=== PATIENT | female | born 1990 | race Caucasian/White ===

== ENCOUNTER 2016-10-15 09:11 | Emergency (ER) | payer OTHER ==
[~2016-10-15] VITALS: Ht 152.4 cm; Wt 99.8 kg
[~2016-10-15 09:11] MED LIST: AC500T; AC500T PO; ACET-2222; ACHD5005 PO; ALBU17AE3 IH; AMIT10TA6 PO; AMIT25TA9 PO; AMOX500C2 PO; BACL10TA PO; BUTA-234; CEPH500C PO; CLAR-19 PO; CPR500T PO; CYCL10TA9; CYCL10TA9 PO; DCS100C PO; DEXA4TAB PO; DICL50TA4 PO; DICY10CA26 PO; DICY20TA57 PO; DILT120C54 PO; DIPH1TAB25 PO; DIPH25TA82 PO; DOXY-13 PO; DOXY100C2 PO; DOXY100C49; DULO30CA PO; GABA800T9 PO; GBPN600T PO; GUAI120013 PO; HYDR-34 PO; HYDR-3714 PO; HYDR-3812 PO; HYDR-3820 PO; HYDR-707 PO; HYDR-757 PO; HYDR1TAB PO; HYOS0.1217 PO; IBP800T PO; IMITREX; INDM25C; ISOM1CAP11; LAMO5TAB2 PO; LOPE2TAB17 PO; LURA40TA PO; MECL25TA56 PO; MELO-195 PO; MELO15TA39 PO; METH500T7 PO; METO-354 PO; METR250T PO; METR500T; METR500T PO; MGX400T; NADALOL; NADO20TA PO; NAPR-243 PO; NAPR-684 PO; NAPR500T PO; NAPROSYN; NITR-65 PO; NITR100C3 PO; OMEP-10 PO; OMEP10CA4 PO; OMEP20CA6; ONDA4TAB11 PO; ONDA8TAB13 PO; ONDAN4ODT; ONDAN4ODT PO; ONDN4T; OXYC10TA63 PO; PENI250T2 PO; PNT40TEC PO; PRD10T PO; PRD20T PO; PRD50T PO; PREG25CA PO; PREN1TAB39 PO; PRM25T PO; PROM12.59 PO; PROM25SU10 PR; PROP1TAB77 PO; QUET50TA; RIZA10TA23 PO; RIZA5TAB13; SUCR1TAB PO; SULF1TAB38; SULF1TAB38 PO; TEMA15CA54 PO; TIZA4TAB55 PO; TOPAMAX; TPR100T; TRAM50TA2 PO; TRAZ150T42 PO; TRAZ150T72 PO; TRM50T PO; TYLENOL #3 PO; ZLP10T PO; [UNRECOGNIZED DRUG - OTHER]; propranolol
--- NOTE | 2016-10-15 10:24 | ED EENT ---
History of Present Illness General Chief Complaint: Oral/Throat Problems Stated Complaint: SWOLLEN TONSILS/VOMITING Nursing Triage Note: PT CO OF SORETHROAT Source: patient History of Present Illness Time seen by provider: 09:30 Initial Comments CO SORE THROAT X 3-4 DAYS NO FEVER NO URI SYMPTOMS NO KNOWN SICK CONTACTS HAVING DIFFICULTY SWALLOWING FOOD DUE TO PAIN, BUT NO DIFFICULTY SWALLOWING SALIVA OR BREATHING. ABLE TO SWALLOW LIQUIDS HAS HISTORY OF FREQUENT TONSILLITIS--LAST EPISODE 2-3 MONTHS AGO PCP: DR. LOUIS Allergies and Home Medications Allergies Coded Allergies: Mustard (Unverified Allergy, Mild, 08/21/10) gadoteridol (Unverified Allergy, Mild, 11/26/09) bee venom (honey bee) (Verified Allergy, Unknown, 06/07/12) Uncoded Allergies: GOINS PEPPERS (Allergy, Unknown, 03/19/15) MRI DYE (Adverse Reaction, Unknown, 12/18/12) Home Medications No Active Prescriptions or Reported Meds Review of Systems Constitutional: no symptoms reported Eyes: No Symptoms Reported Ears: No Symptoms Reported Nose: no symptoms reported Mouth: no symptoms reported Throat: see HPI pain swellingdenies neck stiffness, hoarse painful swallowingdenies difficulty with fluids Respiratory: no symptoms reported Cardiovascular: no symptoms reported Gastrointestinal: no symptoms reported Musculoskeletal: no symptoms reported Skin: no symptoms reported Neurological: No Symptoms Reported Hematologic/Lymphatic: No Symptoms Reported Immunological/Allergic: no symptoms reported Past Smjgzof-Sapulk-Nyfhhf Hx Patient Social History Alcohol Use: Denies Use Recreational Drug Use: No Smoking Status: Never a Smoker Recent Foreign Travel: No Contact w/Someone Who Travel: No Recent Infectious Disease Expo: No Physical Abuse Screen: No Sexual Abuse: No Immunizations Up To Date Tetanus Booster (TDap): Unknown Date of Pneumonia Vaccine: Aug 16, 2009 Date of Influenza Vaccine: Jul 15, 2011 Seasonal Allergies Seasonal Allergies: No Surgeries HX Surgeries: Yes ( X2, PARTIAL HYST--OVARIES INTACT; LEFT KNEE SCOPE , RIGHT SHOULDER SCOPE) Surgeries: Section, Gallbladder, Hysterectomy, Orthopedic Respiratory Hx Respiratory Disorders: No Cardiovascular Hx Cardiac Disorders: No Neurological Hx Neurological Disorders: Yes Neurological Disorders: Headaches /Migraines Reproductive System Hx Reproductive Disorders: No Sexually Transmitted Disease: Yes (chlamydia before -2008) Female Reproductive Disorders: Endometriosis BAND SAWYER History: Hysterectomy Genitourinary Hx Genitourinary Disorders: No Gastrointestinal Hx Gastrointestinal Disorders: No Musculoskeletal Hx Musculoskeletal Disorders: Yes (SPINAL STENOSIS) Musculoskeletal Disorders: Arthritis, Chronic Back Pain Endocrine Hx Endocrine Disorders: No HEENT HX ENT Disorders: No Cancer Hx Cancer: No Psychosocial Hx Psychiatric Problems: Yes Behavioral Health Disorders: Bipolar Integumentary HX Skin/Integumentary Disorder: No Blood Transfusions Hx Blood Disorders: No Family Medical History Significant Family History: No Pertinent Family Hx Physical Exam Vital Signs Vital Sign - Last 12Hours 10/15/16 09:20 Temp 98.5 Pulse 73 Resp 18 B/P 143/93 Pulse Ox 97 General Appearance: WD/WN no apparent distress Eyes: bilateral eye EOMI, bilateral eye PERRL, bilateral eye normal inspection Ears: bilateral ear TM normal, bilateral ear auricle normal, bilateral ear canal normal Nose: normal inspection Mouth/Throat: No excessive drooling, tonsillar exudate tonsillar swelling (+3/ 4 IN SIZE) uvula swelling voice changes (SLIGHTLY MUFFLED) Neck: non-tender full range of motion supple lymphadenopathy (R) (MILD ANTERIOR) lymphadenopathy (L) (MILD ANTERIOR) Cardiovascular: normal peripheral pulses regular rate, rhythm no murmur Respiratory: normal breath sounds no respiratory distress no accessory muscle use Gastrointestinal: normal bowel sounds non tender soft no organomegaly Neurologic/Psychiatric: 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-XII nml as tested no motor/sensory deficits alert normal mood/affect oriented x 3 Skin: normal color warm/dryNo rash Progress/Results/Core Measures Results/Orders Lab Results Laboratory Tests Test 10/15/16 09:20 10/15/16 10:15 Range/Units Group A Streptococcus Screen NEGATIVE NEGATIVE Monoscreen NEGATIVE NEGATIVE My Orders Orders-MINE TRAN DO Rapid Strep A Screen (10/15/16 09:32) Monotest (10/15/16 09:54) Rocephin 1000mg Im (10/15/16 10:45) Lidocaine 1% Injection (Xylocaine 1% Inj (10/15/16 10:45) Methylprednisolone Sod Succ (Solu-Medrol (10/15/16 10:45) Vital Signs/I&O Vital Sign - Last 12Hours 10/15/16 09:20 Temp 98.5 Pulse 73 Resp 18 B/P 143/93 Pulse Ox 97 Blood Pressure Mean: 110 Departure Impression Impression: Primary Impression: Exudative pharyngitis Disposition: 01 HOME, SELF-CARE Condition: Stable Departure-Patient Inst. Referrals: TED LOUIS MD (PCP/Family) Primary Care Physician Patient Instructions: Sore Throat, Adult (DC) Add. Discharge Instructions: LOTS OF CLEAR LIQUIDS FREQUENT SALT WATER GARGLES TYLENOL AND MOTRIN NEEDED FOR PAIN OR FEVER FOLLOW UP WITH YOUR DR IN 2-3 DAYS IF NO BETTER All discharge instructions reviewed with patient and/or family. Voiced understanding. Scripts Methylprednisolone (Medrol)4 Mg Tab.ds.pk4 Mg PO UD #1 PKG Prov:MINE TRAN DO 10/15/16 Amoxicillin/Potassium Clav (Augmentin 875-125 Tablet)1 Each Tablet1 Each PO BID INFECTION #20 TAB Prov:MINE TRAN DO 10/15/16 MINE TRAN DO Oct 15, 2016 10:24
[2016-10-15] MEDS ORDERED: methylPREDNISolone 125 MG (Solu-MEDROL) VIAL IM ONE (10:45)
[2016-10-15] MEDS ORDERED: cefTRIAXone 1 GM (ROCEPHIN) VIAL IM ONE (10:45)
[2016-10-15] MEDS ORDERED: LIDOCAINE 1% INJ 20 ML (XYLOCAINE) VIAL INJ ONE (10:45)
[2016-10-15] MEDS ORDERED: METH4TAB PO (10:47)
[2016-10-15] MEDS ORDERED: AMOX-358 PO (10:47)
[2016-10-15 11:13] VITALS: BP 143/93
== END 2016-10-15 11:13 | disposition home or self-care (01) ==
LOC: EDUNIT# 09:11 → ER 09:13
DX: J02.9 Acute pharyngitis, unspecified (principal)
CPT/HCPCS: 36415; 86308; 87430; 96372; 99283

== ENCOUNTER 2017-01-13 18:28 | Emergency (ER) | payer OTHER ==
[~2017-01-13] VITALS: Ht 152.4 cm; Wt 93.0 kg
[~2017-01-13 18:28] MED LIST changes: +AMOX-358 PO; +METH4TAB PO
[2017-01-13] MEDS ORDERED: ONDANSETRON 4 MG (ZOFRAN) ORAL DISSOLVE TAB SL ONE (18:45)
[2017-01-13] MEDS ORDERED: HYOSCYAMINE 0.125 MG (LEVSIN) TAB PO ONE (18:45)
[2017-01-13 18:52] LABS: BILIRUBIN,URINE NEGATIVE (NEGATIVE); KETONES,URINE NEGATIVE (NEGATIVE); LEUKOCYTE ESTERASE ,URINE NEGATIVE (NEGATIVE); NITRITE,URINE NEGATIVE (NEGATIVE); PH,URINE 7 (5-9); PROTEIN,URINE NEGATIVE (NEGATIVE); UROBILINOGEN,URINE NORMAL (NORMAL)
[2017-01-13 19:01] LABS: WBC,URINE RARE /HPF
[2017-01-13] MEDS ORDERED: KETOROLAC 30 MG/ML VIAL IVP ONE (19:45)
[2017-01-13 19:51] LABS: BASOPHILS # (AUTO) 0.1 10^3/uL (0.0-0.1); BASOPHILS % (AUTO) 1 % (0-10); EOSINOPHILS # (AUTO) 0.4 10^3/uL (0.0-0.3); EOSINOPHILS % (AUTO) 3 % (0-10); LYMPHOCYTES # (AUTO) 2.9 X 10^3 (1.0-4.0); LYMPHOCYTES % (AUTO) 28 % (12-44); MEAN CORPUSCULAR HEMOGLOBIN 30 PG (25-34); MEAN CORPUSCULAR HGB CONC 34 G/DL (32-36); MEAN CORPUSCULAR VOLUME 88 FL (80-99); MEAN PLATELET VOLUME 11.4 FL (7.4-10.4); MONOCYTES # (AUTO) 0.9 X 10^3 (0.0-1.0); MONOCYTES % (AUTO) 9 % (0-12); NEUTROPHILS # (AUTO) 6.3 X 10^3 (1.8-7.8); NEUTROPHILS % (AUTO) 59 % (42-75); PLATELET COUNT 236 10^3/uL (130-400); RED BLOOD COUNT 4.66 10^6/uL (4.35-5.85); RED CELL DISTRIBUTION WIDTH 13.6 % (10.0-14.5); WHITE BLOOD COUNT 10.6 10^3/uL (4.3-11.0)
[2017-01-13] MEDS ORDERED: cefTRIAXone INJECTION 1,000 MG in NS (IVPB) 50 ML IV ONE (20:00)
[2017-01-13] MEDS ORDERED: ACYCLOVIR 400 MG TABLET (ZOVIRAX) PO ONE (20:00)
[2017-01-13] MEDS ORDERED: AZITHROMYCIN 250 MG TAB (ZITHROMAX) PO ONE (20:00)
[2017-01-13] MEDS ORDERED: cefTRIAXone 1 GM (ROCEPHIN) VIAL ONE (20:04)
[2017-01-13] MEDS ORDERED: NS (IVPB) 50 ML ONE (20:05)
[2017-01-13 20:34] LABS: ALANINE AMINOTRANSFERASE 14 U/L (0-55); ALBUMIN 4.1 G/DL (3.2-4.5); ANION GAP 8 MMOL/L (5-14); ASPARTATE AMINO TRANSFERASE 13 U/L (5-34); BILIRUBIN,TOTAL 0.3 MG/DL (0.1-1.0); BLOOD UREA NITROGEN 13 MG/DL (7-18); BUN/CREATININE RATIO 19; CALCIUM 8.8 MG/DL (8.5-10.1); CARBON DIOXIDE 22 MMOL/L (21-32); CHLORIDE 107 MMOL/L (98-107); CREATININE SERUM 0.69 MG/DL (0.60-1.30); GFR ESTIMATED > 60; GLUCOSE 87 MG/DL (70-105); POTASSIUM 3.8 MMOL/L (3.6-5.0); SODIUM 137 MMOL/L (135-145); TOTAL PROTEIN 6.9 G/DL (6.4-8.2); hs C REACTIVE PROTEIN 0.56 MG/DL (0.00-0.50)
[2017-01-13] MEDS ORDERED: RX-ONDANSETRON 4 MG ODT (ZOFRAN) PPK #4 PO STA (20:43)
[2017-01-13] MEDS ORDERED: ACYC400T PO (20:52)
--- NOTE | 2017-01-13 20:52 | ED General ---
General Chief Complaint: -Female Stated Complaint: CRAMPING/SPOTTING Nursing Triage Note: PT REPORTS THAT SHE STARTED SPOTTING LAST NOC AND TODAY BEGAN HAVING LOWER ABD CRAMPING. Nursing Sepsis Screen: No Definite Risk Source of Information: Patient Exam Limitations: No Limitations History of Present Illness Time Seen by Provider: 18:36 Initial Comments this 26-year-old woman presents to the emergency room with complaints of abdominal cramping, vomiting, diarrhea, and vaginal spotting. Symptoms started yesterday. The vaginal spotting is perplexing to her because she has had a partial hysterectomy for reasons of endometriosis. Symptoms did start after having intercourse. Patient's partner is relatively new and has had another partner within the past month. Patient is afebrile. Allergies and Home Medications Allergies Coded Allergies: gadoteridol (Unverified Allergy, Mild, 11/26/09) mustard (Unverified Allergy, Mild, 08/21/10) venom-honey bee (Verified Allergy, Unknown, 06/07/12) Uncoded Allergies: GOINS PEPPERS (Allergy, Unknown, 03/19/15) MRI DYE (Adverse Reaction, Unknown, 12/18/12) Home Medications Acyclovir 400 Mg Tablet, 400 MG PO TID, #30 Prescribed by: KAMILA SANABRIA on 01/13/172051 Amoxicillin/Potassium Clav 1 Each Tablet, 1 EACH PO BID, #20 Prescribed by: MINE TRAN on 10/15/16 1047 Methylprednisolone 4 Mg Tab.ds.pk, 4 MG PO UD, #1 Prescribed by: MINE TRAN on 10/15/16 1047 Constitutional: no symptoms reported EENTM: no symptoms reported Respiratory: no symptoms reported Cardiovascular: no symptoms reported Gastrointestinal: see HPI Genitourinary: see HPI : No Musculoskeletal: no symptoms reported Skin: no symptoms reported Psychiatric/Neurological: No Symptoms Reported Hematologic/Lymphatic: No Symptoms Reported Past Nlwvrae-Cechah-Gmlkpt Hx Patient Social History Alcohol Use: Denies Use Recreational Drug Use: No Smoking Status: Current Everyday Smoker Type Used: Cigarettes 2nd Hand Smoke Exposure: No Recent Foreign Travel: No Contact w/Someone Who Travel: No Recent Infectious Disease Expo: No Recent Hopitalizations: No Immunizations Up To Date Tetanus Booster (TDap): Unknown Date of Pneumonia Vaccine: Aug 16, 2009 Date of Influenza Vaccine: Jul 15, 2011 Seasonal Allergies Seasonal Allergies: No Surgeries HX Surgeries: Yes Surgeries: Section, Gallbladder, Hysterectomy (sparing the ovaries), Orthopedic Respiratory Hx Respiratory Disorders: No Cardiovascular Hx Cardiac Disorders: No Neurological Hx Neurological Disorders: Yes Neurological Disorders: Headaches /Migraines Reproductive System Hx Reproductive Disorders: No Sexually Transmitted Disease: Yes (chlamydia before -2009) Female Reproductive Disorders: Endometriosis 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 Genitourinary Hx Genitourinary Disorders: No Gastrointestinal Hx Gastrointestinal Disorders: No Musculoskeletal Hx Musculoskeletal Disorders: Yes (SPINAL STENOSIS) Musculoskeletal Disorders: Arthritis, Chronic Back Pain Endocrine Hx Endocrine Disorders: No HEENT HX ENT Disorders: No Cancer Hx Cancer: No Psychosocial Hx Psychiatric Problems: Yes Behavioral Health Disorders: Bipolar Integumentary HX Skin/Integumentary Disorder: No Blood Transfusions Hx Blood Disorders: No Family Medical History Significant Family History: No Pertinent Family Hx Physical Exam Vital Signs Vital Sign - Last 12Hours 01/13/17 18:39 Temp 97.3 Pulse 84 Resp 18 B/P (MAP) 140/84 Pulse Ox 98 O2 Delivery Room Air Capillary Refill : Less Than 3 Seconds General Appearance: WD/WN, Mild Distress HEENT: Normal ENT Inspection Neck: Normal Inspection Respiratory: Lungs Clear, Normal Breath Sounds, No Accessory Muscle Use, No Respiratory Distress Cardiovascular: Regular Rate, Rhythm, No Edema, No Murmur Gastrointestinal: Normal Bowel Sounds, Soft, Tenderness (throughout the lower abdomen) Rectal: Other (no obvious bleeding near the rectum) Genital/Rectal: Other (small furuncle on the posterior upper right thigh near the buttocks. Patchy vaginal inflammation on speculum exam. No active bleeding noted. Tenderness with vaginal exam.) Extremity: Normal Inspection, No Pedal Edema Neurologic/Psychiatric: Alert, Oriented x3, No Motor/Sensory Deficits, Normal Mood/Affect, powerhouse mechanic II-XII Norm as Tested Skin: Normal Color, Warm/Dry Progress/Results/Core Measures Results/Orders Lab Results Laboratory Tests Test 01/13/17 18:46 01/13/17 19:30 01/13/17 19:42 Range/Units Urine Color YELLOW Urine Clarity CLEAR Urine pH 7 5-9 Urine Specific [place] 1.015 L 1.016-1.022 Urine Protein NEGATIVE NEGATIVE Urine Glucose (UA) NEGATIVE NEGATIVE Urine Ketones NEGATIVE NEGATIVE Urine Nitrite NEGATIVE NEGATIVE Urine Bilirubin NEGATIVE NEGATIVE Urine Urobilinogen NORMAL NORMAL MG/DL Urine Leukocyte Esterase NEGATIVE NEGATIVE Urine RBC (Auto) NEGATIVE NEGATIVE Urine RBC NONE /HPF Urine WBC RARE /HPF Urine Squamous Epithelial Cells 5-10 /HPF Urine Crystals NONE /LPF Urine Bacteria NEGATIVE /HPF Urine Casts NONE /LPF Urine Mucus NEGATIVE /LPF Urine Culture Indicated NO White Blood Count 10.6 4.3-11.0 10^3/uL Red Blood Count 4.66 4.35-5.85 10^6/uL Hemoglobin 14.1 11.5-16.0 G/DL Hematocrit 41 35-52 % Mean Corpuscular Volume 88 80-99 FL Mean Corpuscular Hemoglobin 30 25-34 PG Mean Corpuscular Hemoglobin Concent 34 32-36 G/DL Red Cell Distribution Width 13.6 10.0-14.5 % Platelet Count 236 130-400 10^3/uL Mean Platelet Volume 11.4 H 7.4-10.4 FL Neutrophils (%) (Auto) 59 42-75 % Lymphocytes (%) (Auto) 28 12-44 % Monocytes (%) (Auto) 9 0-12 % Eosinophils (%) (Auto) 3 0-10 % Basophils (%) (Auto) 1 0-10 % Neutrophils # (Auto) 6.3 1.8-7.8 X 10^3 Lymphocytes # (Auto) 2.9 1.0-4.0 X 10^3 Monocytes # (Auto) 0.9 0.0-1.0 X 10^3 Eosinophils # (Auto) 0.4 H 0.0-0.3 10^3/uL Basophils # (Auto) 0.1 0.0-0.1 10^3/uL Sodium Level 137 135-145 MMOL/L Potassium Level 3.8 3.6-5.0 MMOL/L Chloride Level 107 98-107 MMOL/L Carbon Dioxide Level 22 21-32 MMOL/L Anion Gap 8 5-14 MMOL/L Blood Urea Nitrogen 13 7-18 MG/DL Creatinine 0.69 0.60-1.30 MG/DL Estimat Glomerular Filtration Rate > 60 BUN/Creatinine Ratio 19 Glucose Level 87 70-105 MG/DL Calcium Level 8.8 8.5-10.1 MG/DL Total Bilirubin 0.3 0.1-1.0 MG/DL Aspartate Amino Transf (AST/SGOT) 13 5-34 U/L Alanine Aminotransferase (ALT/SGPT) 14 0-55 U/L Alkaline Phosphatase 71 40-136 U/L C-Reactive Protein High Sensitivity 0.56 H 0.00-0.50 MG/DL Total Protein 6.9 6.4-8.2 G/DL Albumin 4.1 3.2-4.5 G/DL My Orders Orders - KAMILA MORALES MD Ua Culture If Indicated (01/13/17 18:42) Hyoscyamine Sl Tablet (Levsin Sl Tablet) (01/13/17 18:45) Ondansetron Oral Dissolve Tab (Zofran (01/13/17 18:45) Ketorolac Injection (Toradol Injection) (01/13/17 19:45) Cbc With Automated Diff (01/13/17 19:33) Comprehensive Metabolic Panel (01/13/17 19:33) Hs C Reactive Protein (01/13/17 19:33) Wet Prep (01/13/17 19:33) Neisseria Gonorrhea Dna (01/13/17 19:33) Chlamydia Dna (01/13/17 19:33) Genital Culture (01/13/17 19:33) Mariana Prep (01/13/17 19:33) Ceftriaxone Injection (Rocephin Injectio (01/13/17 20:00) Azithromycin Tablet (Zithromax Tablet) (01/13/17 20:00) Acyclovir Capsule/Tablet (Zovirax Caps (01/13/17 20:00) Ceftriaxone Injection (Rocephin Injectio (01/13/17 20:04) Ns (Ivpb) (Sodium Chloride 0.9% Ivpb Bag (01/13/17 20:05) Rx-Ondansetron Po (Rx-Zofran Po) (01/13/17 20:43) Medications Given in ED Current Medications Medications Dose Ordered Sig/Vee Route Start Time Stop Time Status Last Admin Dose Admin Acyclovir 400 mg ONCE ONCE PO 01/13/17 20:00 01/13/17 20:01 DC 01/13/17 20:08 400 MG Azithromycin 1,000 mg ONCE ONCE PO 01/13/17 20:00 01/13/17 20:01 DC 01/13/17 20:08 1,000 MG Ceftriaxone Sodium 1000 mg/ Sodium Chloride 50 ml @ 100 mls/hr ONCE ONCE IV 01/13/17 20:00 01/13/17 20:35 DC 01/13/17 20:08 100 MLS/HR Ketorolac Tromethamine 30 mg ONCE ONCE IVP 01/13/17 19:45 01/13/17 19:46 DC 01/13/17 19:41 30 MG Vital Signs/I&O Vital Sign - Last 12Hours 01/13/17 21:02 Pulse 68 Resp 18 Pulse Ox 99 Intake and Output 01/14/17 00:00 Intake Total 50 ml Balance 50 ml Blood Pressure Mean: 102 Progress Note : Progress Note White cells were noted on the preliminary vaginal swab without any other significant abnormalities. Because of the possible high-risk sexual exposure, patient was empirically treated with azithromycin and Rocephin. She was also treated with acyclovir as the vaginal irritation was suspicious for herpes. Toradol was administered for pain.Zofran helped with nausea but cramping was intermittently still present. Departure Impression Impression: Primary Impression: Abdominal pain, left lower quadrant Additional Impressions: Abdominal cramping Nausea vomiting and diarrhea Vaginal bleeding Vaginal irritation Disposition: 01 HOME, SELF-CARE Condition: Improved Departure-Patient Inst. Decision time for Depature: 20:40 Referrals: TED LOUIS MD (PCP/Family) Primary Care Physician Patient Instructions: Acute Abdomen (Belly Pain) Add. Discharge Instructions: Clear liquid diet until symptoms of nausea and diarrhea improved. Then gradually advance your diet with small quantities of bland food as tolerated. Follow-up with your gynecologic provider in 5-10 weeks to review culture results. Complete acyclovir as prescribed. Return to care if symptoms worsen. Vaginal rest until cleared by your doctor. Use Zofran dissolved under the tongue every 4 hours as needed for nausea. Use Tylenol and/or ibuprofen for pain. All discharge instructions reviewed with patient and/or family. Voiced understanding. Scripts Acyclovir (Acyclovir) 400 Mg Tablet 400 MG PO TID, #30 TAB Prov: KAMILA MORALES MD 01/13/17 Copy Copies To 1: TED LOUIS MD, JOSHUA T MD Jan 13, 2017 20:52
[2017-01-13 21:02] VITALS: BP 117/72
--- OUTSIDE RECORDS SUMMARY | 2017-02-06 09:39 | XMS REPORT ---
Author Author SHAWNA SHARMA Organization [employer] Address Unknown Phone Unavailable Care Team Providers Care Frame Fixer Name Role Phone SHAWNA SHARMA CP Unavailable Allergies No Known Allergies Problems Problem Type Condition Code Onset Dates Condition Status Problem Unspecified episodic mood disorder 296.90 Active Problem Carpal tunnel syndrome 354.0 Active Problem Migraine without aura, without mention of intractable migraine without mention of status migrainosus 346.10 Active Assessment Plantar fasciitis M72.2 Active Medications No Known Medications Procedures Procedure Coding System Code Date DEPO MEDROL 80 MG/ML CPT-4 J1040 Sep 03, 2015 Office Visit, Est Pt., Level 3 CPT-4 81401 Sep 03, 2015 INJ TENDON SHEATH/LIGAMENT CPT-4 12823 Sep 03, 2015 Vital Signs Date/Time: Sep 03, 2015 Blood Pressure Diastolic 80 mmHg Blood Pressure Systolic 130 mmHg Height 60 in Results Name Result Date Reference Range Unit Abnormality Flag INJ TENDON SHEATH/LIGAMENT Summary Purpose [employer] Submission
--- OUTSIDE RECORDS SUMMARY | 2017-02-06 09:39 | XMS REPORT ---
Author Author TED LOUIS [facility] [employer] Address Unknown Phone Unavailable Care Team Providers Care Global President Name Role Phone TED LOUIS Unavailable Allergies No Known Allergies Problems Problem Type Condition Code Onset Dates Condition Status Problem Low back pain M54.5 Active Problem Chronic prescription opiate use Z79.899 Active Problem Migraine with aura and without status migrainosus, not intractable G43.109 Active Assessment Elevated fasting glucose R73.01 Active Medications No Known Medications Results No Known Results Summary Purpose [employer] Submission
--- OUTSIDE RECORDS SUMMARY | 2017-02-06 09:40 | XMS REPORT ---
Author Author HERIBERTO TED Organization [facility] Address [address] [place] [address] Care Team Providers Care Manager Nursing Home Name Role Phone TED LOUIS Unavailable PROBLEMS Type Condition ICD9-CM Code [id number] Code Onset Dates Condition Status SNOMED Code Problem Migraine with aura and without status migrainosus, not intractable G43.109 Active 6088326 Problem Low back pain M54.5 Active 361560271 Problem Chronic prescription opiate use Z79.899 Active 698011233 Assessment Breast lump N63 Sep, Active 56402254 ALLERGIES Substance Reaction Event Type Date Status Bee Pollen Unknown Drug Allergy Sep, Active Rome Peppers Unknown Non Drug Allergy Sep, Active CT Dye tongue swells, respiratory distress, rash Non Drug Allergy Sep, Active SOCIAL HISTORY No smoking Hx information available PLAN OF CARE Activity Details Pending Test Ultrasound : Breast, Right prn,Reason: VITAL SIGNS Height 60 in 2016-09-22 Weight 217.9 lbs 2016-09-22 Heart Rate 77 bpm 2016-09-22 Respiratory Rate 18 2016-09-22 BMI 42.55 kg/m2 2016-09-22 Blood pressure systolic 168 mmHg 2016-09-22 Blood pressure diastolic 78 mmHg 2016-09-22 MEDICATIONS Medication Instructions Dosage Frequency Start Date End Date Duration Status Lamictal 25 MG Orally take one tab daily X14 days, then take 1 tab bid 1- 2tablets Mar, 30 day(s) Active Tramadol HCl 50 MG Orally every 8 hrs 1 tablet as needed 8h February, Active Vicoprofen 7.5-200 MG Orally every 6 hrs 1 tablet as needed 6h Jun, Active Aleve 220 MG Orally every 12 hrs 1 tablet as needed 12h Active Gabapentin 800 mg 1 Tablet by Oral route 3 daily PRN for back/hip/leg pain Jun, Active RESULTS Name Result Date Reference Range Ultrasound : Breast, Right 2016-10-03 PROCEDURES Procedure Date Ordered Related Diagnosis Body Site Office Visit, Est Pt., Level 3 Sep 22, 2016 IMMUNIZATIONS No Known Immunizations
--- OUTSIDE RECORDS SUMMARY | 2017-02-06 09:40 | XMS REPORT ---
Author Author JOMAR SARGENT Organization [facility] Address [address] [place] [address] Care Team Providers Care Coal Or Ore Controller Name Role Phone JOMAR SARGENT Unavailable PROBLEMS Type Condition ICD9-CM Code [id number] Code Onset Dates Condition Status SNOMED Code Problem Low back pain M54.5 Active 162334572 Problem Chronic prescription opiate use Z79.899 Active 560710053 Assessment Abdominal pain, lower R10.30 Jun, Active 94855677 ALLERGIES Substance Reaction Event Type Date Status Bee Pollen Unknown Drug Allergy Jun, Active Rome Peppers Unknown Non Drug Allergy Jun, Active CT Dye tongue swells, respiratory distress, rash Non Drug Allergy Jun, Active SOCIAL HISTORY No smoking Hx information available PLAN OF CARE VITAL SIGNS Height 60 in 2016-06-28 Weight 218.4 lbs 2016-06-28 Heart Rate 76 bpm 2016-06-28 Respiratory Rate 18 2016-06-28 BMI 42.65 kg/m2 2016-06-28 Blood pressure systolic 114 mmHg 2016-06-28 Blood pressure diastolic 70 mmHg 2016-06-28 MEDICATIONS Medication Instructions Dosage Frequency Start Date End Date Duration Status Vicoprofen 7.5-200 MG Orally every 6 hrs 1 tablet as needed 6h Jun, Active Aleve 220 MG Orally every 12 hrs 1 tablet as needed 12h Active PredniSONE 20 mg Orally Once a day 2 tablets 24h Jun, Jun, 05 days Active Gabapentin 800 mg 1 Tablet by Oral route 3 daily PRN for back/hip/leg pain Jun, Active Lamictal 25 MG Orally take one tab daily X14 days, then take 1 tab bid 1- 2tablets Mar, 30 day(s) Active Tramadol HCl 50 MG Orally every 8 hrs 1 tablet as needed 8h February, Active RESULTS Name Result Date Reference Range UA LONG DIP (IN HOUSE) 2016-06-28 Lot # [id number] Exp date 2016-11 Clarity clear Color yellow Odor none GLU negative AMAIRANI negative KET negative SG >=1.030 BLO negative pH 6.0 Protein negative URO 0.2 NIT negative LAZARO negative Lot # [id number] Exp date 08-31 PROCEDURES Procedure Date Ordered Related Diagnosis Body Site URINALYSIS, AUTO, W/O SCOPE Jun 28, 2016 Office Visit, Est Pt., Level 3 Jun 28, 2016 THER/PROPH/DIAG INJ, SC/IM Jun 28, 2016 TORADOL (IM) 60 MG/2ML (UP TO 15 MG) Jun 28, 2016 IMMUNIZATIONS Vaccine Route Administration Date Status TORADOL (IM) 60 MG/2ML (UP TO 15 MG) IM Intramuscular Jun 28, 2016 Administered
--- OUTSIDE RECORDS SUMMARY | 2017-02-06 09:41 | XMS REPORT ---
Author Author HEIKE DE LA ROSA [facility] eClinicalWorks Address Unknown Phone Unavailable Care Team Providers Care Service Desk Agent Name Role Phone HEIKE DE LA ROSA Unavailable Allergies, Adverse Reactions, Alerts Substance Reaction Event Type Bee Pollen Info Not Available Drug Allergy Rome Peppers Info Not Available Non Drug Allergy CT Dye tongue swells, respiratory distress, rash Non Drug Allergy Problems Problem Type Condition Code Onset Dates Condition Status Problem Chronic prescription opiate use Z79.899 Active Problem Migraine G43.909 Active Problem Low back pain M54.5 Active Assessment Sore throat J02.9 Active Medications Medication Code System Code Instructions Start Date End Date Status Dosage Naprosyn [facility] [address]-04 500 MG Orally every 12 hrs 1 tablet as needed Penicillin V Potassium [facility] [address]-88 500 MG Orally Four times a day Nov 25, 2015 Dec 05, 2015 1 tablet Gabapentin [facility] [address]-78 800 mg Jul 07, 2014 1 Tablet by Oral route 3 daily PRN for back/hip/leg pain Meloxicam [facility] [address]-79 15 mg Aug 24, 2014 1 Tablet by Po route 1 time per day given by Dr. Corea Methocarbamol [facility] [address]-59 500 mg February 03, 2014 1 Tablet by Po route 3 times per day prescribed by Dr Corea Tramadol HCl [facility] [address]-88 50 MG Orally every 8 hrs February 22, 2015 1 tablet as needed Topamax [facility] [address]-83 25 MG Orally Once a day 1 tablet Lamictal [facility] [address]-52 25 MG Orally take one tab daily X14 days, then take 1 tab bid March 23, 2015 1-2tablets Trazodone HCl [facility] [address]-48 150 MG Orally Once a day May 07, 2015 1 tablet at bedtime as needed Procedures Procedure Coding System Code Date STREP A ASSAY W/OPTIC CPT-4 80580 Nov 25, 2015 Office Visit, Est Pt., Level 3 CPT-4 02940 Nov 25, 2015 Vital Signs Date/Time: Nov 25, 2015 Temperature 97.6 F Weight 219.2 lbs Height 60 in BMI 42.80 Index Blood Pressure Diastolic 70 mmHg Blood Pressure Systolic 112 mmHg Cardiac Monitoring Heart Rate 68 bpm Results Name Result Date Reference Range Unit Abnormality Flag STREP A (IN HOUSE) ----STREP A Negative [id number] ----Control + [id number] ----Lot # [id number] ----Exp date 07/23/201720151125 Summary Purpose eClinicalWorks Submission
--- OUTSIDE RECORDS SUMMARY | 2017-02-06 09:41 | XMS REPORT ---
Author Author TED LOUIS [facility] eClinicalWorks Address Unknown Phone Unavailable Care Team Providers Care Diesel Power Mechanic Name Role Phone TED LOUIS Unavailable Allergies No Known Allergies Problems Problem Type Condition Code Onset Dates Condition Status Problem Low back pain M54.5 Active Problem Chronic prescription opiate use Z79.899 Active Problem Migraine with aura and without status migrainosus, not intractable G43.109 Active Assessment Elevated fasting glucose R73.01 Active Medications No Known Medications Procedures Procedure Coding System Code Date GLYCATED HEMOGLOBIN TEST CPT-4 71943 Aug 01, 2016 Results No Known Results Summary Purpose eClinicalWorks Submission
--- OUTSIDE RECORDS SUMMARY | 2017-02-06 09:41 | XMS REPORT ---
Author Author CHRISTIERANDAL Gresham Organization [facility] Address [address] [place] [address] Care Team Providers Care Ethylbenzene Oxidizer Name Role Phone RANDAL CHRISTIE Unavailable PROBLEMS Type Condition ICD9-CM Code XTE35-GD Code Onset Dates Condition Status SNOMED Code Problem Low back pain M54.5 Active 609771108 Problem Chronic prescription opiate use Z79.899 Active 759419627 Assessment Pelvic pain R10.2 Jun, Active 15462272 Assessment Vaginal candidiasis B37.3 Jun, Active 28715950 ALLERGIES Substance Reaction Event Type Date Status Bee Pollen Unknown Drug Allergy Jun, Active Rome Peppers Unknown Non Drug Allergy Jun, Active CT Dye tongue swells, respiratory distress, rash Non Drug Allergy Jun, Active SOCIAL HISTORY No smoking Hx information available PLAN OF CARE VITAL SIGNS Height 60 in 2016-06-29 Weight 220.2 lbs 2016-06-29 Heart Rate 77 bpm 2016-06-29 Respiratory Rate 18 2016-06-29 BMI 43.00 kg/m2 2016-06-29 Blood pressure systolic 162 mmHg 2016-06-29 Blood pressure diastolic 83 mmHg 2016-06-29 MEDICATIONS Medication Instructions Dosage Frequency Start Date End Date Duration Status Lamictal 25 MG Orally take one tab daily X14 days, then take 1 tab bid 1- 2tablets Mar, 30 day(s) Active Diflucan 150 MG Orally one time 1 tablet Jun, Active Gabapentin 800 mg 1 Tablet by Oral route 3 daily PRN for back/hip/leg pain Jun, Active Aleve 220 MG Orally every 12 hrs 1 tablet as needed 12h Active Vicoprofen 7.5-200 MG Orally every 6 hrs 1 tablet as needed 6h Jun, Active PredniSONE 20 mg Orally Once a day 2 tablets 24h Jun, Jun, 05 days Active Tramadol HCl 50 MG Orally every 8 hrs 1 tablet as needed 8h February, Active RESULTS Name Result Date Reference Range TRICHOMONAS (IN HOUSE) 2016-06-29 TRICHOMONAS negative Control + Lot # [id number] Exp date 08/2017 UA LONG DIP (IN HOUSE) 2016-06-29 Lot # [id number] Exp date Clarity clear Color yellow Odor none GLU negative AMAIRANI negative KET negative SG 1.025 BLO negative pH 5.5 Protein negative URO 0.2 NIT negative LAZARO negative Lot # Exp date BACTERIAL VAGINOSIS (IN HOUSE) 2016-06-29 RESULTS negative Control + Lot # [id number] Exp date 02/2017 CULTURE, GENITAL 2016-06-29 Genital Culture, Routine Final report Result 1 Ultrasound : Pelvic, COMPLETE (REFLEX CPT-88368) 2016-07-10 GC/CHLAM PROBE (STATE) 2016-06-29 CHLAMYDIA GC PROCEDURES Procedure Date Ordered Related Diagnosis Body Site URINALYSIS, AUTO, W/O SCOPE Jun 29, 2016 TRICHOMONAS ASSAY W/OPTIC Jun 29, 2016 No Charge Jun 29, 2016 [place] VAG, DNA, DIR PROBE Jun 29, 2016 Office Visit, Est Pt., Level 3 Jun 29, 2016 CULTURE, BACTERIA, OTHER Jun 29, 2016 IMMUNIZATIONS No Known Immunizations
--- OUTSIDE RECORDS SUMMARY | 2017-02-06 09:41 | XMS REPORT ---
Author Author TED LOUIS [facility] eClinicalWorks Address Unknown Phone Unavailable Care Team Providers Care Head Piece Assembler Name Role Phone TED LOUIS Unavailable Allergies No Known Allergies Problems Problem Type Condition Code Onset Dates Condition Status Problem Chronic prescription opiate use Z79.899 Active Problem Migraine G43.909 Active Problem Low back pain M54.5 Active Medications No Known Medications Results No Known Results Summary Purpose eClinicalWorks Submission
--- OUTSIDE RECORDS SUMMARY | 2017-02-06 09:41 | XMS REPORT ---
Author Author TED LOUIS eClinicalWorks Address Unknown Phone Unavailable Care Team Providers Care Hide Mill Worker Name Role Phone TED LOUIS CP Unavailable Allergies, Adverse Reactions, Alerts Substance Reaction Event Type Bee Pollen Info Not Available Drug Allergy Rome Peppers Info Not Available Non Drug Allergy CT Dye tongue swells, respiratory distress, rash Non Drug Allergy Problems Problem Type Condition Code Onset Dates Condition Status Assessment Tobacco abuse counseling Z71.6 Active Problem Chronic prescription opiate use Z79.899 Active Problem Migraine G43.909 Active Problem Low back pain M54.5 Active Assessment Screening, lipid Z13.220 Active Assessment Screening for diabetes mellitus Z13.1 Active Assessment Low back pain M54.5 Active Assessment Migraine G43.909 Active Medications Medication Code System Code Instructions Start Date End Date Status Dosage Lamictal [facility] [address]-67 25 MG Orally take one tab daily X14 days, then take 1 tab bid March 23, 2015 1-2tablets Gabapentin [facility] [address]-37 800 mg Jul 07, 2014 1 Tablet by Oral route 3 daily PRN for back/hip/leg pain Meloxicam [facility] [address]-96 15 mg Aug 24, 2014 1 Tablet by Po route 1 time per day given by Dr. Corea Topamax [facility] [address]-55 25 MG Orally Once a day 1 tablet Naprosyn [facility] [address]-99 500 MG Orally every 12 hrs 1 tablet as needed Tramadol HCl [facility] [address]-96 50 MG Orally every 8 hrs February 22, 2015 1 tablet as needed Methocarbamol [facility] [address]-06 500 mg February 03, 2014 1 Tablet by Po route 3 times per day prescribed by Dr Corea Trazodone HCl [facility] [address]-11 150 MG Orally Once a day May 07, 2015 1 tablet at bedtime as needed Procedures Procedure Coding System Code Date Office Visit, Est Pt., Level 3 CPT-4 60476 February 01, 2016 Vital Signs Date/Time: February 01, 2016 Temperature 97.8 F Weight 226.0 lbs Height 60 in BMI 44.13 Index Blood Pressure Diastolic 71 mmHg Blood Pressure Systolic 121 mmHg Cardiac Monitoring Heart Rate 66 bpm Results No Known Results Summary Purpose eClinicalWorks Submission
--- OUTSIDE RECORDS SUMMARY | 2017-02-06 09:42 | XMS REPORT ---
Author Author TED LOUIS eClinicalWorks Address Unknown Phone Unavailable Care Team Providers Care Medical Record Administrator Name Role Phone TED LOUIS CP Unavailable [...] Problem Low back pain M54.5 Active Assessment Chronic prescription opiate use Z79.899 Active Assessment Acute pain of left knee M25.562 Active Assessment Low back pain M54.5 Active Medications Medication Code System Code Instructions Start Date End Date Status Dosage Methocarbamol [facility] [address]-46 500 mg February 03, 2014 1 Tablet by Po route 3 times per day prescribed by Dr Corea Lamictal [facility] [address]-73 25 MG Orally take one tab daily X14 days, then take 1 tab bid March 23, 2015 1-2tablets Naprosyn [facility] [address]-32 500 MG Orally every 12 hrs 1 tablet as needed Topamax [facility] [address]-45 25 MG Orally Once a day 1 tablet Trazodone HCl [facility] [address]-83 150 MG Orally Once a day May 07, 2015 1 tablet at bedtime as needed Meloxicam [facility] [address]-95 15 mg Aug 24, 2014 1 Tablet by Po route 1 time per day given by Dr. Corea Gabapentin [facility] [address]-41 800 mg Jul 07, 2014 1 Tablet by Oral route 3 daily PRN for back/hip/leg pain Tramadol HCl [facility] [address]-84 50 MG Orally every 8 hrs February 22, 2015 1 tablet as needed Procedures Procedure Coding System Code Date No Charge CPT-4 79823 Nov 09, 2015 Office Visit, Est Pt., Level 3 CPT-4 71201 Nov 09, 2015 Vital Signs Date/Time: Nov 09, 2015 Temperature 98.4 F Weight 222.5 lbs Height 60 in BMI 43.45 Index Blood Pressure Diastolic 80 mmHg Blood Pressure Systolic 122 mmHg Cardiac Monitoring Heart Rate 82 bpm Results No Known Results Summary Purpose eClinicalWorks Submission
--- OUTSIDE RECORDS SUMMARY | 2017-02-06 09:43 | XMS REPORT ---
Author Author TED LOUIS [facility] eClinicalWorks Address Unknown Phone Unavailable Care Team Providers Care Market Sales Manager Name Role Phone TED LOUIS Unavailable Allergies No Known Allergies Problems Problem Type Condition Code Onset Dates Condition Status Problem Chronic prescription opiate use Z79.899 Active Problem Migraine G43.909 Active Problem Low back pain M54.5 Active Medications No Known Medications Results No Known Results Summary Purpose eClinicalWorks Submission
--- OUTSIDE RECORDS SUMMARY | 2017-02-06 09:43 | XMS REPORT ---
Author Author TED LOUIS eClinicalWorks Address Unknown Phone Unavailable Care Team Providers Care Tools Developer Name Role Phone TED LOUIS CP Unavailable [...] status migrainosus, not intractable G43.109 Active Assessment Screening for diabetes mellitus Z13.1 Active Assessment Pelvic pain R10.2 Active Assessment Screening, lipid Z13.220 Active Medications Medication Code System Code Instructions Start Date End Date Status Dosage Tramadol HCl [facility] [address]-99 50 MG Orally every 8 hrs February 22, 2015 1 tablet as needed Vicoprofen [facility] [address]-68 7.5-200 MG Orally every 6 hrs Jun 28, 2016 1 tablet as needed Diflucan [facility] [address]-55 150 MG Orally one time Jun 29, 2016 1 tablet Aleve [facility] [address]-51 220 MG Orally every 12 hrs 1 tablet as needed Lamictal [facility] [address]-57 25 MG Orally take one tab daily X14 days, then take 1 tab bid March 23, 2015 1-2tablets Gabapentin [facility] [address]-87 800 mg Jul 07, 2014 1 Tablet by Oral route 3 daily PRN for back/hip/leg pain Procedures Procedure Coding System Code Date COMPREHEN METABOLIC PANEL CPT-4 73190 Jul 28, 2016 Office Visit, Est Pt., Level 3 CPT-4 57872 Jul 28, 2016 LIPID PANEL CPT-4 99891 Jul 28, 2016 VENIPUNCT, ROUTINE* CPT-4 66457 Jul 28, 2016 Vital Signs Date/Time: Jul 28, 2016 Cardiac Monitoring Heart Rate 76 bpm Weight 223.8 lbs Height 60 in BMI 43.70 Index Blood Pressure Diastolic 79 mmHg Blood Pressure Systolic 132 mmHg Results Name Result Date Reference Range Unit Abnormality Flag CMP ----Calcium, Serum 9.4 [id number] 8.7-10.2 mg/dL ----Carbon Dioxide, Total 22 [id number] 18-29 mmol/L ----ALT (SGPT) 13 [id number] 0-32 IU/L ----Creatinine, Serum 0.64 72004077 0.57-1.00 mg/dL ----AST (SGOT) 9 [id number] 0-40 IU/L ----eGFR If NonAfricn Am 122 [id number] >59 mL/min/1.73 ----Alkaline Phosphatase, S 70 76478462 39-117 IU/L ----eGFR If Africn Am 140 [id number] >59 mL/min/1.73 ----Bilirubin, Total 0.2 09486089 0.0-1.2 mg/dL ----BUN/Creatinine Ratio 23 [id number] 8-20 H ----A/G Ratio 1.6 21382944 1.1-2.5 ----Sodium, Serum 141 99651042 134-144 mmol/L ----Globulin, Total 2.6 47471538 1.5-4.5 g/dL ----Potassium, Serum 4.2 28378183 3.5-5.2 mmol/L ----Glucose, Serum 114 20833683 65-99 mg/dL H ----Chloride, Serum 102 10926214 97-108 mmol/L ----Albumin, Serum 4.2 03920987 3.5-5.5 g/dL ----BUN 15 [id number] 6-20 mg/dL ----Protein, Total, Serum 6.8 76198649 6.0-8.5 g/dL ROUTINE VENIPUNCTURE LIPID PANEL ----VLDL Cholesterol Juan 22 25943770 5-40 mg/dL ----LDL Cholesterol Calc 70 22889897 0-99 mg/dL ----Triglycerides 112 89264086 0-149 mg/dL ----HDL Cholesterol 59 51188921 >39 mg/dL ----Cholesterol, Total 151 84716616 100-199 mg/dL Summary Purpose eClinicalWorks Submission
--- OUTSIDE RECORDS SUMMARY | 2017-02-06 09:43 | XMS REPORT ---
Author Author TED LOUIS [facility] Address [address] [place] [address] Care Team Providers Care Cementer Name Role Phone TDE LOUIS Unavailable PROBLEMS Type Condition ICD9-CM Code [id number] Code Onset Dates Condition Status SNOMED Code Problem Low back pain M54.5 Active 848771034 Problem Chronic prescription opiate use Z79.899 Active 388935756 ALLERGIES No Known Allergies SOCIAL HISTORY No smoking Hx information available PLAN OF CARE VITAL SIGNS MEDICATIONS No Known Medications RESULTS No Results PROCEDURES No Known procedures IMMUNIZATIONS No Known Immunizations
--- OUTSIDE RECORDS SUMMARY | 2017-02-06 09:52 | XMS REPORT | Continuity of Care Document ---
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 Colitis 11/27/2008 LIS ELIZONDO DO 558.9 Other And Unspecified Noninfectious Gastroenteritis And Colitis 11/27/2008 LIS ELIZONDO DO 558.9 Other And Unspecified Noninfectious Gastroenteritis And Colitis 11/27/2008 SUMAYA DEGREASER OPERATOR, NIKOLAS R 558.9 Other And Unspecified Noninfectious Gastroenteritis And Colitis 11/27/2008 LUCIO ROCHE, NITIN Poole 558.9 Other And Unspecified Noninfectious Gastroenteritis And Colitis 11/27/2008 LUCIO ROCHE, NITIN Poole 558.9 Other And Unspecified Noninfectious Gastroenteritis And Colitis 11/27/2008 CAMACHO DEGREASER OPERATOR, ARNIE 558.9 Other And Unspecified Noninfectious Gastroenteritis And Colitis 11/27/2008 CAMACHO DEGREASER OPERATOR, ARNIE 558.9 Other And Unspecified Noninfectious Gastroenteritis And Colitis 11/27/2008 CAMACHO DEGREASER OPERATOR, ARNIE 558.9 Other And Unspecified Noninfectious Gastroenteritis And Colitis 11/27/2008 CAMACHO DEGREASER OPERATOR, ARNIE 558.9 Other And Unspecified Noninfectious Gastroenteritis And Colitis 11/27/2008 SUMAYA DEGREASER OPERATOR, NIKOLAS R 558.9 Other And Unspecified Noninfectious Gastroenteritis And Colitis 11/27/2008 CAMACHO DEGREASER OPERATOR, ARNIE 558.9 Other And Unspecified Noninfectious Gastroenteritis And Colitis 11/27/2008 AMBER VAZQUEZ 558.9 Other And Unspecified Noninfectious Gastroenteritis And Colitis 11/27/2008 AGUILA PINEDO MD 558.9 Other And Unspecified Noninfectious Gastroenteritis And Colitis 11/27/2008 AMBER VAZQUEZ 558.9 Other And Unspecified Noninfectious Gastroenteritis And Colitis 12/03/2008 789.01 abdominal pain in the right upper belly (RUQ) 12/03/2008 CHANDRA CHEN APRN 789.01 abdominal pain in the right upper belly (RUQ) 12/03/2008 CHANDRA CHEN APRN 789.01 abdominal pain in the right upper belly (RUQ) 12/03/2008 789.01 abdominal pain in the right upper belly (RUQ) 12/03/2008 789.01 abdominal pain in the right upper belly (RUQ) 12/03/2008 789.01 abdominal pain in the right upper belly (RUQ) 12/03/2008 789.01 abdominal pain in the right upper belly (RUQ) 12/03/2008 789.01 abdominal pain in the right upper belly (RUQ) 12/03/2008 ELIZONDO DO, LIS K 789.01 abdominal pain in the right upper belly (RUQ ) 12/03/2008 ELIZONDO DO, LIS K 789.01 abdominal pain in the right upper belly (RUQ ) 12/03/2008 ELIZONDO DO, LIS K 789.01 abdominal pain in the right upper belly (RUQ ) 12/03/2008 SUMAYA HARRISON, NIKOLAS R 789.01 abdominal pain in the right upper belly (RUQ) 12/03/2008 LUCIO PHD, NITIN Poole 789.01 abdominal pain in the right upper belly (RUQ) 12/03/2008 LUCIO ROCHE, NITIN Poole 789.01 abdominal pain in the right upper belly (RUQ) 12/03/2008 CAMACHO DEGREASER OPERATOR, ARNIE 789.01 abdominal pain in the right upper belly ( RUQ) 12/03/2008 CAMACHO DEGREASER OPERATOR, ARNIE 789.01 abdominal pain in the right upper belly ( RUQ) 12/03/2008 CAMACHO DEGREASER OPERATOR, ARNIE 789.01 abdominal pain in the right upper belly ( RUQ) 12/03/2008 CAMACHO DEGREASER OPERATOR, ARNIE 789.01 abdominal pain in the right upper belly ( RUQ) 12/03/2008 SUMAYA HARRISON NIKOLAS R 789.01 abdominal pain in the right upper belly (RUQ) 12/03/2008 CAMACHO DEGREASER OPERATOR, ARNIE 789.01 abdominal pain in the right upper belly ( RUQ) 12/03/2008 AMBER VAZQUEZ 789.01 abdominal pain in the right upper belly (RUQ) 12/03/2008 AGUILA PINEDO MD 789.01 abdominal pain in the right upper belly (RUQ ) 12/03/2008 AMBER VAZQUEZ 789.01 abdominal pain in the right upper belly (RUQ) 12/08/2008 789.06 Abdominal Pain In The Central Upper Belly (epigastric) 12/08/2008 CHANDRA CHEN APRN 789.06 Abdominal Pain In The Central Upper Belly (epigastric) 12/08/2008 CHANDRA CHEN APRN 789.06 Abdominal Pain In The Central Upper Belly (epigastric) 12/08/2008 789.06 Abdominal Pain In The Central Upper Belly (epigastric) 12/08/2008 789.06 Abdominal Pain In The Central Upper Belly (epigastric) 12/08/2008 789.06 Abdominal Pain In The Central Upper Belly (epigastric) 12/08/2008 789.06 Abdominal Pain In The Central Upper Belly (epigastric) 12/08/2008 789.06 Abdominal Pain In The Central Upper Belly (epigastric) 12/08/2008 LIS ELIZONDO DO 789.06 Abdominal Pain In The Central Upper Belly ( epigastric) 12/08/2008 LIS ELIZONDO DO 789.06 Abdominal Pain In The Central Upper Belly ( epigastric) 12/08/2008 LIS ELIZONDO DO 789.06 Abdominal Pain In The Central Upper Belly ( epigastric) 12/08/2008 NIKOLAS SHELL APRN 789.06 Abdominal Pain In The Central Upper Belly (epigastric) 12/08/2008 LUCIO ROCHE, NITIN Poole 789.06 Abdominal Pain In The Central Upper Belly (epigastric) 12/08/2008 LUCIO ROCHE, NITIN Poole 789.06 Abdominal Pain In The Central Upper Belly (epigastric) 12/08/2008 CAMACHO HARRISON ARNIE 789.06 Abdominal Pain In The Central Upper Belly (epigastric) 12/08/2008 CAMACHO HARRISON ARNIE 789.06 Abdominal Pain In The Central Upper Belly (epigastric) 12/08/2008 CAMACHO HARRISON ARNIE 789.06 Abdominal Pain In The Central Upper Belly (epigastric) 12/08/2008 CAMACHO HARRISON ARNIE 789.06 Abdominal Pain In The Central Upper Belly (epigastric) 12/08/2008 NIKOLAS SHELL APRN R 789.06 Abdominal Pain In The Central Upper Belly (epigastric) 12/08/2008 CAMACHO HARRISON ARNIE 789.06 Abdominal Pain In The Central Upper Belly (epigastric) 12/08/2008 GIANA DEL VALLE, AMBER Lynch 789.06 Abdominal Pain In The Central Upper Belly (epigastric) 12/08/2008 AGUILA PINEDO MD 789.06 Abdominal Pain In The Central Upper Belly ( epigastric) 12/08/2008 AMBER VAZQUEZ 789.06 Abdominal Pain In The Central Upper Belly (epigastric) 01/07/2009 V25.49 SURVEILLANCE OF OTHER CONTRACEPTIVE METHOD 01/07/2009 GUSTAVO DEGREASER OPERATOR CHANDRA S V25.49 Surveillance Of Other Contraceptive Method 01/07/2009 GUSTAVO DEGREASER OPERATOR CHANDRA S V25.49 Surveillance Of Other Contraceptive Method 01/07/2009 V25.49 Surveillance Of Other Contraceptive Method 01/07/2009 V25.49 Surveillance Of Other Contraceptive Method 01/07/2009 V25.49 Surveillance Of Other Contraceptive Method 01/07/2009 V25.49 Surveillance Of Other Contraceptive Method 01/07/2009 V25.49 Surveillance Of Other Contraceptive Method 01/07/2009 ELIZONDO DO LIS K V25.49 Surveillance Of Other Contraceptive Method 01/07/2009 ELIZONDO DO LIS K V25.49 Surveillance Of Other Contraceptive Method 01/07/2009 ELIZONDO DO LIS K V25.49 Surveillance Of Other Contraceptive Method 01/07/2009 SUMAYA DEGREASER OPERATOR, NIKOLAS R V25.49 Surveillance Of Other Contraceptive Method 01/07/2009 NITIN VALDES PHD V25.49 Surveillance Of Other Contraceptive Method 01/07/2009 NITIN VALDES PHD V25.49 Surveillance Of Other Contraceptive Method 01/07/2009 CAMACHO DEGREASER OPERATOR, ARNIE V25.49 Surveillance Of Other Contraceptive Method 01/07/2009 CAMACHO DEGREASER OPERATOR, ARNIE V25.49 Surveillance Of Other Contraceptive Method 01/07/2009 CAMACHO DEGREASER OPERATOR, ARNIE V25.49 Surveillance Of Other Contraceptive Method 01/07/2009 CAMACHO DEGREASER OPERATOR, ARNIE V25.49 Surveillance Of Other Contraceptive Method 01/07/2009 SUMAYA HARRISON, NIKOLAS R V25.49 Surveillance Of Other Contraceptive Method 01/07/2009 CAMACHO DEGREASER OPERATOR, ARNIE V25.49 Surveillance Of Other Contraceptive Method 01/07/2009 AMBER VAZQUEZ V25.49 Surveillance Of Other Contraceptive Method 01/07/2009 AGUILA PINEDO MD V25.49 Surveillance Of Other Contraceptive Method 01/07/2009 AMBER VAZQUEZ V25.49 Surveillance Of Other Contraceptive Method 01/31/2009 530.10 Esophagitis Unspecified 01/31/2009 530.81 GERD 01/31/2009 GUSTAVO DEGREASER OPERATOR, CHANDRA S 530.10 Esophagitis Unspecified 01/31/2009 GUSTAVO DEGREASER OPERATOR, CHANDRA S 530.81 Gerd 01/31/2009 GUSTAVO DEGREASER OPERATOR, CHANDRA S 530.10 Esophagitis Unspecified 01/31/2009 GUSTAVO DEGREASER OPERATOR, CHANDRA S 530.81 Gerd 01/31/2009 530.10 Esophagitis Unspecified 01/31/2009 530.81 Gerd 01/31/2009 530.10 Esophagitis Unspecified 01/31/2009 530.81 Gerd 01/31/2009 530.10 Esophagitis Unspecified 01/31/2009 530.81 Gerd 01/31/2009 530.10 Esophagitis Unspecified 01/31/2009 530.81 Gerd 01/31/2009 530.10 Esophagitis Unspecified 01/31/2009 530.81 Gerd 01/31/2009 ELIZONDO DO, LIS K 530.10 Esophagitis Unspecified 01/31/2009 ELIZONDO DO, LIS K 530.81 Gerd 01/31/2009 ELIZONDO DO, LIS K 530.10 Esophagitis Unspecified 01/31/2009 ELIZONDO DO, LIS K 530.81 Gerd 01/31/2009 ELIZONDO DO, LIS K 530.10 Esophagitis Unspecified 01/31/2009 ELIZONDO DO, LIS K 530.81 Gerd 01/31/2009 SUMAYA HARRISON, NIKOLAS R 530.10 Esophagitis Unspecified 01/31/2009 SUMAYA DISLAN, NIKOLAS R 530.81 Gerd 01/31/2009 LUCIO PHD, NITIN Poole 530.10 Esophagitis Unspecified 01/31/2009 LUCIO PHD, NITIN Poole 530.81 Gerd 01/31/2009 LUCIO PHD, NITIN Poole 530.10 Esophagitis Unspecified 01/31/2009 LUCIO PHD, NITIN Poole 530.81 Gerd 01/31/2009 CAMACHO DEGREASER OPERATOR, ARNIE 530.10 Esophagitis Unspecified 01/31/2009 CAMACHO DEGREASER OPERATOR, ARNIE 530.81 Gerd 01/31/2009 CAMACHO DEGREASER OPERATOR, ARNIE 530.10 Esophagitis Unspecified 01/31/2009 CAMACHO DEGREASER OPERATOR, ARNIE 530.81 Gerd 01/31/2009 CAMACHO DEGREASER OPERATOR, ARNIE 530.10 Esophagitis Unspecified 01/31/2009 CAMACHO DEGREASER OPERATOR, ARNIE 530.81 Gerd 01/31/2009 CAMACHO DEGREASER OPERATOR, ARNIE 530.10 Esophagitis Unspecified 01/31/2009 CAMACHO DEGREASER OPERATOR, ARNIE 530.81 Gerd 01/31/2009 SUMAYA DEGREASER OPERATOR, NIKOLAS R 530.10 Esophagitis Unspecified 01/31/2009 SUMAYA DEGREASER OPERATOR, NIKOLAS R 530.81 Gerd 01/31/2009 CAMACHO DEGREASER OPERATOR, ARNIE 530.10 Esophagitis Unspecified 01/31/2009 CAMACHO DEGREASER OPERATOR, ARNIE 530.81 Gerd 01/31/2009 GIANA LCMF, AMBER W 530.10 Esophagitis Unspecified 01/31/2009 GIANA LCMF, AMBER Lynch 530.81 Gerd 01/31/2009 AGUILA PINEDO MD 530.10 Esophagitis Unspecified 01/31/2009 KHRIS LOVELL, AGUILA 530.81 Gerd 01/31/2009 GIANA LCMF, AMBER Lynch 530.10 Esophagitis Unspecified 01/31/2009 GIANA LCMF, AMBER Lynch 530.81 Gerd 02/20/2009 461.1 Sinusitis Acute Frontal 02/20/2009 564.4 Diarrhea Within A Month Of Abdominal Surgery 02/20/2009 626.4 Irregular Length Of Menstrual Periods 02/20/2009 784.0 Headache 02/20/2009 CRIS CHEN APRNNDA S 461.1 Sinusitis Acute Frontal 02/20/2009 GUSTAVO HARRISON, CHANDRA S 564.4 Diarrhea Within A Month Of Abdominal Surgery 02/20/2009 CRIS CHEN APRNNDA S 626.4 Irregular Length Of Menstrual Periods 02/20/2009 GUSTAVO HARRISON, CHANDRA S 784.0 Headache 02/20/2009 GUSTAVO HARRISON, CHANDRA S 461.1 Sinusitis Acute Frontal 02/20/2009 GUSTAVO DEGREASER OPERATOR, CHANDRA S 564.4 Diarrhea Within A Month Of Abdominal Surgery 02/20/2009 GUSTAVO HARRISON CHANDRA S 626.4 Irregular Length Of Menstrual Periods 02/20/2009 GUSTAVO HARRISON CHANDRA S 784.0 Headache 02/20/2009 461.1 Sinusitis Acute Frontal 02/20/2009 564.4 Diarrhea Within A Month Of Abdominal Surgery 02/20/2009 626.4 Irregular Length Of Menstrual Periods 02/20/2009 784.0 Headache 02/20/2009 461.1 Sinusitis Acute Frontal 02/20/2009 564.4 Diarrhea Within A Month Of Abdominal Surgery 02/20/2009 626.4 Irregular Length Of Menstrual Periods 02/20/2009 784.0 Headache 02/20/2009 461.1 Sinusitis Acute Frontal 02/20/2009 564.4 Diarrhea Within A Month Of Abdominal Surgery 02/20/2009 626.4 Irregular Length Of Menstrual Periods 02/20/2009 784.0 Headache 02/20/2009 461.1 Sinusitis Acute Frontal 02/20/2009 564.4 Diarrhea Within A Month Of Abdominal Surgery 02/20/2009 626.4 Irregular Length Of Menstrual Periods 02/20/2009 784.0 Headache 02/20/2009 461.1 Sinusitis Acute Frontal 02/20/2009 564.4 Diarrhea Within A Month Of Abdominal Surgery 02/20/2009 626.4 Irregular Length Of Menstrual Periods 02/20/2009 784.0 Headache 02/20/2009 ELIZONDO DO, LIS K 461.1 Sinusitis Acute Frontal 02/20/2009 ELIZONDO DO, LIS K 564.4 Diarrhea Within A Month Of Abdominal Surgery 02/20/2009 ELIZONDO DO, LIS K 626.4 Irregular Length Of Menstrual Periods 02/20/2009 ELIZONDO DO, LIS K 784.0 Headache 02/20/2009 ELIZONDO DO, LIS K 461.1 Sinusitis Acute Frontal 02/20/2009 ELIZONDO DO, LIS K 564.4 Diarrhea Within A Month Of Abdominal Surgery 02/20/2009 ELIZONDO DO, LIS K 626.4 Irregular Length Of Menstrual Periods 02/20/2009 ELIZONDO DO, LIS K 784.0 Headache 02/20/2009 ELIZONDO DO, LIS K 461.1 Sinusitis Acute Frontal 02/20/2009 ELIZONDO DO, LIS K 564.4 Diarrhea Within A Month Of Abdominal Surgery 02/20/2009 ELIZONDO DO, LIS K 626.4 Irregular Length Of Menstrual Periods 02/20/2009 ELIZNODO DO, LIS K 784.0 Headache 02/20/2009 SUMAYA DEGREASER OPERATOR, NIKOLAS R 461.1 Sinusitis Acute Frontal 02/20/2009 SUMAYA DEGREASER OPERATOR, NIKOLAS R 564.4 Diarrhea Within A Month Of Abdominal Surgery 02/20/2009 SUMAYA DEGREASER OPERATOR, NIKOLAS R 626.4 Irregular Length Of Menstrual Periods 02/20/2009 SUMAYA HARRISON, NIKOLAS R 784.0 Headache 02/20/2009 NITIN VALDES PHD 461.1 Sinusitis Acute Frontal 02/20/2009 NITIN VALDES PHD 564.4 Diarrhea Within A Month Of Abdominal Surgery 02/20/2009 NITIN VALDES PHD 626.4 Irregular Length Of Menstrual Periods 02/20/2009 NITIN VALDES PHD 784.0 Headache 02/20/2009 NITIN VALDES PHD 461.1 Sinusitis Acute Frontal 02/20/2009 NITIN VALDES PHD 564.4 Diarrhea Within A Month Of Abdominal Surgery 02/20/2009 NITIN VALDES PHD 626.4 Irregular Length Of Menstrual Periods 02/20/2009 NITIN VALDES PHD 784.0 Headache 02/20/2009 CAMACHO DEGREASER OPERATOR, ARNIE 461.1 Sinusitis Acute Frontal 02/20/2009 CAMACHO DEGREASER OPERATOR, ARNIE 564.4 Diarrhea Within A Month Of Abdominal Surgery 02/20/2009 CAMACHO DEGREASER OPERATOR, ARNIE 626.4 Irregular Length Of Menstrual Periods 02/20/2009 CAMACHO DEGREASER OPERATOR, ARNIE 784.0 Headache 02/20/2009 CAMACHO DEGREASER OPERATOR, ARNIE 461.1 Sinusitis Acute Frontal 02/20/2009 CAMACHO DEGREASER OPERATOR, ARNIE 564.4 Diarrhea Within A Month Of Abdominal Surgery 02/20/2009 CAMACHO DEGREASER OPERATOR, ARNIE 626.4 Irregular Length Of Menstrual Periods 02/20/2009 CAMACHO DEGREASER OPERATOR, ARNIE 784.0 Headache 02/20/2009 CAMACHO DEGREASER OPERATOR, ARNIE 461.1 Sinusitis Acute Frontal 02/20/2009 CAMACHO DEGREASER OPERATOR, ARNIE 564.4 Diarrhea Within A Month Of Abdominal Surgery 02/20/2009 CAMACHO DEGREASER OPERATOR, ARNIE 626.4 Irregular Length Of Menstrual Periods 02/20/2009 CAMACHO DEGREASER OPERATOR, ARNIE 784.0 Headache 02/20/2009 CAMACHO DEGREASER OPERATOR, ARNIE 461.1 Sinusitis Acute Frontal 02/20/2009 CAMACHO DEGREASER OPERATOR, ARNIE 564.4 Diarrhea Within A Month Of Abdominal Surgery 02/20/2009 CAMACHO DEGREASER OPERATOR, ARNIE 626.4 Irregular Length Of Menstrual Periods 02/20/2009 CAMACHO DEGREASER OPERATOR, ARNIE 784.0 Headache 02/20/2009 SUMAYA DEGREASER OPERATOR, NIKOLAS R 461.1 Sinusitis Acute Frontal 02/20/2009 SUMAYA DEGREASER OPERATOR, NIKOLAS R 564.4 Diarrhea Within A Month Of Abdominal Surgery 02/20/2009 SUMAYA DEGREASER OPERATOR, NIKOLAS R 626.4 Irregular Length Of Menstrual Periods 02/20/2009 SUMAYA DEGREASER OPERATOR, NIKOLAS R 784.0 Headache 02/20/2009 CAMACHO DEGREASER OPERATOR, ARNIE 461.1 Sinusitis Acute Frontal 02/20/2009 CAMACHO DEGREASER OPERATOR, ARNIE 564.4 Diarrhea Within A Month Of Abdominal Surgery 02/20/2009 CAMACHO DEGREASER OPERATOR, ARNIE 626.4 Irregular Length Of Menstrual Periods 02/20/2009 CAMACHO DEGREASER OPERATOR, ARNIE 784.0 Headache 02/20/2009 AMBER VAZQUEZ 461.1 Sinusitis Acute Frontal 02/20/2009 AMBER VAZQUEZ 564.4 Diarrhea Within A Month Of Abdominal Surgery 02/20/2009 AMBER VAZQUEZ 626.4 Irregular Length Of Menstrual Periods 02/20/2009 AMBER VAZQUEZ 784.0 Headache 02/20/2009 AGUILA PINEDO MD 461.1 Sinusitis Acute Frontal 02/20/2009 AGUILA PINEDO MD 564.4 Diarrhea Within A Month Of Abdominal Surgery 02/20/2009 AGUILA PINEDO MD 626.4 Irregular Length Of Menstrual Periods 02/20/2009 AGUILA PINEDO MD 784.0 Headache 02/20/2009 AMBER VAZQUEZ 461.1 Sinusitis Acute Frontal 02/20/2009 AMBER VAZQUEZ 564.4 Diarrhea Within A Month Of Abdominal Surgery 02/20/2009 AMBER VAZQUEZ 626.4 Irregular Length Of Menstrual Periods 02/20/2009 AMBER VAZQUEZ 784.0 Headache 03/09/2009 844.9 Sprain/strain Knee/leg 03/09/2009 CHANDRA CHEN APRN S 844.9 Sprain/strain Knee/leg 03/09/2009 CHANDRA CHEN APRN S 844.9 Sprain/strain Knee/leg 03/09/2009 844.9 Sprain/strain Knee/leg 03/09/2009 844.9 Sprain/strain Knee/leg 03/09/2009 844.9 Sprain/strain Knee/leg 03/09/2009 844.9 Sprain/strain Knee/leg 03/09/2009 844.9 Sprain/strain Knee/leg 03/09/2009 ELIZONDO DO, LIS K 844.9 Sprain/strain Knee/leg 03/09/2009 ELIZONDO DO, LIS K 844.9 Sprain/strain Knee/leg 03/09/2009 ELIZONDO DO, LIS K 844.9 Sprain/strain Knee/leg 03/09/2009 SUMAAY DISLAN, NIKOLAS R 844.9 Sprain/strain Knee/leg 03/09/2009 LUCIO PHD, NITIN Poole 844.9 Sprain/strain Knee/leg 03/09/2009 LUCIO PHD, NITIN Poole 844.9 Sprain/strain Knee/leg 03/09/2009 CAMACHO DEGREASER OPERATOR, ARNIE 844.9 Sprain/strain Knee/leg 03/09/2009 CAMACHO DEGREASER OPERATOR, ARNIE 844.9 Sprain/strain Knee/leg 03/09/2009 CAMACHO DEGREASER OPERATOR, ARNIE 844.9 Sprain/strain Knee/leg 03/09/2009 CAMACHO DEGREASER OPERATOR, ARNIE 844.9 Sprain/strain Knee/leg 03/09/2009 SUMAYA HARRISON, NIKOLAS R 844.9 Sprain/strain Knee/leg 03/09/2009 CAMACHO DEGREASER OPERATOR, ARNIE 844.9 Sprain/strain Knee/leg 03/09/2009 AMBER VAZQUEZ 844.9 Sprain/strain Knee/leg 03/09/2009 AGUILA PIENDO MD 844.9 Sprain/strain Knee/leg 03/09/2009 AMBER VAZQUEZ 844.9 Sprain/strain Knee/leg 03/13/2009 726.90 ENTHESOPATHY OF UNSPECIFIED SITE 03/13/2009 CHANDRA CHEN APRN S 726.90 Enthesopathy Of Unspecified Site 03/13/2009 GUSTAVO DEGREASER OPERATOR, CHANDRA S 726.90 Enthesopathy Of Unspecified Site 03/13/2009 726.90 Enthesopathy Of Unspecified Site 03/13/2009 726.90 Enthesopathy Of Unspecified Site 03/13/2009 726.90 Enthesopathy Of Unspecified Site 03/13/2009 726.90 Enthesopathy Of Unspecified Site 03/13/2009 726.90 Enthesopathy Of Unspecified Site 03/13/2009 ELIZONDO DO, LIS K 726.90 Enthesopathy Of Unspecified Site 03/13/2009 ELIZONDO DO, LIS K 726.90 Enthesopathy Of Unspecified Site 03/13/2009 ELIZONDO DO, LIS K 726.90 Enthesopathy Of Unspecified Site 03/13/2009 SUMAYA DEGREASER OPERATOR, NIKOLAS R 726.90 Enthesopathy Of Unspecified Site 03/13/2009 LUCIO PHD, NITIN Poole 726.90 Enthesopathy Of Unspecified Site 03/13/2009 LUCIO ROCHE, NITIN Poole 726.90 Enthesopathy Of Unspecified Site 03/13/2009 CAMACHO DEGREASER OPERATOR, ARNIE 726.90 Enthesopathy Of Unspecified Site 03/13/2009 CAMACHO DEGREASER OPERATOR, ARNIE 726.90 Enthesopathy Of Unspecified Site 03/13/2009 CAMACHO DEGREASER OPERATOR, ARNIE 726.90 Enthesopathy Of Unspecified Site 03/13/2009 CAMACHO DEGREASER OPERATOR, ARNIE 726.90 Enthesopathy Of Unspecified Site 03/13/2009 SUMAYA HARRISON, NIKOLAS R 726.90 Enthesopathy Of Unspecified Site 03/13/2009 CAMACHO DEGREASER OPERATOR, ARNIE 726.90 Enthesopathy Of Unspecified Site 03/13/2009 AMBER VAZQUEZ 726.90 Enthesopathy Of Unspecified Site 03/13/2009 AGUILA PINEDO MD 726.90 Enthesopathy Of Unspecified Site 03/13/2009 MABER VAZQUEZ 726.90 Enthesopathy Of Unspecified Site 03/23/2009 461.9 Sinusitis Acute 03/23/2009 TODD CHEN APRNA S 461.9 Sinusitis Acute 03/23/2009 CRIS CHEN APRNNDA S 461.9 Sinusitis Acute 03/23/2009 461.9 Sinusitis Acute 03/23/2009 461.9 Sinusitis Acute 03/23/2009 461.9 Sinusitis Acute 03/23/2009 461.9 Sinusitis Acute 03/23/2009 461.9 Sinusitis Acute 03/23/2009 ELIZONDO DO, LIS K 461.9 Sinusitis Acute 03/23/2009 ELIZONDO DO, LIS K 461.9 Sinusitis Acute 03/23/2009 ELIZONDO DO LIS K 461.9 Sinusitis Acute 03/23/2009 SUMAYA DEGREASER OPERATOR, NIKOLAS R 461.9 Sinusitis Acute 03/23/2009 LUCIO ROCHE, NITIN Poole 461.9 Sinusitis Acute 03/23/2009 LUCIO ROCHE, NITIN Poole 461.9 Sinusitis Acute 03/23/2009 CAMACHO DEGREASER OPERATOR, ARNIE 461.9 Sinusitis Acute 03/23/2009 CAMACHO DEGREASER OPERATOR, ARNIE 461.9 Sinusitis Acute 03/23/2009 CAMACHO DEGREASER OPERATOR, ARNIE 461.9 Sinusitis Acute 03/23/2009 CAMACHO DEGREASER OPERATOR, ARNIE 461.9 Sinusitis Acute 03/23/2009 SUMAYA DEGREASER OPERATOR, NIKOLAS R 461.9 Sinusitis Acute 03/23/2009 CAMACHO DEGREASER OPERATOR, ARNIE 461.9 Sinusitis Acute 03/23/2009 GIANA DEL VALLE, AMBER Lynch 461.9 Sinusitis Acute 03/23/2009 AGUILA PINEDO MD 461.9 Sinusitis Acute 03/23/2009 GIANA DEL VALLE, AMBER Lynch 461.9 Sinusitis Acute 03/29/2009 472.0 Chronic Rhinitis 03/29/2009 TODD CHEN APRNA S 472.0 Chronic Rhinitis 03/29/2009 CRIS CHEN APRNNDA S 472.0 Chronic Rhinitis 03/29/2009 472.0 Chronic Rhinitis 03/29/2009 472.0 Chronic Rhinitis 03/29/2009 472.0 Chronic Rhinitis 03/29/2009 472.0 Chronic Rhinitis 03/29/2009 472.0 Chronic Rhinitis 03/29/2009 ELIZONDO DOITZA K 472.0 Chronic Rhinitis 03/29/2009 ELIZONDO DOITZA K 472.0 Chronic Rhinitis 03/29/2009 ELIZONDO DOITZA K 472.0 Chronic Rhinitis 03/29/2009 SUMAYA DEGREASER OPERATOR, NIKOLAS R 472.0 Chronic Rhinitis 03/29/2009 LUCIO PHD, NITIN Poole 472.0 Chronic Rhinitis 03/29/2009 LUCIO PHD, NITIN Poole 472.0 Chronic Rhinitis 03/29/2009 CAMACHO DEGREASER OPERATOR, ARNIE 472.0 Chronic Rhinitis 03/29/2009 CAMACHO DEGREASER OPERATOR, ARNIE 472.0 Chronic Rhinitis 03/29/2009 CAMACHO DEGREASER OPERATOR, ARNIE 472.0 Chronic Rhinitis 03/29/2009 CAMACHO DEGREASER OPERATOR, ARNIE 472.0 Chronic Rhinitis 03/29/2009 SUMAYA DEGREASER OPERATOR, NIKOLAS R 472.0 Chronic Rhinitis 03/29/2009 CAMACHO DEGREASER OPERATOR, ARNIE 472.0 Chronic Rhinitis 03/29/2009 GIANA DEL VALLE, AMBER Lynch 472.0 Chronic Rhinitis 03/29/2009 AGUILA PINEDO MD 472.0 Chronic Rhinitis 03/29/2009 GIANA PINONF, AMBER Lynch 472.0 Chronic Rhinitis 04/02/2009 782.1 Rash 04/02/2009 GUSTAVO DEGREASER OPERATOR, CHANDRA S 782.1 Rash 04/02/2009 GUSTAVO DEGREASER OPERATOR, CHANDRA S 782.1 Rash 04/02/2009 782.1 Rash 04/02/2009 782.1 Rash 04/02/2009 782.1 Rash 04/02/2009 782.1 Rash 04/02/2009 782.1 Rash 04/02/2009 ELIZONDO DO, LIS K 782.1 Rash 04/02/2009 ELIZONDO DO, LIS K 782.1 Rash 04/02/2009 ELIZONDO DO, LIS K 782.1 Rash 04/02/2009 SUMAYA DEGREASER OPERATOR, NIKOLAS R 782.1 Rash 04/02/2009 LUCIO PHD, NITIN Poole 782.1 Rash 04/02/2009 LUCIO PHD, NITIN Poole 782.1 Rash 04/02/2009 CAMACHO DEGREASER OPERATOR, ARNIE 782.1 Rash 04/02/2009 CAMACHO DEGREASER OPERATOR, ARNIE 782.1 Rash 04/02/2009 CAMACHO DEGREASER OPERATOR, ARNIE 782.1 Rash 04/02/2009 CAMACHO DEGREASER OPERATOR, ARNIE 782.1 Rash 04/02/2009 SUMAYA DEGREASER OPERATOR, NIKOLAS R 782.1 Rash 04/02/2009 CAMACHO DEGREASER OPERATOR, ARNIE 782.1 Rash 04/02/2009 GIANA DEL VALLE, AMBER Lynch 782.1 Rash 04/02/2009 AGUILA PINEDO MD 782.1 Rash 04/02/2009 GIANA DEL VALLE, AMBER Lynch 782.1 Rash 04/19/2009 346.90 Migraine Headache 04/19/2009 GUSTAVO HARRISON, CHANDRA S 346.90 Migraine Headache 04/19/2009 GUSTAVO HARRISON, CHANDRA S 346.90 Migraine Headache 04/19/2009 346.90 Migraine Headache 04/19/2009 346.90 Migraine Headache 04/19/2009 346.90 Migraine Headache 04/19/2009 346.90 Migraine Headache 04/19/2009 346.90 Migraine Headache 04/19/2009 ELIZONDO DO, LIS K 346.90 Migraine Headache 04/19/2009 ELIZONDO DO, LIS K 346.90 Migraine Headache 04/19/2009 ELIZONDO DO, LIS K 346.90 Migraine Headache 04/19/2009 SUMAYA DEGREASER OPERATOR, NIKOLAS R 346.90 Migraine Headache 04/19/2009 LUCIO PHD, NITIN Poole 346.90 Migraine Headache 04/19/2009 LUCIO ROCHE, NITIN Poole 346.90 Migraine Headache 04/19/2009 CAMACHO DEGREASER OPERATOR, ARNIE 346.90 Migraine Headache 04/19/2009 CAMACHO DEGREASER OPERATOR, ARNIE 346.90 Migraine Headache 04/19/2009 CAMACHO DEGREASER OPERATOR, ARNIE 346.90 Migraine Headache 04/19/2009 CAMACHO DEGREASER OPERATOR, ARNIE 346.90 Migraine Headache 04/19/2009 SUMAYA DISLAN, NIKOLAS R 346.90 Migraine Headache 04/19/2009 CAMACHO DEGREASER OPERATOR, ARNIE 346.90 Migraine Headache 04/19/2009 GIANA DEL VALLE, AMBER Lynch 346.90 Migraine Headache 04/19/2009 AGUILA PINEDO MD 346.90 Migraine Headache 04/19/2009 GIANA DEL VALLE, AMBER Lynch 346.90 Migraine Headache 04/23/2009 354.0 CARPAL TUNNEL SYNDROME 04/23/2009 GUSTAVO HARRISON, CHANDRA S 354.0 Carpal Tunnel Syndrome 04/23/2009 GUSTAVO HARRISON, CHANDRA S 354.0 Carpal Tunnel Syndrome 04/23/2009 354.0 Carpal Tunnel Syndrome 04/23/2009 354.0 Carpal Tunnel Syndrome 04/23/2009 354.0 Carpal Tunnel Syndrome 04/23/2009 354.0 Carpal Tunnel Syndrome 04/23/2009 354.0 Carpal Tunnel Syndrome 04/23/2009 ELIZONDO DO, LIS K 354.0 Carpal Tunnel Syndrome 04/23/2009 ELIZONDO DO, LIS K 354.0 Carpal Tunnel Syndrome 04/23/2009 ELIZONDO DO, LIS K 354.0 Carpal Tunnel Syndrome 04/23/2009 SUMAYA HARRISON, NIKOLAS R 354.0 Carpal Tunnel Syndrome 04/23/2009 LUCIO ROCHE, NITIN Poole 354.0 Carpal Tunnel Syndrome 04/23/2009 LUCIO ROCHE, NITIN Poole 354.0 Carpal Tunnel Syndrome 04/23/2009 CAMACHO DEGREASER OPERATOR, ARNIE 354.0 Carpal Tunnel Syndrome 04/23/2009 CAMACHO DEGREASER OPERATOR, ARNIE 354.0 Carpal Tunnel Syndrome 04/23/2009 CAMACHO DEGREASER OPERATOR, ARNIE 354.0 Carpal Tunnel Syndrome 04/23/2009 CAMACHO DEGREASER OPERATOR, ARNIE 354.0 Carpal Tunnel Syndrome 04/23/2009 NIKOLAS SHELL APRN R 354.0 Carpal Tunnel Syndrome 04/23/2009 CAMACHO DEGREASER OPERATOR, ARNIE 354.0 Carpal Tunnel Syndrome 04/23/2009 AMBER VAZQUEZ 354.0 Carpal Tunnel Syndrome 04/23/2009 AGUILA PINEDO MD 354.0 Carpal Tunnel Syndrome 04/23/2009 AMBER VAZQUEZ 354.0 Carpal Tunnel Syndrome 05/24/2009 729.5 Pain In Limb 05/24/2009 CHANDRA CHEN APRN S 729.5 Pain In Limb 05/24/2009 CHANDRA CHEN APRN S 729.5 Pain In Limb 05/24/2009 729.5 Pain In Limb 05/24/2009 729.5 Pain In Limb 05/24/2009 729.5 Pain In Limb 05/24/2009 729.5 Pain In Limb 05/24/2009 729.5 Pain In Limb 05/24/2009 ELIZONDO DO, LIS K 729.5 Pain In Limb 05/24/2009 ELIZONDO DO, LIS K 729.5 Pain In Limb 05/24/2009 ELIZONDO DO, LIS K 729.5 Pain In Limb 05/24/2009 SUMAYA DEGREASER OPERATOR, NIKOLAS R 729.5 Pain In Limb 05/24/2009 LUCIO PHD, NITIN Poole 729.5 Pain In Limb 05/24/2009 LUCIO PHD, NITIN Poole 729.5 Pain In Limb 05/24/2009 CAMACHO DEGREASER OPERATOR, ARNIE 729.5 Pain In Limb 05/24/2009 CAMACHO DEGREASER OPERATOR, ARNIE 729.5 Pain In Limb 05/24/2009 CAMACHO DEGREASER OPERATOR, ARNIE 729.5 Pain In Limb 05/24/2009 CAMACHO DEGREASER OPERATOR, ARNIE 729.5 Pain In Limb 05/24/2009 SUMAYA DEGREASER OPERATOR, NIKOLAS R 729.5 Pain In Limb 05/24/2009 CAMACHO DEGREASER OPERATOR, ARNIE 729.5 Pain In Limb 05/24/2009 AMBER VAZQUEZ 729.5 Pain In Limb 05/24/2009 AGUILA PINEDO MD 729.5 Pain In Limb 05/24/2009 AMBER VAZQUEZ 729.5 Pain In Limb 06/17/2009 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 06/17/2009 CHANDRA CHEN APRN S 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 06/17/2009 CHANDRA CHEN APRN S 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 06/17/2009 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 06/17/2009 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 06/17/2009 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 06/17/2009 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 06/17/2009 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 06/17/2009 CAMACHO DEGREASER OPERATOR, ARNIE 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 06/17/2009 SUMAYA DEGREASER OPERATOR, NIKOLAS R 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 06/17/2009 CAMACHO DEGREASER OPERATOR, ARNIE 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 06/17/2009 AMBER VAZQUEZ 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 06/17/2009 AGUILA PINEDO MD 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 06/17/2009 AMBER VAZQUEZ 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 06/30/2009 079.99 Viral Disease 06/30/2009 GUSTAVO DEGREASER OPERATOR, CHANDRA S 079.99 Viral Disease 06/30/2009 GUSTAVO DEGREASER OPERATOR, CHANDRA S 079.99 Viral Disease 06/30/2009 079.99 Viral Disease 06/30/2009 079.99 Viral Disease 06/30/2009 079.99 Viral Disease 06/30/2009 079.99 Viral Disease 06/30/2009 079.99 Viral Disease 06/30/2009 ELIZONDO DO, LIS K 079.99 Viral Disease 06/30/2009 ELIZONDO DO, LIS K 079.99 Viral Disease 06/30/2009 ELIZONDO DO, LIS K 079.99 Viral Disease 06/30/2009 SUMAYA DEGREASER OPERATOR, NIKOLAS R 079.99 Viral Disease 06/30/2009 LUCIO PHD, NITIN Poole 079.99 Viral Disease 06/30/2009 LUCIO PHD, NITIN Poole 079.99 Viral Disease 06/30/2009 CAMACHO DEGREASER OPERATOR, ARNIE 079.99 Viral Disease 06/30/2009 CAMACHO DEGREASER OPERATOR, ARNIE 079.99 Viral Disease 06/30/2009 CAMACHO DEGREASER OPERATOR, ARNIE 079.99 Viral Disease 06/30/2009 CAMACHO DEGREASER OPERATOR, ARNIE 079.99 Viral Disease 06/30/2009 SUMAYA DEGREASER OPERATOR, NIKOLAS R 079.99 Viral Disease 06/30/2009 CAMACHO DEGREASER OPERATOR, ARNIE 079.99 Viral Disease 06/30/2009 AMBER VAZQUEZ 079.99 Viral Disease 06/30/2009 AGUILA PINEDO MD 079.99 Viral Disease 06/30/2009 AMBER VAZQUEZ 079.99 Viral Disease 07/07/2009 787.91 Diarrhea 07/07/2009 CRIS CHEN APRNNDA S 787.91 Diarrhea 07/07/2009 CRIS CHEN APRNNDA S 787.91 Diarrhea 07/07/2009 787.91 Diarrhea 07/07/2009 787.91 Diarrhea 07/07/2009 787.91 Diarrhea 07/07/2009 787.91 Diarrhea 07/07/2009 787.91 Diarrhea 07/07/2009 ELIZONDO DO, LIS K 787.91 Diarrhea 07/07/2009 ELIZONDO DO, LIS K 787.91 Diarrhea 07/07/2009 ELIZONDO DO, LIS K 787.91 Diarrhea 07/07/2009 SUMAYA HARRISON, NIKOLAS R 787.91 Diarrhea 07/07/2009 LUCIO ROCHE, NITIN Poole 787.91 Diarrhea 07/07/2009 LUCIO ROCHE, NITIN Poole 787.91 Diarrhea 07/07/2009 CAMACHO DEGREASER OPERATOR, ARNIE 787.91 Diarrhea 07/07/2009 CAMACHO DEGREASER OPERATOR, ARNIE 787.91 Diarrhea 07/07/2009 CAMACHO DEGREASER OPERATOR, ARNIE 787.91 Diarrhea 07/07/2009 CAMACHO DEGREASER OPERATOR, ARNIE 787.91 Diarrhea 07/07/2009 SUMAYA DEGREASER OPERATOR, NIKOLAS R 787.91 Diarrhea 07/07/2009 CAMACHO DEGREASER OPERATOR, ARNIE 787.91 Diarrhea 07/07/2009 AMBER VAZQUEZ 787.91 Diarrhea 07/07/2009 AGUILA PINEDO MD 787.91 Diarrhea 07/07/2009 AMBER VAZQUEZ 787.91 Diarrhea 08/17/2009 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 08/17/2009 724.5 BACKACHE 08/17/2009 847.9 Sprain/strain Back Unspec 08/17/2009 CRIS CHEN APRNNDA S 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 08/17/2009 CRIS CHEN APRNNDA S 724.5 Backache 08/17/2009 CRIS CHEN APRNNDA S 847.9 Sprain/strain Back Unspec 08/17/2009 CRIS CHEN APRNNDA S 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 08/17/2009 CRIS CHEN APRNNDA S 724.5 Backache 08/17/2009 GUSTAVO DEGREASER OPERATORTODD LovingA S 847.9 Sprain/strain Back Unspec 08/17/2009 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 08/17/2009 724.5 Backache 08/17/2009 847.9 Sprain/strain Back Unspec 08/17/2009 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 08/17/2009 724.5 Backache 08/17/2009 847.9 Sprain/strain Back Unspec 08/17/2009 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 08/17/2009 724.5 Backache 08/17/2009 847.9 Sprain/strain Back Unspec 08/17/2009 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 08/17/2009 724.5 Backache 08/17/2009 847.9 Sprain/strain Back Unspec 08/17/2009 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 08/17/2009 724.5 Backache 08/17/2009 847.9 Sprain/strain Back Unspec 08/17/2009 ELIZONDO DO, LIS K 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 08/17/2009 ELIZONDO DO, LIS K 724.5 Backache 08/17/2009 ELIZONDO DO, LIS K 847.9 Sprain/strain Back Unspec 08/17/2009 ELIZONDO DO, LIS K 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 08/17/2009 ELIZONDO DO, LIS K 724.5 Backache 08/17/2009 ELIZONDO DO, LIS K 847.9 Sprain/strain Back Unspec 08/17/2009 ELIZONDO DO, LIS K 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 08/17/2009 ELIZONDO DO, LIS K 724.5 Backache 08/17/2009 ELIZONDO DO, LIS K 847.9 Sprain/strain Back Unspec 08/17/2009 SUMAYA DEGREASER OPERATOR, NIKOLAS R 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 08/17/2009 SUMAYA DEGREASER OPERATOR, NIKOLAS R 724.5 Backache 08/17/2009 SUMAYA DEGREASER OPERATOR, NIKOLAS R 847.9 Sprain/strain Back Unspec 08/17/2009 LUCIO PHD, NITIN Poole 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 08/17/2009 LUCIO PHD, NITIN Poole 724.5 Backache 08/17/2009 LUCIO ROCHE, NITIN Poole 847.9 Sprain/strain Back Unspec 08/17/2009 LUCIO PHD, NITIN Poole 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 08/17/2009 LUCIO PHD, NITIN Poole 724.5 Backache 08/17/2009 LUCIO ROCHE, NITIN Poole 847.9 Sprain/strain Back Unspec 08/17/2009 CAMACHO DEGREASER OPERATOR, ARNIE 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 08/17/2009 CAMACHO DEGREASER OPERATOR, ARNIE 724.5 Backache 08/17/2009 CAMACHO DEGREASER OPERATOR, ARNIE 847.9 Sprain/strain Back Unspec 08/17/2009 CAMACHO DEGREASER OPERATOR, ARNIE 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 08/17/2009 CAMACHO DEGREASER OPERATOR, ARNIE 724.5 Backache 08/17/2009 CAMACHO DEGREASER OPERATOR, ARNIE 847.9 Sprain/strain Back Unspec 08/17/2009 CAMACHO DEGREASER OPERATOR, ARNIE 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 08/17/2009 CAMACHO DEGREASER OPERATOR, ARNIE 724.5 Backache 08/17/2009 CAMACHO DEGREASER OPERATOR, ARNIE 847.9 Sprain/strain Back Unspec 08/17/2009 CAMACHO DEGREASER OPERATOR, ARNIE 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 08/17/2009 CAMACHO DEGREASER OPERATOR, ARNIE 724.5 Backache 08/17/2009 CAMACHO DEGREASER OPERATOR, ARNIE 847.9 Sprain/strain Back Unspec 08/17/2009 SUMAYA HARRISON, NIKOLAS R 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 08/17/2009 SUMAYA DEGREASER OPERATOR, NIKOLAS R 724.5 Backache 08/17/2009 SUMAYA HUNTER, NIKOLAS R 847.9 Sprain/strain Back Unspec 08/17/2009 CAMACHO DEGREASER OPERATOR, ARNIE 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 08/17/2009 CAMACHO DEGREASER OPERATOR, ARNIE 724.5 Backache 08/17/2009 CAMACHO DEGREASER OPERATOR, ARNIE 847.9 Sprain/strain Back Unspec 08/17/2009 AMBER VAZQUEZ 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 08/17/2009 GIANA DEL VALLE, AMBER Lynch 724.5 Backache 08/17/2009 GIANA DEL VALLE, AMBER Lynch 847.9 Sprain/strain Back Unspec 08/17/2009 AGUILA PINEDO MD 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 08/17/2009 KHRIS LOVELL, AGUILA 724.5 Backache 08/17/2009 AGUILA PINEDO MD 847.9 Sprain/strain Back Unspec 08/17/2009 GIANA DEL VALLE, AMBER W 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 08/17/2009 GIANA DEL VALLE, AMBER Lynch 724.5 Backache 08/17/2009 GIANA DEL VALLE, AMBER Lynch 847.9 Sprain/strain Back Unspec 08/26/2009 783.1 recent weight gain of lbs 08/26/2009 GUSTAVOMAICOL HARRISON CHANDRA S 783.1 Recent Weight Gain Of Lbs 08/26/2009 GUSTAVO HARRISON CHANDRA S 783.1 Recent Weight Gain Of Lbs 08/26/2009 783.1 Recent Weight Gain Of Lbs 08/26/2009 783.1 Recent Weight Gain Of Lbs 08/26/2009 783.1 Recent Weight Gain Of Lbs 08/26/2009 783.1 Recent Weight Gain Of Lbs 08/26/2009 783.1 Recent Weight Gain Of Lbs 08/26/2009 ELIZONDO DO, LIS K 783.1 Recent Weight Gain Of Lbs 08/26/2009 ELIZONDO DO, LIS K 783.1 Recent Weight Gain Of Lbs 08/26/2009 ELIZONDO DO, LIS K 783.1 Recent Weight Gain Of Lbs 08/26/2009 SUMAYA HARRISON, NIKOLAS R 783.1 Recent Weight Gain Of Lbs 08/26/2009 LUCIO ROCHE, NITIN Poole 783.1 Recent Weight Gain Of Lbs 08/26/2009 LUCIO ROCHE, NITIN Poole 783.1 Recent Weight Gain Of Lbs 08/26/2009 CAMACHO DEGREASER OPERATOR, ARNIE 783.1 Recent Weight Gain Of Lbs 08/26/2009 CAMACHO DEGREASER OPERATOR, ARNIE 783.1 Recent Weight Gain Of Lbs 08/26/2009 CAMACHO DEGREASER OPERATOR, ARNIE 783.1 Recent Weight Gain Of Lbs 08/26/2009 CAMACHO DEGREASER OPERATOR, ARNIE 783.1 Recent Weight Gain Of Lbs 08/26/2009 SUMAYA HARRISON, NIKOLAS R 783.1 Recent Weight Gain Of Lbs 08/26/2009 CAMACHO DEGREASER OPERATOR, ARNIE 783.1 Recent Weight Gain Of Lbs 08/26/2009 GIANA DEL VALLE, AMBER Lynch 783.1 Recent Weight Gain Of Lbs 08/26/2009 AGUILA PINEDO MD 783.1 Recent Weight Gain Of Lbs 08/26/2009 GIANA DEL VALLE, AMBER Lynch 783.1 Recent Weight Gain Of Lbs 09/18/2009 Ot 786.09 RESPIRATORY ABNORM NEC 10/18/2009 009.1 Enteritis Acute Infectious 10/18/2009 GUSTAVO HARRISON CHANDRA S 009.1 Enteritis Acute Infectious 10/18/2009 GUSTAVOMAICOL HARRISON, CHANDRA S 009.1 Enteritis Acute Infectious 10/18/2009 009.1 Enteritis Acute Infectious 10/18/2009 009.1 Enteritis Acute Infectious 10/18/2009 009.1 Enteritis Acute Infectious 10/18/2009 009.1 Enteritis Acute Infectious 10/18/2009 009.1 Enteritis Acute Infectious 10/18/2009 ELIZONDO DO LIS K 009.1 Enteritis Acute Infectious 10/18/2009 ELIZONDO DO LIS K 009.1 Enteritis Acute Infectious 10/18/2009 ELIZONDO DO LIS K 009.1 Enteritis Acute Infectious 10/18/2009 SUMAYA HARRISON, NIKOLAS R 009.1 Enteritis Acute Infectious 10/18/2009 LUCIO PHD, NITIN Poole 009.1 Enteritis Acute Infectious 10/18/2009 LUCIO PHD, NITIN Poole 009.1 Enteritis Acute Infectious 10/18/2009 CAMACHO DEGREASER OPERATOR, ARNIE 009.1 Enteritis Acute Infectious 10/18/2009 CAMACHO DEGREASER OPERATOR, ARNIE 009.1 Enteritis Acute Infectious 10/18/2009 CAMACHO DEGREASER OPERATOR, ARNIE 009.1 Enteritis Acute Infectious 10/18/2009 CAMACHO DEGREASER OPERATOR, ARNIE 009.1 Enteritis Acute Infectious 10/18/2009 SUMAYA HARRISON, NIKOLAS R 009.1 Enteritis Acute Infectious 10/18/2009 CAMACHO DEGREASER OPERATOR, ARNIE 009.1 Enteritis Acute Infectious 10/18/2009 AMBER VAZQUEZ 009.1 Enteritis Acute Infectious 10/18/2009 AGUILA PINEDO MD 009.1 Enteritis Acute Infectious 10/18/2009 AMBER VAZQUEZ 009.1 Enteritis Acute Infectious 11/10/2009 782.0 Disturbance Of Skin Sensation 11/10/2009 787.02 Nausea Alone 11/10/2009 CRIS CHEN APRNNDA S 782.0 Disturbance Of Skin Sensation 11/10/2009 CHANDRA CHEN APRN S 787.02 Nausea Alone 11/10/2009 CRIS CHEN APRNNDA S 782.0 Disturbance Of Skin Sensation 11/10/2009 TODD CHEN APRNA S 787.02 Nausea Alone 11/10/2009 782.0 Disturbance Of Skin Sensation 11/10/2009 787.02 Nausea Alone 11/10/2009 782.0 Disturbance Of Skin Sensation 11/10/2009 787.02 Nausea Alone 11/10/2009 782.0 Disturbance Of Skin Sensation 11/10/2009 787.02 Nausea Alone 11/10/2009 782.0 Disturbance Of Skin Sensation 11/10/2009 787.02 Nausea Alone 11/10/2009 782.0 Disturbance Of Skin Sensation 11/10/2009 787.02 Nausea Alone 11/10/2009 ELIZONDO DO, LIS K 782.0 Disturbance Of Skin Sensation 11/10/2009 ELIZONDO DO, LIS K 787.02 Nausea Alone 11/10/2009 ELIZONDO DO, LIS K 782.0 Disturbance Of Skin Sensation 11/10/2009 ELIZONDO DO, LIS K 787.02 Nausea Alone 11/10/2009 ELIZONDO DO, LIS K 782.0 Disturbance Of Skin Sensation 11/10/2009 ELIZONDO DO, LIS K 787.02 Nausea Alone 11/10/2009 SUMAYA HARRISON, NIKOLAS R 782.0 Disturbance Of Skin Sensation 11/10/2009 SUMAYA HARRISON, NIKOLAS R 787.02 Nausea Alone 11/10/2009 NITIN VALDES PHD 782.0 Disturbance Of Skin Sensation 11/10/2009 NITIN VALDES PHD 787.02 Nausea Alone 11/10/2009 NITIN VALDES PHD 782.0 Disturbance Of Skin Sensation 11/10/2009 NITIN VALDES PHD 787.02 Nausea Alone 11/10/2009 CAMACHO DEGREASER OPERATOR, ARNIE 782.0 Disturbance Of Skin Sensation 11/10/2009 CAMACHO DEGREASER OPERATOR, ARNIE 787.02 Nausea Alone 11/10/2009 CAMACHO DEGREASER OPERATOR, ARNIE 782.0 Disturbance Of Skin Sensation 11/10/2009 CAMACHO DEGREASER OPERATOR, ARNIE 787.02 Nausea Alone 11/10/2009 CAMACHO DEGREASER OPERATOR, ARNIE 782.0 Disturbance Of Skin Sensation 11/10/2009 CAMACHO DEGREASER OPERATOR, ARNIE 787.02 Nausea Alone 11/10/2009 CAMACHO DEGREASER OPERATOR, ARNIE 782.0 Disturbance Of Skin Sensation 11/10/2009 CAMACHO DEGREASER OPERATOR, ARNIE 787.02 Nausea Alone 11/10/2009 SUMAYA DEGREASER OPERATOR, NIKOLAS R 782.0 Disturbance Of Skin Sensation 11/10/2009 SUMAYA DEGREASER OPERATOR, NIKOLAS R 787.02 Nausea Alone 11/10/2009 CAMACHO DEGREASER OPERATOR, ARNIE 782.0 Disturbance Of Skin Sensation 11/10/2009 CAMACHO DEGREASER OPERATOR, ARNIE 787.02 Nausea Alone 11/10/2009 GIANA DEL VALLE, AMBER Lynch 782.0 Disturbance Of Skin Sensation 11/10/2009 GIANA DEL VALLE, AMBER Lynch 787.02 Nausea Alone 11/10/2009 AGUILA PINEDO MD 782.0 Disturbance Of Skin Sensation 11/10/2009 AGUILA PINEDO MD 787.02 Nausea Alone 11/10/2009 GIANA DEL VALLE, AMBER Lynch 782.0 Disturbance Of Skin Sensation 11/10/2009 GIANA DEL VALLE, AMBER Lynch 787.02 Nausea Alone 11/20/2009 466.0 Acute Bronchitis 11/20/2009 478.19 Nasal Passage Blockage (stuffiness) 11/20/2009 780.79 Feelings Of Weakness 11/20/2009 786.05 Shortness Of Breath 11/20/2009 786.2 Cough 11/20/2009 GUSTAVO DEGREASER OPERATOR, CHANDRA S 466.0 Acute Bronchitis 11/20/2009 GUSTAVO DEGREASER OPERATOR, CHANDRA S 478.19 Nasal Passage Blockage (stuffiness) 11/20/2009 GUSTAVO DEGREASER OPERATOR, CHANDRA S 780.79 Feelings Of Weakness 11/20/2009 GUSTAVO DEGREASER OPERATOR, CHANDRA S 786.05 Shortness Of Breath 11/20/2009 GUSTAVO DEGREASER OPERATOR, CHANDRA S 786.2 Cough 11/20/2009 GUSTAVO DEGREASER OPERATOR, CHANDRA S 466.0 Acute Bronchitis 11/20/2009 GUSTAVO DEGREASER OPERATOR, CHANDRA S 478.19 Nasal Passage Blockage (stuffiness) 11/20/2009 CHANDRA CHEN APRN S 780.79 Feelings Of Weakness 11/20/2009 CHANDRA CHEN APRN S 786.05 Shortness Of Breath 11/20/2009 CHANDRA CHEN APRN S 786.2 Cough 11/20/2009 466.0 Acute Bronchitis 11/20/2009 478.19 Nasal Passage Blockage (stuffiness) 11/20/2009 780.79 Feelings Of Weakness 11/20/2009 786.05 Shortness Of Breath 11/20/2009 786.2 Cough 11/20/2009 466.0 Acute Bronchitis 11/20/2009 478.19 Nasal Passage Blockage (stuffiness) 11/20/2009 780.79 Feelings Of Weakness 11/20/2009 786.05 Shortness Of Breath 11/20/2009 786.2 Cough 11/20/2009 466.0 Acute Bronchitis 11/20/2009 478.19 Nasal Passage Blockage (stuffiness) 11/20/2009 780.79 Feelings Of Weakness 11/20/2009 786.05 Shortness Of Breath 11/20/2009 786.2 Cough 11/20/2009 466.0 Acute Bronchitis 11/20/2009 478.19 Nasal Passage Blockage (stuffiness) 11/20/2009 780.79 Feelings Of Weakness 11/20/2009 786.05 Shortness Of Breath 11/20/2009 786.2 Cough 11/20/2009 466.0 Acute Bronchitis 11/20/2009 478.19 Nasal Passage Blockage (stuffiness) 11/20/2009 780.79 Feelings Of Weakness 11/20/2009 786.05 Shortness Of Breath 11/20/2009 786.2 Cough 11/20/2009 ELIZONDO DO, LIS K 466.0 Acute Bronchitis 11/20/2009 ELIZONDO DO, LIS K 478.19 Nasal Passage Blockage (stuffiness) 11/20/2009 ELIZONDO DO, LIS K 780.79 Feelings Of Weakness 11/20/2009 ELIZONDO DO, LIS K 786.05 Shortness Of Breath 11/20/2009 ELIZONDO DO, LIS K 786.2 Cough 11/20/2009 ELIZONDO DO, LIS K 466.0 Acute Bronchitis 11/20/2009 ELIZONDO DO, LIS K 478.19 Nasal Passage Blockage (stuffiness) 11/20/2009 ELIZONDO DO, LIS K 780.79 Feelings Of Weakness 11/20/2009 ELIZONDO DO, LIS K 786.05 Shortness Of Breath 11/20/2009 ELIZONDO DO, LIS K 786.2 Cough 11/20/2009 ELIZONDO DO, LIS K 466.0 Acute Bronchitis 11/20/2009 ELIZONDO DO, LIS K 478.19 Nasal Passage Blockage (stuffiness) 11/20/2009 ELIZONDO DO, LIS K 780.79 Feelings Of Weakness 11/20/2009 ELIZONDO DO, LIS K 786.05 Shortness Of Breath 11/20/2009 ELIZONDO DO, LIS K 786.2 Cough 11/20/2009 SUMAYA DEGREASER OPERATOR, NIKOLAS R 466.0 Acute Bronchitis 11/20/2009 SUMAYA DEGREASER OPERATOR, NIKOLAS R 478.19 Nasal Passage Blockage (stuffiness) 11/20/2009 SUMAYA DEGREASER OPERATOR, NIKOLAS R 780.79 Feelings Of Weakness 11/20/2009 SUMAYA DEGREASER OPERATOR, NIKOLAS R 786.05 Shortness Of Breath 11/20/2009 SUMAYA DEGREASER OPERATOR, NIKOLAS R 786.2 Cough 11/20/2009 NITIN VALDES PHD 466.0 Acute Bronchitis 11/20/2009 NITIN VALDES PHD 478.19 Nasal Passage Blockage (stuffiness) 11/20/2009 NITIN VALDES PHD 780.79 Feelings Of Weakness 11/20/2009 NITIN VALDES PHD 786.05 Shortness Of Breath 11/20/2009 NITIN VALDES PHD 786.2 Cough 11/20/2009 NITIN VALDES PHD 466.0 Acute Bronchitis 11/20/2009 NITIN VALDES PHD 478.19 Nasal Passage Blockage (stuffiness) 11/20/2009 NITIN VALDES PHD 780.79 Feelings Of Weakness 11/20/2009 NITIN VALDES PHD 786.05 Shortness Of Breath 11/20/2009 NITIN VALDES PHD 786.2 Cough 11/20/2009 CAMACHO DEGREASER OPERATOR, ARNIE 466.0 Acute Bronchitis 11/20/2009 CAMACHO DEGREASER OPERATOR, ARNIE 478.19 Nasal Passage Blockage (stuffiness) 11/20/2009 CAMACHO DEGREASER OPERATOR, ARNIE 780.79 Feelings Of Weakness 11/20/2009 CAMACHO DEGREASER OPERATOR, ARNIE 786.05 Shortness Of Breath 11/20/2009 CAMACHO DEGREASER OPERATOR, ARNIE 786.2 Cough 11/20/2009 CAMACHO DEGREASER OPERATOR, ARNIE 466.0 Acute Bronchitis 11/20/2009 CAMACHO DEGREASER OPERATOR, ARNIE 478.19 Nasal Passage Blockage (stuffiness) 11/20/2009 CAMACHO DEGREASER OPERATOR, ARNIE 780.79 Feelings Of Weakness 11/20/2009 CAMACHO DEGREASER OPERATOR, ARNIE 786.05 Shortness Of Breath 11/20/2009 CAMACHO DEGREASER OPERATOR, ARNIE 786.2 Cough 11/20/2009 CAMACHO DEGREASER OPERATOR, ARNIE 466.0 Acute Bronchitis 11/20/2009 CAMACHO DEGREASER OPERATOR, ARNIE 478.19 Nasal Passage Blockage (stuffiness) 11/20/2009 CAMACHO DEGREASER OPERATOR, ARNIE 780.79 Feelings Of Weakness 11/20/2009 CAMACHO DEGREASER OPERATOR, ARNIE 786.05 Shortness Of Breath 11/20/2009 CAMACHO DEGREASER OPERATOR, ARNIE 786.2 Cough 11/20/2009 CAMACHO DEGREASER OPERATOR, ARNIE 466.0 Acute Bronchitis 11/20/2009 CAMACHO DEGREASER OPERATOR, ARNIE 478.19 Nasal Passage Blockage (stuffiness) 11/20/2009 CAMACHO DEGREASER OPERATOR, ARNIE 780.79 Feelings Of Weakness 11/20/2009 CAMACHO DEGREASER OPERATOR, ARNIE 786.05 Shortness Of Breath 11/20/2009 CAMACHO DEGREASER OPERATOR, ARNIE 786.2 Cough 11/20/2009 SUMAYA DEGREASER OPERATOR, NIKOLAS R 466.0 Acute Bronchitis 11/20/2009 SUMAYA DEGREASER OPERATOR, NIKOLAS R 478.19 Nasal Passage Blockage (stuffiness) 11/20/2009 SUMAYA DEGREASER OPERATOR, NIKOLAS R 780.79 Feelings Of Weakness 11/20/2009 SUMAYA DEGREASER OPERATOR, NIKOLAS R 786.05 Shortness Of Breath 11/20/2009 SUMAYA DEGREASER OPERATOR, NIKOLAS R 786.2 Cough 11/20/2009 CAMACHO DEGREASER OPERATOR, ARNIE 466.0 Acute Bronchitis 11/20/2009 CAMACHO DEGREASER OPERATOR, ARNIE 478.19 Nasal Passage Blockage (stuffiness) 11/20/2009 CAMACHO DEGREASER OPERATOR, ARNIE 780.79 Feelings Of Weakness 11/20/2009 CAMACHO DEGREASER OPERATOR, ARNIE 786.05 Shortness Of Breath 11/20/2009 CAMACHO DEGREASER OPERATOR, ARNIE 786.2 Cough 11/20/2009 GIANA LCMF, AMBER W 466.0 Acute Bronchitis 11/20/2009 GIANA LCMF, AMBER W 478.19 Nasal Passage Blockage (stuffiness) 11/20/2009 GIANA LCMF, AMBER W 780.79 Feelings Of Weakness 11/20/2009 GIANA LCMF, AMBER W 786.05 Shortness Of Breath 11/20/2009 GIANA LCMF, AMBER W 786.2 Cough 11/20/2009 AGUILA PINEDO MD 466.0 Acute Bronchitis 11/20/2009 KHRIS LOVELL, AGUILA 478.19 Nasal Passage Blockage (stuffiness) 11/20/2009 KHRIS LOVELL, AGUILA 780.79 Feelings Of Weakness 11/20/2009 KHRIS LOVELL, AGUILA 786.05 Shortness Of Breath 11/20/2009 AGUILA PINEDO MD 786.2 Cough 11/20/2009 GIANA LCMF, AMBER W 466.0 Acute Bronchitis 11/20/2009 GIANA LCMF, AMBER W 478.19 Nasal Passage Blockage (stuffiness) 11/20/2009 GIANA LCMF, AMBER W 780.79 Feelings Of Weakness 11/20/2009 GIANA LCMF, AMBER W 786.05 Shortness Of Breath 11/20/2009 GIANA LCMF, AMBER W 786.2 Cough 12/21/2009 719.49 PAIN IN JOINT, MULTIPLE SITES 12/21/2009 CHANDRA CHEN APRN 719.49 Pain In Joint, Multiple Sites 12/21/2009 CHANDRA CHEN APRN 719.49 Pain In Joint, Multiple Sites 12/21/2009 719.49 Pain In Joint, Multiple Sites 12/21/2009 719.49 Pain In Joint, Multiple Sites 12/21/2009 719.49 Pain In Joint, Multiple Sites 12/21/2009 719.49 Pain In Joint, Multiple Sites 12/21/2009 719.49 Pain In Joint, Multiple Sites 12/21/2009 LIS ELIZONDO DO 719.49 Pain In Joint, Multiple Sites 12/21/2009 LIS ELIZONDO DO 719.49 Pain In Joint, Multiple Sites 12/21/2009 LIS ELIZONDO DO 719.49 Pain In Joint, Multiple Sites 12/21/2009 NIKOLAS SHELL APRN 719.49 Pain In Joint, Multiple Sites 12/21/2009 LUCIO PHD, NITIN Poole 719.49 Pain In Joint, Multiple Sites 12/21/2009 LUCIO PHD, NITIN [place]ole 719.49 Pain In Joint, Multiple Sites 12/21/2009 CAMACHO DEGREASER OPERATOR, ARNIE 719.49 Pain In Joint, Multiple Sites 12/21/2009 CAMACHO DEGREASER OPERATOR, ARNIE 719.49 Pain In Joint, Multiple Sites 12/21/2009 CAMACHO DEGREASER OPERATOR, ARNIE 719.49 Pain In Joint, Multiple Sites 12/21/2009 CAMACHO DEGREASER OPERATOR, ARNIE 719.49 Pain In Joint, Multiple Sites 12/21/2009 NIKOLAS SHELL APRN R 719.49 Pain In Joint, Multiple Sites 12/21/2009 CAMACHO DEGREASER OPERATOR, ARNIE 719.49 Pain In Joint, Multiple Sites 12/21/2009 AMBER VAZQUEZ 719.49 Pain In Joint, Multiple Sites 12/21/2009 AGUILA PINEDO MD 719.49 Pain In Joint, Multiple Sites 12/21/2009 AMBER VAZQUEZ 719.49 Pain In Joint, Multiple Sites 12/23/2009 268.9 VITAMIN D DEFICIENCY 12/23/2009 CHANDRA CHEN APRN S 268.9 VITAMIN D DEFICIENCY 12/23/2009 CHANDRA CHEN APRN S 268.9 VITAMIN D DEFICIENCY 12/23/2009 268.9 VITAMIN D DEFICIENCY 12/23/2009 268.9 VITAMIN D DEFICIENCY 12/23/2009 268.9 VITAMIN D DEFICIENCY 12/23/2009 268.9 VITAMIN D DEFICIENCY 12/23/2009 268.9 VITAMIN D DEFICIENCY 12/23/2009 ELIZONDO DO, LIS K 268.9 VITAMIN D DEFICIENCY 12/23/2009 ELIZONDO DO, LIS K 268.9 VITAMIN D DEFICIENCY 12/23/2009 ELIZONDO DO, LIS K 268.9 VITAMIN D DEFICIENCY 12/23/2009 NIKOLAS SHELL APRN R 268.9 VITAMIN D DEFICIENCY 12/23/2009 LUCIO ROCHE, NITIN Poole 268.9 VITAMIN D DEFICIENCY 12/23/2009 LUCIO PHD, NITIN Poole 268.9 VITAMIN D DEFICIENCY 12/23/2009 CAMACHO DEGREASER OPERATOR, ARNIE 268.9 VITAMIN D DEFICIENCY 12/23/2009 CAMACHO DEGREASER OPERATOR, ARNIE 268.9 VITAMIN D DEFICIENCY 12/23/2009 CAMACHO DEGREASER OPERATOR, ARNIE 268.9 VITAMIN D DEFICIENCY 12/23/2009 CAMACHO HARRISON, ARNIE 268.9 VITAMIN D DEFICIENCY 12/23/2009 NIKOLAS SHELL APRN R 268.9 VITAMIN D DEFICIENCY 12/23/2009 ARNIE SAUER APRN 268.9 VITAMIN D DEFICIENCY 12/23/2009 GIANA PINONF, AMBER W 268.9 VITAMIN D DEFICIENCY 12/23/2009 AGUILA PINEDO MD 268.9 VITAMIN D DEFICIENCY 12/23/2009 GIANA OCONNORF, AMBER Lynch 268.9 VITAMIN D DEFICIENCY 01/03/2010 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 01/03/2010 CHANDRA CHEN APRN 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 01/03/2010 CHANDRA CHEN APRN 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 01/03/2010 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 01/03/2010 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 01/03/2010 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 01/03/2010 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 01/03/2010 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 01/03/2010 ITZ ELIZONDO DOA K 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 01/03/2010 LIS ELIZONDO DO K 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 01/03/2010 LIS ELIZONDO DO K 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 01/03/2010 NIKOLAS SHELL APRN R 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 01/03/2010 LUCIO ROCHE, NITIN Poole 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 01/03/2010 LUCIO ROCHE, NITIN Poole 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 01/03/2010 ARNIE ASUER APRN 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 01/03/2010 ARNIE SAUER APRN 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 01/03/2010 ARNIE SAUER APRN 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 01/03/2010 ARNIE SAUER APRN 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 01/03/2010 NIKOLAS SHELL APRN R 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 01/03/2010 ARNIE SAUER APRN 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 01/03/2010 GIANA DEL VALLE, AMBER W 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 01/03/2010 AGUILA PINEDO MD 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 01/03/2010 GIANA DEL VALLE, AMBER W 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 01/07/2010 Ot 784.0 HEADACHE 01/07/2010 Ot V57.1 PHYSICAL THERAPY NEC 01/12/2010 309.0 AD ADJ D/O W DEPRESSED 01/12/2010 CHANDRA CHEN APRN S 309.0 AD ADJ D/O W DEPRESSED 01/12/2010 CHANDRA CHEN APRN S 309.0 AD ADJ D/O W DEPRESSED 01/12/2010 309.0 AD ADJ D/O W DEPRESSED 01/12/2010 309.0 AD ADJ D/O W DEPRESSED 01/12/2010 309.0 AD ADJ D/O W DEPRESSED 01/12/2010 309.0 AD ADJ D/O W DEPRESSED 01/12/2010 309.0 AD ADJ D/O W DEPRESSED 01/12/2010 LIS ELIZONDO DO K 309.0 AD ADJ D/O W DEPRESSED 01/12/2010 LIS ELIZONDO DO K 309.0 AD ADJ D/O W DEPRESSED 01/12/2010 LIS ELIOZNDO DO K 309.0 AD ADJ D/O W DEPRESSED 01/12/2010 NIKOLAS SHELL APRN R 309.0 AD ADJ D/O W DEPRESSED 01/12/2010 LUCIO ROCHE, NITIN Poole 309.0 AD ADJ D/O W DEPRESSED 01/12/2010 LUCIO ROCHE, NITIN Poole 309.0 AD ADJ D/O W DEPRESSED 01/12/2010 ARINE SAUER APRN 309.0 AD ADJ D/O W DEPRESSED 01/12/2010 ARNIE SAUER APRN 309.0 AD ADJ D/O W DEPRESSED 01/12/2010 CAMACHO HARRISON, ARNIE 309.0 AD ADJ D/O W DEPRESSED 01/12/2010 CAMACHO DEGREASER OPERATOR, ARNIE 309.0 AD ADJ D/O W DEPRESSED 01/12/2010 SUMAYA DEGREASER OPERATOR, NIKOLAS R 309.0 AD ADJ D/O W DEPRESSED 01/12/2010 CAMACHO DEGREASER OPERATOR, ARNIE 309.0 AD ADJ D/O W DEPRESSED 01/12/2010 GIANA PINONF, AMBER W 309.0 AD ADJ D/O W DEPRESSED 01/12/2010 KHRIS LOVELL, AGUILA 309.0 AD ADJ D/O W DEPRESSED 01/12/2010 GIANA PINONF, AMBER W 309.0 AD ADJ D/O W DEPRESSED 02/20/2010 Ot 729.5 PAIN IN LIMB 04/16/2010 Ot 041.86 HELICOBACTER PYLORI [H. PYLORI] 04/16/2010 Ot 530.81 ESOPHAGEAL REFLUX 04/16/2010 Ot 535.50 UNSP GASTRITIS GASTRODUODENITIS W/O ME 04/18/2010 041.86 Helicobacter Pylori [h.pylori] 04/18/2010 535.00 Acute Gastritis, Without Mention Of Hemorrhage 04/18/2010 CHANDRA CHEN APRN 041.86 Helicobacter Pylori [h.pylori] 04/18/2010 CHANDRA CHEN APRN S 535.00 Acute Gastritis, Without Mention Of Hemorrhage 04/18/2010 CHANDRA CHEN APRN 041.86 Helicobacter Pylori [h.pylori] 04/18/2010 CHANDRA CHEN APRN S 535.00 Acute Gastritis, Without Mention Of Hemorrhage 04/18/2010 041.86 Helicobacter Pylori [h.pylori] 04/18/2010 535.00 Acute Gastritis, Without Mention Of Hemorrhage 04/18/2010 041.86 Helicobacter Pylori [h.pylori] 04/18/2010 535.00 Acute Gastritis, Without Mention Of Hemorrhage 04/18/2010 041.86 Helicobacter Pylori [h.pylori] 04/18/2010 535.00 Acute Gastritis, Without Mention Of Hemorrhage 04/18/2010 041.86 Helicobacter Pylori [h.pylori] 04/18/2010 535.00 Acute Gastritis, Without Mention Of Hemorrhage 04/18/2010 041.86 Helicobacter Pylori [h.pylori] 04/18/2010 535.00 Acute Gastritis, Without Mention Of Hemorrhage 04/18/2010 ELIZONDO DO, LIS K 041.86 Helicobacter Pylori [h.pylori] 04/18/2010 ELIZONDO DO, LIS K 535.00 Acute Gastritis, Without Mention Of Hemorrhage 04/18/2010 ELIZONDO DO, LIS K 041.86 Helicobacter Pylori [h.pylori] 04/18/2010 ELIZONDO DO, LIS K 535.00 Acute Gastritis, Without Mention Of Hemorrhage 04/18/2010 ELIZONDO DO, LIS K 041.86 Helicobacter Pylori [h.pylori] 04/18/2010 ELIZONDO DO, LIS K 535.00 Acute Gastritis, Without Mention Of Hemorrhage 04/18/2010 SUMAYA DEGREASER OPERATOR, NIKOLAS R 041.86 Helicobacter Pylori [h.pylori] 04/18/2010 SUMAYA DEGREASER OPERATOR, NIKOLAS R 535.00 Acute Gastritis, Without Mention Of Hemorrhage 04/18/2010 NITIN VALDES PHD 041.86 Helicobacter Pylori [h.pylori] 04/18/2010 LUCIO ROCHE, NITIN Poole 535.00 Acute Gastritis, Without Mention Of Hemorrhage 04/18/2010 NITIN VALDES PHD 041.86 Helicobacter Pylori [h.pylori] 04/18/2010 LUCIO ROCHE, NITIN Poole 535.00 Acute Gastritis, Without Mention Of Hemorrhage 04/18/2010 CAMACHO DEGREASER OPERATOR, ARNIE 041.86 Helicobacter Pylori [h.pylori] 04/18/2010 CAMACHO DEGREASER OPERATOR, ARNIE 535.00 Acute Gastritis, Without Mention Of Hemorrhage 04/18/2010 CAMACHO DEGREASER OPERATOR, ARNIE 041.86 Helicobacter Pylori [h.pylori] 04/18/2010 CAMACHO DEGREASER OPERATOR, ARNIE 535.00 Acute Gastritis, Without Mention Of Hemorrhage 04/18/2010 CAMACHO DEGREASER OPERATOR, ARNIE 041.86 Helicobacter Pylori [h.pylori] 04/18/2010 CAMACHO DEGREASER OPERATOR, ARNIE 535.00 Acute Gastritis, Without Mention Of Hemorrhage 04/18/2010 CAMACHO DEGREASER OPERATOR, ARNIE 041.86 Helicobacter Pylori [h.pylori] 04/18/2010 CAMACHO DEGREASER OPERATOR, ARNIE 535.00 Acute Gastritis, Without Mention Of Hemorrhage 04/18/2010 SUMAYA DEGREASER OPERATOR, NIKOLAS R 041.86 Helicobacter Pylori [h.pylori] 04/18/2010 SUMAYA DEGREASER OPERATOR, NIKOLAS R 535.00 Acute Gastritis, Without Mention Of Hemorrhage 04/18/2010 CAMACHO DEGREASER OPERATOR, ARNIE 041.86 Helicobacter Pylori [h.pylori] 04/18/2010 CAMACHO DEGREASER OPERATOR, ARNIE 535.00 Acute Gastritis, Without Mention Of Hemorrhage 04/18/2010 GIANA OCONNORDeni, AMBER Lynch 041.86 Helicobacter Pylori [h.pylori] 04/18/2010 GIANASANJU DEL VALLE, AMBER Cris 535.00 Acute Gastritis, Without Mention Of Hemorrhage 04/18/2010 AGUILA PINEDO MD 041.86 Helicobacter Pylori [h.pylori] 04/18/2010 AGUILA PINEDO MD 535.00 Acute Gastritis, Without Mention Of Hemorrhage 04/18/2010 GIANA OCONNORDeni, AMBER Cris 041.86 Helicobacter Pylori [h.pylori] 04/18/2010 GIANA LC, AMBER Cris 535.00 Acute Gastritis, Without Mention Of Hemorrhage 04/21/2010 Ot 789.09 ABDOMINAL PAIN, OTHER SPECIFIED SITE 04/23/2010 789.02 Abdominal Pain, Left Upper Quadrant 04/23/2010 CHANDRA CHEN APRN S 789.02 Abdominal Pain, Left Upper Quadrant 04/23/2010 CHANDRA CHEN APRN S 789.02 Abdominal Pain, Left Upper Quadrant 04/23/2010 789.02 Abdominal Pain, Left Upper Quadrant 04/23/2010 789.02 Abdominal Pain, Left Upper Quadrant 04/23/2010 789.02 Abdominal Pain, Left Upper Quadrant 04/23/2010 789.02 Abdominal Pain, Left Upper Quadrant 04/23/2010 789.02 Abdominal Pain, Left Upper Quadrant 04/23/2010 ELIZONDO DO, LIS K 789.02 Abdominal Pain, Left Upper Quadrant 04/23/2010 ELIZONDO DO LIS K 789.02 Abdominal Pain, Left Upper Quadrant 04/23/2010 ELIZONDO DO LIS K 789.02 Abdominal Pain, Left Upper Quadrant 04/23/2010 SUMAYA HARRISON, NIKOLAS Troy 789.02 Abdominal Pain, Left Upper Quadrant 04/23/2010 LUCIO PHD, NITIN Poole 789.02 Abdominal Pain, Left Upper Quadrant 04/23/2010 LUCIO PHD, NITIN Poole 789.02 Abdominal Pain, Left Upper Quadrant 04/23/2010 CAMACHO DEGREASER OPERATOR, ARNIE 789.02 Abdominal Pain, Left Upper Quadrant 04/23/2010 CAMACHO DEGREASER OPERATOR, ARNIE 789.02 Abdominal Pain, Left Upper Quadrant 04/23/2010 CAMACHO DEGREASER OPERATOR, ARNIE 789.02 Abdominal Pain, Left Upper Quadrant 04/23/2010 CAMACHO DEGREASER OPERATOR, ARNIE 789.02 Abdominal Pain, Left Upper Quadrant 04/23/2010 SUMAYA HARRISON, NIKOLAS [place] 789.02 Abdominal Pain, Left Upper Quadrant 04/23/2010 CAMACHO DEGREASER OPERATOR, ARNIE 789.02 Abdominal Pain, Left Upper Quadrant 04/23/2010 GIANA PINONF, AMBER Lynch 789.02 Abdominal Pain, Left Upper Quadrant 04/23/2010 AGUILA PINEDO MD 789.02 Abdominal Pain, Left Upper Quadrant 04/23/2010 GIANA OCONNORMF, AMBER Lynch 789.02 Abdominal Pain, Left Upper Quadrant 04/27/2010 112.0 Candidiasis, Of Mouth 04/27/2010 346.00 MIGRAINE WITH AURA, WITHOUT MENTION OF INTRACTABLE MIGRAINE WITHOUT MENTION OF STATUS MIGRAINOSUS 04/27/2010 682.1 Other Cellulitis And Abscess, Neck 04/27/2010 GUSTAVO HARRISON CHANDRA S 112.0 Candidiasis, Of Mouth 04/27/2010 GUSTAVO HARRISON CHANDRA S 346.00 Migraine With Aura, Without Mention Of Intractable Migraine Without Mention Of Status Migrainosus 04/27/2010 GUSTAVO DEGREASER OPERATOR, CHANDRA S 682.1 Other Cellulitis And Abscess, Neck 04/27/2010 GUSTAVO HARRISON CHANDRA S 112.0 Candidiasis, Of Mouth 04/27/2010 GUSTAVO DEGREASER OPERATOR, CHANDRA S 346.00 Migraine With Aura, Without Mention Of Intractable Migraine Without Mention Of Status Migrainosus 04/27/2010 GUSTAVO HARRISON CHANDRA S 682.1 Other Cellulitis And Abscess, Neck 04/27/2010 112.0 Candidiasis, Of Mouth 04/27/2010 346.00 Migraine With Aura, Without Mention Of Intractable Migraine Without Mention Of Status Migrainosus 04/27/2010 682.1 Other Cellulitis And Abscess, Neck 04/27/2010 112.0 Candidiasis, Of Mouth 04/27/2010 346.00 Migraine With Aura, Without Mention Of Intractable Migraine Without Mention Of Status Migrainosus 04/27/2010 682.1 Other Cellulitis And Abscess, Neck 04/27/2010 112.0 Candidiasis, Of Mouth 04/27/2010 346.00 Migraine With Aura, Without Mention Of Intractable Migraine Without Mention Of Status Migrainosus 04/27/2010 682.1 Other Cellulitis And Abscess, Neck 04/27/2010 112.0 Candidiasis, Of Mouth 04/27/2010 346.00 Migraine With Aura, Without Mention Of Intractable Migraine Without Mention Of Status Migrainosus 04/27/2010 682.1 Other Cellulitis And Abscess, Neck 04/27/2010 112.0 Candidiasis, Of Mouth 04/27/2010 346.00 Migraine With Aura, Without Mention Of Intractable Migraine Without Mention Of Status Migrainosus 04/27/2010 682.1 Other Cellulitis And Abscess, Neck 04/27/2010 ELIZONDO DO, LIS K 112.0 Candidiasis, Of Mouth 04/27/2010 ELIZONDO DO, LIS K 346.00 Migraine With Aura, Without Mention Of Intractable Migraine Without Mention Of Status Migrainosus 04/27/2010 ELIZONDO DO, LIS K 682.1 Other Cellulitis And Abscess, Neck 04/27/2010 ELIZONDO DO, LIS K 112.0 Candidiasis, Of Mouth 04/27/2010 ELIZONDO DO, LIS K 346.00 Migraine With Aura, Without Mention Of Intractable Migraine Without Mention Of Status Migrainosus 04/27/2010 ELIZONDO DO, LIS K 682.1 Other Cellulitis And Abscess, Neck 04/27/2010 ELIZONDO DO, LIS K 112.0 Candidiasis, Of Mouth 04/27/2010 ELIZONDO DO, LIS K 346.00 Migraine With Aura, Without Mention Of Intractable Migraine Without Mention Of Status Migrainosus 04/27/2010 ELIZONDO DO, LIS K 682.1 Other Cellulitis And Abscess, Neck 04/27/2010 SUMAYA DEGREASER OPERATOR, NIKOLAS R 112.0 Candidiasis, Of Mouth 04/27/2010 SUMAYA DEGREASER OPERATOR, NIKOLAS R 346.00 Migraine With Aura, Without Mention Of Intractable Migraine Without Mention Of Status Migrainosus 04/27/2010 SUMAYA DEGREASER OPERATOR, NIKOLAS R 682.1 Other Cellulitis And Abscess, Neck 04/27/2010 NITIN VALDES PHD 112.0 Candidiasis, Of Mouth 04/27/2010 LUCIO ROCHE, NITIN Poole 346.00 Migraine With Aura, Without Mention Of Intractable Migraine Without Mention Of Status Migrainosus 04/27/2010 NITIN VALDES PHD 682.1 Other Cellulitis And Abscess, Neck 04/27/2010 NITIN VALDES PHD 112.0 Candidiasis, Of Mouth 04/27/2010 LUCIO ROCHE, NITIN Poole 346.00 Migraine With Aura, Without Mention Of Intractable Migraine Without Mention Of Status Migrainosus 04/27/2010 LUCIO ROCHE, NITIN Poole 682.1 Other Cellulitis And Abscess, Neck 04/27/2010 CAMACHO DEGREASER OPERATOR, ARNIE 112.0 Candidiasis, Of Mouth 04/27/2010 CAMACHO DEGREASER OPERATOR, ARNIE 346.00 Migraine With Aura, Without Mention Of Intractable Migraine Without Mention Of Status Migrainosus 04/27/2010 CAMACHO DEGREASER OPERATOR, ARNIE 682.1 Other Cellulitis And Abscess, Neck 04/27/2010 CAMACHO DEGREASER OPERATOR, ARNIE 112.0 Candidiasis, Of Mouth 04/27/2010 CAMACHO DEGREASER OPERATOR, ARNIE 346.00 Migraine With Aura, Without Mention Of Intractable Migraine Without Mention Of Status Migrainosus 04/27/2010 CAMACHO DEGREASER OPERATOR, ARNIE 682.1 Other Cellulitis And Abscess, Neck 04/27/2010 CAMACHO DEGREASER OPERATOR, ARNIE 112.0 Candidiasis, Of Mouth 04/27/2010 CAMACHO DEGREASER OPERATOR, ARNIE 346.00 Migraine With Aura, Without Mention Of Intractable Migraine Without Mention Of Status Migrainosus 04/27/2010 CAMACHO DEGREASER OPERATOR, ARNIE 682.1 Other Cellulitis And Abscess, Neck 04/27/2010 CAMACHO DEGREASER OPERATOR, ARNIE 112.0 Candidiasis, Of Mouth 04/27/2010 CAMACHO DEGREASER OPERATOR, ARNIE 346.00 Migraine With Aura, Without Mention Of Intractable Migraine Without Mention Of Status Migrainosus 04/27/2010 CAMACHO DEGREASER OPERATOR, ARNIE 682.1 Other Cellulitis And Abscess, Neck 04/27/2010 SUMAYA DEGREASER OPERATOR, NIKOLAS R 112.0 Candidiasis, Of Mouth 04/27/2010 SUMAYA DEGREASER OPERATOR, NIKOLAS R 346.00 Migraine With Aura, Without Mention Of Intractable Migraine Without Mention Of Status Migrainosus 04/27/2010 SUMAYA DEGREASER OPERATOR, NIKOLAS R 682.1 Other Cellulitis And Abscess, Neck 04/27/2010 CAMACHO DEGREASER OPERATOR, ARNIE 112.0 Candidiasis, Of Mouth 04/27/2010 CAMACHO DEGREASER OPERATOR, ARNIE 346.00 Migraine With Aura, Without Mention Of Intractable Migraine Without Mention Of Status Migrainosus 04/27/2010 CAMACHO DEGREASER OPERATOR, ARNIE 682.1 Other Cellulitis And Abscess, Neck 04/27/2010 [facility] 112.0 Candidiasis, Of Mouth 04/27/2010 [facility] W 346.00 Migraine With Aura, Without Mention Of Intractable Migraine Without Mention Of Status Migrainosus 04/27/2010 [facility], AMBER W 682.1 Other Cellulitis And Abscess, Neck 04/27/2010 AGUILA PINEDO MD 112.0 Candidiasis, Of Mouth 04/27/2010 KHRIS LOVELL, AGUILA 346.00 Migraine With Aura, Without Mention Of Intractable Migraine Without Mention Of Status Migrainosus 04/27/2010 KHRIS LOVELL, AGUILA 682.1 Other Cellulitis And Abscess, Neck 04/27/2010 [facility] W 112.0 Candidiasis, Of Mouth 04/27/2010 [facility] W 346.00 Migraine With Aura, Without Mention Of Intractable Migraine Without Mention Of Status Migrainosus 04/27/2010 [facility], AMBER W 682.1 Other Cellulitis And Abscess, Neck 05/20/2010 Ot 682.2 CELLULITIS OF TRUNK 06/07/2010 535.10 ATROPHIC GASTRITIS, WITHOUT MENTION OF HEMORRHAGE 06/07/2010 CHANDRA CHEN APRN S 535.10 Atrophic Gastritis, Without Mention Of Hemorrhage 06/07/2010 CHANDRA CHEN APRN S 535.10 Atrophic Gastritis, Without Mention Of Hemorrhage 06/07/2010 535.10 Atrophic Gastritis, Without Mention Of Hemorrhage 06/07/2010 535.10 Atrophic Gastritis, Without Mention Of Hemorrhage 06/07/2010 535.10 Atrophic Gastritis, Without Mention Of Hemorrhage 06/07/2010 535.10 Atrophic Gastritis, Without Mention Of Hemorrhage 06/07/2010 535.10 Atrophic Gastritis, Without Mention Of Hemorrhage 06/07/2010 LIS ELIZONDO DO K 535.10 Atrophic Gastritis, Without Mention Of Hemorrhage 06/07/2010 LIS ELIZONDO DO K 535.10 Atrophic Gastritis, Without Mention Of Hemorrhage 06/07/2010 LIS ELIZONDO DO K 535.10 Atrophic Gastritis, Without Mention Of Hemorrhage 06/07/2010 NIKOLAS SHELL APRN 535.10 Atrophic Gastritis, Without Mention Of Hemorrhage 06/07/2010 LUCIO ROCHE, NITIN Poole 535.10 Atrophic Gastritis, Without Mention Of Hemorrhage 06/07/2010 LUCIO ROCHE, NITIN Poole 535.10 Atrophic Gastritis, Without Mention Of Hemorrhage 06/07/2010 ARNIE SAUER APRN 535.10 Atrophic Gastritis, Without Mention Of Hemorrhage 06/07/2010 ARNIE SAUER APRN 535.10 Atrophic Gastritis, Without Mention Of Hemorrhage 06/07/2010 CAMACHO DEGREASER OPERATOR, ARNIE 535.10 Atrophic Gastritis, Without Mention Of Hemorrhage 06/07/2010 CAMACHO DEGREASER OPERATORARNIE Loving 535.10 Atrophic Gastritis, Without Mention Of Hemorrhage 06/07/2010 NIKOLAS SHELL APRN 535.10 Atrophic Gastritis, Without Mention Of Hemorrhage 06/07/2010 CAMACHO DEGREASER OPERATOR, ARNIE 535.10 Atrophic Gastritis, Without Mention Of Hemorrhage 06/07/2010 AMBER VAZQUEZ 535.10 Atrophic Gastritis, Without Mention Of Hemorrhage 06/07/2010 AGUILA PINEDO MD 535.10 Atrophic Gastritis, Without Mention Of Hemorrhage 06/07/2010 AMBER VAZQUEZ 535.10 Atrophic Gastritis, Without Mention Of Hemorrhage 06/21/2010 Ot 346.90 MIGRAINE UNSPECIFIED W/O INTRACT MGRN W/ 06/21/2010 Ot 784.0 HEADACHE 08/07/2010 Ot 643.03 MILD HYPEREMESIS-ANTEPAR 08/07/2010 Ot 787.03 VOMITING ALONE 08/07/2010 Ot 787.91 DIARRHEA 08/17/2010 Ot 307.81 TENSION HEADACHE 08/17/2010 Ot 648.43 MENTAL DISORDER-ANTEPART 08/17/2010 Ot 784.0 HEADACHE 08/18/2010 Ot 784.0 HEADACHE 08/21/2010 Ot 698.9 PRURITIC DISORDER NOS 08/21/2010 Ot 786.07 WHEEZING 08/21/2010 Ot 995.7 ADVERSE FOOD REACTIONS NEC 08/21/2010 Ot V15.05 ALLERGY TO OTHER FOODS 08/23/2010 Ot 648.93 OTH CURR COND-ANTEPARTUM 08/23/2010 Ot 784.0 HEADACHE 08/25/2010 V22.2 Incidental 08/25/2010 CHANDRA CHEN APRN S V22.2 Incidental 08/25/2010 CHANDRA CHEN APRN S V22.2 Incidental 08/25/2010 V22.2 Incidental 08/25/2010 V22.2 Incidental 08/25/2010 V22.2 Incidental 08/25/2010 V22.2 Incidental 08/25/2010 V22.2 Incidental 08/25/2010 ELIZONDO DO, LIS K V22.2 Incidental 08/25/2010 ELIZONDO DO, LIS K V22.2 Incidental 08/25/2010 ELIZONDO DO, LIS K V22.2 Incidental 08/25/2010 SUMAYA DEGREASER OPERATOR, NIKOLAS R V22.2 Incidental 08/25/2010 LUCIO ROCHE, NITIN Poole V22.2 Incidental 08/25/2010 LUCIO ROCHE, NITIN Poole V22.2 Incidental 08/25/2010 CAMACHO DEGREASER OPERATOR, ARNIE V22.2 Incidental 08/25/2010 CAMACHO DEGREASER OPERATOR, ARNIE V22.2 Incidental 08/25/2010 CAMACHO DEGREASER OPERATOR, ARNIE V22.2 Incidental 08/25/2010 CAMACHO DEGREASER OPERATOR, ARNIE V22.2 Incidental 08/25/2010 SUMAYA DEGREASER OPERATOR, NIKOLAS R V22.2 Incidental 08/25/2010 CAMACHO DEGREASER OPERATOR, ARNIE V22.2 Incidental 08/25/2010 GIANA DEL VALLE, ABMER Lynch V22.2 Incidental 08/25/2010 AGUILA PINEDO MD V22.2 Incidental 08/25/2010 GIANA DEL VALLE, AMBER Lynch V22.2 Incidental 09/12/2010 Ot 346.90 MIGRAINE UNSPECIFIED W/O INTRACT MGRN W09/12/2010 Ot 648.93 OTH CURR COND-ANTEPARTUM 09/12/2010 Ot 784.0 HEADACHE 09/23/2010 465.9 Upper Respiratory Infection 09/23/2010 CHANDRA CHEN APRN S 465.9 Upper Respiratory Infection 09/23/2010 CRIS CHEN APRNNDA S 465.9 Upper Respiratory Infection 09/23/2010 465.9 Upper Respiratory Infection 09/23/2010 465.9 Upper Respiratory Infection 09/23/2010 465.9 Upper Respiratory Infection 09/23/2010 465.9 Upper Respiratory Infection 09/23/2010 465.9 Upper Respiratory Infection 09/23/2010 MIKHAIL DOITZA K 465.9 Upper Respiratory Infection 09/23/2010 ITZ ELIZONDO DOA K 465.9 Upper Respiratory Infection 09/23/2010 LIS ELIZONDO DO 465.9 Upper Respiratory Infection 09/23/2010 SUMAYA DEGREASER OPERATOR, NIKOLAS R 465.9 Upper Respiratory Infection 09/23/2010 LUCIO PHD, NITIN Poole 465.9 Upper Respiratory Infection 09/23/2010 LUCIO ROCHE, NITIN Poole 465.9 Upper Respiratory Infection 09/23/2010 CAMACHO DEGREASER OPERATOR, ARNIE 465.9 Upper Respiratory Infection 09/23/2010 CAMACHO DEGREASER OPERATOR, ARNIE 465.9 Upper Respiratory Infection 09/23/2010 CAMACHO DEGREASER OPERATOR, ARNIE 465.9 Upper Respiratory Infection 09/23/2010 CAMACHO DEGREASER OPERATOR, ARNIE 465.9 Upper Respiratory Infection 09/23/2010 SUMAYA DEGREASER OPERATOR, NIKOLAS R 465.9 Upper Respiratory Infection 09/23/2010 CAMACHO DEGREASER OPERATOR, ARNIE 465.9 Upper Respiratory Infection 09/23/2010 GIANA PINONF, AMBER Lynch 465.9 Upper Respiratory Infection 09/23/2010 AGUILA PINEDO MD 465.9 Upper Respiratory Infection 09/23/2010 GIANA PINONF, AMBER Lynch 465.9 Upper Respiratory Infection 10/22/2010 Ot 648.93 OTH CURR COND-ANTEPARTUM 10/22/2010 Ot 784.0 HEADACHE 11/01/2010 Ot 276.51 DEHYDRATION 11/01/2010 Ot 558.9 NONINF GASTROENTERIT NEC 11/01/2010 Ot 648.93 OTH CURR COND-ANTEPARTUM 11/01/2010 Ot V12.71 PERSONAL HISTORY OF PEPTIC ULCER DISEASE 11/10/2010 780.50 SLEEP DISTURBANCE, UNSPECIFIED 11/10/2010 CHADNRA CHEN APRN 780.50 Sleep Disturbance, Unspecified 11/10/2010 CHANDRA CHEN APRN 780.50 Sleep Disturbance, Unspecified 11/10/2010 780.50 Sleep Disturbance, Unspecified 11/10/2010 780.50 Sleep Disturbance, Unspecified 11/10/2010 780.50 Sleep Disturbance, Unspecified 11/10/2010 780.50 Sleep Disturbance, Unspecified 11/10/2010 780.50 Sleep Disturbance, Unspecified 11/10/2010 LIS ELIZONDO DO 780.50 Sleep Disturbance, Unspecified 11/10/2010 ITZ ELIZONDO DOA K 780.50 Sleep Disturbance, Unspecified 11/10/2010 LIS ELIZONDO DO 780.50 Sleep Disturbance, Unspecified 11/10/2010 SUMAYA HARRISON, NIKOLAS R 780.50 Sleep Disturbance, Unspecified 11/10/2010 LUCIO PHD, NITIN Poole 780.50 Sleep Disturbance, Unspecified 11/10/2010 LUCIO PHD, NITIN Poole 780.50 Sleep Disturbance, Unspecified 11/10/2010 CAMACHO DEGREASER OPERATOR, ARNIE 780.50 Sleep Disturbance, Unspecified 11/10/2010 CAMACHO DEGREASER OPERATOR, ARNIE 780.50 Sleep Disturbance, Unspecified 11/10/2010 CAMACHO DEGREASER OPERATOR, ARNIE 780.50 Sleep Disturbance, Unspecified 11/10/2010 CAMACHO DEGREASER OPERATOR, ARNIE 780.50 Sleep Disturbance, Unspecified 11/10/2010 SUMAYA HARRISON, NIKOLAS R 780.50 Sleep Disturbance, Unspecified 11/10/2010 CAMACHO DEGREASER OPERATOR, ARNIE 780.50 Sleep Disturbance, Unspecified 11/10/2010 AMBER VAZQUEZ 780.50 Sleep Disturbance, Unspecified 11/10/2010 AGUIAL PINEDO MD 780.50 Sleep Disturbance, Unspecified 11/10/2010 AMBER VAZQUEZ 780.50 Sleep Disturbance, Unspecified 11/13/2010 Ot 462 ACUTE PHARYNGITIS 11/13/2010 Ot 683 ACUTE LYMPHADENITIS 12/13/2010 564.1 IRRITABLE BOWEL SYNDROME 12/13/2010 CHANDRA CHEN APRN S 564.1 Irritable Bowel Syndrome 12/13/2010 CHANDRA CHEN APRN S 564.1 Irritable Bowel Syndrome 12/13/2010 564.1 Irritable Bowel Syndrome 12/13/2010 564.1 Irritable Bowel Syndrome 12/13/2010 564.1 Irritable Bowel Syndrome 12/13/2010 564.1 Irritable Bowel Syndrome 12/13/2010 564.1 Irritable Bowel Syndrome 12/13/2010 ELIZONDO DO, LIS K 564.1 Irritable Bowel Syndrome 12/13/2010 ELIZONDO DO, LIS K 564.1 Irritable Bowel Syndrome 12/13/2010 ELIZONDO DO, LIS K 564.1 Irritable Bowel Syndrome 12/13/2010 SYLVIA SHELL APRNINA R 564.1 Irritable Bowel Syndrome 12/13/2010 LUCIO PHD, NITIN Poole 564.1 Irritable Bowel Syndrome 12/13/2010 LUCIO ROCHE, NITIN Poole 564.1 Irritable Bowel Syndrome 12/13/2010 CAMACHO HUNTER, ARNIE 564.1 Irritable Bowel Syndrome 12/13/2010 CAMACHO DEGREASER OPERATOR, ARNIE 564.1 Irritable Bowel Syndrome 12/13/2010 CAMACHO DEGREASER OPERATOR, ARNIE 564.1 Irritable Bowel Syndrome 12/13/2010 CAMACHO DEGREASER OPERATOR, ARNIE 564.1 Irritable Bowel Syndrome 12/13/2010 NIKOLAS SHELL APRN 564.1 Irritable Bowel Syndrome 12/13/2010 CAMACHO HARRISON, ARNIE 564.1 Irritable Bowel Syndrome 12/13/2010 AMBER VAZQUEZ 564.1 Irritable Bowel Syndrome 12/13/2010 AGUILA PINEDO MD 564.1 Irritable Bowel Syndrome 12/13/2010 AMBER VAZQUEZ 564.1 Irritable Bowel Syndrome 12/14/2010 Ot 564.1 IRRITABLE BOWEL SYNDROME 12/14/2010 Ot 648.93 OTH CURR COND-ANTEPARTUM 01/05/2011 Ot 346.90 MIGRAINE UNSPECIFIED W/O INTRACT MGRN W/ 01/05/2011 Ot 646.83 PREG COMPL NEC-ANTEPART 01/05/2011 Ot 784.0 HEADACHE 01/18/2011 Ot 648.93 OTH CURR COND-ANTEPARTUM 01/18/2011 Ot 789.09 ABDOMINAL PAIN, OTHER SPECIFIED SITE 01/18/2011 Ot 959.12 OTH INJURY OF ABDOMEN 01/18/2011 Ot E000.8 OTHER EXTERNAL CAUSE STATUS 01/18/2011 Ot E812.1 MV COLLISION NOS-PASNGR 01/19/2011 719.45 Hip Pain 01/19/2011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 ACC NOS-PERS NOS 01/16/2017 Ot 617.0 UTERINE ENDOMETRIOSIS 01/16/2017 Ot V72.63 PRE-PROCEDURAL LABORATORY EXAMINATION 01/16/2017 Ot V74.8 SCREEN-BACTERIAL DIS NEC 01/16/2017 SHU SIMENTAL APRN Ot 724.5 BACKACHE NOS 01/16/2017 LISSA LOVELL, CRISTOFER Mack Ot 278.01 MORBID OBESITY 01/16/2017 CRISTOFER ALCARAZ MD Ot 721.3 LUMBOSACRAL SPONDYLOSIS 01/16/2017 CRISTOFER ALCARAZ MD Ot 729.1 MYALGIA AND MYOSITIS NOS 01/16/2017 CRISTOFER ALCARAZ MD Ot V58.69 OTH MED,LT,CURRENT USE 01/16/2017 CRISTOFER ALCARAZ MD Ot V85.41 BODY MASS INDEX 40.0-44.9, ADULT 01/16/2017 CRISTOFER ALCARAZ MD Ot 724.5 BACKACHE NOS 01/17/2017 HERIBERTO LOVELL, TED Loving Ot N63 UNSPECIFIED LUMP IN BREAST Procedures Code Description Performed By Performed On 96.49 OTHER INSTILLATION 08/18/2007 73.59 MANUAL ASSIST DELIV NEC 08/19/2007 96.49 OTHER INSTILLATION 08/18/2008 74.1 LOW CERVICAL 08/19/2008 45.16 ESOPHAGOGASTRODUODENOSCOPY [EGD] W/CLOSE 04/14/2010 45.25 CLOSED ENDOSCOPIC BIOPSY OF LARGE INTEST 10/30/2010 54.51 LAPAROSCOP LYSIS-PERITONEAL ADHES 07/18/2011 59.12 LAPAROSCOP LYSIS-PERIVESICAL ADHES 07/18/2011 69.09 D C NEC 2010 53.51 INCISIONAL HERNIA REPAIR 02/06/2012 68.51 ASSIST VAG HYSTER(LAVH) 02/06/2012 27236 XRAY LUMBAR SPINE 2 OR 3 VIEWS 02/13/2013 PHYSICAL PHYSICAL THERAPY, VIA RODY 02/25/2013 65111 MRI SPINE (LUMBAR) W/O CONTRAST 04/15/2013 57475 ROUTINE VENIPUNCTURE 06/19/2013 35712 CBC 06/19/2013 07162 CMP 06/19/2013 02919 LIPID PANEL 06/19 4626485 GFR CALC (RESULT ONLY) 06/19/2013 45860 TSH 06/19/2013 31901 PSYCH DIAGNOSTIC EVALUATION 05/22/2014 11822 PSYTX PT&/FAMILY 45 MINUTES 06/18/2014 17886 PSYTX PT&/FAMILY 45 MINUTES 01/29/2015 72757 PSYCH DIAGNOSTIC EVALUATION 02/10/2015 Results Test Result Range Streptococcus pyogenes antigen detection - 10/15/16 09:20 Streptococcus pyogenes antigen detection NEGATIVE NEGATIVE Bacterial throat culture - 10/15/16 09:20 Bacterial throat culture NBS NRG Serum heterophile antibody titer - 10/15/16 10:15 Serum heterophile antibody titer NEGATIVE NEGATIVE Complete urinalysis with reflex to culture - 01/13/17 18:46 Urine color determination YELLOW NRG Urine clarity determination CLEAR NRG Urine pH measurement by test strip 7 5- 9 Specific gravity of urine by test strip 1.015 1.016-1.022 Urine protein assay by test strip, semi-quantitative NEGATIVE NEGATIVE Urine glucose detection by automated test strip NEGATIVE NEGATIVE Erythrocytes detection in urine sediment by light microscopy NEGATIVE NEGATIVE Urine ketones detection by automated test strip NEGATIVE NEGATIVE Urine nitrite detection by test strip NEGATIVE NEGATIVE Urine total bilirubin detection by test strip NEGATIVE NEGATIVE Urine urobilinogen measurement by automated test strip (mass/volume) NORMAL NORMAL Urine leukocyte esterase detection by dipstick NEGATIVE NEGATIVE Automated urine sediment erythrocyte count by microscopy (number/high power field) NONE NRG Automated urine sediment leukocyte count by microscopy (number/high power field ) RARE NRG Bacteria detection in urine sediment by light microscopy NEGATIVE NRG Squamous epithelial cells detection in urine sediment by light microscopy 5-10 NRG Crystals detection in urine sediment by light microscopy NONE NRG Casts detection in urine sediment by light microscopy NONE NRG Mucus detection in urine sediment by light microscopy NEGATIVE NRG Complete urinalysis with reflex to culture NO NRG Bacteria identification in genital specimen by aerobe culture - 01/13/17 19:30 FREE TEXT EXTERNAL PLUS NORMAL SOCORRO NRG QUANTITY OF GROWTH Scant Growth NRG Bacteria identification in genital specimen by aerobe culture [id number] NRG Microscopic examination by ERICK preparation - 01/13/17 19:30 Microscopic examination by ERICK preparation TNP NRG Microscopic examination by wet preparation - 01/13/17 19:30 WET PREP RESULTS AT 2004 BY PK/KD NRG Neisseria gonorrhoeae DNA detection by probe and signal amplification method - 01/13/17 19:30 Gonorrhea amp DNA-urine Negative Negative Chlamydia trachomatis DNA detection by probe and signal amplification method - 01/13/17 19:30 Chlamydia trachomatis DNA detection by probe and target amplification method Negative Negative Complete blood count (CBC) with automated white blood cell (WBC) differential - 01/13/17 19:42 Blood leukocytes automated count (number/volume) 10.6 10*3/ uL 4.3-11.0 Blood erythrocytes automated count (number/volume) 4.66 10*6 /uL 4.35-5.85 Venous blood hemoglobin measurement (mass/volume) 14.1 g/dL 11.5-16.0 Blood hematocrit (volume fraction) 41 % 35-52 Automated erythrocyte mean corpuscular volume 88 [foz_us] 80-99 Automated erythrocyte mean corpuscular hemoglobin (mass per erythrocyte) 30 pg 25-34 Automated erythrocyte mean corpuscular hemoglobin concentration measurement ( mass/volume) 34 g/dL 32-36 Automated erythrocyte distribution width ratio 13.6 % 10.0-14.5 Automated blood platelet count (count/volume) 236 10*3/uL 130-400 Automated blood platelet mean volume measurement 11.4 [foz_ us] 7.4-10.4 Automated blood neutrophils/100 leukocytes 59 % 42-75 Automated blood lymphocytes/100 leukocytes 28 % 12-44 Blood monocytes/100 leukocytes 9 % 0-12 Automated blood eosinophils/100 leukocytes 3 % 0-10 Automated blood basophils/100 leukocytes 1 % 0-10 Blood neutrophils automated count (number/volume) 6.3 10*3 1.8-7.8 Blood lymphocytes automated count (number/volume) 2.9 10*3 1.0-4.0 Blood monocytes automated count (number/volume) 0.9 10*3 0.0-1.0 Automated eosinophil count 0.4 10*3/uL 0.0-0.3 Automated blood basophil count (count/volume) 0.1 10*3/uL 0.0-0.1 Comprehensive metabolic panel - 01/13/17 19:42 Serum or plasma sodium measurement (moles/volume) 137 mmol/ L 135-145 Serum or plasma potassium measurement (moles/volume) 3.8 mmol/L 3.6-5.0 Serum or plasma chloride measurement (moles/volume) 107 mmol /L 98-107 Carbon dioxide 22 mmol/L 21-32 Serum or plasma anion gap determination (moles/volume) 8 mmol/L 5-14 Serum or plasma urea nitrogen measurement (mass/volume) 13 mg/dL 7-18 Serum or plasma creatinine measurement (mass/volume) 0.69 mg /dL 0.60-1.30 Serum or plasma urea nitrogen/creatinine mass ratio 19 NRG Serum or plasma creatinine measurement with calculation of estimated glomerular filtration rate > NRG Serum or plasma glucose measurement (mass/volume) 87 mg/dL 70-105 Serum or plasma calcium measurement (mass/volume) 8.8 mg/dL 8.5-10.1 Serum or plasma total bilirubin measurement (mass/volume) 0.3 mg/dL 0.1-1.0 Serum or plasma alkaline phosphatase measurement (enzymatic activity/volume) 71 U/L 40-136 Serum or plasma aspartate aminotransferase measurement (enzymatic activity/ volume) 13 U/L 5-34 Serum or plasma alanine aminotransferase measurement (enzymatic activity/volume ) 14 U/L 0-55 Serum or plasma protein measurement (mass/volume) 6.9 g/dL 6.4-8.2 Serum or plasma albumin measurement (mass/volume) 4.1 g/dL 3.2-4.5 Serum or plasma C reactive protein measurement (mass/volume) - 01/13/17 19:42 Serum or plasma C reactive protein measurement (mass/volume) 0.56 mg/dL 0.00-0.50 Encounters ACCT No. Visit Date/Time Discharge Status Pt. Type Provider Facility Loc./Unit Complaint [id number] 02/10/2015 09:47:00 02/10/2015 23: 59:59 FEI Outpatient AMBER VAZQUEZ [id number] 02/05/2015 09:00:00 02/05/2015 23: 59:59 CLS Outpatient AGUILA PINEDO MD [id number] 01/29/2015 12:52:00 01/29/2015 23: 59:59 CLS Outpatient AMBER VAZQUEZ [id number] 10/23/2014 10:39:00 10/23/2014 23: 59:59 CLS Outpatient ARNIE SAUER APRN [id number] 09/09/2014 13:20:00 09/09/2014 23: 59:59 CLS Outpatient NIKOLAS SHELL APRN [id number] 08/06/2014 11:41:00 08/06/2014 23: 59:59 CLS Outpatient ARNIE SAUER APRN [id number] 08/06/2014 11:41:00 08/06/2014 23: 59:59 FEI Outpatient ARNIE SAUER APRN [id number] 07/07/2014 15:35:00 07/07/2014 23: 59:59 CLS Outpatient ARNIE SAUER APRN [id number] 07/07/2014 15:35:00 07/07/2014 23: 59:59 CLS Outpatient ARNIE SAUER APRN [id number] 06/18/2014 15:45:00 06/18/2014 23: 59:59 CLS Outpatient NITIN VALDES PHD [id number] 05/22/2014 10:59:00 05/22/2014 23: 59:59 CLS Outpatient NITIN VALDES PHD [id number] 02/03/2014 14:05:00 02/03/2014 23: 59:59 CLS Outpatient SUMAYA HUNTERNIKOLAS [id number] 09/24/2013 09:27:00 09/24/2013 23: 59:59 CLS Outpatient LIS ELIZONDO DO [id number] 07/16/2013 16:25:00 07/16/2013 23: 59:59 CLS Outpatient LIS ELIZONDO DO [id number] 06/19/2013 08:05:00 06/19/2013 23: 59:59 CLS Outpatient LIS ELIZONDO DO [id number] 11/04/2012 10:01:00 11/04/2012 23: 59:59 CLS Outpatient CHANDRA CHEN APRN [id number] 09/16/2012 12:10:00 09/16/2012 23: 59:59 CLS Outpatient CHANDRA CHEN APRN [id number] 08/07/2012 14:50:00 08/07/2012 23: 59:59 CLS Outpatient [id number] 04/15/2013 13:47:00 Document Registration [id number] 03/31/2013 12:45:00 Document Registration [id number] 02/25/2013 17:52:00 Document Registration [id number] 02/13/2013 15:59:00 Document Registration [id number] 02/13/2013 15:59:00 Document Registration
--- OUTSIDE RECORDS SUMMARY | 2017-02-06 09:53 | XMS REPORT ---
Author JOMAR Figueroa [facility] eClinicalWorks Address Unknown Phone Unavailable Care Team Providers Care Ciso Name Role Phone JOMAR SARGENT CP Unavailable Allergies, Adverse Reactions, Alerts Substance Reaction Event Type Bee Pollen Info Not Available Drug Allergy Rome Peppers Info Not Available Non Drug Allergy CT Dye tongue swells, respiratory distress, rash Non Drug Allergy Problems Problem Type Condition ICD-9 Code Onset Dates Condition Status Assessment Plantar fasciitis, bilateral 728.71 Active Problem Unspecified otalgia 388.70 Active Problem Unspecified episodic mood disorder 296.90 Active Problem Migraine without aura, without mention of intractable migraine without mention of status migrainosus 346.10 Active Problem 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 Corea Topamax [facility] [address]-51 25 MG Orally Once a day 1 tablet Trazodone HCl [facility] [address]-41 150 MG Orally Once a day May 07, 2015 1 tablet at bedtime as needed Lamictal [facility] [address]-81 25 MG Orally take one tab daily X14 days, then take 1 tab bid March 23, 2015 1-2tablets Gabapentin [facility] [address]-86 800 mg Jul 07, 2014 1 Tablet by Oral route 3 daily PRN for back/hip/leg pain Tramadol HCl [facility] [address]-25 50 MG Orally every 8 hrs February 22, 2015 1 tablet as needed Procedures Procedure Coding System Code Date TORADOL (IM) 60 MG/2ML (UP TO 15 MG) CPT-4 J1885 Jun 30, 2015 THER/PROPH/DIAG INJ, SC/IM CPT-4 86243 Jun 30, 2015 Office Visit, Est Pt., Level 3 CPT-4 01503 Jun 30, 2015 Vital Signs Date/Time: Jun 30, 2015 Temperature 97.3 F Weight 207.6 lbs Height 60 in BMI 40.54 Index Blood Pressure Diastolic 76 mmHg Blood Pressure Systolic 118 mmHg Cardiac Monitoring Heart Rate 80 bpm Results No Known Results Summary Purpose eClinicalWorks Submission
== END 2017-01-13 21:02 | disposition home or self-care (01) ==
LOC: EDUNIT# 18:28 → ER 18:29
DX: R10.32 Left lower quadrant pain (principal); R11.2 Nausea with vomiting, unspecified; R19.7 Diarrhea, unspecified; N93.9 Abnormal uterine and vaginal bleeding, unspecified; N89.8 Other specified noninflammatory disorders of vagina; F17.210 Nicotine dependence, cigarettes, uncomplicated
CPT/HCPCS: 36415; 80053; 81000; 85025; 86141; 87070; 87210; 87220; 87491; 87591; 96374; 96375

== ENCOUNTER → 2017-01-16 | Outpatient (CLI) | payer OTHER ==
[~2017-01-16] MED LIST changes: +ACYC400T PO
--- NOTE | 2017-01-16 19:40 | Diagnostic Imaging Report ---
EXAMINATION: Ultrasound of the right breast. INDICATION: Right breast pain and lump. FINDINGS: The previous right breast ultrasound exam performed on 10/03/2016 noted a 0.8 cm cystic lesion with a few internal echoes in the 1-2 o'clock position of the left breast, roughly 3 cm from the nipple. The cystic lesion was surrounded by a thickened hyperechoic rim of tissue. The conglomerate size of the cystic area and the echogenic tissue measured approximately 1.9 cm in maximum diameter. On this exam, those findings are again evident and do seem slightly smaller. The cystic component now has a maximum dimension of approximately 0.7 cm, and the overall size of the cystic component and the echogenic rim is 1.5 cm. There is now a band of increased density within the cystic component. I suspect that this is a resolving hematoma or less likely a complicated cyst. It would be doubtful that this is related to an abscess. If further evaluation of the cystic contents is desired, then ultrasound-guided aspiration could be attempted. If there is no intervention at this time, then a short-term (three-month) followup ultrasound exam should be obtained. IMPRESSION: 1. The complex mass in the 1-2 o'clock position of the left breast noted previously is somewhat smaller on this exam. Considerations and recommendations as above. 2. These results were discussed with Dr. Lashonda Plasencia. ACR BI-RADS Category 3: Probably benign findings. Dictated by: Dictated on workstation # [id number]
== END ==
LOC: RAD 08:57
PROVIDERS: ATTEND Family Medicine
DX: N63 Unspecified lump in breast (principal)

== ENCOUNTER → 2017-01-31 | Outpatient (CLI) | payer OTHER ==
[~2017-01-31] VITALS: Ht 152.4 cm; Wt 93.0 kg
[~2017-01-31] MED LIST changes: +LIDOCAINE 1% INJ 20 ML (XYLOCAINE) VIAL INJ ONE; +LIDOCAINE 1% INJ 20 ML (XYLOCAINE) VIAL ONE
[2017-01-31 13:00] VITALS: BP 120/87
[2017-01-31 13:23] VITALS: BP 124/68
--- NOTE | 2017-01-31 18:33 | Diagnostic Imaging Report ---
EXAMINATION: Fine-needle aspiration/right breast. INDICATION: Right breast suspected complicated cyst. Current history and physical and other medical records are reviewed prior to the procedure. CONSENT: Informed consent was obtained from the patient. The risks, benefits, potential complications and alternatives were reviewed and all questions answered to the patient's satisfaction. The patient's vital signs, cardiac rhythm, and pulse oximetry with observed throughout the procedure by qualified nursing personnel. Sedation/medications: None. PROCEDURE: After sterile barrier technique preparation and draping, 1% lidocaine was utilized for local anesthesia. 20-gauge needle is inserted under live ultrasound guidance into the right breast lesion measuring 0.7 CM in size. 0.3 cc of thick white fluid was aspirated and sent for cytology evaluation. Appropriate ultrasound images with the needle location within the cyst were saved in addition to post procedure image demonstrating total resolution of the lesion. The patient tolerated the procedure well with no immediate complications. FINDINGS: Confirmed cyst that completely resolved after aspiration. IMPRESSION: Ultrasound-guided aspiration of right breast cyst at 1:30 position. Dictated by: Dictated on workstation # [id number]
== END ==
LOC: RAD 12:15
PROVIDERS: ATTEND Family Medicine
DX: N60.01 Solitary cyst of right breast (principal)
CPT/HCPCS: 76942; 88305

== ENCOUNTER 2017-04-16 12:23 | Emergency (ER) | payer SELFPAY ==
[~2017-04-16] VITALS: Ht 152.4 cm; Wt 97.5 kg
[~2017-04-16 12:23] MED LIST changes: -LIDOCAINE 1% INJ 20 ML (XYLOCAINE) VIAL INJ ONE; -LIDOCAINE 1% INJ 20 ML (XYLOCAINE) VIAL ONE
[2017-04-16] MEDS ORDERED: NS IV 1000 ML 1,000 ML IV ONE (12:37)
[2017-04-16] MEDS ORDERED: KETOROLAC 30 MG/ML VIAL IVP ONE (12:45)
[2017-04-16] MEDS ORDERED: ONDANSETRON 4 MG/2 ML (SDV) Z0FRAN IVP ONE (12:45)
--- NOTE | 2017-04-16 13:13 | ED Headache ---
General Chief Complaint: Head/Cervical Problems Stated Complaint: MIGRAINE Nursing Triage Note: PT AMBULATED TO ROOM. PT STATES SHE HAS HAD A MIGRAINE FOR APPROX 2 HOURS TODAY. PT STATES SHE DID NOT TAKE ANYTHING AT HOME TO HELP WITH THE ACHE. PT COMPLAINS OF N/V ALSO. Nursing Sepsis Screen: No Definite Risk Source: patient Exam Limitations: no limitations History of Present Illness Time seen by provider: 12:30 Initial Comments This 27-year-old woman presents to emergency room with complaints of migraine for the past couple of hours associated with nausea and vomiting. She has light and sound sensitivity and slightly blurry vision. She usually takes tramadol at home for her headaches but she did not have any. She has not taken any medications for this headache. Allergies and Home Medications Allergies Coded Allergies: gadoteridol (Unverified Allergy, Mild, 11/26/09) mustard (Unverified Allergy, Mild, 08/21/10) venom-honey bee (Verified Allergy, Unknown, 06/07/12) Uncoded Allergies: GOINS PEPPERS (Allergy, Unknown, 03/19/15) MRI DYE (Adverse Reaction, Unknown, 12/18/12) Home Medications Acyclovir 400 Mg Tablet, 400 MG PO TID, #30 Prescribed by: KAMILA SANABRIA on 01/13/172051 Amoxicillin/Potassium Clav 1 Each Tablet, 1 EACH PO BID, #20 Prescribed by: MINE TRAN on 10/15/16 1047 Methylprednisolone 4 Mg Tab.ds.pk, 4 MG PO UD, #1 Prescribed by: MINE TRAN on 10/15/16 1047 Constitutional: no symptoms reported Eyes: See HPI Ears, Nose, Mouth, Throat: no symptoms reported Respiratory: no symptoms reported Cardiovascular: no symptoms reported Gastrointestinal: no symptoms reported Genitourinary: no symptoms reported : No Musculoskeletal: no symptoms reported Skin: no symptoms reported Psychiatric/Neurological: See HPI Past Swrkkns-Pszcmm-Fxpuos Hx Patient Social History Alcohol Use: Denies Use Recreational Drug Use: No Smoking Status: Current Everyday Smoker Type Used: Cigarettes 2nd Hand Smoke Exposure: No Recent Foreign Travel: No Contact w/Someone Who Travel: No Recent Infectious Disease Expo: No Recent Hopitalizations: No Immunizations Up To Date Tetanus Booster (TDap): Unknown Date of Pneumonia Vaccine: Aug 16, 2009 Date of Influenza Vaccine: Jul 15, 2011 Seasonal Allergies Seasonal Allergies: No Surgeries HX Surgeries: Yes Surgeries: Section, Gallbladder, Hysterectomy, Orthopedic Respiratory Hx Respiratory Disorders: No Cardiovascular Hx Cardiac Disorders: No Neurological Hx Neurological Disorders: Yes Neurological Disorders: Headaches /Migraines Reproductive System Hx Reproductive Disorders: No Sexually Transmitted Disease: Yes (chlamydia before -2009) Female Reproductive Disorders: Endometriosis 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 Genitourinary Hx Genitourinary Disorders: No Gastrointestinal Hx Gastrointestinal Disorders: No Musculoskeletal Hx Musculoskeletal Disorders: Yes (SPINAL STENOSIS) Musculoskeletal Disorders: Arthritis, Chronic Back Pain Endocrine Hx Endocrine Disorders: No HEENT HX ENT Disorders: No Cancer Hx Cancer: No Psychosocial Hx Psychiatric Problems: Yes Behavioral Health Disorders: Bipolar Integumentary HX Skin/Integumentary Disorder: No Blood Transfusions Hx Blood Disorders: No Family Medical History Significant Family History: No Pertinent Family Hx Physical Exam Vital Signs Vital Sign - Last 12Hours 04/16/17 12:31 Temp 97.8 Pulse 78 Resp 20 B/P (MAP) 119/66 Pulse Ox 99 O2 Delivery Room Air Capillary Refill : Less Than 3 Seconds General Appearance: WD/WN, mild distress HEENT: PERRL/EOMI, normal ENT inspection, pharynx normal Neck: normal inspection Cardiovascular: regular rate, rhythm, no edema, no murmur Respiratory: lungs clear, normal breath sounds, no respiratory distress, no accessory muscle use Gastrointestinal: normal bowel sounds, non tender, soft Extremities: normal inspection, no pedal edema Psychiatric: alert, oriented x 3 Crainal Nerves: normal hearing, normal speech, PERRL Motor/Sensory: no motor deficit, no sensory deficit Skin: normal color, warm/dry Progress/Results/Core Measures Results/Orders My Orders Orders - KAMILA MORALES MD Ketorolac Injection (Toradol Injection) (04/16/17 12:45) Ondansetron Injection (Zofran Injectio (04/16/17 12:45) Ns Iv 1000 Ml (Sodium Chloride 0.9%) (04/16/17 12:37) Promethazine Injection (Phenergan Injec (04/16/17 13:30) Diphenhydramine Injection (Benadryl Inje (04/16/17 13:30) Methylprednisolone Sod Succ (Solu-Medrol (04/16/17 13:30) Fentanyl Injection (Sublimaze Injection (04/16/17 14:15) Medications Given in ED Current Medications Medications Dose Ordered Sig/Vee Route Start Time Stop Time Status Last Admin Dose Admin Diphenhydramine HCl 25 mg ONCE ONCE IVP 04/16/17 13:30 04/16/17 13:31 DC 04/16/17 13:32 25 MG Fentanyl Citrate 50 mcg ONCE ONCE IVP 04/16/17 14:15 04/16/17 14:16 DC 04/16/17 14:17 50 MCG Ketorolac Tromethamine 30 mg ONCE ONCE IVP 04/16/17 12:45 04/16/17 12:46 OH 04/16/17 13:01 30 MG Methylprednisolone Sodium Succinate 62.5 mg ONCE ONCE IVP 04/16/17 13:30 04/16/17 13:31 DC 04/16/17 13:33 62.5 MG Ondansetron HCl 8 mg ONCE ONCE IVP 04/16/17 12:45 04/16/17 12:46 OH 04/16/17 13:02 8 MG Promethazine HCl 25 mg ONCE ONCE IVP 04/16/17 13:30 04/16/17 13:31 OH 04/16/17 13:30 25 MG Sodium Chloride 1,000 ml @ 0 mls/hr Q0M ONCE IV 04/16/17 12:37 04/16/17 12:39 DC 04/16/17 13:04 1,000 MLS/HR Vital Signs/I&O Vital Sign - Last 12Hours 04/16/17 04/16/17 12:31 14:25 Temp 97.8 97.1 Pulse 78 78 Resp 20 20 B/P (MAP) 119/66 Pulse Ox 99 99 O2 Delivery Room Air Room Air Blood Pressure Mean: 83 Progress Note #1: Time: 13:12 Progress Note Patient received Toradol, Zofran, and IV fluids after assessment. Progress Note #2: Time: 14:07 Progress Note Symptoms were significantly improved with above treatment. Nausea did improve but not pain. She still rated pain as 7/10. Chart was reviewed to determine what treatments have been administered in the past that were helpful. Phenergan , Benadryl, and Solu-Medrol were added to her treatment regimen. She still reports her pain is 6/10 at this time. Fentanyl was ordered for additional treatment. Vision is improving. Progress Note #3: Progress Note Patient received satisfactory relief after treatment with fentanyl. She was dismissed home in stable condition. Departure Impression Impression: Primary Impression: Migraine Qualified Codes: G43.109 - Migraine with aura, not intractable, without status migrainosus Disposition: HOME, SELF-CARE Condition: Improved Departure-Patient Inst. Decision time for Depature: 14:03 Referrals: TED LOUIS MD (PCP/Family) Primary Care Physician Patient Instructions: Migraine Headache (DC) Add. Discharge Instructions: Drink plenty of clear liquids. You may take Tylenol and/or ibuprofen for continued pain. Rest in a quiet, calm, dark environment further remainder of the day. Contact your primary care provider or return to emergency room if you have persistent or worsening symptoms. All discharge instructions reviewed with patient and/or family. Voiced understanding. Work/School Note: Work Release Form Date Seen in the Emergency Department: Apr 16, 2017 Return to Work: Apr 17, 2017 Restrictions: No Restrictions KAMILA MORALES MD Apr 16, 2017 13:13
[2017-04-16] MEDS ORDERED: PROMETHAZINE INJ 25 MG/ML (PHENERGAN) AMP IVP ONE (13:30)
[2017-04-16] MEDS ORDERED: methylPREDNISolone 125 MG (Solu-MEDROL) VIAL IVP ONE (13:30)
[2017-04-16] MEDS ORDERED: diphenhydrAMINE 50 MG/ML INJ (BENADRYL) IVP ONE (13:30)
[2017-04-16] MEDS ORDERED: fentaNYL INJECTION 100 MCG/2 ML AMP IVP ONE (14:15)
[2017-04-16 14:25] VITALS: BP 123/64
== END 2017-04-16 14:25 | disposition home or self-care (01) ==
LOC: EDUNIT# 12:23 → ER 12:25
DX: G43.909 Migraine, unspecified, not intractable, without status migrainosus (principal); M19.90 Unspecified osteoarthritis, unspecified site; F17.210 Nicotine dependence, cigarettes, uncomplicated
CPT/HCPCS: 96361; 96374; 96375

== ENCOUNTER 2017-08-15 17:09 | Emergency (ER) | payer SELFPAY ==
[~2017-08-15] VITALS: Ht 152.4 cm; Wt 98.4 kg
--- OUTSIDE RECORDS SUMMARY | 2017-08-15 18:10 | XMS REPORT ---
Author Author HERIBERTOTED GARCIA Organization [facility] Address [address] [place] [address] Care Team Providers Care Partition Making Machine Operator Name Role Phone TED LOUIS Unavailable PROBLEMS Type Condition ICD9-CM Code [id number] Code Onset Dates Condition Status SNOMED Code Problem Breast lesion N64.9 Active 204500220 Problem BMI 40.0-44.9, adult Z68.41 Active 609139767 Problem Bipolar disorder in partial remission, most recent episode unspecified type F31.70 Active 4793789 Problem Low back pain M54.5 Active 334544780 Problem Chronic prescription opiate use Z79.899 Active 835893678 Problem Adjustment disorder with mixed anxiety and depressed mood F43.23 Active 24635470 Problem Migraine with aura and without status migrainosus, not intractable G43.109 Active 3716280 ALLERGIES Substance Reaction Event Type Date Status Bee Pollen Unknown Drug Allergy Oct, Active CT Dye tongue swells, respiratory distress, rash Non Drug Allergy Oct, Active Rome Peppers Unknown Non Drug Allergy Oct, Active SOCIAL HISTORY No smoking Hx information available PLAN OF CARE Activity Details Follow Up 6 Months Reason:Pain VITAL SIGNS Height 60 in 2016-11-08 Weight 223.1 lbs 2016-11-08 Temperature 97.9 degrees Fahrenheit 2016-11-08 Heart Rate 78 bpm 2016-11-08 Respiratory Rate 20 2016-11-08 BMI 43.57 kg/m2 2016-11-08 Blood pressure systolic 124 mmHg 2016-11-08 Blood pressure diastolic 76 mmHg 2016-11-08 MEDICATIONS Medication Instructions Dosage Frequency Start Date End Date Duration Status Aleve 220 MG Orally every 12 hrs 1 tablet as needed 12h Active Gabapentin 800 mg 1 Tablet by Oral route 3 daily PRN for back/hip/leg pain Jun, Active Topamax 25 MG Orally Once a day 1 tablet 24h Active Lamictal 25 MG Orally take one tab daily X14 days, then take 1 tab bid 1- 2tablets Mar, 30 day(s) Active Meloxicam 15 mg 1 Tablet by Po route 1 time per day given by Dr. Corea Aug, Active Tramadol HCl 50 mg Orally every 8 hrs 1 tablet as needed 8h February, Nov, 30 days Active Methocarbamol 500 mg 1 Tablet by Po route 3 times per day prescribed by Dr Corea Jan, Active RESULTS Name Result Date Reference Range [employer] 2016-11-08 PROCEDURES Procedure Date Ordered Related Diagnosis Body Site No Charge Nov 08, 2016 Office Visit, Est Pt., Level 3 Nov 08, 2016 IMMUNIZATIONS No Known Immunizations
--- OUTSIDE RECORDS SUMMARY | 2017-08-15 18:10 | XMS REPORT ---
Author Author ARTEMIO VALDES [facility] Address [address] [place] [address] Care Team Providers Care Associate Professor Physician Name Role Phone ARTEMIO VALDES Unavailable PROBLEMS Type Condition ICD9-CM Code [id number] Code Onset Dates Condition Status SNOMED Code Problem Breast lesion N64.9 Active 788841103 Problem BMI 40.0-44.9, adult Z68.41 Active 748309055 Problem Bipolar disorder in partial remission, most recent episode unspecified type F31.70 Active 0498992 Problem Low back pain M54.5 Active 215001776 Problem Chronic prescription opiate use Z79.899 Active 264386248 Problem Adjustment disorder with mixed anxiety and depressed mood F43.23 Active 02084941 Problem Migraine with aura and without status migrainosus, not intractable G43.109 Active 7621518 ALLERGIES No Known Allergies SOCIAL HISTORY No smoking Hx information available PLAN OF CARE Activity Details Follow Up 1 Week Reason: Follow-up VITAL SIGNS MEDICATIONS No Known Medications RESULTS No Results PROCEDURES Procedure Date Ordered Related Diagnosis Body Site Psychotherapy, patient &/family, 30 minutes, established patient Oct 16, 2016 IMMUNIZATIONS No Known Immunizations
--- OUTSIDE RECORDS SUMMARY | 2017-08-15 18:16 | XMS REPORT ---
Author Author ARTEMIO VALDES [facility] Address [address] [place] [address] Care Team Providers Care Kiln Burner Helper Name Role Phone ARTEMIO VALDES Unavailable PROBLEMS Type Condition ICD9-CM Code QVF09-AN Code Onset Dates Condition Status SNOMED Code Problem Breast lesion N64.9 Active 158619702 Problem BMI 40.0-44.9, adult Z68.41 Active 710739876 Problem Bipolar disorder in partial remission, most recent episode unspecified type F31.70 Active 1186354 Problem Low back pain M54.5 Active 874075235 Problem Chronic prescription opiate use Z79.899 Active 811391403 Problem Adjustment disorder with mixed anxiety and depressed mood F43.23 Active 54138031 Problem Migraine with aura and without status migrainosus, not intractable G43.109 Active 0686312 ALLERGIES No Known Allergies SOCIAL HISTORY No smoking Hx information available PLAN OF CARE Activity Details Follow Up Next available Reason: Follow-up VITAL SIGNS MEDICATIONS No Known Medications RESULTS No Results PROCEDURES Procedure Date Ordered Related Diagnosis Body Site Psychotherapy, patient &/family, 30 minutes, established patient Oct 31, 2016 IMMUNIZATIONS No Known Immunizations
--- OUTSIDE RECORDS SUMMARY | 2017-08-15 18:16 | XMS REPORT ---
Author Author MARICRUZ SPRINGER Organization [facility] Address [address] [place] [address] Care Team Providers Care Manager Security Name Role Phone MARICRUZ SPRINGER Unavailable PROBLEMS Type Condition ICD9-CM Code [id number] Code Onset Dates Condition Status SNOMED Code Problem Breast lesion N64.9 Active 011347322 Problem BMI 40.0-44.9, adult Z68.41 Active 767867777 Problem Bipolar disorder in partial remission, most recent episode unspecified type F31.70 Active 0460821 Problem Low back pain M54.5 Active 699370033 Problem Chronic prescription opiate use Z79.899 Active 150581327 Problem Adjustment disorder with mixed anxiety and depressed mood F43.23 Active 52325772 Problem Migraine with aura and without status migrainosus, not intractable G43.109 Active 0436177 ALLERGIES Substance Reaction Event Type Date Status Bee Pollen Unknown Drug Allergy Sep, Active Rome Peppers Unknown Non Drug Allergy Sep, Active CT Dye tongue swells, respiratory distress, rash Non Drug Allergy Sep, Active SOCIAL HISTORY No smoking Hx information available PLAN OF CARE Activity Details Follow Up prn Reason: VITAL SIGNS Height 60 in 2016-10-12 Weight 218.6 lbs 2016-10-12 Temperature 97.8 degrees Fahrenheit 2016-10-12 Heart Rate 80 bpm 2016-10-12 Respiratory Rate 20 2016-10-12 BMI 42.69 kg/m2 2016-10-12 Blood pressure systolic 124 mmHg 2016-10-12 Blood pressure diastolic 74 mmHg 2016-10-12 MEDICATIONS Medication Instructions Dosage Frequency Start Date End Date Duration Status Aleve 220 MG Orally every 12 hrs 1 tablet as needed 12h Active Lamictal 25 MG Orally take one tab daily X14 days, then take 1 tab bid 1- 2tablets Mar, 30 day(s) Active Naprosyn 500 MG Orally every 12 hrs 1 tablet as needed 12h Active Gabapentin 800 mg 1 Tablet by Oral route 3 daily PRN for back/hip/leg pain Jun, Active Tramadol HCl 50 MG Orally every 8 hrs 1 tablet as needed 8h February, Active Meloxicam 15 mg 1 Tablet by Po route 1 time per day given by Dr. Corea Aug, Active Topamax 25 MG Orally Once a day 1 tablet 24h Active RESULTS Name Result Date Reference Range STREP A (IN HOUSE) 2016-10-12 STREP A negative Control + Lot # [id number] Exp date may 01 PROCEDURES Procedure Date Ordered Related Diagnosis Body Site STREP A ASSAY W/OPTIC Oct 12, 2016 Office Visit, Est Pt., Level 3 Oct 12, 2016 IMMUNIZATIONS No Known Immunizations
--- OUTSIDE RECORDS SUMMARY | 2017-08-15 18:19 | XMS REPORT ---
Author Author TED LOUIS [facility] Address [address] [place] [address] Care Team Providers Care Auto Hiker Name Role Phone TED LOUIS Unavailable PROBLEMS Type Condition ICD9-CM Code [id number] Code Onset Dates Condition Status SNOMED Code Problem Breast lesion N64.9 Active 030003219 Problem BMI 40.0-44.9, adult Z68.41 Active 213206180 Problem Adjustment disorder with mixed anxiety and depressed mood F43.23 Active 08966153 Problem Low back pain M54.5 Active 363054700 Problem Chronic prescription opiate use Z79.899 Active 289329874 Problem Bipolar disorder in partial remission, most recent episode unspecified type F31.70 Active 3411951 Problem Migraine with aura and without status migrainosus, not intractable G43.109 Active 1914005 ALLERGIES Unknown Allergies SOCIAL HISTORY No smoking Hx information available PLAN OF CARE VITAL SIGNS MEDICATIONS Unknown Medications RESULTS No Results PROCEDURES No Known procedures IMMUNIZATIONS No Known Immunizations
[2017-08-15] MEDS ORDERED: ORPHENADRINE 60 MG/2 ML (NORFLEX) AMP IM ONE (18:30)
[2017-08-15] MEDS ORDERED: predniSONE 20 MG TAB PO ONE (18:30)
[2017-08-15] MEDS ORDERED: KETOROLAC 30 MG/ML VIAL IVP ONE (18:30)
--- NOTE | 2017-08-15 18:43 | ED Upper Extremity ---
General Chief Complaint: Upper Extremity Stated Complaint: RT SHOULDER PAIN,RT SIDED FINGER NUMBNESS Nursing Triage Note: pt reports r shoulder pain and r finger numbness intermittently x 1 week. no known injury. Nursing Sepsis Screen: No Definite Risk Source: patient, other Exam Limitations: no limitations History of Present Illness Time seen by provider: 18:25 Initial Comments Patient presents to ER by private conveyance with a chief complaint that she was having back pain for last week. She has not been given her primary care physician because of them being booked out. Says the pain has been in her mid back and when she moves her neck or head radiates up her neck to her right arm. She has had a history of back problems in the past and had MRIs and spinal stenosis seen in her lumbar region. She says she has not had any problems with her back pain for the last 2 years and has not had need use anything. She did recently have some methocarbamol which she tried which did not help much. She is also use Aleve one tablet twice a day for the past week with marginal success. She has not used ice or heat. She's had no weakness or dropping anything. She's had no cough, fever, chills, shortness of breath or chest pain. Allergies and Home Medications Allergies Coded Allergies: gadoteridol (Unverified Allergy, Mild, 11/26/09) mustard (Unverified Allergy, Mild, 08/21/10) venom-honey bee (Verified Allergy, Unknown, 06/07/12) Uncoded Allergies: GOINS PEPPERS (Allergy, Unknown, 03/19/15) MRI DYE (Adverse Reaction, Unknown, 12/18/12) Home Medications Acyclovir 400 Mg Tablet, 400 MG PO TID, #30 Prescribed by: KAMILA SANABRIA on 01/13/172051 Amoxicillin/Potassium Clav 1 Each Tablet, 1 EACH PO BID, #20 Prescribed by: MINE TRAN on 10/15/16 1047 Methylprednisolone 4 Mg Tab.ds.pk, 4 MG PO UD, #1 Prescribed by: MINE TRAN on 10/15/16 1047 Constitutional: No chills, No fever, No malaise EENTM: No ear pain, No eye pain Respiratory: No cough, No hemoptysis, No phlegm, No short of breath, No wheezing Cardiovascular: No chest pain, No palpitations, No vascular heart diseas Gastrointestinal: No constipation, No diarrhea, No nausea, No vomiting Genitourinary: No discharge, No dysuria : No Musculoskeletal: No see HPI, back pain, No gout, No joint pain Skin: No pruritus Psychiatric/Neurological: Denies Headache, Numbness (right arm), Paresthesia ( right arm) Past Ueqgspr-Zmclrj-Qazcbi Hx Patient Social History Alcohol Use: Denies Use Recreational Drug Use: No Smoking Status: Current Everyday Smoker Type Used: Cigarettes 2nd Hand Smoke Exposure: No Recent Foreign Travel: No Contact w/Someone Who Travel: No Recent Infectious Disease Expo: No Recent Hopitalizations: No Physical Abuse: No Sexual Abuse: No Mistreated: No Fear: No Immunizations Up To Date Tetanus Booster (TDap): Unknown Date of Pneumonia Vaccine: Aug 16, 2009 Date of Influenza Vaccine: Jul 15, 2011 Seasonal Allergies Seasonal Allergies: No Surgeries History of Surgeries: Yes (lap choley; 2 ) Surgeries: Section, Gallbladder, Hysterectomy, Orthopedic Respiratory History of Respiratory Disorde: No Cardiovascular History of Cardiac Disorders: No Neurological History of Neurological Disord: Yes Neurological Disorders: Headaches /Migraines Reproductive System Hx Reproductive Disorders: No Sexually Transmitted Disease: Yes (chlamydia before -2008) Female 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 Genitourinary History of Genitourinary Disor: No Gastrointestinal History of Gastrointestinal Di: No Musculoskeletal History of Musculoskeletal Dis: Yes (SPINAL STENOSIS) Musculoskeletal Disorders: Arthritis, Chronic Back Pain Endocrine History of Endocrine Disorders: No HEENT History of HEENT Disorders: No Cancer History of Cancer: No Psychosocial History of Psychiatric Problem: Yes Behavioral Health Disorders: Bipolar Suicide Risk Score: 0 Integumentary History of Skin or Integumenta: No Blood Transfusions History of Blood Disorders: No Family Medical History Significant Family History: No Pertinent Family Hx Physical Exam Vital Signs Vital Sign - Last 12Hours 08/15/17 17:18 Temp 98.1 Pulse 79 Resp 16 B/P (MAP) 129/81 Pulse Ox 99 Capillary Refill : Less Than 3 Seconds General Appearance: WD/WN, mild distress HEENT: PERRL/EOMI, pharynx normal Neck: non-tender, full range of motion, normal inspection Cardiovascular: normal peripheral pulses, regular rate, rhythm, no edema Respiratory: chest non-tender, lungs clear, normal breath sounds, no respiratory distress Gastrointestinal: normal bowel sounds, non tender, soft Back: normal inspection, vertebral tenderness (midline thoracic at about t10) Shoulder: normal inspection, non-tender, no evidence of injury, normal ROM Reflexes: 2+ bicep (R), 2+ bicep (L) Neurologic/Tendon: normal sensation, normal motor functions, normal tendon functions, responds to pain, no evidence tendon injury Neurologic/Psychiatric: no motor/sensory deficits, alert, normal mood/affect, oriented x 3 Skin: normal color, warm/dry Progress/Results/Core Measures Results/Orders Lab Results Laboratory Tests Test 08/15/17 18:58 Range/Units White Blood Count 10.7 4.3-11.0 10^3/uL Red Blood Count 4.53 4.35-5.85 10^6/uL Hemoglobin 13.6 11.5-16.0 G/DL Hematocrit 41 35-52 % Mean Corpuscular Volume 90 80-99 FL Mean Corpuscular Hemoglobin 30 25-34 PG Mean Corpuscular Hemoglobin Concent 34 32-36 G/DL Red Cell Distribution Width 13.1 10.0-14.5 % Platelet Count 244 130-400 10^3/uL Mean Platelet Volume 11.6 H 7.4-10.4 FL Sodium Level 138 135-145 MMOL/L Potassium Level 4.2 3.6-5.0 MMOL/L Chloride Level 108 H 98-107 MMOL/L Carbon Dioxide Level 22 21-32 MMOL/L Anion Gap 8 5-14 MMOL/L Blood Urea Nitrogen 14 7-18 MG/DL Creatinine 0.71 0.60-1.30 MG/DL Estimat Glomerular Filtration Rate > 60 BUN/Creatinine Ratio 20 Glucose Level 96 70-105 MG/DL Calcium Level 8.9 8.5-10.1 MG/DL C-Reactive Protein High Sensitivity 0.87 H 0.00-0.50 MG/DL My Orders Orders - SANTI MARIA Basic Metabolic Panel (08/15/17 18:26) Cbc No Diff (08/15/17 18:26) Hs C Reactive Protein (08/15/17 18:26) Prednisone Tablet (Deltasone Tablet) (08/15/17 18:30) Ketorolac Injection (Toradol Injection) (08/15/17 18:30) Orphenadrine Injection (Norflex Injectio (08/15/17 18:30) Ketorolac Injection (Toradol Injection) (08/15/17 19:30) Medications Given in ED Current Medications Medications Dose Ordered Sig/Vee Route Start Time Stop Time Status Last Admin Dose Admin Orphenadrine Citrate 60 mg ONCE ONCE IM 08/15/17 18:30 08/15/17 18:36 DC 08/15/17 19:29 60 MG Prednisone 60 mg ONCE ONCE PO 08/15/17 18:30 08/15/17 18:36 DC 08/15/17 19:29 60 MG Vital Signs/I&O Vital Sign - Last 12Hours 08/15/17 17:18 Temp 98.1 Pulse 79 Resp 16 B/P (MAP) 129/81 Pulse Ox 99 Blood Pressure Mean: 97 Progress Note : Time: 19:39 Progress Note Acute on chronic back pain. We will start conservative therapy and have her follow-up with her primary care physician. Departure Impression Impression: Primary Impression: Acute midline thoracic back pain Disposition: HOME, SELF-CARE Condition: Stable Departure-Patient Inst. Decision time for Depature: 19:40 Referrals: TED LOUIS MD (PCP/Family) Primary Care Physician Patient Instructions: Back Exercises, Spinal Stenosis (DC) Add. Discharge Instructions: Start taking the Aleve 2 capsules twice a day for the next 2 weeks. Apply icy hot, Biofreeze or ice to your back where it hurts 20 minutes every 4-6 hours as needed. Take the prednisone 40 mg daily for the next 5 days. If you're not seeing some improvement in the first 1-2 weeks he should follow up with your primary care physician for further evaluation and management. You may also use your muscle relaxant as prescribed. All discharge instructions reviewed with patient and/or family. Voiced understanding. Scripts Prednisone (Prednisone) 20 Mg Tab 40 MG PO DAILY for 5 Days, #10 TAB 0 Refills Prov: SANTI MARIA 08/15/17 Copy Copies To 1: TED LOUIS MD, TITUS J Aug 15, 2017 18:43
[2017-08-15 19:09] LABS: MEAN PLATELET VOLUME 11.6 FL (7.4-10.4); RED BLOOD COUNT 4.53 10^6/uL (4.35-5.85); RED CELL DISTRIBUTION WIDTH 13.1 % (10.0-14.5); WHITE BLOOD COUNT 10.7 10^3/uL (4.3-11.0)
[2017-08-15 19:27] LABS: ANION GAP 8 MMOL/L (5-14); BLOOD UREA NITROGEN 14 MG/DL (7-18); BUN/CREATININE RATIO 20; CALCIUM 8.9 MG/DL (8.5-10.1); CARBON DIOXIDE 22 MMOL/L (21-32); CHLORIDE 108 MMOL/L (98-107); CREATININE SERUM 0.71 MG/DL (0.60-1.30); GFR ESTIMATED > 60; GLUCOSE 96 MG/DL (70-105); POTASSIUM 4.2 MMOL/L (3.6-5.0); SODIUM 138 MMOL/L (135-145); hs C REACTIVE PROTEIN 0.87 MG/DL (0.00-0.50)
[2017-08-15] MEDS ORDERED: KETOROLAC 30 MG/ML VIAL IM ONE (19:30)
[2017-08-15] MEDS ORDERED: PRD20T PO (19:42)
[2017-08-15 19:46] VITALS: BP 126/69
== END 2017-08-15 19:46 | disposition home or self-care (01) ==
LOC: EDUNIT# 17:09 → ER 17:11
DX: M54.6 Pain in thoracic spine (principal); G43.909 Migraine, unspecified, not intractable, without status migrainosus; M19.90 Unspecified osteoarthritis, unspecified site; F31.9 Bipolar disorder, unspecified; F17.210 Nicotine dependence, cigarettes, uncomplicated; Z87.59 Personal history of other complications of pregnancy, childbirth and the puerperium; Z90.710 Acquired absence of both cervix and uterus
CPT/HCPCS: 36415; 80048; 85027; 86141; 99284

== ENCOUNTER 2019-12-24 23:18 | Emergency (ER) | payer BC, OTHER ==
[~2019-12-24] VITALS: Ht 152 cm; Wt 98.0 kg
[~2019-12-24 23:18] MED LIST changes: +ACHYD1T PO; -HYDR-3812 PO; -HYDR-3820 PO; +NAPR-1071 PO; -NAPR500T PO
[2019-12-25 00:55] LABS: BILIRUBIN,URINE NEGATIVE (NEGATIVE); CLARITY,URINE SL CLOUDY; COLOR,URINE YELLOW; GLUCOSE, URINE (UA) NEGATIVE (NEGATIVE); KETONES,URINE NEGATIVE (NEGATIVE); LEUKOCYTE ESTERASE ,URINE NEGATIVE (NEGATIVE); NITRITE,URINE NEGATIVE (NEGATIVE); PH,URINE 6.5 (5-9); PROTEIN,URINE NEGATIVE (NEGATIVE)
[2019-12-25 01:07] LABS: BACTERIA,URINE TRACE /HPF; WBC,URINE 0-2 /HPF
[2019-12-25 01:08] LABS: AMORPHOUS SEDIMENT,UR FEW AMOR URATES /LPF
[2019-12-25] MEDS ORDERED: ONDANSETRON 4 MG (ZOFRAN) ORAL DISSOLVE TAB PO ONE (01:30)
[2019-12-25] MEDS ORDERED: HYDROcodone/APAP 5 MG/325 MG (LORTAB) TAB PO ONE (01:30)
--- NOTE | 2019-12-25 01:33 | ED Abdominal Pain ---
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 She says it sometimes pulsates with pain but never goes away entirely. She says it is similar to the pain she experienced with endometriosis in the past. She's had a hysterectomy but retains her tubes and ovaries bilaterally. She's had her gallbladder out and 2 C-sections. . No fevers or chills. The pain did cause nausea and vomiting. She's having nausea now. Normal bowel movement yesterday. She took Aleve at 03/11/29. She says it has not helped with her pain. Allergies and Home Medications Allergies Coded Allergies: gadoteridol (Unverified Allergy, Mild, 11/26/09) mustard (Unverified Allergy, Mild, 08/21/10) venom-honey bee (Verified Allergy, Unknown, 06/07/12) Uncoded Allergies: GOINS PEPPERS (Allergy, Unknown, 03/19/15) MRI DYE (Adverse Reaction, Unknown, 12/18/12) Home Medications Acyclovir 400 Mg Tablet, 400 MG PO TID Prescribed by: KAMILA SANABRIA on 01/13/172051 Amoxicillin/Potassium Clav 1 Each Tablet, 1 EACH PO BID Prescribed by: MINE TRAN on 10/15/161046 Methylprednisolone 4 Mg Tab.ds.pk, 4 MG PO UD Prescribed by: MINE TRAN on 10/15/161046 Prednisone 20 Mg Tab, 40 MG PO DAILY Prescribed by: SANTI MARIA on 08/15/171941 Patient Home Medication List Home Medication List Reviewed: Yes Review of Systems Review of Systems Constitutional: No chills, No diaphoresis EENTM: No Blurred Vision, No Double Vision Respiratory: Denies Cough, Denies Shortness of Air Cardiovascular: Denies Chest Pain, Denies Lightheadedness Gastrointestinal: Abdominal Pain; Denies Constipated, Denies Diarrhea; Nausea, Vomiting Genitourinary: Denies Burning, Denies Discharge Musculoskeletal: No back pain, No joint pain Psychiatric/Neurological: Denies Anxiety, Denies Depressed All Other Systems Reviewed Negative Unless Noted: Yes Past Pigmgbm-Osdmuq-Hioybh Hx Patient Social History Alcohol Use: Denies Use Recreational Drug Use: No Smoking Status: Current Everyday Smoker Type Used: Cigarettes 2nd Hand Smoke Exposure: No Recent Foreign Travel: No Contact w/Someone Who Travel: No Recent Hopitalizations: No Immunizations Up To Date Tetanus Booster (TDap): Unknown Date of Pneumonia Vaccine: Aug 16, 2009 Date of Influenza Vaccine: Jul 15, 2011 Seasonal Allergies Seasonal Allergies: No Past Medical History Surgeries: Yes (lap choley; 2 ) Section, Gallbladder, Hysterectomy, Orthopedic Respiratory: No Cardiac: No Neurological: Yes Headaches /Migraines Reproductive Disorders: No 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 0.0oz. 98.968104hq; 40.0 BMI Method:Stated General Appearance: WD/WN, mild distress HEENT: PERRL/EOMI, pharynx normal Neck: full range of motion, supple, normal inspection Respiratory: lungs clear, normal breath sounds, no respiratory distress, no accessory muscle use Cardiovascular: normal peripheral pulses, regular rate, rhythm Gastrointestinal: normal bowel sounds, soft, tenderness (right lower quadrant without rebound tenderness. Negative for Shabazz sign, Rovsing sign. Psoas positive on the right side.) Neurologic/Psychiatric: alert, normal mood/affect, oriented x 3 Skin: normal color, warm/dry Progress/Results/Core Measures Results/Orders Lab Results Laboratory Tests Test 12/25/19 00:35 12/25/19 01:40 Range/Units Urine Color YELLOW Urine Clarity SL CLOUDY Urine pH 6.5 5-9 Urine Specific [place] 1.025 H 1.016-1.022 Urine Protein NEGATIVE NEGATIVE Urine Glucose (UA) NEGATIVE NEGATIVE Urine Ketones NEGATIVE NEGATIVE Urine Nitrite NEGATIVE NEGATIVE Urine Bilirubin NEGATIVE NEGATIVE Urine Urobilinogen 0.2 < = 1.0 MG/DL Urine Leukocyte Esterase NEGATIVE NEGATIVE Urine RBC (Auto) NEGATIVE NEGATIVE Urine RBC NONE /HPF Urine WBC 0-2 /HPF Urine Squamous Epithelial Cells 2-5 /HPF Urine Crystals PRESENT H /LPF Urine Amorphous Sediment FEW AAYUSH URATES H /LPF Urine Bacteria TRACE /HPF Urine Casts NONE /LPF Urine Mucus SMALL H /LPF Urine Culture Indicated NO White Blood Count 13.1 H 4.3-11.0 10^3/uL Red Blood Count 4.28 L 4.35-5.85 10^6/uL Hemoglobin 13.0 11.5-16.0 G/DL Hematocrit 39 35-52 % Mean Corpuscular Volume 91 80-99 FL Mean Corpuscular Hemoglobin 30 25-34 PG Mean Corpuscular Hemoglobin Concent 33 32-36 G/DL Red Cell Distribution Width 13.5 10.0-14.5 % Platelet Count 284 130-400 10^3/uL Mean Platelet Volume 11.3 H 7.4-10.4 FL Neutrophils (%) (Auto) 63 42-75 % Lymphocytes (%) (Auto) 27 12-44 % Monocytes (%) (Auto) 7 0-12 % Eosinophils (%) (Auto) 3 0-10 % Basophils (%) (Auto) 1 0-10 % Neutrophils # (Auto) 8.2 H 1.8-7.8 X 10^3 Lymphocytes # (Auto) 3.5 1.0-4.0 X 10^3 Monocytes # (Auto) 0.9 0.0-1.0 X 10^3 Eosinophils # (Auto) 0.4 H 0.0-0.3 10^3/uL Basophils # (Auto) 0.1 0.0-0.1 10^3/uL Sodium Level 141 135-145 MMOL/L Potassium Level 3.7 3.6-5.0 MMOL/L Chloride Level 108 H 98-107 MMOL/L Carbon Dioxide Level 23 21-32 MMOL/L Anion Gap 10 5-14 MMOL/L Blood Urea Nitrogen 15 7-18 MG/DL Creatinine 0.70 0.60-1.30 MG/DL Estimat Glomerular Filtration Rate > 60 BUN/Creatinine Ratio 21 Glucose Level 97 70-105 MG/DL Calcium Level 8.7 8.5-10.1 MG/DL Corrected Calcium 8.9 8.5-10.1 MG/DL Total Bilirubin 0.1 0.1-1.0 MG/DL Aspartate Amino Transf (AST/SGOT) 9 5-34 U/L Alanine Aminotransferase (ALT/SGPT) 13 0-55 U/L Alkaline Phosphatase 65 40-136 U/L C-Reactive Protein High Sensitivity 0.07 0.00-0.50 MG/DL Total Protein 6.3 L 6.4-8.2 GM/DL Albumin 3.8 3.2-4.5 GM/DL My Orders Orders - SANTI MARIA Ua Culture If Indicated (12/25/19 00:33) Urine Bedside (12/25/19 00:33) Cbc With Automated Diff (12/25/19 01:26) Comprehensive Metabolic Panel (12/25/19 01:26) Hs C Reactive Protein (12/25/19 01:26) Hydrocodone/Apap 5/325 Tablet (Lortab 5 (12/25/19 01:30) Ondansetron Injection (Zofran Injectio (12/25/19 01:45) Ketorolac Injection (Toradol Injection) (12/25/19 02:30) Ct Abd/Pelv W (Appendicitis) (12/25/19 02:25) Ed Iv/Invasive Line Start (12/25/19 02:25) Lactated Ringers (Lr 1000 Ml Iv Solution (12/25/19 02:25) Iohexol Injection (Omnipaque 350 Mg/Ml 1 (12/25/19 03:00) Ns (Ivpb) (Sodium Chloride 0.9% Ivpb Bag (12/25/19 03:00) Rx-Hydrocodone/Apap 5-325 Mg (Rx-Vicodin (12/25/19 03:30) Rx-Ondansetron Po (Rx-Zofran Po) (12/25/19 03:27) Medications Given in ED Current Medications Medications Dose Ordered Sig/Vee Route Start Time Stop Time Status Last Admin Dose Admin Acetaminophen/ Hydrocodone Bitart 1 tab ONCE ONCE PO 12/25/19 01:30 12/25/19 01:31 DC 12/25/19 01:46 1 TAB Iohexol 100 ml ONCE ONCE IV 12/25/19 03:00 12/25/19 03:01 UNV 12/25/19 03:03 100 ML Lactated Ringer's 1,000 ml @ 0 mls/hr Q0M ONCE IV 12/25/19 02:25 12/25/19 02:26 DC 12/25/19 02:31 999 MLS/HR Ondansetron HCl 4 mg ONCE ONCE IVP 12/25/19 01:45 12/25/19 01:46 DC 12/25/19 01:46 4 MG Sodium Chloride 80 ml ONCE ONCE IV 12/25/19 03:00 12/25/19 03:01 UNV 12/25/19 03:03 80 ML Progress Progress Note #1: Time: :32 Progress Note Plan to give her some ondansetron and Luck for her symptoms. Suspect that this is likely endometrial or possibly even ovarian cyst. She's not having any discharge or dysuria. Urine is unremarkable. She has a negative for hCG so an ectopic is ruled out. If her CRP and white count is okay and her pain is under control then we can set her up for ultrasound of the pelvis tomorrow. We can send her home some hydrocodone. If not then we would consider getting a CT scan tonight to rule out appendicitis. Progress Note #2: Time: 02:23 Progress Note 30 minutes after receiving Luck patient says she is not feeling any improvement in her pain. We'll give her 30 mg IV Toradol. Since her pain is not improved plan to go ahead and get a CT of her abdomen pelvis. Archibald score 5 points. Possible appendicitis. Diagnostic Imaging Diagonstic Imaging: CT Plain Films/CT/US/NM/MRI: abdomen, pelvis Comments Normal appendix. Status post hysterectomy. Bilateral ovarian cyst/follicle's. Pelvic ultrasound is recommended for further evaluation if clinically warranted. Status post cholecystectomy. Reviewed: Reviewed Night Hawk Study, Reviewed by Me Departure Impression Primary Impression: Right lower quadrant abdominal pain Disposition: HOME, SELF-CARE Condition: Stable Departure-Patient Inst. Decision time for Depature: 03:29 Referrals: TED LOUIS MD (PCP/Family) Primary Care Physician Patient Instructions: Acute Pelvic Pain (DC) Add. Discharge Instructions: Tomorrow morning call and set up an ultrasound. Plan to follow up with your primary care provider for results. Ondansetron one tablet under the tongue every 6 hours as needed for nausea or vomiting. Hydrocodone one to 2 tablets every 6 hours as needed for pain. Return to the ER if you have intractable pain nausea or fever. All discharge instructions reviewed with patient and/or family. Voiced understanding. Scripts Ondansetron (Ondansetron Odt) 4 Mg Tab.rapdis 4 MG PO Q6H PRN for NAUSEA/VOMITING, #8 TAB 0 Refills Prov: SANTI MARIA 12/25/19 Hydrocodone Bit/Acetaminophen (HYDROcodone/APAP 7.5/325 TAB) 1 Ea Tablet 1-2 EA PO Q6H, #20 TAB 0 Refills Prov: SANTI MARIA 12/25/19 Work/School Note: Work Release Form Date Seen in the Emergency Department: Dec 25, 2019 Return to Work: Dec 26, 2019 Restrictions: No Restrictions Copy Copies To 1: LIS ELIZONDO TITUS J Dec 25, 2019 01:33
[2019-12-25] MEDS ORDERED: ONDANSETRON 4 MG/2 ML (SDV) Z0FRAN IVP ONE (01:45)
[2019-12-25 01:59] LABS: BASOPHILS # (AUTO) 0.1 10^3/uL (0.0-0.1); BASOPHILS % (AUTO) 1 % (0-10); EOSINOPHILS # (AUTO) 0.4 10^3/uL (0.0-0.3); EOSINOPHILS % (AUTO) 3 % (0-10); HEMATOCRIT 39 % (35-52); LYMPHOCYTES # (AUTO) 3.5 X 10^3 (1.0-4.0); LYMPHOCYTES % (AUTO) 27 % (12-44); MEAN CORPUSCULAR HEMOGLOBIN 30 PG (25-34); MEAN CORPUSCULAR HGB CONC 33 G/DL (32-36); MEAN CORPUSCULAR VOLUME 91 FL (80-99); MEAN PLATELET VOLUME 11.3 FL (7.4-10.4); MONOCYTES # (AUTO) 0.9 X 10^3 (0.0-1.0); MONOCYTES % (AUTO) 7 % (0-12); NEUTROPHILS # (AUTO) 8.2 X 10^3 (1.8-7.8); NEUTROPHILS % (AUTO) 63 % (42-75); PLATELET COUNT 284 10^3/uL (130-400); RED CELL DISTRIBUTION WIDTH 13.5 % (10.0-14.5); WHITE BLOOD COUNT 13.1 10^3/uL (4.3-11.0)
[2019-12-25 02:23] LABS: ALANINE AMINOTRANSFERASE 13 U/L (0-55); ALBUMIN 3.8 GM/DL (3.2-4.5); ALKALINE PHOSPHATASE 65 U/L (40-136); BILIRUBIN,TOTAL 0.1 MG/DL (0.1-1.0); BUN/CREATININE RATIO 21; CALCIUM 8.7 MG/DL (8.5-10.1); CARBON DIOXIDE 23 MMOL/L (21-32); CHLORIDE 108 MMOL/L (98-107); GFR ESTIMATED > 60; GLUCOSE 97 MG/DL (70-105); POTASSIUM 3.7 MMOL/L (3.6-5.0); SODIUM 141 MMOL/L (135-145); TOTAL PROTEIN 6.3 GM/DL (6.4-8.2)
[2019-12-25] MEDS ORDERED: LACTATED RINGERS 1,000 ML IV ONE (02:25)
[2019-12-25] MEDS ORDERED: KETOROLAC 30 MG/ML VIAL IVP ONE (02:30)
--- NOTE | 2019-12-25 02:32 | NUR ---
PT REFUSED TORADOL STATING, "THAT DOESN'T WORK FOR ME. I KNOW THATS WHAT YOU GUYS START WITH FOR PAIN MEDICINES, BUT IT JUST WON'T WORK." DR. MARIA NOTIFIED.
[2019-12-25] MEDS ORDERED: NS 100 ML (IVPB) BAG IV ONE (03:00)
[2019-12-25] MEDS ORDERED: IOHEXOL 350 MG/ML 100 ML (OMNIPAQUE 350) VIAL IV ONE (03:00)
[2019-12-25] MEDS ORDERED: RX-ONDANSETRON 4 MG ODT (ZOFRAN) PPK #4 PO STA (03:27)
[2019-12-25] MEDS ORDERED: RX-HYDROCODONE/APAP 5/325 MG #4 TAB PK PO PRN (03:30)
[2019-12-25] MEDS ORDERED: ONDA4TAB11 PO (03:31)
[2019-12-25] MEDS ORDERED: HYDR-34 PO (03:31)
[2019-12-25 03:54] VITALS: BP 98/69
--- NOTE | 2019-12-25 06:50 | Diagnostic Imaging Report ---
PROCEDURE: CT abdomen and pelvis with contrast, rule out appendicitis. TECHNIQUE: Multiple contiguous axial images were obtained through the abdomen and pelvis after the administration of intravenous contrast. All CT scans use one or more of the following dose optimizing techniques: automated exposure control, MA and/or KvP adjustment based on a patient size and exam type, or iterative reconstruction. INDICATION: Lower abdominal pain The lung bases are clear. Liver appears normal. The gallbladder surgically absent. Portal vein is patent. The common duct is not dilated. Pancreas appears normal. Spleen is not enlarged. Kidneys and adrenals appear normal. No evidence of appendicitis. There is a moderate amount of stool in the ascending and transverse colon. Uterus is surgically absent. Adnexa are unremarkable. There is no intraperitoneal free air or free fluid. IMPRESSION: There is some fecal stasis. No acute abnormality seen in the abdomen or pelvis. I agree with preliminary interpretation. Dictated by: Dictated on workstation # [id number]
--- OUTSIDE RECORDS SUMMARY | 2019-12-27 00:43 | XMS REPORT ---
Author Author Lena Narayan Organization [facility] Address [address] [place] [address] Care Team Providers Care Manager Of Radiology Name Role Phone NIKOLAS Narayan Unavailable PROBLEMS Type Condition ICD9-CM Code RVC68-CV Code Onset Dates Condition S tatus SNOMED Code Problem Breast lesion N64.9 Active 002710 004 Problem Chronic prescription opiate use Z79.899 Active 399693956 Problem BMI 40.0-44.9, adult Z68.41 Active 720323800 Problem Axillary hidradenitis suppurativa L73.2 Active 522421651 Problem Low back pain M54.5 Active 593561 005 Problem Migraine with aura and without status migrainosu s, not intractable G43.109 Active 5624720 Problem Adjustment disorder with mixed anxiety and depressed mood F43.23 Active 81825202 Problem Bipolar disorder in partial remission, most recent episode unspecified type F31.70 Active 3117573 ALLERGIES No Information ENCOUNTERS Encounter Location Date Diagnosis [facility] WALK IN [facility] [address] [place], [place] [id number] [address] [place] [address] Nov, Allergic reaction, initial e ncounter T78.40XA [facility] WALK IN [facility] [id number] [place] [address] Aug, Allergic reaction, initial e ncounter T78.40XA [facility] [address] [id number] [place] [address] Jul, Low back pain M54.5 [facility] [address] [address] Jun, BMI 40.0-44.9, adult Z68.41 ; Axillary h idradenitis suppurativa L73.2 and Low back pain M54.5 [facility] [address] [address] Jun, [facility] [address] [id number] [address] [address] May, Plantar fasciitis of right f oot M72.2 [facility] [address] [address] Jan, Breast lesion N64.9 [facility] [address] [address] Jan, Breast lesion N64.9 [place] [address] [address] Jan, Breast lesion N64.9 [place] [address] [address] Jan, [place] [address] [address] Dec, Breast lesion N64.9 [place] [address] [address] Oct, BMI 40.0-44.9, adult Z68.41 ; Low back p ain M54.5 ; Chronic prescription opiate use Z79.899 and Breast lesion N64.9 [facility] [address] [address] Oct, Adjustment disorder with mixed anxiety a nd depressed mood F43.23 and Bipolar disorder in partial remission, most recent episode unspecified type F31.70 [facility] [address] [address] Oct, Adjustment disorder with mixed anxiety a nd depressed mood F43.23 and Bipolar disorder in partial remission, most recent episode unspecified type F31.70 [facility] [address] [facility] [id number] [address] [address] Sep, Sore throat J02.9 ; Other vi ral agents as the cause of diseases classified elsewhere B97.89 and Acute pharyngitis due to other specified organisms J02.8 [place] [address] [address] 23 Sep, 2016 Breast lesion N64.9 [place] [address] [address] 09 Sep, 2016 Breast lump N63 [place] [address] [address] 18 Jul, 2016 Elevated fasting glucose R73.01 [place] [address] [address] 18 Jul, 2016 Elevated fasting glucose R73.01 [place] [address] [address] 14 Jul, 2016 Pelvic pain R10.2 ; Screening, lipid Z13 .220 and Screening for diabetes mellitus Z13.1 [place] [address] [address] 15 Jun, 2016 Pelvic pain R10.2 and Vaginal candidiasi s B37.3 [facility] WALK IN [place] [address] [address] 14 Jun, 2016 Abdominal pain, lower R10.30 [facility] WALK IN [place] [address] [place] [id number] [place] [address] 14 Jun, 2016 [place] [address] [address] 07 Mar, 2016 Acute pain of right shoulder M25.511 [place] [address] [address] Mar, Right anterior shoulder pain M25.511 [facility] WALK IN [place] [address] [address] 05 Feb, 2016 Acute pain of right shoulder M25.511 [place] [address] [address] Jan, Low back pain M54.5 ; Migraine G43.909 ; Screening, lipid Z13.220 ; Screening for diabetes mellitus Z13.1 and Tobacco abuse counseling Z71.6 [place] [address] [address] Dec, [facility] [address] [address] Dec, [facility] [address] [address] Dec, Lateral meniscus tear S83.289A [facility]ALK IN [facility]ARE [address] [facility] [id number] [address] [place] [address] Nov, Sore throat J02.9 [place] [address] [address] Nov, [place] [address] [address] Nov, [place] [address] [address] Oct, Acute pain of left knee M25.562 ; Low ba ck pain M54.5 and Chronic prescription opiate use Z79.899 [place] [address] [address] Aug, Plantar fasciitis M72.[address] [address] Jul, 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 and Bunion of great toe of left foot M20.12 [place] [address] [address] 30 Jun, 2015 Chronic migraine 346.70 ; Bipolar disord er 296.80 ; Bilateral foot pain 729.5 ; Cellulitis 682.9 and Lumbosacral radiculopathy at L5 724.4 [place] [address] [address] 16 Jun, 2015 Plantar fasciitis, bilateral 728.71 [place] [address] [address] Apr, Major depression, recurrent 296.30 ; Anx iety, generalized 300.02 ; No condition on [place] II V71.09 and No condition on axis III V71.09 [facility] [address] [address] Apr, Unspecified episodic mood disorder 296.9 0 [facility] [address] [address] Apr, Acute pharyngitis 462 [facility] [address] [address] Apr, [facility] [address] [address] Apr, Major depression, recurrent 296.30 ; Anx iety 300.00 ; No condition on [place] II V71.09 and No condition on axis III V71.09 [facility] [address] [address] Mar, Unspecified episodic mood disorder 296.9 0 and 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 [facility] [id number] [place] [address] Mar, [facility] [address] [id number] [place] [id number] February, Dental examination V72.2 [facility] [id number] [place] [address] February, [facility] [address] [address] February, [facility] [id number] [place] [address] Jan, [facility] [address] [address] Jan, [facility] [address] [address] Dec, [facility] [address] [address] Dec, [facility] [address] [facility] [id number] [place] [address] Dec, [facility] [address] [id number] [place] [address] Dec, [facility] [address] [id number] [place] [address] Oct, [facility] [address] [id number] [place] [address] Oct, [facility] [address] [id number] [place] [address] Aug, [facility] [address] [id number] [place] [address] Aug, [facility] [address] [id number] [place] [address] Aug, [facility] [address] [id number] [place] [address] Aug, [facility] [address] [id number] [place] [address] Jul, [facility] [address] [id number] [place] [address] Jul, [facility] [address] [id number] [place] [address] Jul, [facility] [address] [id number] [place] [address] Jul, [facility] [address] [id number] [place] [address] Jun, [facility] [address] [id number] [place] [address] Jun, [facility] [address] [id number] [place] [address] Jun, [facility] [address] [id number] [place] [address] Jun, 2013 [facility] [address] [id number] [place] [address] Jun, [facility] [address] [id number] [place] [address] Jun, [facility] [address] [id number] [place] [address] May, [facility] [address] [id number] [place] [address] May, [facility] [address] [id number] [place] [address] Mar, [facility] [address] [id number] [place] [address] Mar, [facility] [address] [id number] [place] [address] February, [facility] [address] [id number] [place] [address] February, [facility] [address] [id number] [place] [address] Jan, [facility] [address] [id number] [place] [address] Jan, [facility] [address] [id number] [place] [address] Jan, [facility] [address] [id number] [place] [address] Jan, [facility] [address] [id number] [place] [address] Jan, [facility] [address] [id number] [place] [address] Jan, [facility] [address] [id number] [place] [address] Dec, [facility] [address] [id number] [place] [address] Dec, [facility] [address] [id number] [place] [address] Nov, [facility] [address] [id number] [place] [address] Nov, [facility] [address] [id number] [place] [address] Oct, [facility] [address] [id number] [place] [address] Oct, [facility] [address] [id number] [place] [address] Sep, [facility] [address] [id number] [place] [address] Sep, [facility] [address] [id number] [place] [address] Sep, [facility] [address] [id number] [place] [address] Sep, [facility] [address] [id number] [place] [address] Jul, [facility] [address] [id number] [place] [address] Jul, [facility] [address] [id number] [place] [address] Jul, [facility] [address] [id number] [place] [address] Jun, 2012 [facility] [address] [id number] [place] [address] 11 Jun, 2012 [facility] [address] [id number] [place] [address] 10 Sep, 2012 [facility] [address] [id number] [place] [address] 09 Sep, 2012 [facility] [address] [id number] [place] [address] 05 Sep, 2012 [facility] [address] [id number] [place] [address] 05 Sep, 2012 [facility] [address] [id number] [place] [address] Jun, [facility] [address] [facility] [id number] [facility] [place] [address] May, [facility] [address] [facility] [id number] [facility] [place] [address] Apr, [facility] [address] [id number] [facility] [place] [address] Apr, [facility] [address] [id number] [facility] [place] [address] Apr, [facility] [address] [facility] [id number] [facility] [place] [address] Apr, [facility] [address] [id number] [place] [address] Apr, [facility] [address] [id number] [place] [address] Apr, [facility] [address] [id number] [place] [address] Apr, [facility] [address] [id number] [place] [address] Mar, [facility] [address] [id number] [place] [address] Mar, [facility] [address] [id number] [place] [address] Mar, [facility] [address] [id number] [place] [address] Mar, [facility] [address] [id number] [place] [address] Mar, [facility] [address] [id number] [place] [address] Mar, [facility] [address] [id number] [place] [address] February, [facility] [address] [id number] [place] [address] February, [facility] [address] [id number] [place] [address] February, [facility] [address] [id number] [place] [address] Jan, [facility] [address] [id number] [place] [address] Jan, [facility] [address] [id number] [place] [address] Jan, [facility] [address] [id number] [place] [address] Jan, [facility] [address] [id number] [place] [address] Dec, [facility] [address] [id number] [place] [address] Nov, [facility] [address] [id number] [place] [address] Oct, [facility] [address] [id number] [place] [address] Oct, [facility] [address] [id number] [place] [address] Oct, [facility] [address] [id number] [place] [address] Sep, [facility] [address] [id number] [place] [address] Sep, [facility] [address] [id number] [place] [address] Sep, [facility] [address] [id number] [place] [address] Sep, [facility] [id number] [place] [address] Jul, [facility] [address] [id number] [place] [address] Jul, [facility] [address] [id number] [place] [address] Jul, [facility] [address] [id number] [place] [address] Jul, [facility] [address] [id number] [place] [address] Jul, [facility] [address] [id number] [place] [address] Jul, [facility] [address] [id number] [place] [address] Jul, [facility] [address] [id number] [place] [address] 27 Jun, 2012 [facility] [address] [id number] [place] [address] 25 Jun, 2012 [facility] [address] [id number] [place] [address] 18 Jun, 2012 [facility] [address] [id number] 17 Jun, 2012 [facility] [address] [id number] [place] [address] Jun, [facility] [address] [id number] [place] [address] Jun, [facility] [address] [id number] [place] [address] Apr, [facility] [address] [id number] [place] [address] Apr, [facility] [address] [id number] [place] [address] Apr, [facility] [address] [id number] [place] [address] February, [facility] [address] [id number] [place] [address] Dec, [facility] [address] [id number] [place] [address] Dec, [facility] [address] [id number] [place] [address] Dec, [facility] [address] [id number] [place] [address] Nov, [facility] [address] [id number] [place] [address] Nov, [facility] [address] [id number] [place] [address] Oct, [facility] [address] [id number] [place] [address] Oct, [facility] [address] [id number] [place] [address] Oct, [facility] [address] [id number] [place] [address] Sep, [facility] [address] [id number] [place] [address] Sep, [facility] [address] [id number] [place] [address] Sep, [facility] [address] [id number] [place] [address] Sep, [facility] [address] [id number] [place] [address] Sep, [facility] [address] [id number] [place] [address] Aug, [facility] [address] [id number] [place] [address] Aug, [facility] [address] [id number] [place] [address] Aug, [facility] [address] [id number] [place] [address] Aug, [facility] [address] [id number] [place] [address] Jul, [facility] [address] [id number] [place] [address] Jul, [facility] [address] [id number] [place] [address] 19 Jul, 2011 [facility] [address] [facility] [id number] [place] [address] 19 Jul, 2011 [facility] [address] [id number] [place] [address] 10 Jul, 2011 [facility] [address] [id number] [place] [address] 13 Apr, 2011 [facility] [address] [id number] [place] [address] 28 Sep, 2010 [facility] [address] [id number] [place] [address] 10 Sep, 2010 [facility] [address] [id number] [place] [address] Sep, [facility] [address] [id number] [place] [address] 11 Aug, 2010 [facility] [address] [id number] [place] [address] 11 Aug, 2010 [facility] [address] [id number] [place] [address] 10 Aug, 2010 [facility] [address] [id number] [place] [address] 27 Jul, 2010 [facility] [address] [id number] [place] [address] 16 Jun, 2010 [facility] [address] [id number] [place] [address] 14 Apr, 2010 [facility] [address] [id number] [place] [address] 10 Apr, 2010 [facility] [address] [id number] [place] [address] 12 Jan, 2010 [facility] [address] [id number] [place] [address] 17 Nov, 2009 [facility] [address] [id number] [place] [address] Sep, [facility] [address] [id number] [place] [address] Aug, [facility] [address] [id number] [place] [address] Aug, [facility] [address] [id number] [place] [address] Aug, [facility] [id number] [place] [address] 16 Jun, 2009 [facility] [id number] [place] [address] May, [facility] [address] [address] Mar, [facility] [id number] [place] [address] Mar, [facility] [id number] [place] [address] 19 Nov, 2008 [facility] [address] [id number] [place] [address] 13 Nov, 2008 IMMUNIZATIONS No Known Immunizations SOCIAL HISTORY Never Assessed REASON FOR VISIT PLAN OF CARE VITAL SIGNS MEDICATIONS No Known Medications RESULTS No Results PROCEDURES No Known procedures INSTRUCTIONS MEDICATIONS ADMINISTERED No Known Medications MEDICAL (GENERAL) HISTORY Type Description Date Medical History migraine headaches 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
--- OUTSIDE RECORDS SUMMARY | 2019-12-27 00:44 | XMS REPORT ---
Author Author Lena Narayan Organization [facility] Address [address] [place] [address] Care Team Providers Care Hop Worker Name Role Phone NIKOLAS Narayan Unavailable PROBLEMS Type Condition ICD9-CM Code ESO91-JX Code Onset Dates Condition S tatus SNOMED Code Problem Breast lesion N64.9 Active 043429 004 Problem Chronic prescription opiate use Z79.899 Active 893318446 Problem BMI 40.0-44.9, adult Z68.41 Active 742683634 Problem Axillary hidradenitis suppurativa L73.2 Active 778782976 Problem Low back pain M54.5 Active 743160 005 Problem Migraine with aura and without status migrainosu s, not intractable G43.109 Active 9327355 Problem Adjustment disorder with mixed anxiety and depressed mood F43.23 Active 59862311 Problem Bipolar disorder in partial remission, most recent episode unspecified type F31.70 Active [id number] ALLERGIES No Information ENCOUNTERS Encounter Location Date Diagnosis [facility] [id number] [place] [address] Aug, Allergic reaction, initial e ncounter T78.40XA [facility] [id number] [place] [address] Jul, Low back pain M54.5 [facility] [address] [address] Jun, BMI 40.0-44.9, adult Z68.41 ; Axillary h idradenitis suppurativa L73.2 and Low back pain M54.5 [facility] [address] [address] Jun, [facility] [id number] [place] [address] May, Plantar fasciitis of right f oot M72.2 [place] [address] [address] Jan, Breast lesion N64.9 [facility] [address] [address] Jan, Breast lesion N64.9 [facility] [address] [address] Jan, Breast lesion N64.9 [place] [address] [address] Jan, [place] [address] [address] Dec, Breast lesion N64.9 [place] [address] [address] Oct, BMI 40.0-44.9, adult Z68.41 ; Low back p ain M54.5 ; Chronic prescription opiate use Z79.899 and Breast lesion N64.9 [place] [address] [address] Oct, Adjustment disorder with mixed anxiety a nd depressed mood F43.23 and Bipolar disorder in partial remission, most recent episode unspecified type F31.70 [facility] [address] [address] Oct, Adjustment disorder with mixed anxiety a nd depressed mood F43.23 and Bipolar disorder in partial remission, most recent episode unspecified type F31.70 [facility] [id number] [place] [address] Sep, Sore throat J02.9 ; Other vi ral agents as the cause of diseases classified elsewhere B97.89 and Acute pharyngitis due to other specified organisms J02.8 [facility] [address] [address] Sep, Breast lesion N64.9 [place] [address] [address] 09 Sep, 2016 Breast lump N63 [place] [address] [address] 18 Jul, 2016 Elevated fasting glucose R73.01 [place] [address] [address] 18 Jul, 2016 Elevated fasting glucose R73.01 [place] [address] [address] 14 Jul, 2016 Pelvic pain R10.2 ; Screening, lipid Z13 .220 and Screening for diabetes mellitus Z13.1 [place] [address] [address] 15 Jun, 2016 Pelvic pain R10.2 and Vaginal candidiasi s B37.3 [facility] [place] [address] [address] 14 Jun, 2016 Abdominal pain, lower R10.30 [facility] [place] [address] [address] 14 Jun, 2016 [place] [address] [address] 07 Mar, 2016 Acute pain of right shoulder M25.511 [place] [address] [address] Mar, Right anterior shoulder pain M25.511 [facility] [place] [address] [id number] [place] [address] February, Acute pain of right shoulder M25.511 [place] [address] [address] Jan, Low back pain M54.5 ; Migraine G43.909 ; Screening, lipid Z13.220 ; Screening for diabetes mellitus Z13.1 and Tobacco abuse counseling Z71.6 [place] [address] [address] Dec, [facility] [address] [address] Dec, [facility] [address] [address] Dec, Lateral meniscus tear S83.289A [facility] [address] [facility] [id number] [place] [address] Nov, Sore throat J02.9 [facility] [address] [address] Nov, [facility] [address] [address] Nov, [facility] [address] [address] Oct, Acute pain of left knee M25.562 ; Low ba ck pain M54.5 and Chronic prescription opiate use Z79.899 [place] [address] [address] Aug, Plantar fasciitis M72.2 [place] [address] [address] Jul, 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 and Bunion of great toe of left foot M20.12 [place] [address] [address] 30 Jun, 2015 Chronic migraine 346.70 ; Bipolar disord er 296.80 ; Bilateral foot pain 729.5 ; Cellulitis 682.9 and Lumbosacral radiculopathy at L5 724.4 [place] [address] [address] 16 Jun, 2015 Plantar fasciitis, bilateral 728.71 [place] [address] [address] Apr, Major depression, recurrent 296.30 ; Anx iety, generalized 300.02 ; No condition on Peever II V71.09 and No condition on axis III V71.09 [facility] [id number] [place] [address] Apr, Unspecified episodic mood disorder 296.9 0 [facility] [address] [id number] [place] [address] Apr, Acute pharyngitis 462 [facility] [address] [address] Apr, [facility] [address] [address] Apr, Major depression, recurrent 296.30 ; Anx iety 300.00 ; No condition on Peever II V71.09 and No condition on axis III V71.09 [facility] [address] [address] Mar, Unspecified episodic mood disorder 296.9 0 and 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 [facility] [id number] [place] [address] Mar, [facility] [address] [id number] [place] [id number] February, Dental examination V72.2 [facility] [id number] [place] [address] February, [facility] [address] [address] February, [facility] [id number] [place] [address] Jan, [facility] [address] [address] Jan, [facility] [address] [address] Dec, [facility] [address] [address] Dec, [facility] [address] [address] Dec, [facility] [address] [id number] [place] [address] Dec, [facility] [address] [id number] [place] [address] Oct, [facility] [address] [id number] [place] [address] Oct, [facility] [address] [id number] [place] [address] Aug, [facility] [address] [id number] [place] [address] Aug, [facility] [address] [id number] [place] [address] Aug, [facility] [address] [id number] [place] [address] Aug, [facility] [address] [id number] [place] [address] Jul, [facility] [address] [id number] [place] [address] Jul, [facility] [address] [id number] [place] [address] Jul, [facility] [address] [id number] [place] [address] Jul, [facility] [address] [id number] [place] [address] Jun, [facility] [address] [id number] [place] [address] Jun, 2013 [facility] [address] [id number] [place] [address] Jun, [facility] [address] [id number] [place] [address] Jun, 2013 [facility] [address] [id number] [place] [address] Jun, 2013 [facility] [address] [id number] [place] [address] Jun, [facility] [address] [id number] [place] [address] May, [facility] [address] [facility] [id number] [place] [address] May, [facility] [address] [id number] [place] [address] Mar, [facility] [address] [id number] [place] [address] Mar, [facility] [address] [facility] [id number] [place] [address] February, [facility] [address] [id number] [place] [address] February, [facility] [address] [id number] [place] [address] Jan, [facility] [address] [id number] [place] [address] Jan, [facility] [address] [id number] [place] [address] Jan, [facility] [address] [id number] [place] [address] Jan, [facility] [address] [id number] [place] [address] Jan, [facility] [address] [id number] [place] [address] Jan, [facility] [address] [id number] [place] [address] Dec, [facility] [address] [id number] [place] [address] Dec, [facility] [address] [id number] [place] [address] Nov, [facility] [address] [id number] [place] [address] Nov, [facility] [address] [id number] [place] [address] Oct, [facility] [address] [id number] [place] [address] Oct, [facility] [address] [id number] [place] [address] Sep, [facility] [address] [id number] [place] [address] Sep, [facility] [address] [id number] [place] [address] Sep, [facility] [address] [id number] [place] [address] Sep, [facility] [address] [id number] [place] [address] Jul, [facility] [address] [id number] [place] [address] Jul, [facility] [address] [id number] [place] [address] Jul, [facility] [address] [id number] [place] [address] Jun, [facility] [address] [id number] [place] [address] Jun, [facility] [address] [id number] [place] [address] Jun, 2012 [facility] [address] [id number] [place] [address] Jun, 2012 [facility] [address] [id number] [place] [address] 05 Jun, 2012 [facility] [address] [id number] [place] [address] 05 Jun, 2012 [facility] [address] [id number] [place] [address] Jun, 2012 [facility] [address] [id number] [place] [address] May, [facility] [address] [id number] [place] [address] Apr, [facility] [address] [id number] [place] [address] Apr, [facility] [address] [id number] [place] [address] Apr, [facility] [address] [id number] [place] [address] Apr, [facility] [address] [facility] [id number] [place] [address] Apr, [facility] [address] [id number] [place] [address] Apr, [facility] [address] [id number] [place] [address] Apr, [facility] [address] [id number] [place] [address] Mar, [facility] [address] [id number] [place] [address] Mar, [facility] [address] [id number] [place] [address] Mar, [facility] [address] [id number] [place] [address] Mar, [facility] [address] [id number] [place] [address] Mar, [facility] [address] [id number] [place] [address] Mar, [facility] [address] [facility] [id number] [place] [address] February, [facility] [address] [id number] [place] [address] February, [facility] [address] [id number] [place] [address] February, [facility] [address] [id number] [place] [address] Jan, [facility] [address] [id number] [place] [address] Jan, [facility] [address] [id number] [place] [address] Jan, [facility] [address] [id number] [place] [address] Jan, [facility] [address] [id number] [place] [address] Dec, [facility] [address] [id number] [place] [address] Nov, [facility] [address] [id number] [place] [address] Oct, [facility] [address] [id number] [place] [address] Oct, [facility] [address] [id number] [place] [address] Oct, [facility] [address] [id number] [place] [address] Sep, [facility] [address] [id number] [place] [address] Sep, [facility] [address] [id number] [place] [address] Sep, [facility] [address] [id number] [place] [address] Sep, [facility] [address] [id number] [place] [address] Jul, [facility] [address] [id number] [place] [address] Jul, [facility] [address] [id number] [place] [address] Jul, [facility] [address] [id number] [place] [address] Jul, [facility] [address] [id number] [place] [address] Jul, [facility] [address] [id number] [place] [address] Jul, [facility] [address] [id number] [place] [address] Jul, [facility] [address] [id number] [place] [address] 27 Jun, 2012 [facility] [address] [id number] [place] [address] 25 Jun, 2012 [facility] [address] [id number] [place] [address] 18 Jun, 2012 [facility] [address] [id number] Jun, [facility] [address] [id number] [place] [address] Jun, [facility] [address] [id number] [place] [address] Jun, [facility] [address] [id number] [place] [address] Apr, [facility] [address] [id number] [place] [address] Apr, [facility] [address] [id number] [place] [address] Apr, [facility] [address] [id number] [place] [address] February, [facility] [address] [id number] [place] [address] Dec, [facility] [address] [id number] [place] [address] Dec, [facility] [address] [id number] [place] [address] Dec, [facility] [address] [id number] [place] [address] Nov, [facility] [address] [id number] [place] [address] 08 Nov, 2011 [facility] [address] [id number] [place] [address] Oct, [facility] [address] [id number] [place] [address] Oct, [facility] [id number] [place] [address] Oct, [facility] [address] [id number] [place] [address] Sep, [facility] [id number] [place] [address] Sep, [facility] [id number] [place] [address] Sep, [facility] [id number] [place] [address] Sep, [facility] [id number] [place] [address] Sep, [facility] [id number] [place] [address] Aug, [facility] [id number] [place] [address] Aug, [facility] [id number] [place] [address] Aug, [facility] [id number] [place] [address] Aug, [facility] [address] [id number] [place] [address] Jul, [facility] [id number] [place] [address] Jul, [facility] [address] [id number] [place] [address] Jul, [facility] [id number] [place] [address] 19 Jul, 2011 [facility] [address] [facility] [id number] [place] [address] 10 Jul, 2011 [facility] [address] [facility] [id number] [facility] [place] [address] 13 Apr, 2011 [facility] [address] [facility] [id number] [place] [address] 28 Sep, 2010 [facility] [address] [id number] [facility] [place] [address] 10 Sep, 2010 [facility] [address] [facility] [id number] [place] [address] 10 Sep, 2010 [facility] [address] [id number] [place] [address] 11 Aug, 2010 [facility] [address] [id number] [place] [address] 11 Aug, 2010 [facility] [address] [id number] [place] [address] Aug, [facility] [address] [facility] [id number] [place] [address] 27 Jul, 2010 [facility] [address] [id number] [place] [address] 16 Jun, 2010 [facility] [address] [id number] [place] [address] 14 Apr, 2010 [facility] [address] [id number] [place] [address] 10 Apr, 2010 [facility] [address] [facility] [id number] [place] [address] 12 Jan, 2010 [facility] [address] [facility] [id number] [place] [address] Nov, [facility] [address] [id number] [place] [address] Sep, [facility] [address] [id number] [place] [address] Aug, [facility] [address] [id number] [place] [address] Aug, [facility] [address] [id number] [place] [address] Aug, [facility] [address] [id number] [place] [address] 16 Jun, 2009 [facility] [id number] [place] [address] May, [facility] [id number] [place] [address] Mar, [facility] [id number] [place] [address] Mar, [facility] [id number] [place] [address] Nov, [facility] [address] [id number] [place] [address] Nov, IMMUNIZATIONS No Known Immunizations SOCIAL HISTORY Never [...] History cyst removal x3 Surgical History cholecystectomy 2008 Surgical History cystoscopy with hydrodistension 08/2011 Surgical History dilatation and curettage 07/2011 Surgical History lysis of adhesions 07/2011 Surgical History partial hysterectomy 01/2012 Surgical History orthopedic surgery- left knee Surgical History right shoulder surgery 2016 Hospitalization History abd pain 03/2010 Hospitalization History Abdominal pain 2010
--- OUTSIDE RECORDS SUMMARY | 2019-12-27 00:44 | XMS REPORT ---
Author Author Lena Narayan Organization [facility] Address [address] [place] [address] Care Team Providers Care Md Physician Dermatologist Name Role Phone NIKOLAS Narayan Unavailable PROBLEMS Type Condition ICD9-CM Code PRP37-BJ Code Onset Dates Condition S tatus SNOMED Code Problem Breast lesion N64.9 Active 307635 004 Problem Chronic prescription opiate use Z79.899 Active 842631727 Problem BMI 40.0-44.9, adult Z68.41 Active 455108977 Problem Axillary hidradenitis suppurativa L73.2 Active 585646718 Problem Low back pain M54.5 Active 322418 005 Problem Migraine with aura and without status migrainosu s, not intractable G43.109 Active 9454657 Problem Adjustment disorder with mixed anxiety and depressed mood F43.23 Active 52056330 Problem Bipolar disorder in partial remission, most recent episode unspecified type F31.70 Active 2747395 ALLERGIES No Information ENCOUNTERS Encounter Location Date Diagnosis [facility] WALK IN [facility] [address] [place], [place] [id number] [address] [place] [address] Nov, Allergic reaction, initial e ncounter T78.40XA [facility] WALK IN [facility] [address] [id number] [place] [address] Aug, Allergic reaction, initial e ncounter T78.40XA [facility] [address] [id number] [place] [address] Jul, Low back pain M54.5 [facility] [address] [address] Jun, BMI 40.0-44.9, adult Z68.41 ; Axillary h idradenitis suppurativa L73.2 and Low back pain M54.5 [facility] [address] [address] Jun, [facility] [address] [id number] [place], [place] [address] May, Plantar fasciitis of right f oot M72.2 [facility] [address] [address] Jan, Breast lesion N64.9 [facility] [address] [address] Jan, Breast lesion N64.9 [place] [address] [address] Jan, Breast lesion N64.9 [place] [address] [address] Jan, [place] [address] [address] Dec, Breast lesion N64.9 [place] [address] [address] Oct, BMI 40.0-44.9, adult Z68.41 ; Low back p ain M54.5 ; Chronic prescription opiate use Z79.899 and Breast lesion N64.9 [facility] [address] [address] Oct, Adjustment disorder with mixed anxiety a nd depressed mood F43.23 and Bipolar disorder in partial remission, most recent episode unspecified type F31.70 [facility] [address] [address] Oct, Adjustment disorder with mixed anxiety a nd depressed mood F43.23 and Bipolar disorder in partial remission, most recent episode unspecified type F31.70 [facility] [address] [facility] [id number] [place] [address] Sep, Sore throat J02.9 ; Other vi ral agents as the cause of diseases classified elsewhere B97.89 and Acute pharyngitis due to other specified organisms J02.8 [place] [address] [address] 23 Sep, 2016 Breast lesion N64.9 [place] [address] [address] 09 Sep, 2016 Breast lump N63 [place] [address] [address] 18 Jul, 2016 Elevated fasting glucose R73.01 [place] [address] [address] 18 Jul, 2016 Elevated fasting glucose R73.01 [place] [address] [address] 14 Jul, 2016 Pelvic pain R10.2 ; Screening, lipid Z13 .220 and Screening for diabetes mellitus Z13.1 [place] [address] [address] 15 Jun, 2016 Pelvic pain R10.2 and Vaginal candidiasi s B37.3 [facility] WALK IN [place] [address] [address] 14 Jun, 2016 Abdominal pain, lower R10.30 [facility] WALK IN [place] [address] [place] [place] [id number] [place] [address] 14 Jun, 2016 [place] [address] [address] 07 Mar, 2016 Acute pain of right shoulder M25.511 [place] [address] [address] Mar, Right anterior shoulder pain M25.511 [facility] WALK IN [place] [address] [address] 05 Feb, 2016 Acute pain of right shoulder M25.511 [place] [address] [address] Jan, Low back pain M54.5 ; Migraine G43.909 ; Screening, lipid Z13.220 ; Screening for diabetes mellitus Z13.1 and Tobacco abuse counseling Z71.6 [place] [address] [address] Dec, [facility] [address] [address] Dec, [facility] [address] [address] Dec, Lateral meniscus tear S83.289A [facility] [address] [facility] [id number] [address] [place] [address] Nov, Sore throat J02.9 [place] [address] [address] Nov, [place] [address] [address] Nov, [place] [address] [address] Oct, Acute pain of left knee M25.562 ; Low ba ck pain M54.5 and Chronic prescription opiate use Z79.899 [place] [address] [address] Aug, Plantar fasciitis M72.[address] [address] Jul, 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 and Bunion of great toe of left foot M20.12 [place] [address] [address] 30 Jun, 2015 Chronic migraine 346.70 ; Bipolar disord er 296.80 ; Bilateral foot pain 729.5 ; Cellulitis 682.9 and Lumbosacral radiculopathy at L5 724.4 [place] [address] [address] 16 Jun, 2015 Plantar fasciitis, bilateral 728.71 [place] [address] [address] Apr, Major depression, recurrent 296.30 ; Anx iety, generalized 300.02 ; No condition on [place] II V71.09 and No condition on axis III V71.09 [facility] [address] [address] Apr, Unspecified episodic mood disorder 296.9 0 [facility] [address] [address] Apr, Acute pharyngitis 462 [facility] [address] [address] Apr, [facility] [address] [address] Apr, Major depression, recurrent 296.30 ; Anx iety 300.00 ; No condition on [place] II V71.09 and No condition on axis III V71.09 [facility] [address] [address] Mar, Unspecified episodic mood disorder 296.9 0 and 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 [facility] [id number] [place] [address] Mar, [facility] [address] [id number] [place] [id number] February, Dental examination V72.2 [facility] [id number] [place] [address] February, [facility] [address] [address] February, [facility] [id number] [place] [address] Jan, [facility] [address] [address] Jan, [facility] [address] [address] Dec, [facility] [address] [address] Dec, [facility] [address] [facility] [id number] [place] [address] Dec, [facility] [address] [id number] [place] [address] Dec, [facility] [address] [id number] [place] [address] Oct, [facility] [address] [id number] [place] [address] Oct, [facility] [address] [id number] [place] [address] Aug, [facility] [address] [id number] [place] [address] Aug, [facility] [address] [id number] [place] [address] Aug, [facility] [address] [id number] [place] [address] Aug, [facility] [address] [id number] [place] [address] Jul, [facility] [address] [id number] [place] [address] Jul, [facility] [address] [id number] [place] [address] Jul, [facility] [address] [id number] [place] [address] Jul, [facility] [address] [id number] [place] [address] Jun, [facility] [address] [id number] [place] [address] Jun, [facility] [address] [id number] [place] [address] Jun, [facility] [address] [id number] [place] [address] Jun, 2013 [facility] [address] [id number] [place] [address] Jun, [facility] [address] [id number] [place] [address] Jun, [facility] [address] [id number] [place] [address] May, [facility] [address] [id number] [place] [address] May, [facility] [address] [id number] [place] [address] Mar, [facility] [address] [id number] [place] [address] Mar, [facility] [address] [id number] [place] [address] February, [facility] [address] [id number] [place] [address] February, [facility] [address] [id number] [place] [address] Jan, [facility] [address] [id number] [place] [address] Jan, [facility] [address] [id number] [place] [address] Jan, [facility] [address] [id number] [place] [address] Jan, [facility] [address] [id number] [place] [address] Jan, [facility] [address] [id number] [place] [address] Jan, [facility] [address] [id number] [place] [address] Dec, [facility] [address] [id number] [place] [address] Dec, [facility] [address] [id number] [place] [address] Nov, [facility] [address] [id number] [place] [address] Nov, [facility] [address] [id number] [place] [address] Oct, [facility] [address] [id number] [place] [address] Oct, [facility] [address] [id number] [place] [address] Sep, [facility] [address] [id number] [place] [address] Sep, [facility] [address] [id number] [place] [address] Sep, [facility] [address] [id number] [place] [address] Sep, [facility] [address] [id number] [place] [address] Jul, [facility] [address] [id number] [place] [address] Jul, [facility] [address] [id number] [place] [address] Jul, [facility] [address] [id number] [place] [address] Jun, 2012 [facility] [address] [id number] [place] [address] 11 Jun, 2012 [facility] [address] [id number] [place] [address] 10 Sep, 2012 [facility] [address] [id number] [place] [address] 09 Sep, 2012 [facility] [address] [id number] [place] [address] 05 Sep, 2012 [facility] [address] [id number] [place] [address] 05 Sep, 2012 [facility] [address] [id number] [place] [address] Jun, [facility] [address] [facility] [id number] [facility] [place] [address] May, [facility] [address] [facility] [id number] [facility] [place] [address] Apr, [facility] [address] [id number] [facility] [place] [address] Apr, [facility] [address] [id number] [facility] [place] [address] Apr, [facility] [address] [facility] [id number] [facility] [place] [address] Apr, [facility] [address] [id number] [place] [address] Apr, [facility] [address] [id number] [place] [address] Apr, [facility] [address] [id number] [place] [address] Apr, [facility] [address] [id number] [place] [address] Mar, [facility] [address] [id number] [place] [address] Mar, [facility] [address] [id number] [place] [address] Mar, [facility] [address] [id number] [place] [address] Mar, [facility] [address] [id number] [place] [address] Mar, [facility] [address] [id number] [place] [address] Mar, [facility] [address] [id number] [place] [address] February, [facility] [address] [id number] [place] [address] February, [facility] [address] [id number] [place] [address] February, [facility] [address] [id number] [place] [address] Jan, [facility] [address] [id number] [place] [address] Jan, [facility] [address] [id number] [place] [address] Jan, [facility] [address] [id number] [place] [address] Jan, [facility] [address] [id number] [place] [address] Dec, [facility] [address] [id number] [place] [address] Nov, [facility] [address] [id number] [place] [address] Oct, [facility] [address] [id number] [place] [address] Oct, [facility] [address] [id number] [place] [address] Oct, [facility] [address] [id number] [place] [address] Sep, [facility] [address] [id number] [place] [address] Sep, [facility] [address] [id number] [place] [address] Sep, [facility] [address] [id number] [place] [address] Sep, [facility] [id number] [place] [address] Jul, [facility] [address] [id number] [place] [address] Jul, [facility] [address] [id number] [place] [address] Jul, [facility] [address] [id number] [place] [address] Jul, [facility] [address] [id number] [place] [address] Jul, [facility] [address] [id number] [place] [address] Jul, [facility] [address] [id number] [place] [address] Jul, [facility] [address] [id number] [place] [address] 27 Jun, 2012 [facility] [address] [id number] [place] [address] 25 Jun, 2012 [facility] [address] [id number] [place] [address] 18 Jun, 2012 [facility] [address] [address] 17 Jun, 2012 [facility] [address] [id number] [place] [address] Jun, [facility] [address] [id number] [place] [address] Jun, [facility] [address] [id number] [place] [address] Apr, [facility] [address] [id number] [place] [address] Apr, [facility] [address] [id number] [place] [address] Apr, [facility] [address] [id number] [place] [address] February, [facility] [address] [id number] [place] [address] Dec, [facility] [address] [id number] [place] [address] Dec, [facility] [address] [id number] [place] [address] Dec, [facility] [address] [id number] [place] [address] Nov, [facility] [address] [id number] [place] [address] Nov, [facility] [address] [id number] [place] [address] Oct, [facility] [address] [id number] [place] [address] Oct, [facility] [address] [id number] [place] [address] Oct, [facility] [address] [id number] [place] [address] Sep, [facility] [address] [id number] [place] [address] Sep, [facility] [address] [id number] [place] [address] Sep, [facility] [address] [id number] [place] [address] Sep, [facility] [address] [id number] [place] [address] Sep, [facility] [address] [id number] [place] [address] Aug, [facility] [address] [id number] [place] [address] Aug, [facility] [address] [id number] [place] [address] Aug, [facility] [address] [id number] [place] [address] Aug, [facility] [address] [id number] [place] [address] Jul, [facility] [address] [id number] [place] [address] Jul, [facility] [address] [id number] [place] [address] 19 Jul, 2011 [facility] [address] [facility] [id number] [place] [address] 19 Jul, 2011 [facility] [address] [id number] [place] [address] 10 Jul, 2011 [facility] [address] [id number] [place] [address] 13 Apr, 2011 [facility] [address] [id number] [place] [address] 28 Sep, 2010 [facility] [address] [id number] [place] [address] 10 Sep, 2010 [facility] [address] [id number] [place] [address] Sep, [facility] [address] [id number] [place] [address] 11 Aug, 2010 [facility] [address] [id number] [place] [address] 11 Aug, 2010 [facility] [address] [id number] [place] [address] 10 Aug, 2010 [facility] [address] [id number] [place] [address] 27 Jul, 2010 [facility] [address] [id number] [place] [address] 16 Jun, 2010 [facility] [address] [id number] [place] [address] 14 Apr, 2010 [facility] [address] [id number] [place] [address] 10 Apr, 2010 [facility] [address] [id number] [place] [address] 12 Jan, 2010 [facility] [address] [id number] [place] [address] 17 Nov, 2009 [facility] [address] [id number] [place] [address] Sep, [facility] [address] [id number] [place] [address] Aug, [facility] [address] [id number] [place] [address] Aug, [facility] [address] [id number] [place] [address] Aug, [facility] [id number] [place] [address] 16 Jun, 2009 [facility] [id number] [place] [address] May, [facility] [address] [address] Mar, [facility] [id number] [place] [address] Mar, [facility] [id number] [place] [address] 19 Nov, 2008 [facility] [address] [id number] [place] [address] 13 Nov, 2008 IMMUNIZATIONS No Known Immunizations [...]
--- OUTSIDE RECORDS SUMMARY | 2019-12-27 00:44 | XMS REPORT ---
Author Author Lena Narayan Organization [facility] Address [address] [place] [address] Care Team Providers Care Textile Examiner Name Role Phone NIKOLAS Narayan Unavailable PROBLEMS Type Condition ICD9-CM Code JDS09-WY Code Onset Dates Condition S tatus SNOMED Code Problem Breast lesion N64.9 Active 781392 004 Problem Chronic prescription opiate use Z79.899 Active 286800481 Problem BMI 40.0-44.9, adult Z68.41 Active 208335765 Problem Axillary hidradenitis suppurativa L73.2 Active 430569754 Problem Low back pain M54.5 Active 812788 005 Problem Migraine with aura and without status migrainosu s, not intractable G43.109 Active 0602174 Problem Adjustment disorder with mixed anxiety and depressed mood F43.23 Active 01163311 Problem Bipolar disorder in partial remission, most recent episode unspecified type F31.70 Active 1886448 ALLERGIES No Information ENCOUNTERS Encounter Location Date Diagnosis [facility] [address] [place], [place] [id number] [address] [place] [address] Nov, Allergic reaction, initial e ncounter T78.40XA [facility] [address] [id number] [place] [address] Aug, Allergic reaction, initial e ncounter T78.40XA [facility] [address] [id number] [place] [address] Jul, Low back pain M54.5 [facility] [address] [address] Jun, BMI 40.0-44.9, adult Z68.41 ; Axillary h idradenitis suppurativa L73.2 and Low back pain M54.5 [facility] [address] [address] Jun, [facility] [address] [id number] [place] [address] May, Plantar fasciitis of right f oot M72.2 [facility] [address] [address] Jan, Breast lesion N64.9 [facility] [address] [address] Jan, Breast lesion N64.9 [place] [address] [address] Jan, Breast lesion N64.9 [place] [address] [address] Jan, [place] [address] [address] Dec, Breast lesion N64.9 [place] [address] [address] Oct, BMI 40.0-44.9, adult Z68.41 ; Low back p ain M54.5 ; Chronic prescription opiate use Z79.899 and Breast lesion N64.9 [facility] [address] [address] Oct, Adjustment disorder with mixed anxiety a nd depressed mood F43.23 and Bipolar disorder in partial remission, most recent episode unspecified type F31.70 [facility] [address] [address] Oct, Adjustment disorder with mixed anxiety a nd depressed mood F43.23 and Bipolar disorder in partial remission, most recent episode unspecified type F31.70 [facility] [address] [facility] [id number] [place] [address] Sep, Sore throat J02.9 ; Other vi ral agents as the cause of diseases classified elsewhere B97.89 and Acute pharyngitis due to other specified organisms J02.8 [place] [address] [address] 23 Sep, 2016 Breast lesion N64.9 [place] [address] [address] 09 Sep, 2016 Breast lump N63 [place] [address] [address] 18 Jul, 2016 Elevated fasting glucose R73.01 [place] [address] [address] 18 Jul, 2016 Elevated fasting glucose R73.01 [place] [address] [address] 14 Jul, 2016 Pelvic pain R10.2 ; Screening, lipid Z13 .220 and Screening for diabetes mellitus Z13.1 [place] [address] [address] 15 Jun, 2016 Pelvic pain R10.2 and Vaginal candidiasi s B37.3 [facility] [place] [address] [address] 14 Jun, 2016 Abdominal pain, lower R10.30 [facility] [place] [address] [place] [id number] [place] [address] 14 Jun, 2016 [place] [address] [address] 07 Mar, 2016 Acute pain of right shoulder M25.511 [place] [address] [address] Mar, Right anterior shoulder pain M25.511 [facility] [place] [address] [address] 05 Feb, 2016 Acute pain of right shoulder M25.511 [place] [address] [address] Jan, Low back pain M54.5 ; Migraine G43.909 ; Screening, lipid Z13.220 ; Screening for diabetes mellitus Z13.1 and Tobacco abuse counseling Z71.6 [place] [address] [address] Dec, [facility] [address] [address] Dec, [facility] [address] [address] Dec, Lateral meniscus tear S83.289A [facility] [address] 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 and Bunion of great toe of left foot M20.12 [place] [address] [address] 30 Jun, 2015 Chronic migraine 346.70 ; Bipolar disord er 296.80 ; Bilateral foot pain 729.5 ; Cellulitis 682.9 and Lumbosacral radiculopathy at L5 724.4 [place] [address] [address] 16 Jun, 2015 Plantar fasciitis, bilateral 728.71 [place] [address] [address] Apr, Major depression, recurrent 296.30 ; Anx iety, generalized 300.02 ; No condition on Oxford II V71.09 and No condition on axis III V71.09 [facility] [address] [address] Apr, Unspecified episodic mood disorder 296.9 0 [facility] [address] [address] Apr, Acute pharyngitis 462 [facility] [address] [address] Apr, [facility] [address] [address] Apr, Major depression, recurrent 296.30 ; Anx iety 300.00 ; No condition on Oxford II V71.09 and No condition on axis III V71.09 [facility] [address] [address] Mar, Unspecified episodic mood disorder 296.9 0 and 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 [facility] [address] [id number] [place] [address] Mar, [facility] [address] [id number] [place] [id number] February, Dental examination V72.2 [facility] [id number] [place] [address] February, [facility] [address] [address] February, [facility] [id number] [place] [address] Jan, [facility] [address] [address] Jan, [facility] [address] [address] Dec, [facility] [address] [address] Dec, [facility] [address] [facility] [id number] [address] Dec, [facility] [address] [id number] [place] [address] Dec, [facility] [address] [id number] [place] [address] Oct, [facility] [address] [id number] [place] [address] Oct, [facility] [address] [id number] [place] [address] Aug, [facility] [address] [id number] [place] [address] Aug, [facility] [address] [id number] [place] [address] Aug, [facility] [address] [id number] [place] [address] Aug, [facility] [address] [id number] [place] [address] Jul, [facility] [address] [id number] [place] [address] Jul, [facility] [address] [id number] [place] [address] Jul, [facility] [address] [id number] [place] [address] Jul, [facility] [address] [id number] [place] [address] Jun, [facility] [address] [id number] [place] [address] Jun, [facility] [address] [id number] [place] [address] Jun, [facility] [address] [id number] [place] [address] Jun, 2013 [facility] [address] [id number] [place] [address] Jun, [facility] [address] [id number] [place] [address] Jun, [facility] [address] [id number] [place] [address] May, [facility] [address] [id number] [place] [address] May, [facility] [address] [id number] [place] [address] Mar, [facility] [address] [id number] [place] [address] Mar, [facility] [address] [id number] [place] [address] February, [facility] [address] [id number] [place] [address] February, [facility] [address] [id number] [place] [address] Jan, [facility] [address] [id number] [place] [address] Jan, [facility] [address] [id number] [place] [address] Jan, [facility] [address] [id number] [place] [address] Jan, [facility] [address] [id number] [place] [address] Jan, [facility] [address] [id number] [place] [address] Jan, [facility] [address] [id number] [place] [address] Dec, [facility] [address] [id number] [place] [address] Dec, [facility] [address] [id number] [place] [address] Nov, [facility] [address] [id number] [place] [address] Nov, [facility] [address] [id number] [place] [address] Oct, [facility] [address] [id number] [place] [address] Oct, [facility] [address] [id number] [place] [address] Sep, [facility] [address] [id number] [place] [address] Sep, [facility] [address] [id number] [place] [address] Sep, [facility] [address] [id number] [place] [address] Sep, [facility] [address] [id number] [place] [address] Jul, [facility] [address] [id number] [place] [address] Jul, [facility] [address] [id number] [place] [address] Jul, [facility] [address] [id number] [place] [address] Jun, 2012 [facility] [address] [id number] [place] [address] 11 Jun, 2012 [facility] [address] [id number] [place] [address] 10 Sep, 2012 [facility] [address] [id number] [place] [address] 09 Sep, 2012 [facility] [address] [id number] [place] [address] 05 Sep, 2012 [facility] [address] [id number] [place] [address] 05 Sep, 2012 [facility] [address] [id number] [place] [address] Jun, [facility] [address] [facility] [id number] [facility] [place] [address] May, [facility] [address] [facility] [id number] [facility] [place] [address] Apr, [facility] [address] [id number] [facility] [place] [address] Apr, [facility] [address] [id number] [facility] [place] [address] Apr, [facility] [address] [facility] [id number] [facility] [place] [address] Apr, [facility] [address] [id number] [place] [address] Apr, [facility] [address] [id number] [place] [address] Apr, [facility] [address] [id number] [place] [address] Apr, [facility] [address] [id number] [place] [address] Mar, [facility] [address] [id number] [place] [address] Mar, [facility] [address] [id number] [place] [address] Mar, [facility] [address] [id number] [place] [address] Mar, [facility] [address] [id number] [place] [address] Mar, [facility] [address] [id number] [place] [address] Mar, [facility] [address] [id number] [place] [address] February, [facility] [address] [id number] [place] [address] February, [facility] [address] [id number] [place] [address] February, [facility] [address] [id number] [place] [address] Jan, [facility] [address] [id number] [place] [address] Jan, [facility] [address] [id number] [place] [address] Jan, [facility] [address] [id number] [place] [address] Jan, [facility] [address] [id number] [place] [address] Dec, [facility] [address] [id number] [place] [address] Nov, [facility] [address] [id number] [place] [address] Oct, [facility] [address] [id number] [place] [address] Oct, [facility] [address] [id number] [place] [address] Oct, [facility] [address] [id number] [place] [address] Sep, [facility] [address] [id number] [place] [address] Sep, [facility] [address] [id number] [place] [address] Sep, [facility] [address] [id number] [place] [address] Sep, [facility] [id number] [place] [address] Jul, [facility] [address] [id number] [place] [address] Jul, [facility] [address] [id number] [place] [address] Jul, [facility] [address] [id number] [place] [address] Jul, [facility] [address] [id number] [place] [address] Jul, [facility] [address] [id number] [place] [address] Jul, [facility] [address] [id number] [place] [address] Jul, [facility] [address] [id number] [place] [address] 27 Jun, 2012 [facility] [address] [id number] [place] [address] 25 Jun, 2012 [facility] [address] [id number] [place] [address] 18 Jun, 2012 [facility] [address] [address] 17 Jun, 2012 [facility] [address] [id number] [place] [address] Jun, [facility] [address] [id number] [place] [address] Jun, [facility] [address] [id number] [place] [address] Apr, [facility] [address] [id number] [place] [address] Apr, [facility] [address] [id number] [place] [address] Apr, [facility] [address] [id number] [place] [address] February, [facility] [address] [id number] [place] [address] Dec, [facility] [address] [id number] [place] [address] Dec, [facility] [address] [id number] [place] [address] Dec, [facility] [address] [id number] [place] [address] Nov, [facility] [address] [id number] [place] [address] Nov, [facility] [address] [id number] [place] [address] Oct, [facility] [address] [id number] [place] [address] Oct, [facility] [address] [id number] [place] [address] Oct, [facility] [address] [id number] [place] [address] Sep, [facility] [address] [id number] [place] [address] Sep, [facility] [address] [id number] [place] [address] Sep, [facility] [address] [id number] [place] [address] Sep, [facility] [address] [id number] [place] [address] Sep, [facility] [address] [id number] [place] [address] Aug, [facility] [address] [id number] [place] [address] Aug, [facility] [address] [id number] [place] [address] Aug, [facility] [address] [id number] [place] [address] Aug, [facility] [address] [id number] [place] [address] Jul, [facility] [address] [id number] [place] [address] Jul, [facility] [address] [id number] [place] [address] 19 Jul, 2011 [facility] [address] [facility] [id number] [place] [address] 19 Jul, 2011 [facility] [address] [id number] [place] [address] 10 Jul, 2011 [facility] [address] [id number] [place] [address] 13 Apr, 2011 [facility] [address] [id number] [place] [address] 28 Sep, 2010 [facility] [address] [id number] [place] [address] 10 Sep, 2010 [facility] [address] [id number] [place] [address] Sep, [facility] [address] [id number] [place] [address] 11 Aug, 2010 [facility] [address] [id number] [place] [address] 11 Aug, 2010 [facility] [address] [id number] [place] [address] 10 Aug, 2010 [facility] [address] [id number] [place] [address] 27 Jul, 2010 [facility] [address] [id number] [place] [address] 16 Jun, 2010 [facility] [address] [id number] [place] [address] 14 Apr, 2010 [facility] [address] [id number] [place] [address] 10 Apr, 2010 [facility] [address] [id number] [place] [address] 12 Jan, 2010 [facility] [address] [id number] [place] [address] 17 Nov, 2009 [facility] [address] [id number] [place] [address] Sep, [facility] [address] [id number] [place] [address] Aug, [facility] [address] [id number] [place] [address] Aug, [facility] [address] [id number] [place] [address] Aug, [facility] [id number] [place] [address] 16 Jun, 2009 [facility] [id number] [place] [address] May, [facility] [address] [address] Mar, [facility] [id number] [place] [address] Mar, [facility] [id number] [place] [address] 19 Nov, 2008 [facility] [address] [id number] [place] [address] 13 Nov, 2008 IMMUNIZATIONS No Known Immunizations [...]
--- OUTSIDE RECORDS SUMMARY | 2019-12-27 00:44 | XMS REPORT ---
Author Author Lena Narayan Organization [facility] Address [address] [place] [address] Care Team Providers Care Physicians And Surgeons Name Role Phone NIKOLAS Narayan Unavailable PROBLEMS Type Condition ICD9-CM Code HWN14-GC Code Onset Dates Condition S tatus SNOMED Code Problem Breast lesion N64.9 Active 655199 004 Problem Chronic prescription opiate use Z79.899 Active 101496067 Problem BMI 40.0-44.9, adult Z68.41 Active 090395796 Problem Axillary hidradenitis suppurativa L73.2 Active 424118543 Problem Low back pain M54.5 Active 628751 005 Problem Migraine with aura and without status migrainosu s, not intractable G43.109 Active 7186513 Problem Adjustment disorder with mixed anxiety and depressed mood F43.23 Active 21543687 Problem Bipolar disorder in partial remission, most recent episode unspecified type F31.70 Active 8533396 ALLERGIES No Information ENCOUNTERS Encounter Location Date Diagnosis [place] [id number] [place] [address] Jul, Low back pain M54.5 [facility] [address] [place] [id number] [address] [place] [address] 28 Jun, 2018 BMI 40.0-44.9, adult Z68.41 ; Axillary hidradenitis suppurativa L73.2 and Low back pain M54.5 [facility] [address] [place] [id number] [address] [place] [address] 11 Jun, 2017 [facility] [address] [place] [id number] [address] [place] [address] May, Plantar fasciitis of right f oot M72.2 [facility] [address] [place] [id number] [address] [place] [address] Jan, Breast lesion N64.9 [facility] [address] [facility] [place] [id number] [address] [place] [address] Jan, Breast lesion N64.9 [facility] [address] [facility] [place] [id number] [address] [place] [address] Jan, Breast lesion N64.9 [facility] [address] [facility] [place] [id number] [address] [place] [address] Jan, [facility] [address] [facility] [place] [id number] [address] [place] [address] Dec, Breast lesion N64.9 [facility] [address] [place] [id number] [address] [place] [address] Oct, BMI 40.0-44.9, adult Z68.41 ; Low back pain M54.5 ; Chronic prescription opiate use Z79.899 and Breast lesion N64.9 [facility] [address] [facility] [place] [id number] [address] [place] [address] Oct, Adjustment disorder with mix ed anxiety and depressed mood F43.23 and Bipolar disorder in partial remission, most recent episode unspecified type F31.70 [facility] [address] [place] [id number] [address] [place] [address] Oct, Adjustment disorder with mix ed anxiety and depressed mood F43.23 and Bipolar disorder in partial remission, most recent episode unspecified type F31.70 [facility] [address] [facility] [place] [id number] [address] [place] [address] Sep, Sore throat J02.9 ; Other vi ral agents as the cause of diseases classified elsewhere B97.89 and Acute pharyngitis due to other specified organisms J02.8 [facility] [address] [facility] [place] [id number] [address] [place] [address] Sep, Breast lesion N64.9 [facility] [address] [place] [id number] [address] [place] [address] 09 Sep, 2016 Breast lump N63 [place] [place] [id number] [place] [address] 18 Jul, 2016 Elevated fasting glucose R73 .01 [place] [address] [place] [id number] [place] [address] 18 Jul, 2016 Elevated fasting glucose R73 .01 [place] [address] [address] 14 Jul, 2016 Pelvic pain R10.2 ; Screenin g, lipid Z13.220 and Screening for diabetes mellitus Z13.1 [place] [address] [address] 15 Jun, 2016 Pelvic pain R10.2 and Vagina l candidiasis B37.3 [facility] [place] [address] [address] 14 Jun, 2016 Abdominal pain, lower R10.30 [facility] [place] [address] [address] 14 Jun, 2016 [place] [address] [address] 07 Mar, 2016 Acute pain of right shoulder M25.511 [place] [address] [address] Mar, Right anterior shoulder pain M25.511 [facility] [place] [address] [address] February, Acute pain of right shoulder M25.511 [place] [address] [place] [id number] [place] [address] Jan, Low back pain M54.5 ; Migrai ne G43.909 ; Screening, lipid Z13.220 ; Screening for diabetes mellitus Z13.1 and Tobacco abuse counseling Z71.6 [place] [address] [address] Dec, [facility] [address] [place] [address] Dec, [facility] [address] [address] Dec, Lateral meniscus tear S83.28 9A [facility] [address] [address] Nov, Sore throat J02.9 [facility] [address] [address] Nov, [facility] [address] [address] Nov, [facility] [address] [address] Oct, Acute pain of left knee M25. 562 ; Low back pain M54.5 and Chronic prescription opiate use Z79.899 [facility] [address] [address] Aug, Plantar fasciitis M72.2 [place] [address] [address] Jul, Metatarsus primus varus Q66. 2 and Bunion of great toe of left foot M20.12 [place] [address] [address] 30 Jun, 2015 Chronic migraine 346.70 ; Bi polar disorder 296.80 ; Bilateral foot pain 729.5 ; Cellulitis 682.9 and Lumbosacral radiculopathy at L5 724.4 [place] [address] [address] 16 Jun, 2015 Plantar fasciitis, bilateral 728.71 [place] [address] [address] 27 Apr, 2015 Major depression, recurrent 296.30 ; Anxiety, generalized 300.02 ; No condition on [place] II V71.09 and No condition on axis III V71.09 [facility] [address] [id number] [address] [place] [address] Apr, Unspecified episodic mood di sorder 296.90 [facility] [address] [id number] [address] [place] [address] Apr, Acute pharyngitis 462 [facility] [address] [facility] [place] [id number] [address] [place] [address] Apr, [facility] [address] [id number] [address] [place] [address] Apr, Major depression, recurrent 296.30 ; Anxiety 300.00 ; No condition on [place] II V71.09 and No condition on axis III V71.09 [facility] [address] [facility] [place] [id number] [address] [place] [address] Mar, Unspecified episodic mood di sorder 296.90 and 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 [facility] [address] [facility] [place] [id number] [address] [place] [address] Mar, [facility] [address] [id number] [address] [place] [id number] February, Dental examination V72.2 [facility] [address] [facility] [place] [id number] [address] [place] [address] February, [facility] [address] [facility] [place] [id number] [address] [place] [address] February, [facility] [address] [facility] [place] [id number] [address] [place] [address] Jan, [facility] [address] [facility] [place] [id number] [address] [place] [address] Jan, [facility] [address] [facility] [place] [id number] [address] [place] [address] Dec, [facility] [address] [facility] [place] [id number] [address] [place] [address] Dec, [facility] [address] [id number] [address] [place] [address], [place] [address] Dec, [facility] [address] [id number] [address] [place] [address], [place] [address] Dec, [facility] [address] [id number] [address] [place] [address], [place] [address] Oct, [facility] [address] [id number] [address] [place] [address], [place] [address] Oct, [facility] [address] [id number] [address] [place] [address], [place] [address] Aug, [facility] [address] [id number] [address] [place] [address], [place] [address] Aug, [facility] [address] [id number] [address] [place] [address], [place] [address] Aug, [facility] [address] [id number] [address] [place] [address], [place] [address] Aug, [facility] [address] [id number] [address] [place] [address], [place] [address] Jul, [facility] [address] [id number] [address] [place] [address] Jul, [facility] [address] [id number] [address] [place] [address], [place] [address] Jul, [facility] [address] [id number] [address] [place] [address] Jul, [facility] [address] [id number] [address] [place] [address], [place] [address] Jun, [facility] [address] [id number] [address] [place] [address], [place] [address] Jun, [facility] [address] [id number] [address] [place] [address], [place] [address] 17 Jun, 2014 [facility] [address] [id number] [address] [place] [address] Jun, [facility] [address] [id number] [address] [place] [address], [place] [address] Jun, [facility] [address] [id number] [address] [place] [address], [place] [address] Jun, [facility] [address] [id number] [address] [place] [address], [place] [address] May, [facility] [address] [id number] [address] [place] [address], [place] [address] May, [facility] [address] [id number] [address] [place] [address], [place] [address] Mar, [facility] [address] [id number] [address] [place] [address], [place] [address] Mar, [facility] [address] [id number] [address] [place] [address], [place] [address] February, [facility] [address] [id number] [address] [place] [address], [place] [address] February, [facility] [address] [id number] [address] [place] [address], [place] [address] Jan, [facility] [address] [id number] [address] [place] [address], [place] [address] Jan, [facility] [address] [id number] [address] [place] [address], [place] [address] Jan, [facility] [address] [id number] [address] [place] [address], [place] [address] Jan, [facility] [address] [id number] [address] [place] [address], [place] [address] Jan, [facility] [address] [id number] [address] [place] [address], [place] [address] Jan, [facility] [address] [id number] [address] [place] [address], [place] [address] Dec, [facility] [address] [id number] [address] [place] [address], [place] [address] Dec, [facility] [address] [id number] [address] [place] [address], [place] [address] Nov, [facility] [address] [id number] [address] [place] [address], [place] [address] Nov, [facility] [address] [id number] [address] [place] [address], [place] [address] Oct, [facility] [address] [id number] [address] [place] [address], [place] [address] Oct, [facility] [address] [id number] [address] [place] [address], [place] [address] Sep, [facility] [address] [id number] [address] [place] [address], [place] [address] Sep, [facility] [address] [id number] [address] [place] [address], [place] [address] Sep, [facility] [address] [id number] [address] [place] [address], [place] [address] Sep, [facility] [address] [id number] [address] [place] [address], [place] [address] Jul, [facility] [address] [id number] [address] [place] [address], [place] [address] Jul, [facility] [address] [id number] [address] [place] [address], [place] [address] Jul, [facility] [address] [id number] [address] [place] [address], [place] [address] Jun, [facility] [address] [id number] [address] [place] [address], [place] [address] Jun, [facility] [address] [id number] [address] [place] [address], [place] [address] Jun, [facility] [address] [id number] [address] [place] [address], [place] [address] 09 Jun, 2012 [facility] [address] [id number] [address] [place] [address], [place] [address] 05 Jun, 2012 [facility] [address] [id number] [address] [place] [address], [place] [address] 05 Jun, 2012 [facility] [address] [id number] [address] [place] [address], [place] [address] 04 Jun, 2013 [facility] [address] [id number] [address] [place] [address], [place] [address] May, [facility] [address] [id number] [address] [place] [address], [place] [address] Apr, [facility] [address] [id number] [address] [place] [address], [place] [address] Apr, [facility] [address] [id number] [address] [place] [address], [place] [address] Apr, [facility] [address] [id number] [address] [place] [address], [place] [address] Apr, [facility] [address] [id number] [address] [place] [address], [place] [address] Apr, [facility] [address] [id number] [address] [place] [address], [place] [address] Apr, [facility] [address] [id number] [address] [place] [address], [place] [address] Apr, [facility] [address] [id number] [address] [place] [address], [place] [address] Mar, [facility] [address] [id number] [address] [place] [address], [place] [address] Mar, [facility] [address] [id number] [address] [place] [address], [place] [address] Mar, [facility] [address] [id number] [address] [place] [address], [place] [address] Mar, [facility] [address] [id number] [address] [place] [address], [place] [address] 11 Mar, 2013 [facility] [address] [id number] [address] [place] [address], [place] [address] Mar, [facility] [address] [id number] [address] [place] [address], [place] [address] February, [facility] [address] [id number] [address] [place] [address], [place] [address] February, [facility] [address] [id number] [address] [place] [address], [place] [address] February, [facility] [address] [id number] [address] [place] [address], [place] [address] Jan, [facility] [address] [id number] [address] [place] [address], [place] [address] Jan, [facility] [address] [id number] [address] [place] [address], [place] [address] Jan, [facility] [address] [id number] [address] [place] [address], [place] [address] Jan, [facility] [address] [id number] [address] [place] [address], [place] [address] Dec, [facility] [address] [id number] [address] [place] [address], [place] [address] 14 Nov, 2012 [facility] [address] [id number] [address] [place] [address], [place] [address] Oct, [facility] [address] [id number] [address] [place] [address], [place] [address] Oct, [facility] [address] [id number] [address] [place] [address], [place] [address] Oct, [facility] [address] [id number] [address] [place] [address], [place] [address] Sep, [facility] [address] [id number] [address] [place] [address], [place] [address] Sep, [facility] [address] [id number] [address] [place] [address], [place] [address] Sep, [facility] [address] [id number] [address] [place] [address], [place] [address] Sep, [facility] [address] [id number] [address] [place] [address], [place] [address] Jul, [facility] [address] [id number] [address] [place] [address], [place] [address] Jul, [facility] [address] [id number] [address] [place] [address], [place] [address] Jul, [facility] [address] [id number] [address] [place] [address], [place] [address] Jul, [facility] [address] [id number] [address] [place] [address], [place] [address] Jul, [facility] [address] [id number] [address] [place] [address] Jul, [facility] [address] [id number] [address] [place] [address] Jul, [facility] [address] [id number] [address] [place] [address] 27 Jun, 2012 [facility] [address] [id number] [address] [place] [address] 25 Jun, 2012 [facility] [address] [id number] [address] [place] [address] 18 Jun, 2012 [facility] [address] [id number] [place] [id number] 17 Jun, 2012 [facility] [address] [id number] [address] [place] [address] 12 Jun, 2012 [facility] [address] [id number] [address] [place] [address] 11 Jun, 2012 [facility] [address] [id number] [address] [place] [address] Apr, [facility] [address] [id number] [address] [place] [address], [place] [address] Apr, [facility] [address] [id number] [address] [place] [address], [place] [address] Apr, [facility] [address] [id number] [address] [place] [address], [place] [address] February, [facility] [address] [id number] [address] [place] [address], [place] [address] Dec, [facility] [address] [id number] [address] [place] [address], [place] [address] Dec, [facility] [address] [id number] [address] [place] [address], [place] [address] Dec, [facility] [address] [id number] [address] [place] [address], [place] [address] Nov, [facility] [address] [id number] [address] [place] [address], [place] [address] Nov, [facility] [address] [id number] [address] [place] [address], [place] [address] Oct, [facility] [address] [id number] [address] [place] [address], [place] [address] Oct, [facility] [address] [id number] [address] [place] [address], [place] [address] Oct, [facility] [address] [id number] [address] [place] [address], [place] [address] Sep, [facility] [address] [id number] [address] [place] [address], [place] [address] Sep, [facility] [address] [id number] [address] [place] [address], [place] [address] 15 Sep, 2011 [facility] [address] [id number] [address] [place] [address], [place] [address] 14 Sep, 2011 [facility] [address] [id number] [address] [place] [address], [place] [address] 14 Sep, 2011 [facility] [address] [id number] [address] [place] [address], [place] [address] 18 Aug, 2011 [facility] [address] [id number] [address] [place] [address], [place] [address] 17 Aug, 2011 [facility] [address] [id number] [address] [place] [address], [place] [address] 08 Aug, 2011 [facility] [address] [id number] [address] [place] [address], [place] [address] Aug, [facility] [address] [id number] [address] [place] [address], [place] [address] 27 Jul, 2011 [facility] [address] [id number] [address] [place] [address], [place] [address] Jul, [facility] [address] [id number] [address] [place] [address], [place] [address] Jul, [facility] [address] [id number] [address] [place] [address], [place] [address] Jul, [facility] [address] [id number] [address] [place] [address], [place] [address] Jul, [facility] [address] [id number] [address] [place] [address], [place] [address] Apr, [facility] [address] [id number] [address] [place] [address], [place] [address] 28 Sep, 2010 [facility] [address] [id number] [address] [place] [address], [place] [address] Sep, [facility] [address] [id number] [address] [place] [address], [place] [address] Sep, [facility] [address] [id number] [address] [place] [address], [place] [address] Aug, [facility] [address] [id number] [address] [place] [address], [place] [address] Aug, [facility] [address] [id number] [address] [place] [address], [place] [address] 10 Aug, 2010 [facility] [address] [id number] [address] [place] [address], [place] [address] 27 Jul, 2010 [facility] [address] [id number] [address] [place] [address], [place] [address] 16 Jun, 2010 [facility] [address] [id number] [address] [place] [address], [place] [address] 14 Apr, 2010 [facility] [address] [id number] [address] [place] [address], [place] [address] 10 Apr, 2010 [facility] [address] [id number] [address] [place] [address], [place] [address] 12 Jan, 2010 [facility] [address] [id number] [address] [place] [address], [place] [address] 17 Nov, 2009 [facility] [address] [id number] [address] [place] [address], [place] [address] Sep, [facility] [address] [id number] [address] [place] [address], [place] [address] Aug, [facility] [facility] [address] [id number] [address] [place] [id number] 12 Aug, 2009 [facility] [address] [id number] [address] [place] [address], [place] [id number] Aug, [facility] [address] [id number] [address] [place] [id number] 16 Jun, 2009 [facility] [address] [id number] [address] [place] [address], [place] [id number] 10 May, 2009 [facility] [address] [id number] [address] [place] [id number] 19 Mar, 2009 [facility] [address] [id number] [address] [place] [address], [place] [id number] 15 Mar, 2009 [facility] [address] [id number] [address] [place] [id number] 19 Nov, 2008 [facility] [address] [facility] [id number] [address] [place] [id number] 13 Nov, 2008 IMMUNIZATIONS No Known Immunizations SOCIAL HISTORY Never Assessed REASON FOR VISIT PLAN OF CARE VITAL SIGNS MEDICATIONS Unknown [...]
--- OUTSIDE RECORDS SUMMARY | 2019-12-27 00:45 | XMS REPORT ---
Author Author Lena Weldon Doctor Organization [facility] Address Unknown Phone Unavailable Care Team Providers Care Secretary Name Role Phone Migration, Doctor Unavailable Unavailable PROBLEMS Type Condition ICD9-CM Code VUJ03-AM Code Onset Dates Condition S tatus SNOMED Code Problem Breast lesion N64.9 Active 127021 004 Problem Chronic prescription opiate use Z79.899 Active 612180376 Problem BMI 40.0-44.9, adult Z68.41 Active 765626504 Problem Axillary hidradenitis suppurativa L73.2 Active 504042479 Problem Low back pain M54.5 Active 528890 005 Problem Migraine with aura and without status migrainosu s, not intractable G43.109 Active 2973146 Problem Adjustment disorder with mixed anxiety and depressed mood F43.23 Active 47435146 Problem Bipolar disorder in partial remission, most recent episode unspecified type F31.70 Active 6772023 ALLERGIES No Information ENCOUNTERS Encounter Location Date Diagnosis [facility] [address] [id number] [address] [place] [address] Jul, Low back pain M54.5 [facility] [address] [address] [id number] [address] [place] [address] 28 Jun, 2018 BMI 40.0-44.9, adult Z68.41 ; Axillary hidradenitis suppurativa L73.2 and Low back pain M54.5 [facility] [address] [id number] [address] [place] [address] Jun, [facility] [address] [id number] [address] [place] [address] May, Plantar fasciitis of right f oot M72.2 [facility] [address] [id number] [address] [place] [address] Jan, Breast lesion N64.9 [facility] [address] [facility] [id number] [address] [place] [address] Jan, Breast lesion N64.9 [facility] [address] [facility] [id number] [address] [place] [address] Jan, Breast lesion N64.9 [facility] [address] [facility] [id number] [address] [place] [address] Jan, [facility] [address] [facility] [id number] [address] [place] [address] Dec, Breast lesion N64.9 [facility] [address] [facility] [id number] [address] [place] [address] Oct, BMI 40.0-44.9, adult Z68.41 ; Low back pain M54.5 ; Chronic prescription opiate use Z79.899 and Breast lesion N64.9 [facility] [address] [id number] [address] [place] [address] Oct, Adjustment disorder with mix ed anxiety and depressed mood F43.23 and Bipolar disorder in partial remission, most recent episode unspecified type F31.70 [facility] [address] [facility] [id number] [address] [place] [address] Oct, Adjustment disorder with mix ed anxiety and depressed mood F43.23 and Bipolar disorder in partial remission, most recent episode unspecified type F31.70 [facility] [address] [facility] [id number] [address] [place] [address] Sep, Sore throat J02.9 ; Other vi ral agents as the cause of diseases classified elsewhere B97.89 and Acute pharyngitis due to other specified organisms J02.8 [facility] [address] [facility] [id number] [address] [place] [address] Sep, Breast lesion N64.9 [facility] [address] [facility] [id number] [address] [place] [address] Sep, Breast lump N63 [facility] [address] [id number] [address] [place] [address] 18 Jul, 2016 Elevated fasting glucose R73 .01 [place] [address] [address] 18 Jul, 2016 Elevated fasting glucose R73 .01 [place] [address] [address] 14 Jul, 2016 Pelvic pain R10.2 ; Screenin g, lipid Z13.220 and Screening for diabetes mellitus Z13.1 [place] [address] [address] 15 Jun, 2016 Pelvic pain R10.2 and Vagina l candidiasis B37.3 [facility] [place] [address] [address] 14 Jun, 2016 Abdominal pain, lower R10.30 [facility] [place] [address] [address] 14 Jun, 2016 [place] [address] [address] 07 Mar, 2016 Acute pain of right shoulder M25.511 [place] [address] [address] Mar, Right anterior shoulder pain M25.511 [facility] [place] [address] [address] February, Acute pain of right shoulder M25.511 [place] [address] [address] Jan, Low back pain M54.5 ; Migrai ne G43.909 ; Screening, lipid Z13.220 ; Screening for diabetes mellitus Z13.1 and Tobacco abuse counseling Z71.6 [place] [address] [place] [address] [id number] [address] [place] [address] Dec, [place] [address] [address] Dec, [place] [id number] [address] Dec, Lateral meniscus tear S83.28 [facility] [address] [address] Nov, Sore throat J02.9 [facility] [address] [address] Nov, [facility] [address] [address] Nov, [place] [address] [address] Oct, Acute pain of left knee M25. 562 ; Low back pain M54.5 and Chronic prescription opiate use Z79.899 [place] [address] [address] Aug, Plantar fasciitis M72.2 [place] [address] [address] Jul, Metatarsus primus varus Q66. 2 and Bunion of great toe of left foot M20.12 [place] [address] [address] 30 Jun, 2015 Chronic migraine 346.70 ; Bi polar disorder 296.80 ; Bilateral foot pain 729.5 ; Cellulitis 682.9 and Lumbosacral radiculopathy at L5 724.4 [place] [address] [address] 16 Jun, 2015 Plantar fasciitis, bilateral 728.71 [place] [address] [address] Apr, Major depression, recurrent 296.30 ; Anxiety, generalized 300.02 ; No condition on [place] II V71.09 and No condition on axis III V71.09 [place] [address] [address] Apr, Unspecified episodic mood di sorder 296.90 [facility] [address] [facility] [id number] [address] [place] [address] Apr, Acute pharyngitis 462 [facility] [address] [facility] [id number] [address] [place] [address] Apr, [facility] [address] [facility] [id number] [address] [place] [address] Apr, Major depression, recurrent 296.30 ; Anxiety 300.00 ; No condition on [place] II V71.09 and No condition on axis III V71.09 [facility] [address] 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 [id number] [address] [place] [address] Mar, [facility] [address] [id number] [address] [place] [id number] February, Dental examination V72.2 [facility] [address] [facility] [id number] [address] [place] [address] February, [facility] [address] [facility] [id number] [address] [place] [address] February, [facility] [address] [facility] [id number] [address] [place] [address] Jan, [facility] [address] [facility] [id number] [address] [place] [address] Jan, [facility] [address] [facility] [id number] [address] [place] [address] Dec, [facility] [address] [facility] [id number] [address] [place] [address] Dec, [facility] [address] [facility] [id number] [address] [place] [address] Dec, [facility] [address] [id number] [address] [place] [address], [place] [address] Dec, [facility] [address] [id number] [address] [place] [address], [place] [address] Oct, [facility] [address] [id number] [address] [place] [address], [place] [address] Oct, [facility] [address] [id number] [address] [place] [address], [place] [address] Aug, [facility] [address] [id number] [address] [place] [address], [place] [address] Aug, [facility] [address] [id number] [address] [place] [address], [place] [address] Aug, [facility] [address] [id number] [address] [place] [address], [place] [address] Aug, [facility] [address] [id number] [address] [place] [address], [place] [address] Jul, [facility] [address] [id number] [address] [place] [address], [place] [address] Jul, [facility] [address] [id number] [address] [place] [address], [place] [address] Jul, [facility] [address] [id number] [address] [place] [address], [place] [address] Jul, [facility] [address] [id number] [address] [place] [address], [place] [address] Jun, [facility] [address] [id number] [address] [place] [address], [place] [address] 23 Jun, 2014 [facility] [address] [id number] [address] [place] [address], [place] [address] Jun, [facility] [address] [id number] [address] [place] [address], [place] [address] Jun, [facility] [address] [id number] [address] [place] [address], [place] [address] Jun, [facility] [address] [id number] [address] [place] [address], [place] [address] Jun, [facility] [address] [id number] [address] [place] [address], [place] [address] May, [facility] [address] [id number] [address] [place] [address], [place] [address] May, [facility] [address] [id number] [address] [place] [address], [place] [address] Mar, [facility] [address] [id number] [address] [place] [address], [place] [address] Mar, [facility] [address] [id number] [address] [place] [address], [place] [address] February, [facility] [address] [id number] [address] [place] [address], [place] [address] February, [facility] [address] [id number] [address] [place] [address], [place] [address] Jan, [facility] [address] [id number] [address] [place] [address], [place] [address] Jan, [facility] [address] [id number] [address] [place] [address], [place] [address] Jan, [facility] [address] [id number] [address] [place] [address], [place] [address] Jan, [facility] [address] [id number] [address] [place] [address], [place] [address] Jan, [facility] [address] [id number] [address] [place] [address], [place] [address] Jan, [facility] [address] [id number] [address] [place] [address], [place] [address] Dec, [facility] [address] [id number] [address] [place] [address], [place] [address] Dec, [facility] [address] [id number] [address] [place] [address], [place] [address] Nov, [facility] [address] [id number] [address] [place] [address], [place] [address] Nov, [facility] [address] [id number] [address] [place] [address], [place] [address] Oct, [facility] [address] [id number] [address] [place] [address], [place] [address] Oct, [facility] [address] [id number] [address] [place] [address], [place] [address] Sep, [facility] [address] [id number] [address] [place] [address], [place] [address] Sep, [facility] [address] [id number] [address] [place] [address], [place] [address] Sep, [facility] [address] [id number] [address] [place] [address], [place] [address] Sep, [facility] [address] [id number] [address] [place] [address], [place] [address] Jul, [facility] [address] [id number] [address] [place] [address], [place] [address] Jul, [facility] [address] [id number] [address] [place] [address], [place] [address] Jul, [facility] [address] [id number] [address] [place] [address], [place] [address] 25 Jun, 2013 [facility] [address] [id number] [address] [place] [address], [place] [address] 11 Jun, 2013 [facility] [address] [id number] [address] [place] [address], [place] [address] 10 Jun, 2013 [facility] [address] [id number] [address] [place] [address], [place] [address] 09 Jun, 2013 [facility] [address] [id number] [address] [place] [address], [place] [address] 05 Sep, 2012 [facility] [address] [id number] [address] [place] [address], [place] [address] 05 Jun, 2012 [facility] [address] [id number] [address] [place] [address], [place] [address] 04 Jun, 2013 [facility] [address] [id number] [address] [place] [address], [place] [address] May, [facility] [address] [id number] [address] [place] [address], [place] [address] Apr, [facility] [address] [id number] [address] [place] [address], [place] [address] Apr, [facility] [address] [id number] [address] [place] [address], [place] [address] Apr, [facility] [address] [id number] [address] [place] [address], [place] [address] Apr, [facility] [address] [id number] [address] [place] [address], [place] [address] Apr, [facility] [address] [id number] [address] [place] [address], [place] [address] Apr, [facility] [address] [id number] [address] [place] [address], [place] [address] Apr, [facility] [address] [id number] [address] [place] [address], [place] [address] Mar, [facility] [address] [id number] [address] [place] [address], [place] [address] Mar, [facility] [address] [id number] [address] [place] [address], [place] [address] Mar, [facility] [address] [id number] [address] [place] [address], [place] [address] Mar, [facility] [address] [id number] [address] [place] [address], [place] [address] Mar, [facility] [address] [id number] [address] [place] [address], [place] [address] 06 Mar, 2013 [facility] [address] [id number] [address] [place] [address], [place] [address] February, [facility] [address] [id number] [address] [place] [address], [place] [address] February, [facility] [address] [id number] [address] [place] [address], [place] [address] February, [facility] [address] [id number] [address] [place] [address], [place] [address] Jan, [facility] [address] [id number] [address] [place] [address], [place] [address] Jan, [facility] [address] [id number] [address] [place] [address], [place] [address] Jan, [facility] [address] [id number] [address] [place] [address], [place] [address] Jan, [facility] [address] [id number] [address] [place] [address], [place] [address] Dec, [facility] [address] [id number] [address] [place] [address], [place] [address] Nov, [facility] [address] [id number] [address] [place] [address], [place] [address] Oct, [facility] [address] [id number] [address] [place] [address], [place] [address] Oct, [facility] [address] [id number] [address] [place] [address], [place] [address] Oct, [facility] [address] [id number] [address] [place] [address], [place] [address] Sep, [facility] [address] [id number] [address] [place] [address], [place] [address] Sep, [facility] [address] [id number] [address] [place] [address], [place] [address] Sep, [facility] [address] [id number] [address] [place] [address], [place] [address] Sep, [facility] [address] [id number] [address] [place] [address], [place] [address] Jul, [facility] [address] [id number] [address] [place] [address], [place] [address] Jul, [facility] [address] [id number] [address] [place] [address], [place] [address] Jul, [facility] [address] [id number] [address] [place] [address], [place] [address] Jul, [facility] [address] [id number] [address] [place] [address], [place] [address] Jul, [facility] [address] [id number] [address] [place] [address], [place] [address] Jul, [facility] [address] [id number] [address] [place] [address], [place] [address] Jul, [facility] [address] [id number] [address] [place] [address], [place] [address] 27 Jun, 2012 [facility] [address] [id number] [address] [place] [address] 25 Jun, 2012 [facility] [address] [id number] [address] [place] [address] 18 Jun, 2012 [facility] [place] [address] [id number] [place] [id number] 17 Jun, 2012 [facility] [address] [id number] [address] [place] [address], [place] [address] 12 Jun, 2012 [facility] [address] [id number] [address] [place] [address], [place] [address] 11 Jun, 2012 [facility] [address] [id number] [address] [place] [address] Apr, [facility] [address] [id number] [address] [place] [address] Apr, [facility] [address] [id number] [address] [place] [address], [place] [address] Apr, [facility] [address] [id number] [address] [place] [address], [place] [address] February, [facility] [address] [id number] [address] [place] [address], [place] [address] Dec, [facility] [address] [id number] [address] [place] [address], [place] [address] Dec, [facility] [address] [id number] [address] [place] [address], [place] [address] Dec, [facility] [address] [id number] [address] [place] [address], [place] [address] Nov, [facility] [address] [id number] [address] [place] [address], [place] [address] Nov, [facility] [address] [id number] [address] [place] [address], [place] [address] Oct, [facility] [address] [id number] [address] [place] [address], [place] [address] Oct, [facility] [address] [id number] [address] [place] [address], [place] [address] Oct, [facility] [address] [id number] [address] [place] [address], [place] [address] Sep, [facility] [address] [id number] [address] [place] [address], [place] [address] Sep, [facility] [address] [id number] [address] [place] [address], [place] [address] 15 Sep, 2011 [facility] [address] [id number] [address] [place] [address], [place] [address] 14 Sep, 2011 [facility] [address] [id number] [address] [place] [address], [place] [address] 14 Sep, 2011 [facility] [address] [id number] [address] [place] [address], [place] [address] 18 Aug, 2011 [facility] [address] [id number] [address] [place] [address], [place] [address] 17 Aug, 2011 [facility] [address] [id number] [address] [place] [address], [place] [address] Aug, [facility] [address] [id number] [address] [place] [address], [place] [address] Aug, [facility] [address] [id number] [address] [place] [address], [place] [address] 27 Jul, 2011 [facility] [address] [id number] [address] [place] [address], [place] [address] Jul, [facility] [address] [id number] [address] [place] [address], [place] [address] Jul, [facility] [address] [id number] [address] [place] [address], [place] [address] Jul, [facility] [address] [id number] [address] [place] [address], [place] [address] Jul, [facility] [address] [id number] [address] [place] [address], [place] [address] Apr, [facility] [address] [id number] [address] [place] [address], [place] [address] Sep, [facility] [address] [id number] [address] [place] [address], [place] [address] Sep, [facility] [address] [id number] [address] [place] [address], [place] [address] Sep, [facility] [address] [id number] [address] [place] [address], [place] [address] Aug, [facility] [address] [id number] [address] [place] [address], [place] [address] Aug, [facility] [address] [id number] [address] [place] [address], [place] [address] 10 Aug, 2010 [facility] [address] [id number] [address] [place] [address], [place] [address] 27 Jul, 2010 [facility] [address] [id number] [address] [place] [address], [place] [address] 16 Jun, 2010 [facility] [address] [id number] [address] [place] [address], [place] [address] 14 Apr, 2010 [facility] [address] [id number] [address] [place] [address], [place] [address] 10 Apr, 2010 [facility] [address] [id number] [address] [place] [address], [place] [address] 12 Jan, 2010 [facility] [address] [id number] [address] [place] [address], [place] [address] 17 Nov, 2009 [facility] [address] [id number] [address] [place] [address], [place] [address] Sep, [facility] [address] [id number] [address] [place] [address] 12 Aug, 2009 [facility] [address] [id number] [address] [place] [address], [place] [address] Aug, [facility] [address] [id number] [address] [place] [address] 03 Aug, 2009 [facility] [address] [id number] [address] [place] [address] 16 Jun, 2009 [facility] [address] [id number] [address] [place] [address] 10 May, 2009 [facility] [address] [id number] [address] [place] [address], [place] [address] Mar, [facility] [address] [id number] [place] [id number] 15 Mar, 2009 [facility] [address] [id number] [place] [id number] 19 Nov, 2008 [facility] [address] [id number] [place] [address] [place] [id number] 13 Nov, 2008 IMMUNIZATIONS No Known Immunizations SOCIAL HISTORY Never Assessed REASON FOR VISIT PLAN OF CARE VITAL SIGNS Height 60 in 2014-08-24 Weight 205.4 lbs 2014-08-24 Temperature 97.2 degrees Fahrenheit 2014-08-24 Heart Rate 74 bpm 2014-08-24 Respiratory Rate 20 2014-08-24 Blood pressure systolic 138 mmHg 2014-08-24 Blood pressure diastolic 88 mmHg 2014-08-24 MEDICATIONS Unknown Medications RESULTS No Results PROCEDURES [...]
--- OUTSIDE RECORDS SUMMARY | 2019-12-27 00:45 | XMS REPORT ---
Author Author Lena Narayan Organization [facility] Address [address] [place] [address] Care Team Providers Care Dry Room Operator Name Role Phone NIKOLAS Narayan Unavailable PROBLEMS Type Condition ICD9-CM Code NCC57-TO Code Onset Dates Condition S tatus SNOMED Code Problem Breast lesion N64.9 Active 539087 004 Problem Chronic prescription opiate use Z79.899 Active 864018308 Problem BMI 40.0-44.9, adult Z68.41 Active 621908294 Problem Axillary hidradenitis suppurativa L73.2 Active 522980140 Problem Low back pain M54.5 Active 241274 005 Problem Migraine with aura and without status migrainosu s, not intractable G43.109 Active 4539318 Problem Adjustment disorder with mixed anxiety and depressed mood F43.23 Active 62621453 Problem Bipolar disorder in partial remission, most recent episode unspecified type F31.70 Active 2853402 ALLERGIES No Information ENCOUNTERS Encounter Location Date Diagnosis [place] [id number] [place] [address] Jul, Low back pain M54.5 [facility] [address] [place] [id number] [address] [place] [address] 28 Jun, 2018 BMI 40.0-44.9, adult Z68.41 ; Axillary hidradenitis suppurativa L73.2 and Low back pain M54.5 [facility] [address] [place] [id number] [address] [place] [address] 11 Jun, 2017 [facility] [address] [place] [id number] [address] [place] [address] May, Plantar fasciitis of right f oot M72.2 [facility] [address] [place] [id number] [address] [place] [address] Jan, Breast lesion N64.9 [facility] [address] [facility] [id number] [address] [place] [address] Jan, Breast lesion N64.9 [facility] [address] [facility] [id number] [address] [place] [address] Jan, Breast lesion N64.9 [facility] [address] [facility] [id number] [address] [place] [address] Jan, [facility] [address] [facility] [id number] [address] [place] [address] Dec, Breast lesion N64.9 [facility] [address] [place] [id number] [address] [place] [address] Oct, BMI 40.0-44.9, adult Z68.41 ; Low back pain M54.5 ; Chronic prescription opiate use Z79.899 and Breast lesion N64.9 [facility] [address] [id number] [address] [place] [address] Oct, Adjustment disorder with mix ed anxiety and depressed mood F43.23 and Bipolar disorder in partial remission, most recent episode unspecified type F31.70 [facility] [address] [place] [id number] [address] [place] [address] Oct, Adjustment disorder with mix ed anxiety and depressed mood F43.23 and Bipolar disorder in partial remission, most recent episode unspecified type F31.70 [facility] [address] [facility] [id number] [address] [place] [address] Sep, Sore throat J02.9 ; Other vi ral agents as the cause of diseases classified elsewhere B97.89 and Acute pharyngitis due to other specified organisms J02.8 [facility] [address] [facility] [id number] [address] [place] [address] Sep, Breast lesion N64.9 [facility] [address] [place] [id number] [address] [place] [address] 09 Sep, 2016 Breast lump N63 [place] [address] [place] [id number] [place] [address] 18 Jul, 2016 Elevated fasting glucose R73 .01 [place] [address] [place] [id number] [place] [address] 18 Jul, 2016 Elevated fasting glucose R73 .01 [place] [address] [address] 14 Jul, 2016 Pelvic pain R10.2 ; Screenin g, lipid Z13.220 and Screening for diabetes mellitus Z13.1 [place] [address] [address] 15 Jun, 2016 Pelvic pain R10.2 and Vagina l candidiasis B37.3 [facility] [place] [address] [address] 14 Jun, 2016 Abdominal pain, lower R10.30 [facility] [place] [address] [address] 14 Jun, 2016 [place] [address] [address] 07 Mar, 2016 Acute pain of right shoulder M25.511 [place] [address] [address] Mar, Right anterior shoulder pain M25.511 [facility] [place] [address] [address] February, Acute pain of right shoulder M25.511 [place] [address] [place] [id number] [place] [address] Jan, Low back pain M54.5 ; Migrai ne G43.909 ; Screening, lipid Z13.220 ; Screening for diabetes mellitus Z13.1 and Tobacco abuse counseling Z71.6 [place] [address] [address] Dec, [facility] [address] [place] [address] Dec, [facility] [address] [address] Dec, Lateral meniscus tear S83.28 9A [facility] [address] [address] Nov, Sore throat J02.9 [facility] [address] [address] Nov, [facility] [address] [address] Nov, [facility] [address] [address] Oct, Acute pain of left knee M25. 562 ; Low back pain M54.5 and Chronic prescription opiate use Z79.899 [facility] [address] [address] Aug, Plantar fasciitis M72.2 [place] [address] [address] Jul, Metatarsus primus varus Q66. 2 and Bunion of great toe of left foot M20.12 [place] [address] [address] 30 Jun, 2015 Chronic migraine 346.70 ; Bi polar disorder 296.80 ; Bilateral foot pain 729.5 ; Cellulitis 682.9 and Lumbosacral radiculopathy at L5 724.4 [place] [address] [address] 16 Jun, 2015 Plantar fasciitis, bilateral 728.71 [place] [address] [address] 27 Apr, 2015 Major depression, recurrent 296.30 ; Anxiety, generalized 300.02 ; No condition on [place] II V71.09 and No condition on axis III V71.09 [facility] [address] [id number] [address] [place] [address] Apr, Unspecified episodic mood di sorder 296.90 [facility] [address] [id number] [address] [place] [address] Apr, Acute pharyngitis 462 [facility] [address] [facility] [id number] [address] [place] [address] Apr, [facility] [address] [id number] [address] [place] [address] Apr, Major depression, recurrent 296.30 ; Anxiety 300.00 ; No condition on [place] II V71.09 and No condition on axis III V71.09 [facility] [address] 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 [id number] [address] [place] [address] Mar, [facility] [address] [id number] [address] [place] [id number] February, Dental examination V72.2 [facility] [address] [facility] [id number] [address] [place] [address] February, [facility] [address] [facility] [id number] [address] [place] [address] February, [facility] [address] [facility] [id number] [address] [place] [address] Jan, [facility] [address] [facility] [id number] [address] [place] [address] Jan, [facility] [address] [facility] [id number] [address] [place] [address] Dec, [facility] [address] [facility] [facility] [id number] [address] [place] [address] Dec, [facility] [address] [id number] [address] [place] [address], [place] [address] Dec, [facility] [address] [id number] [address] [place] [address], [place] [address] Dec, [facility] [address] [id number] [address] [place] [address], [place] [address] Oct, [facility] [address] [id number] [address] [place] [address], [place] [address] Oct, [facility] [address] [id number] [address] [place] [address], [place] [address] Aug, [facility] [address] [id number] [address] [place] [address], [place] [address] Aug, [facility] [address] [id number] [address] [place] [address], [place] [address] Aug, [facility] [address] [id number] [address] [place] [address], [place] [address] Aug, [facility] [address] [id number] [address] [place] [address], [place] [address] Jul, [facility] [address] [id number] [address] [place] [address] Jul, [facility] [address] [id number] [address] [place] [address], [place] [address] Jul, [facility] [address] [id number] [address] [place] [address] Jul, [facility] [address] [id number] [address] [place] [address], [place] [address] Jun, [facility] [address] [id number] [address] [place] [address], [place] [address] Jun, [facility] [address] [id number] [address] [place] [address], [place] [address] 17 Jun, 2014 [facility] [address] [id number] [address] [place] [address] Jun, [facility] [address] [id number] [address] [place] [address], [place] [address] Jun, [facility] [address] [id number] [address] [place] [address], [place] [address] Jun, [facility] [address] [id number] [address] [place] [address], [place] [address] May, [facility] [address] [id number] [address] [place] [address], [place] [address] May, [facility] [address] [id number] [address] [place] [address], [place] [address] Mar, [facility] [address] [id number] [address] [place] [address], [place] [address] Mar, [facility] [address] [id number] [address] [place] [address], [place] [address] February, [facility] [address] [id number] [address] [place] [address], [place] [address] February, [facility] [address] [id number] [address] [place] [address], [place] [address] Jan, [facility] [address] [id number] [address] [place] [address], [place] [address] Jan, [facility] [address] [id number] [address] [place] [address], [place] [address] Jan, [facility] [address] [id number] [address] [place] [address], [place] [address] Jan, [facility] [address] [id number] [address] [place] [address], [place] [address] Jan, [facility] [address] [id number] [address] [place] [address], [place] [address] Jan, [facility] [address] [id number] [address] [place] [address], [place] [address] Dec, [facility] [address] [id number] [address] [place] [address], [place] [address] Dec, [facility] [address] [id number] [address] [place] [address], [place] [address] Nov, [facility] [address] [id number] [address] [place] [address], [place] [address] Nov, [facility] [address] [id number] [address] [place] [address], [place] [address] Oct, [facility] [address] [id number] [address] [place] [address], [place] [address] Oct, [facility] [address] [id number] [address] [place] [address], [place] [address] Sep, [facility] [address] [id number] [address] [place] [address], [place] [address] Sep, [facility] [address] [id number] [address] [place] [address], [place] [address] Sep, [facility] [address] [id number] [address] [place] [address], [place] [address] Sep, [facility] [address] [id number] [address] [place] [address], [place] [address] Jul, [facility] [address] [id number] [address] [place] [address], [place] [address] Jul, [facility] [address] [id number] [address] [place] [address], [place] [address] Jul, [facility] [address] [id number] [address] [place] [address], [place] [address] Jun, [facility] [address] [id number] [address] [place] [address], [place] [address] Jun, [facility] [address] [id number] [address] [place] [address], [place] [address] Jun, [facility] [address] [id number] [address] [place] [address], [place] [address] 09 Jun, 2012 [facility] [address] [id number] [address] [place] [address], [place] [address] 05 Jun, 2012 [facility] [address] [id number] [address] [place] [address], [place] [address] 05 Jun, 2012 [facility] [address] [id number] [address] [place] [address], [place] [address] 04 Jun, 2013 [facility] [address] [id number] [address] [place] [address], [place] [address] May, [facility] [address] [id number] [address] [place] [address], [place] [address] Apr, [facility] [address] [id number] [address] [place] [address], [place] [address] Apr, [facility] [address] [id number] [address] [place] [address], [place] [address] Apr, [facility] [address] [id number] [address] [place] [address], [place] [address] Apr, [facility] [address] [id number] [address] [place] [address], [place] [address] Apr, [facility] [address] [id number] [address] [place] [address], [place] [address] Apr, [facility] [address] [id number] [address] [place] [address], [place] [address] Apr, [facility] [address] [id number] [address] [place] [address], [place] [address] Mar, [facility] [address] [id number] [address] [place] [address], [place] [address] Mar, [facility] [address] [id number] [address] [place] [address], [place] [address] Mar, [facility] [address] [id number] [address] [place] [address], [place] [address] Mar, [facility] [address] [id number] [address] [place] [address], [place] [address] 11 Mar, 2013 [facility] [address] [id number] [address] [place] [address], [place] [address] Mar, [facility] [address] [id number] [address] [place] [address], [place] [address] February, [facility] [address] [id number] [address] [place] [address], [place] [address] February, [facility] [address] [id number] [address] [place] [address], [place] [address] February, [facility] [address] [id number] [address] [place] [address], [place] [address] Jan, [facility] [address] [id number] [address] [place] [address], [place] [address] Jan, [facility] [address] [id number] [address] [place] [address], [place] [address] Jan, [facility] [address] [id number] [address] [place] [address], [place] [address] Jan, [facility] [address] [id number] [address] [place] [address], [place] [address] Dec, [facility] [address] [id number] [address] [place] [address], [place] [address] 14 Nov, 2012 [facility] [address] [id number] [address] [place] [address], [place] [address] Oct, [facility] [address] [id number] [address] [place] [address], [place] [address] Oct, [facility] [address] [id number] [address] [place] [address], [place] [address] Oct, [facility] [address] [id number] [address] [place] [address], [place] [address] Sep, [facility] [address] [id number] [address] [place] [address], [place] [address] Sep, [facility] [address] [id number] [address] [place] [address], [place] [address] Sep, [facility] [address] [id number] [address] [place] [address], [place] [address] Sep, [facility] [address] [id number] [address] [place] [address], [place] [address] Jul, [facility] [address] [id number] [address] [place] [address], [place] [address] Jul, [facility] [address] [id number] [address] [place] [address], [place] [address] Jul, [facility] [address] [id number] [address] [place] [address], [place] [address] Jul, [facility] [address] [id number] [address] [place] [address], [place] [address] Jul, [facility] [address] [id number] [address] [place] [address] Jul, [facility] [address] [id number] [address] [place] [address] Jul, [facility] [address] [id number] [address] [place] [address] 27 Jun, 2012 [facility] [address] [id number] [address] [place] [address] 25 Jun, 2012 [facility] [address] [id number] [address] [place] [address] 18 Jun, 2012 [facility] [address] [id number] [id number] 17 Jun, 2012 [facility] [address] [id number] [address] [place] [id number] 12 Jun, 2012 [facility] [address] [id number] [address] [place] [id number] 11 Jun, 2012 [facility] [address] [id number] [address] [place] [id number] Apr, [facility] [address] [id number] [address] [place] [address], [place] [address] Apr, [facility] [address] [id number] [address] [place] [address], [place] [address] Apr, [facility] [address] [id number] [address] [place] [address], [place] [address] February, [facility] [address] [id number] [address] [place] [address], [place] [address] Dec, [facility] [address] [id number] [address] [place] [address], [place] [address] Dec, [facility] [address] [id number] [address] [place] [address], [place] [address] Dec, [facility] [address] [id number] [address] [place] [address], [place] [address] Nov, [facility] [address] [id number] [address] [place] [address], [place] [address] Nov, [facility] [address] [id number] [address] [place] [address], [place] [address] Oct, [facility] [address] [id number] [address] [place] [address], [place] [address] Oct, [facility] [address] [id number] [address] [place] [address], [place] [address] Oct, [facility] [address] [id number] [address] [place] [address], [place] [address] Sep, [facility] [address] [id number] [address] [place] [address], [place] [address] Sep, [facility] [address] [id number] [address] [place] [address], [place] [address] 15 Sep, 2011 [facility] [address] [id number] [address] [place] [address], [place] [address] 14 Sep, 2011 [facility] [address] [id number] [address] [place] [address], [place] [address] 14 Sep, 2011 [facility] [address] [id number] [address] [place] [address], [place] [address] 18 Aug, 2011 [facility] [address] [id number] [address] [place] [address], [place] [address] 17 Aug, 2011 [facility] [address] [id number] [address] [place] [address], [place] [address] 08 Aug, 2011 [facility] [address] [id number] [address] [place] [address], [place] [address] Aug, [facility] [address] [id number] [address] [place] [address], [place] [address] 27 Jul, 2011 [facility] [address] [id number] [address] [place] [address], [place] [address] Jul, [facility] [address] [id number] [address] [place] [address], [place] [address] Jul, [facility] [address] [id number] [address] [place] [address], [place] [address] Jul, [facility] [address] [id number] [address] [place] [address], [place] [address] Jul, [facility] [address] [id number] [address] [place] [address], [place] [address] Apr, [facility] [address] [id number] [address] [place] [address], [place] [address] 28 Sep, 2010 [facility] [address] [id number] [address] [place] [address], [place] [address] Sep, [facility] [address] [id number] [address] [place] [address], [place] [address] Sep, [facility] [address] [id number] [address] [place] [address], [place] [address] Aug, [facility] [address] [id number] [address] [place] [address], [place] [address] Aug, [facility] [address] [id number] [address] [place] [address], [place] [address] 10 Aug, 2010 [facility] [address] [id number] [address] [place] [address], [place] [address] 27 Jul, 2010 [facility] [address] [id number] [address] [place] [address], [place] [address] 16 Jun, 2010 [facility] [facility] [address] [id number] [address] [place] [address], [place] [id number] 14 Apr, 2010 [facility] [address] [id number] [address] [place] [address], [place] [address] 10 Apr, 2010 [facility] [address] [id number] [address] [place] [address], [place] [id number] 12 Jan, 2010 [facility] [address] [id number] [address] [place] [address], [place] [id number] 17 Nov, 2009 [facility] [address] [id number] [address] [place] [address], [place] [address] Sep, [facility] [address] [id number] [address] [place] [address], [place] [address] Aug, [facility] [address] [id number] [address] [place] [id number] 12 Aug, 2009 [facility] [address] [id number] [address] [place] [address], [place] [address] Aug, [facility] [address] [id number] [address] [place] [id number] 16 Jun, 2009 [facility] [address] [id number] [address] [place] [address], [place] [address] 10 May, 2009 [facility] [address] [id number] [address] [place] [id number] 19 Mar, 2009 [facility] [address] [id number] [address] [place] [address], [place] [address] 15 Mar, 2009 [facility] [address] [id number] [address] [place] [id number] Nov, [facility] [address] [facility] [id number] [address] [place] [id number] Nov, IMMUNIZATIONS No Known Immunizations SOCIAL HISTORY Never Assessed REASON FOR VISIT PLAN OF CARE VITAL SIGNS Height 60 in 2014-09-09 Weight 214 lbs 2014-09-09 Temperature 97.7 degrees Fahrenheit 2014-09-09 Heart Rate 78 bpm 2014-09-09 Respiratory Rate 20 2014-09-09 Blood pressure systolic 122 mmHg 2014-09-09 Blood pressure diastolic 82 mmHg 2014-09-09 MEDICATIONS Unknown Medications RESULTS No Results PROCEDURES [...]
--- OUTSIDE RECORDS SUMMARY | 2019-12-27 00:45 | XMS REPORT ---
Author Author Lena VALDES Organization [facility] Address [address] [place] [address] Care Team Providers Care Director Patient Accounting Name Role Phone NITIN VALDES Unavailable PROBLEMS Type Condition ICD9-CM Code [id number]-OU Code Onset Dates Condition S tatus SNOMED Code Problem Breast lesion N64.9 Active 357174 004 Problem Chronic prescription opiate use Z79.899 Active 900840263 Problem BMI 40.0-44.9, adult Z68.41 Active 824277611 Problem Axillary hidradenitis suppurativa L73.2 Active 230417343 Problem Low back pain M54.5 Active 275048 005 Problem Migraine with aura and without status migrainosu s, not intractable G43.109 Active 7318539 Problem Adjustment disorder with mixed anxiety and depressed mood F43.23 Active 83919673 Problem Bipolar disorder in partial remission, most recent episode unspecified type F31.70 Active 1750197 ALLERGIES No Information ENCOUNTERS Encounter Location Date Diagnosis [facility] [address] [id number] [address] [place] [address] Jul, Low back pain M54.5 [facility] [address] [id number] [address] [place] [address] 28 Jun, 2018 BMI 40.0-44.9, adult Z68.41 ; Axillary hidradenitis suppurativa L73.2 and Low back pain M54.5 [facility] [address] [facility] [id number] [address] [place] [address] Jun, [facility] [address] [id number] [address] [place] [address] May, Plantar fasciitis of right f oot M72.2 [facility] [address] [id number] [address] [place] [address] Jan, Breast lesion N64.9 [facility] [id number] [place] [address] Jan, Breast lesion N64.9 [facility] [address] [id number] [address] [place] [address] Jan, Breast lesion N64.9 [facility] [address] [address] Jan, [facility] [address] [id number] [address] [place] [address] Dec, Breast lesion N64.9 [facility] [address] [address] Oct, BMI 40.0-44.9, adult Z68.41 ; Low back pain M54.5 ; Chronic prescription opiate use Z79.899 and Breast lesion N64.9 [facility] [address] [id number] [address] [place] [address] Oct, Adjustment disorder with mix ed anxiety and depressed mood F43.23 and Bipolar disorder in partial remission, most recent episode unspecified type F31.70 [facility] [address] [id number] [address] [place] [address] Oct, Adjustment disorder with mix ed anxiety and depressed mood F43.23 and Bipolar disorder in partial remission, most recent episode unspecified type F31.70 [facility] [address] [id number] [address] [place] [address] Sep, Sore throat J02.9 ; Other vi ral agents as the cause of diseases classified elsewhere B97.89 and Acute pharyngitis due to other specified organisms J02.8 [facility] [address] [id number] [address] [place] [address] Sep, Breast lesion N64.9 [facility] [address] [id number] [address] [place] [address] Sep, Breast lump N[address] [place] [id number] [facility] [id number] [address] [place] [address] 18 Jul, 2016 Elevated fasting glucose R73 .01 [place] [address] [facility] [id number] [address] [place] [address] 18 Jul, 2016 Elevated fasting glucose R73 .01 [place] [address] [facility] [id number] [address] [place] [address] 14 Jul, 2016 Pelvic pain R10.2 ; Screenin g, lipid Z13.220 and Screening for diabetes mellitus Z13.1 [place] [address] [facility] [id number] [place] [address] 15 Jun, 2016 Pelvic pain R10.2 and Vagina l candidiasis B37.3 [facility] [place] [id number] [place] [address] 14 Jun, 2016 Abdominal pain, lower R10.30 [facility] [place] [address] [id number] [address] [place] [address] 14 Jun, 2016 [place] [address] [id number] [place] [address] 07 Mar, 2016 Acute pain of right shoulder M25.511 [place] [address] [id number] [address] [place] [address] Mar, Right anterior shoulder pain M25.511 [facility] [place] [address] [id number] [address] [place] [address] February, Acute pain of right shoulder M25.511 [place] [address] [address] [id number] [address] [place] [address] Jan, Low back pain M54.5 ; Migrai ne G43.909 ; Screening, lipid Z13.220 ; Screening for diabetes mellitus Z13.1 and Tobacco abuse counseling Z71.6 [place] [address] [facility] [id number] [address] [place] [address] Dec, [place] [address] [place] [address] [place] [address] Dec, [facility] [address] [address] Dec, Lateral meniscus tear S83.28 9A [facility] [address] [address] Nov, Sore throat J02.9 [facility] [address] [address] Nov, [facility] [address] [address] Nov, [place] [address] [address] Oct, Acute pain of left knee M25. 562 ; Low back pain M54.5 and Chronic prescription opiate use Z79.899 [place] [address] [address] Aug, Plantar fasciitis M72.2 [place] [address] [address] Jul, Metatarsus primus varus Q66. 2 and Bunion of great toe of left foot M20.12 [place] [address] [address] 30 Jun, 2015 Chronic migraine 346.70 ; Bi polar disorder 296.80 ; Bilateral foot pain 729.5 ; Cellulitis 682.9 and Lumbosacral radiculopathy at L5 724.4 [place] [address] [address] 16 Jun, 2015 Plantar fasciitis, bilateral 728.71 [place] [address] [address] 27 Apr, 2015 Major depression, recurrent 296.30 ; Anxiety, generalized 300.02 ; No condition on Temperance II V71.09 and No condition on axis III V71.09 [facility] [address] [facility] [id number] [address] [place] [address] Apr, Unspecified episodic mood di sorder 296.90 [facility] [address] [facility] [id number] [address] [place] [address] Apr, Acute pharyngitis 462 [facility] [address] [facility] [id number] [address] [place] [address] Apr, [facility] [address] [facility] [id number] [address] [place] [address] Apr, Major depression, recurrent 296.30 ; Anxiety 300.00 ; No condition on Temperance II V71.09 and No condition on axis III V71.09 [facility] [address] [facility] [id number] [address] [place] [address] Mar, Unspecified episodic mood di sorder 296.90 and 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 [facility] [address] [facility] [id number] [address] [place] [address] Mar, [facility] [address] [id number] [address] [place] [id number] February, Dental examination V72.2 [facility] [address] [facility] [id number] [address] [place] [address] February, [facility] [address] [facility] [id number] [address] [place] [address] February, [facility] [address] [facility] [id number] [address] [place] [address] Jan, [facility] [address] [facility] [id number] [address] [place] [address] Jan, [facility] [address] [facility] [id number] [address] [place] [address] Dec, [facility] [address] [facility] [id number] [address] [place] [address] Dec, [facility] [address] [id number] [address] [place] [address], [place] [address] Dec, [facility] [address] [id number] [address] [place] [address], [place] [address] Dec, [facility] [address] [id number] [address] [place] [address], [place] [address] Oct, [facility] [address] [id number] [address] [place] [address], [place] [address] Oct, [facility] [address] [id number] [address] [place] [address], [place] [address] Aug, [facility] [address] [id number] [address] [place] [address], [place] [address] Aug, [facility] [address] [id number] [address] [place] [address], [place] [address] Aug, [facility] [address] [id number] [address] [place] [address], [place] [address] Aug, [facility] [address] [id number] [address] [place] [address], [place] [address] Jul, [facility] [address] [id number] [address] [place] [address], [place] [address] Jul, [facility] [address] [id number] [address] [place] [address], [place] [address] Jul, [facility] [address] [id number] [address] [place] [address], [place] [address] Jul, [facility] [address] [id number] [address] [place] [address], [place] [address] Jun, [facility] [address] [id number] [address] [place] [address], [place] [address] Jun, [facility] [address] [id number] [address] [place] [address], [place] [address] Jun, [facility] [address] [id number] [address] [place] [address], [place] [address] Jun, [facility] [address] [id number] [facility] [place] [address] Jun, [facility] [address] [id number] [address] [place] [address], [place] [address] Jun, [facility] [address] [id number] [address] [place] [address], [place] [address] May, [facility] [address] [id number] [address] [place] [address], [place] [address] May, [facility] [address] [id number] [address] [place] [address], [place] [address] Mar, [facility] [address] [id number] [address] [place] [address], [place] [address] Mar, [facility] [address] [id number] [address] [place] [address], [place] [address] February, [facility] [address] [id number] [address] [place] [address], [place] [address] February, [facility] [address] [id number] [address] [place] [address], [place] [address] Jan, [facility] [address] [id number] [address] [place] [address], [place] [address] Jan, [facility] [address] [id number] [address] [place] [address], [place] [address] Jan, [facility] [address] [id number] [address] [place] [address], [place] [address] Jan, [facility] [address] [id number] [address] [place] [address], [place] [address] Jan, [facility] [address] [id number] [address] [place] [address], [place] [address] Jan, [facility] [address] [id number] [address] [place] [address], [place] [address] Dec, [facility] [address] [id number] [address] [place] [address], [place] [address] Dec, [facility] [address] [id number] [address] [place] [address], [place] [address] Nov, [facility] [address] [id number] [address] [place] [address], [place] [address] Nov, [facility] [address] [id number] [address] [place] [address], [place] [address] Oct, [facility] [address] [id number] [address] [place] [address], [place] [address] Oct, [facility] [address] [id number] [address] [place] [address], [place] [address] Sep, [facility] [address] [id number] [address] [place] [address], [place] [address] Sep, [facility] [address] [id number] [address] [place] [address], [place] [address] Sep, [facility] [address] [id number] [address] [place] [address], [place] [address] Sep, [facility] [address] [id number] [address] [place] [address], [place] [address] Jul, [facility] [address] [id number] [address] [place] [address], [place] [address] Jul, [facility] [address] [id number] [address] [place] [address], [place] [address] Jul, [facility] [address] [id number] [address] [place] [address], [place] [address] 25 Jun, 2013 [facility] [address] [id number] [address] [place] [address], [place] [address] 11 Jun, 2013 [facility] [address] [id number] [address] [place] [address], [place] [address] 10 Jun, 2013 [facility] [address] [id number] [address] [place] [address], [place] [address] 09 Jun, 2013 [facility] [address] [id number] [address] [place] [address], [place] [address] 05 Jun, 2012 [facility] [address] [id number] [address] [place] [address], [place] [address] 05 Jun, 2012 [facility] [address] [id number] [address] [place] [address], [place] [address] 04 Jun, 2013 [facility] [address] [id number] [address] [place] [address], [place] [address] May, [facility] [address] [id number] [address] [place] [address], [place] [address] Apr, [facility] [address] [id number] [address] [place] [address], [place] [address] Apr, [facility] [address] [id number] [address] [place] [address], [place] [address] Apr, [facility] [address] [id number] [address] [place] [address], [place] [address] Apr, [facility] [address] [id number] [address] [place] [address], [place] [address] Apr, [facility] [address] [id number] [address] [place] [address], [place] [address] Apr, [facility] [address] [id number] [address] [place] [address], [place] [address] Apr, [facility] [address] [id number] [address] [place] [address], [place] [address] Mar, [facility] [address] [id number] [address] [place] [address], [place] [address] Mar, [facility] [address] [id number] [address] [place] [address], [place] [address] Mar, [facility] [address] [id number] [address] [place] [address], [place] [address] Mar, [facility] [address] [id number] [address] [place] [address], [place] [address] Mar, [facility] [address] [id number] [address] [place] [address], [place] [address] Mar, [facility] [address] [id number] [address] [place] [address], [place] [address] February, [facility] [address] [id number] [address] [place] [address], [place] [address] February, [facility] [address] [id number] [address] [place] [address], [place] [address] February, [facility] [address] [id number] [address] [place] [address], [place] [address] Jan, [facility] [address] [id number] [address] [place] [address], [place] [address] Jan, [facility] [address] [id number] [address] [place] [address], [place] [address] Jan, [facility] [address] [id number] [address] [place] [address], [place] [address] Jan, [facility] [address] [id number] [address] [place] [address], [place] [address] Dec, [facility] [address] [id number] [address] [place] [address], [place] [address] Nov, [facility] [address] [id number] [address] [place] [address], [place] [address] Oct, [facility] [address] [id number] [address] [place] [address], [place] [address] Oct, [facility] [address] [id number] [address] [place] [address], [place] [address] Oct, [facility] [address] [id number] [address] [place] [address], [place] [address] Sep, [facility] [address] [id number] [address] [place] [address], [place] [address] Sep, [facility] [address] [id number] [address] [place] [address], [place] [address] Sep, [facility] [address] [id number] [address] [place] [address], [place] [address] Sep, [facility] [address] [id number] [address] [place] [address], [place] [address] Jul, [facility] [address] [id number] [address] [place] [address], [place] [address] Jul, [facility] [address] [id number] [address] [place] [address], [place] [address] Jul, [facility] [address] [id number] [address] [place] [address], [place] [address] Jul, [facility] [address] [id number] [address] [place] [address], [place] [address] Jul, [facility] [address] [id number] [address] [place] [address], [place] [address] Jul, [facility] [address] [id number] [address] [place] [address], [place] [address] Jul, [facility] [address] [id number] [address] [place] [address], [place] [address] 27 Jun, 2012 [facility] [address] [id number] [address] [place] [address], [place] [address] 25 Jun, 2012 [facility] [address] [id number] [address] [place] [address], [place] [address] 18 Jun, 2012 [facility] [address] [id number] [id number] 17 Jun, 2012 [facility] [address] [id number] [address] [place] [address], [place] [address] 12 Jun, 2012 [facility] [address] [id number] [address] [place] [address], [place] [address] 11 Jun, 2012 [facility] [address] [id number] [address] [place] [address], [place] [address] Apr, [facility] [address] [id number] [address] [place] [address], [place] [address] Apr, [facility] [address] [id number] [address] [place] [address], [place] [address] Apr, [facility] [address] [id number] [address] [place] [address], [place] [address] February, [facility] [address] [id number] [address] [place] [address], [place] [address] Dec, [facility] [address] [id number] [address] [place] [address], [place] [address] Dec, [facility] [address] [id number] [address] [place] [address], [place] [address] Dec, [facility] [address] [id number] [address] [place] [address], [place] [address] Nov, [facility] [address] [id number] [address] [place] [address], [place] [address] Nov, [facility] [address] [id number] [address] [place] [address], [place] [address] Oct, [facility] [address] [id number] [address] [place] [address], [place] [address] Oct, [facility] [address] [id number] [address] [place] [address], [place] [address] Oct, [facility] [address] [id number] [address] [place] [address], [place] [address] Sep, [facility] [address] [id number] [address] [place] [address], [place] [address] Sep, [facility] [address] [id number] [address] [place] [address], [place] [address] 15 Sep, 2011 [facility] [address] [id number] [address] [place] [address], [place] [address] 14 Sep, 2011 [facility] [address] [id number] [address] [place] [address], [place] [address] 14 Sep, 2011 [facility] [address] [id number] [address] [place] [address], [place] [address] 18 Aug, 2011 [facility] [address] [id number] [address] [place] [address], [place] [address] 17 Aug, 2011 [facility] [address] [id number] [address] [place] [address], [place] [address] 08 Aug, 2011 [facility] [address] [id number] [address] [place] [address], [place] [address] Aug, [facility] [address] [id number] [address] [place] [address], [place] [address] 27 Jul, 2011 [facility] [address] [id number] [address] [place] [address], [place] [address] Jul, [facility] [address] [id number] [address] [place] [address], [place] [address] Jul, [facility] [address] [id number] [address] [place] [address], [place] [address] Jul, [facility] [address] [id number] [address] [place] [address], [place] [address] Jul, [facility] [address] [id number] [address] [place] [address], [place] [address] Apr, [facility] [address] [id number] [address] [place] [address], [place] [address] 28 Sep, 2010 [facility] [address] [id number] [address] [place] [address], [place] [address] 10 Sep, 2010 [facility] [address] [id number] [address] [place] [address], [place] [address] Sep, [facility] [address] [id number] [address] [place] [address], [place] [address] Aug, [facility] [address] [id number] [address] [place] [address], [place] [address] 11 Aug, 2010 [facility] [address] [id number] [address] [place] [address], [place] [address] 10 Aug, 2010 [facility] [address] [id number] [address] [place] [address], [place] [id number] 27 Jul, 2010 [facility] [address] [id number] [address] [place] [address], [place] [address] 16 Jun, 2010 [facility] [address] [id number] [address] [place] [address], [place] [address] 14 Apr, 2010 [facility] [address] [id number] [address] [place] [address], [place] [address] 10 Apr, 2010 [facility] [address] [id number] [address] [place] [address], [place] [address] 12 Jan, 2010 [facility] [address] [id number] [address] [place] [address], [place] [address] 17 Nov, 2009 [facility] [address] [id number] [address] [place] [address], [place] [address] 23 Sep, 2009 [facility] [address] [id number] [address] [place] [address], [place] [address] 12 Aug, 2009 [facility] [address] [id number] [address] [place] [address], [place] [address] 12 Aug, 2009 [facility] [address] [id number] [address] [place] [address], [place] [address] 03 Aug, 2009 [facility] [address] [id number] [address] [place] [address], [place] [address] 16 Jun, 2009 [facility] [address] [id number] [address] [place] [address], [place] [address] 10 May, 2009 [facility] [address] [id number] [address] [place] [address], [place] [address] 19 Mar, 2009 [facility] [address] [id number] [address] [place] [id number] 15 Mar, 2009 [facility] [address] [id number] [address] [place] [id number] Nov, [facility] [address] [facility] [id number] [address] [place] [address] Nov, IMMUNIZATIONS No Known Immunizations SOCIAL HISTORY Never Assessed REASON FOR VISIT PLAN OF CARE VITAL SIGNS MEDICATIONS Unknown Medications RESULTS No Results PROCEDURES Procedure Date Ordered Result Body Site PSYCH DIAGNOSTIC EVALUATION May 22, 2014 INSTRUCTIONS MEDICATIONS ADMINISTERED No Known Medications MEDICAL [...]
--- OUTSIDE RECORDS SUMMARY | 2019-12-27 00:45 | XMS REPORT ---
Author Author Lena Lara Organization [facility] Address [address] [place] [address] Care Team Providers Care Continuous Improvement Coach Name Role Phone ARNIE Lara Unavailable PROBLEMS Type Condition ICD9-CM Code [id number] Code Onset Dates Condition S tatus SNOMED Code Problem Breast lesion N64.9 Active 291631 004 Problem Chronic prescription opiate use Z79.899 Active 388503843 Problem BMI 40.0-44.9, adult Z68.41 Active 281754017 Problem Axillary hidradenitis suppurativa L73.2 Active 670012722 Problem Low back pain M54.5 Active 448876 005 Problem Migraine with aura and without status migrainosu s, not intractable G43.109 Active 3800235 Problem Adjustment disorder with mixed anxiety and depressed mood F43.23 Active 14594999 Problem Bipolar disorder in partial remission, most recent episode unspecified type F31.70 Active [id number] ALLERGIES No Information ENCOUNTERS Encounter Location Date Diagnosis [facility] [address] [id number] [address] [place] [id number] Jul, Low back pain M54.5 [facility] [address] [facility] [id number] [address] [place] [id number] 28 Jun, 2018 BMI 40.0-44.9, adult Z68.41 ; Axillary hidradenitis suppurativa L73.2 and Low back pain M54.5 [facility] [address] [id number] [address] [place] [address] 11 Jun, 2017 [facility] [address] [facility] [id number] [address] [place] [address] May, Plantar fasciitis of right f oot M72.2 [facility] [address] [id number] [address] [place] [address] Jan, Breast lesion N64.9 [facility] [address] [address] Jan, Breast lesion N64.9 [facility] [address] [address] Jan, Breast lesion N64.9 [facility] [address] [address] Jan, [facility] [address] [address] Dec, Breast lesion N64.9 [facility] [address] [address] Oct, BMI 40.0-44.9, adult Z68.41 ; Low back pain M54.5 ; Chronic prescription opiate use Z79.899 and Breast lesion N64.9 [facility] [address] [id number] [address] [place] [address] Oct, Adjustment disorder with mix ed anxiety and depressed mood F43.23 and Bipolar disorder in partial remission, most recent episode unspecified type F31.70 [facility] [address] [id number] [address] [place] [address] Oct, Adjustment disorder with mix ed anxiety and depressed mood F43.23 and Bipolar disorder in partial remission, most recent episode unspecified type F31.70 [facility] [address] [id number] [address] [place] [phone] Sep, Sore throat J02.9 ; Other vi ral agents as the cause of diseases classified elsewhere B97.89 and Acute pharyngitis due to other specified organisms J02.8 [facility] [address] [id number] [address] [place] [address] Sep, Breast lesion N64.9 [facility] [address] [address] 09 Sep, 2016 Breast lump N63 [place] [id number] [facility] [id number] [address] [place] [address] 18 Jul, 2016 Elevated fasting glucose R73 .01 [place] [address] [address] [facility] [id number] [address] [place] [address] 18 Jul, 2016 Elevated fasting glucose R73 .01 [place] [address] [place] [id number] [place] [address] 14 Jul, 2016 Pelvic pain R10.2 ; Screenin g, lipid Z13.220 and Screening for diabetes mellitus Z13.1 [place] [address] [address] 15 Jun, 2016 Pelvic pain R10.2 and Vagina l candidiasis B37.3 [facility] [place] [id number] [place] [id number] 14 Jun, 2016 Abdominal pain, lower R10.30 [facility] [place] [id number] [place] [address] 14 Jun, 2016 [place] [address] [address] 07 Mar, 2016 Acute pain of right shoulder M25.511 [place] [address] [address] [id number] [place] [address] Mar, Right anterior shoulder pain M25.511 [facility] [place] [id number] [place] [address] February, Acute pain of right shoulder M25.511 [place] [address] [place] [id number] [address] [place] [address] Jan, Low back pain M54.5 ; Migrai ne G43.909 ; Screening, lipid Z13.220 ; Screening for diabetes mellitus Z13.1 and Tobacco abuse counseling Z71.6 [place] [address] [place] [id number] [address] [place] [address] Dec, [place] [address] [place] [id number] [address] [place] [address] Dec, [facility] [address] [address] Dec, Lateral meniscus tear S83.28 9A [facility] [id number] [place] [address] Nov, Sore throat J02.9 [facility] [address] [address] Nov, [facility] [address] [address] Nov, [facility] [address] [address] Oct, Acute pain of left knee M25. 562 ; Low back pain M54.5 and Chronic prescription opiate use Z79.899 [facility] [address] [address] Aug, Plantar fasciitis M72.2 [place] [address] [address] Jul, Metatarsus primus varus Q66. 2 and Bunion of great toe of left foot M20.12 [place] [address] [address] 30 Jun, 2015 Chronic migraine 346.70 ; Bi polar disorder 296.80 ; Bilateral foot pain 729.5 ; Cellulitis 682.9 and Lumbosacral radiculopathy at L5 724.4 [facility] [address] [address] 16 Jun, 2015 Plantar fasciitis, bilateral 728.71 [place] [address] [address] 27 Apr, 2015 Major depression, recurrent 296.30 ; Anxiety, generalized 300.02 ; No condition on [place] II V71.09 and No condition on axis III V71.09 [facility] [address] [facility] [id number] [address] [place] [address] Apr, Unspecified episodic mood di sorder 296.90 [facility] [address] [id number] [address] [place] [id number] 08 Apr, 2015 Acute pharyngitis 462 [facility] [address] [facility] [id number] [address] [place] [address] Apr, [facility] [address] [id number] [address] [place] [address] Apr, Major depression, recurrent 296.30 ; Anxiety 300.00 ; No condition on [place] II V71.09 and No condition on axis III V71.09 [facility] [address] [facility] [id number] [address] [place] [address] Mar, Unspecified episodic mood di sorder 296.90 and 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 [facility] [address] [facility] [id number] [address] [place] [address] Mar, [facility] [address] [id number] [address] [place] [id number] February, Dental examination V72.2 [facility] [address] [facility] [id number] [address] [place] [address] February, [facility] [address] [facility] [id number] [address] [place] [address] February, [facility] [address] [facility] [id number] [address] [place] [id number] Jan, [facility] [address] [facility] [id number] [address] [place] [phone] Jan, [facility] [address] [facility] [id number] [address] [place] [address] Dec, [facility] [address] [facility] [id number] [address] [place] [phone] Dec, [facility] [address] [id number] [address] [place] [address], [place] [address] Dec, [facility] [address] [id number] [address] [place] [address], [place] [address] Dec, [facility] [address] [id number] [address] [place] [address], [place] [address] Oct, [facility] [address] [id number] [address] [place] [address], [place] [address] Oct, [facility] [address] [id number] [address] [place] [address], [place] [address] Aug, [facility] [address] [id number] [address] [place] [address], [place] [address] Aug, [facility] [address] [id number] [address] [place] [address], [place] [address] Aug, [facility] [address] [id number] [address] [place] [address], [place] [address] Aug, [facility] [address] [id number] [address] [place] [address], [place] [address] Jul, [facility] [address] [id number] [address] [place] [address], [place] [address] Jul, [facility] [address] [id number] [address] [place] [address], [place] [address] Jul, [facility] [address] [id number] [address] [place] [address], [place] [address] Jul, [facility] [address] [id number] [address] [place] [address], [place] [address] Jun, [facility] [address] [id number] [address] [place] [address], [place] [address] Jun, [facility] [address] [id number] [address] [place] [address], [place] [address] 17 Jun, 2014 [facility] [address] [id number] [address] [place] [address], [place] [address] Jun, [facility] [address] [id number] [address] [place] [address], [place] [address] Jun, [facility] [address] [id number] [address] [place] [address], [place] [address] Jun, [facility] [address] [id number] [address] [place] [address], [place] [address] May, [facility] [address] [id number] [address] [place] [address], [place] [address] May, [facility] [address] [id number] [address] [place] [address], [place] [address] Mar, [facility] [address] [id number] [address] [place] [address], [place] [address] Mar, [facility] [address] [id number] [address] [place] [address], [place] [address] February, [facility] [address] [id number] [address] [place] [address], [place] [address] February, [facility] [address] [id number] [address] [place] [address], [place] [address] Jan, [facility] [address] [id number] [address] [place] [address], [place] [address] Jan, [facility] [address] [id number] [address] [place] [address], [place] [address] Jan, [facility] [address] [id number] [address] [place] [address], [place] [address] Jan, [facility] [address] [id number] [address] [place] [address], [place] [address] Jan, [facility] [address] [id number] [address] [place] [address], [place] [address] Jan, [facility] [address] [id number] [address] [place] [address], [place] [address] Dec, [facility] [address] [id number] [address] [place] [address], [place] [address] Dec, [facility] [address] [id number] [address] [place] [address], [place] [address] Nov, [facility] [address] [id number] [address] [place] [address], [place] [address] Nov, [facility] [address] [id number] [address] [place] [address], [place] [address] Oct, [facility] [address] [id number] [address] [place] [address], [place] [address] Oct, [facility] [address] [id number] [address] [place] [address], [place] [address] Sep, [facility] [address] [id number] [address] [place] [address], [place] [address] Sep, [facility] [address] [id number] [address] [place] [address], [place] [address] Sep, [facility] [address] [id number] [address] [place] [address], [place] [address] Sep, [facility] [address] [id number] [address] [place] [address], [place] [address] Jul, [facility] [address] [id number] [address] [place] [address], [place] [address] Jul, [facility] [address] [id number] [address] [place] [address], [place] [address] Jul, [facility] [address] [id number] [address] [place] [address], [place] [address] Jun, [facility] [address] [id number] [address] [place] [address], [place] [address] Jun, [facility] [address] [id number] [address] [place] [address], [place] [address] Jun, [facility] [address] [id number] [address] [place] [address], [place] [address] Jun, [facility] [address] [id number] [facility] [place] [address] 05 Jun, 2012 [facility] [address] [id number] [address] [place] [address], [place] [address] 05 Jun, 2012 [facility] [address] [id number] [address] [place] [address], [place] [address] 04 Jun, 2013 [facility] [address] [id number] [address] [place] [address], [place] [address] May, [facility] [address] [id number] [address] [place] [address], [place] [address] Apr, [facility] [address] [id number] [address] [place] [address], [place] [address] Apr, [facility] [address] [id number] [address] [place] [address], [place] [address] Apr, [facility] [address] [id number] [address] [place] [address], [place] [address] Apr, [facility] [address] [id number] [address] [place] [address], [place] [address] Apr, [facility] [address] [id number] [address] [place] [address], [place] [address] Apr, [facility] [address] [id number] [address] [place] [address], [place] [address] Apr, [facility] [address] [id number] [address] [place] [address], [place] [address] Mar, [facility] [address] [id number] [address] [place] [address], [place] [address] Mar, [facility] [address] [id number] [address] [place] [address], [place] [address] Mar, [facility] [address] [id number] [address] [place] [address], [place] [address] Mar, [facility] [address] [id number] [address] [place] [address], [place] [address] 11 Mar, 2013 [facility] [address] [id number] [address] [place] [address], [place] [address] 06 Mar, 2013 [facility] [address] [id number] [address] [place] [address], [place] [address] February, [facility] [address] [id number] [address] [place] [address], [place] [address] February, [facility] [address] [id number] [address] [place] [address], [place] [address] February, [facility] [address] [id number] [address] [place] [address], [place] [address] Jan, [facility] [address] [id number] [address] [place] [address], [place] [address] Jan, [facility] [address] [id number] [address] [place] [address], [place] [address] Jan, [facility] [address] [id number] [address] [place] [address], [place] [address] Jan, [facility] [address] [id number] [address] [place] [address], [place] [address] Dec, [facility] [address] [id number] [address] [place] [address], [place] [address] 14 Nov, 2012 [facility] [address] [id number] [address] [place] [address], [place] [address] Oct, [facility] [address] [id number] [address] [place] [address], [place] [address] Oct, [facility] [address] [id number] [address] [place] [address], [place] [address] Oct, [facility] [address] [id number] [address] [place] [address], [place] [address] Sep, [facility] [address] [id number] [address] [place] [address], [place] [address] Sep, [facility] [address] [id number] [address] [place] [address], [place] [address] Sep, [facility] [address] [id number] [address] [place] [address], [place] [address] Sep, [facility] [address] [id number] [address] [place] [address], [place] [address] Jul, [facility] [address] [id number] [address] [place] [address], [place] [address] Jul, [facility] [address] [id number] [address] [place] [address], [place] [address] Jul, [facility] [address] [id number] [address] [place] [address], [place] [address] Jul, [facility] [address] [id number] [address] [place] [address], [place] [address] Jul, [facility] [address] [id number] [address] [place] [address], [place] [address] Jul, [facility] [address] [id number] [address] [place] [address], [place] [address] Jul, [facility] [address] [id number] [address] [place] [address], [place] [address] 27 Jun, 2012 [facility] [address] [id number] [address] [place] [address], [place] [address] 25 Jun, 2012 [facility] [address] [id number] [address] [place] [address], [place] [address] 18 Jun, 2012 [facility] [address] [id number] [id number] 17 Jun, 2012 [facility] [address] [id number] [address] [place] [address], [place] [address] 12 Jun, 2012 [facility] [address] [id number] [address] [place] [address], [place] [address] 11 Jun, 2012 [facility] [address] [id number] [address] [place] [address], [place] [address] Apr, [facility] [address] [id number] [address] [place] [address], [place] [address] Apr, [facility] [address] [id number] [address] [place] [address], [place] [address] Apr, [facility] [address] [id number] [address] [place] [address], [place] [address] February, [facility] [address] [id number] [address] [place] [address], [place] [address] Dec, [facility] [address] [id number] [address] [place] [address], [place] [address] Dec, [facility] [address] [id number] [address] [place] [address], [place] [address] Dec, [facility] [address] [id number] [address] [place] [address], [place] [address] Nov, [facility] [address] [id number] [address] [place] [address], [place] [address] Nov, [facility] [address] [id number] [address] [place] [address], [place] [address] Oct, [facility] [address] [id number] [address] [place] [address], [place] [address] Oct, [facility] [address] [id number] [address] [place] [address], [place] [address] Oct, [facility] [address] [id number] [address] [place] [address], [place] [address] Sep, [facility] [address] [id number] [address] [place] [address], [place] [address] Sep, [facility] [address] [id number] [address] [place] [address], [place] [address] 15 Sep, 2011 [facility] [address] [id number] [address] [place] [address], [place] [address] 14 Sep, 2011 [facility] [address] [id number] [address] [place] [address], [place] [address] 14 Sep, 2011 [facility] [address] [id number] [address] [place] [address], [place] [address] 18 Aug, 2011 [facility] [address] [id number] [address] [place] [address], [place] [address] 17 Aug, 2011 [facility] [address] [id number] [address] [place] [address], [place] [address] 08 Aug, 2011 [facility] [address] [id number] [address] [place] [address], [place] [address] Aug, [facility] [address] [id number] [address] [place] [address], [place] [id number] 27 Jul, 2011 [facility] [address] [id number] [address] [place] [address], [place] [address] 20 Jul, 2011 [facility] [address] [id number] [address] [place] [address], [place] [address] Jul, [facility] [address] [id number] [address] [place] [address], [place] [address] Jul, [facility] [address] [id number] [address] [place] [address], [place] [address] Jul, [facility] [address] [id number] [address] [place] [address], [place] [address] Apr, [facility] [address] [id number] [address] [place] [address], [place] [address] 28 Sep, 2010 [facility] [address] [id number] [address] [place] [address], [place] [address] 10 Sep, 2010 [facility] [address] [id number] [address] [place] [address], [place] [address] Sep, [facility] [address] [id number] [address] [place] [address], [place] [address] Aug, [facility] [address] [id number] [address] [place] [address], [place] [address] Aug, [facility] [address] [id number] [address] [place] [address], [place] [address] 10 Aug, 2010 [facility] [address] [id number] [address] [place] [address], [place] [address] 27 Jul, 2010 [facility] [address] [id number] [address] [place] [address], [place] [address] 16 Jun, 2010 [facility] [address] [id number] [address] [place] [address], [place] [address] 14 Apr, 2010 [facility] [address] [id number] [address] [place] [address], [place] [address] 10 Apr, 2010 [facility] [address] [address] [id number] [address] [place] [address], [place] [phone] 12 Jan, 2010 [facility] [address] [id number] [address] [place] [address], [place] [id number] 17 Nov, 2009 [facility] [address] [id number] [address] [place] [address], [place] [id number] Sep, [facility] [address] [id number] [address] [place] [address], [place] [id number] Aug, [facility] [address] [id number] [address] [place] [id number] 12 Aug, 2009 [facility] [address] [id number] [address] [place] [id number] 03 Aug, 2009 [facility] [address] [id number] [address] [place] [id number] 16 Jun, 2009 [facility] [address] [id number] [address] [place] [address], [place] [id number] 10 May, 2009 [facility] [address] [id number] [address] [place] [id number] 19 Mar, 2009 [facility] [address] [id number] [address] [place] [id number] 15 Mar, 2009 [facility] [address] [id number] [address] [place] [id number] Nov, [facility] [address] [facility] [id number] [address] [place] [phone] Nov, IMMUNIZATIONS No Known Immunizations SOCIAL HISTORY Never Assessed REASON FOR VISIT PLAN OF CARE VITAL SIGNS Height 60 in 2014-07-07 Weight 203.25 lbs 2014-07-07 Temperature 100 degrees Fahrenheit 2014-07-07 Heart Rate 78 bpm 2014-07-07 Respiratory Rate 24 2014-07-07 Blood pressure systolic 128 mmHg 2014-07-07 Blood pressure diastolic 74 mmHg 2014-07-07 MEDICATIONS Unknown Medications RESULTS No Results PROCEDURES [...]
--- OUTSIDE RECORDS SUMMARY | 2019-12-27 00:46 | XMS REPORT ---
Author Author Lena Lara Organization [facility] Address [address] [place] [address] Care Team Providers Care Detailer Name Role Phone ARNIE Lara Unavailable PROBLEMS Type Condition ICD9-CM Code [id number] Code Onset Dates Condition S tatus SNOMED Code Problem Breast lesion N64.9 Active 197344 004 Problem Chronic prescription opiate use Z79.899 Active 387165789 Problem BMI 40.0-44.9, adult Z68.41 Active 287791556 Problem Axillary hidradenitis suppurativa L73.2 Active 638963360 Problem Low back pain M54.5 Active 697500 005 Problem Migraine with aura and without status migrainosu s, not intractable G43.109 Active 1978190 Problem Adjustment disorder with mixed anxiety and depressed mood F43.23 Active 13456370 Problem Bipolar disorder in partial remission, most recent episode unspecified type F31.70 Active 2108843 ALLERGIES No Information ENCOUNTERS Encounter Location Date Diagnosis [facility] [address] [id number] [address] [place] [address] Jul, Low back pain M54.5 [facility] [address] [id number] [address] [place] [address] 28 Jun, 2018 BMI 40.0-44.9, adult Z68.41 ; Axillary hidradenitis suppurativa L73.2 and Low back pain M54.5 [facility] [address] [id number] [address] [place] [address] 11 Jun, 2017 [facility] [address] [facility] [id number] [address] [place] [address] May, Plantar fasciitis of right f oot M72.2 [facility] [address] [id number] [address] [place] [address] Jan, Breast lesion N64.9 [facility] [address] [address] Jan, Breast lesion N64.9 [facility] [address] [address] Jan, Breast lesion N64.9 [facility] [address] [address] Jan, [facility] [address] [address] Dec, Breast lesion N64.9 [facility] [address] [address] Oct, BMI 40.0-44.9, adult Z68.41 ; Low back pain M54.5 ; Chronic prescription opiate use Z79.899 and Breast lesion N64.9 [facility] [address] [id number] [address] [place] [address] Oct, Adjustment disorder with mix ed anxiety and depressed mood F43.23 and Bipolar disorder in partial remission, most recent episode unspecified type F31.70 [facility] [address] [id number] [address] [place] [address] Oct, Adjustment disorder with mix ed anxiety and depressed mood F43.23 and Bipolar disorder in partial remission, most recent episode unspecified type F31.70 [facility] [address] [id number] [address] [place] [address] Sep, Sore throat J02.9 ; Other vi ral agents as the cause of diseases classified elsewhere B97.89 and Acute pharyngitis due to other specified organisms J02.8 [facility] [address] [id number] [address] [place] [address] Sep, Breast lesion N64.9 [facility] [address] [address] 09 Sep, 2016 Breast lump N[address] [place] [address] [facility] [id number] [address] [place] [address] 18 Jul, 2016 Elevated fasting glucose R73 .01 [place] [address] [facility] [id number] [address] [place] [address] 18 Jul, 2016 Elevated fasting glucose R73 .01 [place] [address] [id number] [place] [address] 14 Jul, 2016 Pelvic pain R10.2 ; Screenin g, lipid Z13.220 and Screening for diabetes mellitus Z13.1 [place] [address] [address] 15 Jun, 2016 Pelvic pain R10.2 and Vagina l candidiasis B37.3 [facility] [place] [id number] [place] [address] 14 Jun, 2016 Abdominal pain, lower R10.30 [facility] [place] [id number] [place] [address] 14 Jun, 2016 [place] [address] [address] 07 Mar, 2016 Acute pain of right shoulder M25.511 [place] [id number] [place] [address] Mar, Right anterior shoulder pain M25.511 [facility] [place] [id number] [place] [address] February, Acute pain of right shoulder M25.511 [place] [address] [address] [id number] [address] [place] [address] Jan, Low back pain M54.5 ; Migrai ne G43.909 ; Screening, lipid Z13.220 ; Screening for diabetes mellitus Z13.1 and Tobacco abuse counseling Z71.6 [place] [address] [address] [id number] [address] [place] [address] Dec, [place] [address] [place] [id number] [address] [place] [address] Dec, [facility] [address] [address] Dec, Lateral meniscus tear S83.28 9A [facility] [id number] [place] [address] Nov, Sore throat J02.9 [facility] [address] [address] Nov, [facility] [address] [address] Nov, [facility] [address] [address] Oct, Acute pain of left knee M25. 562 ; Low back pain M54.5 and Chronic prescription opiate use Z79.899 [facility] [address] [address] Aug, Plantar fasciitis M72.2 [place] [address] [address] Jul, Metatarsus primus varus Q66. 2 and Bunion of great toe of left foot M20.12 [place] [address] [address] 30 Jun, 2015 Chronic migraine 346.70 ; Bi polar disorder 296.80 ; Bilateral foot pain 729.5 ; Cellulitis 682.9 and Lumbosacral radiculopathy at L5 724.4 [facility] [address] [address] 16 Jun, 2015 Plantar fasciitis, bilateral 728.71 [place] [address] [address] 27 Apr, 2015 Major depression, recurrent 296.30 ; Anxiety, generalized 300.02 ; No condition on [place] II V71.09 and No condition on axis III V71.09 [facility] [address] [facility] [id number] [address] [place] [address] Apr, Unspecified episodic mood di sorder 296.90 [facility] [address] [id number] [address] [place] [address] 08 Apr, 2015 Acute pharyngitis 462 [facility] [address] [facility] [id number] [address] [place] [address] Apr, [facility] [address] [id number] [address] [place] [address] Apr, Major depression, recurrent 296.30 ; Anxiety 300.00 ; No condition on [place] II V71.09 and No condition on axis III V71.09 [facility] [address] [facility] [id number] [address] [place] [address] Mar, Unspecified episodic mood di sorder 296.90 and 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 [facility] [address] [facility] [id number] [address] [place] [address] Mar, [facility] [address] [id number] [address] [place] [id number] February, Dental examination V72.2 [facility] [address] [facility] [id number] [address] [place] [address] February, [facility] [address] [facility] [id number] [address] [place] [address] February, [facility] [address] [facility] [id number] [address] [place] [address] Jan, [facility] [address] [facility] [id number] [address] [place] [address] Jan, [facility] [address] [facility] [id number] [address] [place] [address] Dec, [facility] [address] [facility] [id number] [address] [place] [address] Dec, [facility] [address] [id number] [address] [place] [address], [place] [address] Dec, [facility] [address] [id number] [address] [place] [address], [place] [address] Dec, [facility] [address] [id number] [address] [place] [address], [place] [address] Oct, [facility] [address] [id number] [address] [place] [address], [place] [address] Oct, [facility] [address] [id number] [address] [place] [address], [place] [address] Aug, [facility] [address] [id number] [address] [place] [address], [place] [address] Aug, [facility] [address] [id number] [address] [place] [address], [place] [address] Aug, [facility] [address] [id number] [address] [place] [address], [place] [address] Aug, [facility] [address] [id number] [address] [place] [address], [place] [address] Jul, [facility] [address] [id number] [address] [place] [address], [place] [address] Jul, [facility] [address] [id number] [address] [place] [address], [place] [address] Jul, [facility] [address] [id number] [address] [place] [address], [place] [address] Jul, [facility] [address] [id number] [address] [place] [address], [place] [address] Jun, [facility] [address] [id number] [address] [place] [address], [place] [address] Jun, [facility] [address] [id number] [address] [place] [address], [place] [address] 17 Jun, 2014 [facility] [address] [id number] [address] [place] [address], [place] [address] Jun, [facility] [address] [id number] [address] [place] [address], [place] [address] Jun, [facility] [address] [id number] [address] [place] [address], [place] [address] Jun, [facility] [address] [id number] [address] [place] [address], [place] [address] May, [facility] [address] [id number] [address] [place] [address], [place] [address] May, [facility] [address] [id number] [address] [place] [address], [place] [address] Mar, [facility] [address] [id number] [address] [place] [address], [place] [address] Mar, [facility] [address] [id number] [address] [place] [address], [place] [address] February, [facility] [address] [id number] [address] [place] [address], [place] [address] February, [facility] [address] [id number] [address] [place] [address], [place] [address] Jan, [facility] [address] [id number] [address] [place] [address], [place] [address] Jan, [facility] [address] [id number] [address] [place] [address], [place] [address] Jan, [facility] [address] [id number] [address] [place] [address], [place] [address] Jan, [facility] [address] [id number] [address] [place] [address], [place] [address] Jan, [facility] [address] [id number] [address] [place] [address], [place] [address] Jan, [facility] [address] [id number] [address] [place] [address], [place] [address] Dec, [facility] [address] [id number] [address] [place] [address], [place] [address] Dec, [facility] [address] [id number] [address] [place] [address], [place] [address] Nov, [facility] [address] [id number] [address] [place] [address], [place] [address] Nov, [facility] [address] [id number] [address] [place] [address], [place] [address] Oct, [facility] [address] [id number] [address] [place] [address], [place] [address] Oct, [facility] [address] [id number] [address] [place] [address], [place] [address] Sep, [facility] [address] [id number] [address] [place] [address], [place] [address] Sep, [facility] [address] [id number] [address] [place] [address], [place] [address] Sep, [facility] [address] [id number] [address] [place] [address], [place] [address] Sep, [facility] [address] [id number] [address] [place] [address], [place] [address] Jul, [facility] [address] [id number] [address] [place] [address], [place] [address] Jul, [facility] [address] [id number] [address] [place] [address], [place] [address] Jul, [facility] [address] [id number] [address] [place] [address], [place] [address] Jun, [facility] [address] [id number] [address] [place] [address], [place] [address] Jun, [facility] [address] [id number] [address] [place] [address], [place] [address] Jun, [facility] [address] [id number] [address] [place] [address], [place] [address] Jun, [facility] [address] [id number] [facility] [place] [address] 05 Jun, 2012 [facility] [address] [id number] [address] [place] [address], [place] [address] 05 Jun, 2012 [facility] [address] [id number] [address] [place] [address], [place] [address] 04 Jun, 2013 [facility] [address] [id number] [address] [place] [address], [place] [address] May, [facility] [address] [id number] [address] [place] [address], [place] [address] Apr, [facility] [address] [id number] [address] [place] [address], [place] [address] Apr, [facility] [address] [id number] [address] [place] [address], [place] [address] Apr, [facility] [address] [id number] [address] [place] [address], [place] [address] Apr, [facility] [address] [id number] [address] [place] [address], [place] [address] Apr, [facility] [address] [id number] [address] [place] [address], [place] [address] Apr, [facility] [address] [id number] [address] [place] [address], [place] [address] Apr, [facility] [address] [id number] [address] [place] [address], [place] [address] Mar, [facility] [address] [id number] [address] [place] [address], [place] [address] Mar, [facility] [address] [id number] [address] [place] [address], [place] [address] Mar, [facility] [address] [id number] [address] [place] [address], [place] [address] Mar, [facility] [address] [id number] [address] [place] [address], [place] [address] 11 Mar, 2013 [facility] [address] [id number] [address] [place] [address], [place] [address] 06 Mar, 2013 [facility] [address] [id number] [address] [place] [address], [place] [address] February, [facility] [address] [id number] [address] [place] [address], [place] [address] February, [facility] [address] [id number] [address] [place] [address], [place] [address] February, [facility] [address] [id number] [address] [place] [address], [place] [address] Jan, [facility] [address] [id number] [address] [place] [address], [place] [address] Jan, [facility] [address] [id number] [address] [place] [address], [place] [address] Jan, [facility] [address] [id number] [address] [place] [address], [place] [address] Jan, [facility] [address] [id number] [address] [place] [address], [place] [address] Dec, [facility] [address] [id number] [address] [place] [address], [place] [address] 14 Nov, 2012 [facility] [address] [id number] [address] [place] [address], [place] [address] Oct, [facility] [address] [id number] [address] [place] [address], [place] [address] Oct, [facility] [address] [id number] [address] [place] [address], [place] [address] Oct, [facility] [address] [id number] [address] [place] [address], [place] [address] Sep, [facility] [address] [id number] [address] [place] [address], [place] [address] Sep, [facility] [address] [id number] [address] [place] [address], [place] [address] Sep, [facility] [address] [id number] [address] [place] [address], [place] [address] Sep, [facility] [address] [id number] [address] [place] [address], [place] [address] Jul, [facility] [address] [id number] [address] [place] [address], [place] [address] Jul, [facility] [address] [id number] [address] [place] [address], [place] [address] Jul, [facility] [address] [id number] [address] [place] [address], [place] [address] Jul, [facility] [address] [id number] [address] [place] [address], [place] [address] Jul, [facility] [address] [id number] [address] [place] [address], [place] [address] Jul, [facility] [address] [id number] [address] [place] [address], [place] [address] Jul, [facility] [address] [id number] [address] [place] [address], [place] [address] 27 Jun, 2012 [facility] [address] [id number] [address] [place] [address], [place] [address] 25 Jun, 2012 [facility] [address] [id number] [address] [place] [address], [place] [address] 18 Jun, 2012 [facility] [address] [id number] [id number] 17 Jun, 2012 [facility] [address] [id number] [address] [place] [address], [place] [address] 12 Jun, 2012 [facility] [address] [id number] [address] [place] [address], [place] [address] 11 Jun, 2012 [facility] [address] [id number] [address] [place] [address], [place] [address] Apr, [facility] [address] [id number] [address] [place] [address], [place] [address] Apr, [facility] [address] [id number] [address] [place] [address], [place] [address] Apr, [facility] [address] [id number] [address] [place] [address], [place] [address] February, [facility] [address] [id number] [address] [place] [address], [place] [address] Dec, [facility] [address] [id number] [address] [place] [address], [place] [address] Dec, [facility] [address] [id number] [address] [place] [address], [place] [address] Dec, [facility] [address] [id number] [address] [place] [address], [place] [address] Nov, [facility] [address] [id number] [address] [place] [address], [place] [address] Nov, [facility] [address] [id number] [address] [place] [address], [place] [address] Oct, [facility] [address] [id number] [address] [place] [address], [place] [address] Oct, [facility] [address] [id number] [address] [place] [address], [place] [address] Oct, [facility] [address] [id number] [address] [place] [address], [place] [address] Sep, [facility] [address] [id number] [address] [place] [address], [place] [address] Sep, [facility] [address] [id number] [address] [place] [address], [place] [address] 15 Sep, 2011 [facility] [address] [id number] [address] [place] [address], [place] [address] 14 Sep, 2011 [facility] [address] [id number] [address] [place] [address], [place] [address] 14 Sep, 2011 [facility] [address] [id number] [address] [place] [address], [place] [address] 18 Aug, 2011 [facility] [address] [id number] [address] [place] [address], [place] [address] 17 Aug, 2011 [facility] [address] [id number] [address] [place] [address], [place] [address] 08 Aug, 2011 [facility] [address] [id number] [address] [place] [address], [place] [address] Aug, [facility] [address] [id number] [address] [place] [address], [place] [address] 27 Jul, 2011 [facility] [address] [id number] [address] [place] [address], [place] [address] 20 Jul, 2011 [facility] [address] [id number] [address] [place] [address], [place] [address] Jul, [facility] [address] [id number] [address] [place] [address], [place] [address] Jul, [facility] [address] [id number] [address] [place] [address], [place] [address] Jul, [facility] [address] [id number] [address] [place] [address], [place] [address] Apr, [facility] [address] [id number] [address] [place] [address], [place] [address] 28 Sep, 2010 [facility] [address] [id number] [address] [place] [address], [place] [address] 10 Sep, 2010 [facility] [address] [id number] [address] [place] [address], [place] [address] Sep, [facility] [address] [id number] [address] [place] [address], [place] [address] Aug, [facility] [address] [id number] [address] [place] [address], [place] [address] Aug, [facility] [address] [id number] [address] [place] [address], [place] [address] 10 Aug, 2010 [facility] [address] [id number] [address] [place] [address], [place] [address] 27 Jul, 2010 [facility] [address] [id number] [address] [place] [address], [place] [address] 16 Jun, 2010 [facility] [address] [id number] [address] [place] [address], [place] [address] 14 Apr, 2010 [facility] [address] [id number] [address] [place] [address], [place] [address] 10 Apr, 2010 [facility] [address] [id number] [address] [place] [address], [place] [address] 12 Jan, 2010 [facility] [address] [id number] [address] [place] [address], [place] [address] 17 Nov, 2009 [facility] [address] [id number] [address] [place] [address], [place] [address] Sep, [facility] [address] [id number] [address] [place] [address], [place] [address] Aug, [facility] [address] [id number] [address] [place] [id number] 12 Aug, 2009 [facility] [address] [id number] [address] [place] [id number] 03 Aug, 2009 [facility] [address] [id number] [address] [place] [id number] 16 Jun, 2009 [facility] [address] [id number] [address] [place] [address], [place] [address] 10 May, 2009 [facility] [address] [id number] [address] [place] [id number] 19 Mar, 2009 [facility] [address] [id number] [address] [place] [id number] 15 Mar, 2009 [facility] [address] [id number] [address] [place] [id number] Nov, [facility] [address] [facility] [id number] [address] [place] [id number] Nov, IMMUNIZATIONS No Known Immunizations SOCIAL HISTORY Never Assessed REASON FOR VISIT PLAN OF CARE VITAL SIGNS Height 60 in 2014-10-23 Weight 213.4 lbs 2014-10-23 Temperature 96.4 degrees Fahrenheit 2014-10-23 Heart Rate 89 bpm 2014-10-23 Respiratory Rate 22 2014-10-23 Blood pressure systolic 112 mmHg 2014-10-23 Blood pressure diastolic 76 mmHg 2014-10-23 MEDICATIONS Unknown Medications RESULTS No Results PROCEDURES [...]
--- OUTSIDE RECORDS SUMMARY | 2019-12-27 00:46 | XMS REPORT ---
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 Name Role Phone ARNIE Laar Unavailable PROBLEMS Type Condition ICD9-CM Code EWA30-EI Code Onset Dates Condition S tatus SNOMED Code Problem Breast lesion N64.9 Active 723132 004 Problem Chronic prescription opiate use Z79.899 Active 349843799 Problem BMI 40.0-44.9, adult Z68.41 Active 245578688 Problem Axillary hidradenitis suppurativa L73.2 Active 332100865 Problem Low back pain M54.5 Active 971083 005 Problem Migraine with aura and without status migrainosu s, not intractable G43.109 Active 2440698 Problem Adjustment disorder with mixed anxiety and depressed mood F43.23 Active 94951514 Problem Bipolar disorder in partial remission, most recent episode unspecified type F31.70 Active 9338457 ALLERGIES No Information ENCOUNTERS Encounter Location Date Diagnosis [facility] [id number] [place] [address] Jul, Low back pain M54.5 [facility] [id number] [address] [place] [address] 28 Jun, 2018 BMI 40.0-44.9, adult Z68.41 ; Axillary hidradenitis suppurativa L73.2 and Low back pain M54.5 [facility] [id number] [place] [address] 11 Jun, 2017 [facility] [address] [facility] [id number] [address] [place] [address] May, Plantar fasciitis of right f oot M72.2 [facility] [address] [id number] [address] [place] [address] Jan, Breast lesion N64.9 [facility] [address] [address] Jan, Breast lesion N64.9 [facility] [address] [address] Jan, Breast lesion N64.9 [facility] [address] [address] Jan, [facility] [address] [address] Dec, Breast lesion N64.9 [facility] [address] [address] Oct, BMI 40.0-44.9, adult Z68.41 ; Low back pain M54.5 ; Chronic prescription opiate use Z79.899 and Breast lesion N64.9 [facility] [address] [id number] [address] [place] [address] Oct, Adjustment disorder with mix ed anxiety and depressed mood F43.23 and Bipolar disorder in partial remission, most recent episode unspecified type F31.70 [facility] [address] [id number] [address] [place] [address] Oct, Adjustment disorder with mix ed anxiety and depressed mood F43.23 and Bipolar disorder in partial remission, most recent episode unspecified type F31.70 [facility] [id number] [place] [address] Sep, Sore throat J02.9 ; Other vi ral agents as the cause of diseases classified elsewhere B97.89 and Acute pharyngitis due to other specified organisms J02.8 [facility] [id number] [place] [address] Sep, Breast lesion N64.9 [facility] [address] [address] 09 Sep, 2016 Breast lump N[address] [place] [address] [facility] [id number] [address] [place] [address] 18 Jul, 2016 Elevated fasting glucose R73 .01 [place] [address] [facility] [id number] [address] [place] [address] 18 Jul, 2016 Elevated fasting glucose R73 .01 [place] [id number] [place] [address] 14 Jul, 2016 Pelvic pain R10.2 ; Screenin g, lipid Z13.220 and Screening for diabetes mellitus Z13.1 [place] [address] [address] 15 Jun, 2016 Pelvic pain R10.2 and Vagina l candidiasis B37.3 [facility] [place] [id number] [place] [address] 14 Jun, 2016 Abdominal pain, lower R10.30 [facility] [place] [id number] [place] [address] 14 Jun, 2016 [place] [address] [address] 07 Mar, 2016 Acute pain of right shoulder M25.511 [place] [id number] [place] [address] Mar, Right anterior shoulder pain M25.511 [facility] [place] [id number] [place] [address] February, Acute pain of right shoulder M25.511 [place] [id number] [place] [address] Jan, Low back pain M54.5 ; Migrai ne G43.909 ; Screening, lipid Z13.220 ; Screening for diabetes mellitus Z13.1 and Tobacco abuse counseling Z71.6 [place] [id number] [place] [address] Dec, [place] [address] [place] [id number] [address] [place] [address] Dec, [facility] [address] [address] Dec, Lateral meniscus tear S83.28 9A [facility] [id number] [place] [address] Nov, Sore throat J02.9 [facility] [address] [address] Nov, [facility] [address] [address] Nov, [facility] [address] [address] Oct, Acute pain of left knee M25. 562 ; Low back pain M54.5 and Chronic prescription opiate use Z79.899 [facility] [address] [address] Aug, Plantar fasciitis M72.2 [place] [address] [address] Jul, Metatarsus primus varus Q66. 2 and Bunion of great toe of left foot M20.12 [place] [address] [address] 30 Jun, 2015 Chronic migraine 346.70 ; Bi polar disorder 296.80 ; Bilateral foot pain 729.5 ; Cellulitis 682.9 and Lumbosacral radiculopathy at L5 724.4 [facility] [address] [address] 16 Jun, 2015 Plantar fasciitis, bilateral 728.71 [place] [address] [address] 27 Apr, 2015 Major depression, recurrent 296.30 ; Anxiety, generalized 300.02 ; No condition on [employer] [place] V71.09 and No condition on axis III V71.09 [facility] [address] [facility] [id number] [address] [place] [address] Apr, Unspecified episodic mood di sorder 296.90 [facility] [address] [id number] [address] [place] [address] 08 Apr, 2015 Acute pharyngitis 462 [facility] [address] [facility] [id number] [address] [place] [address] Apr, [facility] [address] [id number] [address] [place] [address] Apr, Major depression, recurrent 296.30 ; Anxiety 300.00 ; No condition on [employer] [place] [employer] V71.09 and No condition on axis III V71.09 [facility] [address] [facility] [id number] [address] [place] [address] Mar, Unspecified episodic mood di sorder 296.90 and 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 [facility] [address] [facility] [id number] [address] [place] [address] Mar, [facility] [address] [id number] [address] [place] [id number] February, Dental examination V72.2 [facility] [address] [facility] [id number] [address] [place] [address] February, [facility] [address] [facility] [id number] [address] [place] [address] February, [facility] [address] [facility] [id number] [address] [place] [address] Jan, [facility] [address] [facility] [id number] [address] [place] [address] Jan, [facility] [address] [facility] [id number] [address] [place] [address] Dec, [facility] [address] [facility] [id number] [address] [place] [address] Dec, [facility] [address] [id number] [address] [place] [address], [place] [address] Dec, [facility] [address] [id number] [address] [place] [address], [place] [address] Dec, [facility] [address] [id number] [address] [place] [address], [place] [address] Oct, [facility] [address] [id number] [address] [place] [address], [place] [address] Oct, [facility] [address] [id number] [address] [place] [address], [place] [address] Aug, [facility] [address] [id number] [address] [place] [address], [place] [address] Aug, [facility] [address] [id number] [address] [place] [address], [place] [address] Aug, [facility] [address] [id number] [address] [place] [address], [place] [address] Aug, [facility] [address] [id number] [address] [place] [address], [place] [address] Jul, [facility] [address] [id number] [address] [place] [address], [place] [address] Jul, [facility] [address] [id number] [address] [place] [address], [place] [address] Jul, [facility] [address] [id number] [address] [place] [address], [place] [address] Jul, [facility] [address] [id number] [address] [place] [address], [place] [address] Jun, [facility] [address] [id number] [address] [place] [address], [place] [address] Jun, [facility] [address] [id number] [address] [place] [address], [place] [address] 17 Jun, 2014 [facility] [address] [id number] [address] [place] [address], [place] [address] Jun, [facility] [address] [id number] [address] [place] [address], [place] [address] Jun, [facility] [address] [id number] [address] [place] [address], [place] [address] Jun, [facility] [address] [id number] [address] [place] [address], [place] [address] May, [facility] [address] [id number] [address] [place] [address], [place] [address] May, [facility] [address] [id number] [address] [place] [address], [place] [address] Mar, [facility] [address] [id number] [address] [place] [address], [place] [address] Mar, [facility] [address] [id number] [address] [place] [address], [place] [address] February, [facility] [address] [id number] [address] [place] [address], [place] [address] February, [facility] [address] [id number] [address] [place] [address], [place] [address] Jan, [facility] [address] [id number] [address] [place] [address], [place] [address] Jan, [facility] [address] [id number] [address] [place] [address], [place] [address] Jan, [facility] [address] [id number] [address] [place] [address], [place] [address] Jan, [facility] [address] [id number] [address] [place] [address], [place] [address] Jan, [facility] [address] [id number] [address] [place] [address], [place] [address] Jan, [facility] [address] [id number] [address] [place] [address], [place] [address] Dec, [facility] [address] [id number] [address] [place] [address], [place] [address] Dec, [facility] [address] [id number] [address] [place] [address], [place] [address] Nov, [facility] [address] [id number] [address] [place] [address], [place] [address] Nov, [facility] [address] [id number] [address] [place] [address], [place] [address] Oct, [facility] [address] [id number] [address] [place] [address], [place] [address] Oct, [facility] [address] [id number] [address] [place] [address], [place] [address] Sep, [facility] [address] [id number] [address] [place] [address], [place] [address] Sep, [facility] [address] [id number] [address] [place] [address], [place] [address] Sep, [facility] [address] [id number] [address] [place] [address], [place] [address] Sep, [facility] [address] [id number] [address] [place] [address], [place] [address] Jul, [facility] [address] [id number] [address] [place] [address], [place] [address] Jul, [facility] [address] [id number] [address] [place] [address], [place] [address] Jul, [facility] [address] [id number] [address] [place] [address], [place] [address] Jun, [facility] [address] [id number] [address] [place] [address], [place] [address] Jun, [facility] [address] [id number] [address] [place] [address], [place] [address] Jun, [facility] [address] [id number] [address] [place] [address], [place] [address] Jun, [facility] [address] [id number] [facility] [place] [address] 05 Jun, 2012 [facility] [address] [id number] [address] [place] [address], [place] [address] 05 Jun, 2012 [facility] [address] [id number] [address] [place] [address], [place] [address] 04 Jun, 2013 [facility] [address] [id number] [address] [place] [address], [place] [address] May, [facility] [address] [id number] [address] [place] [address], [place] [address] Apr, [facility] [address] [id number] [address] [place] [address], [place] [address] Apr, [facility] [address] [id number] [address] [place] [address], [place] [address] Apr, [facility] [address] [id number] [address] [place] [address], [place] [address] Apr, [facility] [address] [id number] [address] [place] [address], [place] [address] Apr, [facility] [address] [id number] [address] [place] [address], [place] [address] Apr, [facility] [address] [id number] [address] [place] [address], [place] [address] Apr, [facility] [address] [id number] [address] [place] [address], [place] [address] Mar, [facility] [address] [id number] [address] [place] [address], [place] [address] Mar, [facility] [address] [id number] [address] [place] [address], [place] [address] Mar, [facility] [address] [id number] [address] [place] [address], [place] [address] Mar, [facility] [address] [id number] [address] [place] [address], [place] [address] 11 Mar, 2013 [facility] [address] [id number] [address] [place] [address], [place] [address] 06 Mar, 2013 [facility] [address] [id number] [address] [place] [address], [place] [address] February, [facility] [address] [id number] [address] [place] [address], [place] [address] February, [facility] [address] [id number] [address] [place] [address], [place] [address] February, [facility] [address] [id number] [address] [place] [address], [place] [address] Jan, [facility] [address] [id number] [address] [place] [address], [place] [address] Jan, [facility] [address] [id number] [address] [place] [address], [place] [address] Jan, [facility] [address] [id number] [address] [place] [address], [place] [address] Jan, [facility] [address] [id number] [address] [place] [address], [place] [address] Dec, [facility] [address] [id number] [address] [place] [address], [place] [address] 14 Nov, 2012 [facility] [address] [id number] [address] [place] [address], [place] [address] Oct, [facility] [address] [id number] [address] [place] [address], [place] [address] Oct, [facility] [address] [id number] [address] [place] [address], [place] [address] Oct, [facility] [address] [id number] [address] [place] [address], [place] [address] Sep, [facility] [address] [id number] [address] [place] [address], [place] [address] Sep, [facility] [address] [id number] [address] [place] [address], [place] [address] Sep, [facility] [address] [id number] [address] [place] [address], [place] [address] Sep, [facility] [address] [id number] [address] [place] [address], [place] [address] Jul, [facility] [address] [id number] [address] [place] [address], [place] [address] Jul, [facility] [address] [id number] [address] [place] [address], [place] [address] Jul, [facility] [address] [id number] [address] [place] [address], [place] [address] Jul, [facility] [address] [id number] [address] [place] [address], [place] [address] Jul, [facility] [address] [id number] [address] [place] [address], [place] [address] Jul, [facility] [address] [id number] [address] [place] [address], [place] [address] Jul, [facility] [address] [id number] [address] [place] [address], [place] [address] 27 Jun, 2012 [facility] [address] [id number] [address] [place] [address], [place] [address] 25 Jun, 2012 [facility] [address] [id number] [address] [place] [address], [place] [address] 18 Jun, 2012 [facility] [address] [id number] [place] [id number] 17 Jun, 2012 [facility] [address] [id number] [address] [place] [address], [place] [address] 12 Jun, 2012 [facility] [address] [id number] [address] [place] [address], [place] [address] 11 Jun, 2012 [facility] [address] [id number] [address] [place] [address], [place] [id number] Apr, [facility] [address] [id number] [address] [place] [address], [place] [address] Apr, [facility] [address] [id number] [address] [place] [address], [place] [id number] Apr, [facility] [address] [id number] [address] [place] [address], [place] [id number] February, [facility] [address] [id number] [address] [place] [address], [place] [address] Dec, [facility] [address] [id number] [address] [place] [address], [place] [address] Dec, [facility] [address] [id number] [address] [place] [address], [place] [address] Dec, [facility] [address] [id number] [address] [place] [address], [place] [address] Nov, [facility] [address] [id number] [address] [place] [address], [place] [address] Nov, [facility] [address] [id number] [address] [place] [address], [place] [id number] Oct, [facility] [address] [id number] [address] [place] [address], [place] [address] Oct, [facility] [address] [id number] [address] [place] [address], [place] [address] Oct, [facility] [address] [id number] [address] [place] [address], [place] [id number] Sep, [facility] [address] [id number] [address] [place] [address], [place] [id number] Sep, [facility] [address] [id number] [address] [place] [address], [place] [id number] 15 Sep, 2011 [facility] [address] [id number] [address] [place] [address], [place] [id number] 14 Sep, 2011 [facility] [address] [id number] [address] [place] [address], [place] [id number] 14 Sep, 2011 [facility] [address] [id number] [address] [place] [address], [place] [address] 18 Aug, 2011 [facility] [address] [id number] [address] [place] [address], [place] [id number] 17 Aug, 2011 [facility] [address] [id number] [address] [place] [address], [place] [address] 08 Aug, 2011 [facility] [address] [id number] [address] [place] [address], [place] [address] Aug, [facility] [address] [id number] [address] [place] [address], [place] [address] 27 Jul, 2011 [facility] [address] [id number] [address] [place] [address], [place] [address] 20 Jul, 2011 [facility] [address] [id number] [address] [place] [address], [place] [id number] Jul, [facility] [address] [id number] [address] [place] [address], [place] [address] Jul, [facility] [address] [id number] [address] [place] [address], [place] [address] Jul, [facility] [address] [id number] [address] [place] [address], [place] [address] Apr, [facility] [address] [id number] [address] [place] [address], [place] [address] 28 Sep, 2010 [facility] [address] [id number] [address] [place] [address], [place] [id number] 10 Sep, 2010 [facility] [address] [id number] [address] [place] [address], [place] [address] Sep, [facility] [address] [id number] [address] [place] [address], [place] [address] Aug, [facility] [address] [id number] [address] [place] [address], [place] [address] Aug, [facility] [address] [id number] [address] [place] [address], [place] [address] 10 Aug, 2010 [facility] [address] [id number] [address] [place] [address], [place] [id number] 27 Jul, 2010 [facility] [address] [id number] [address] [place] [address], [place] [id number] 16 Jun, 2010 [facility] [address] [id number] [address] [place] [address], [place] [address] 14 Apr, 2010 [facility] [address] [id number] [address] [place] [address], [place] [address] 10 Apr, 2010 [facility] [address] [id number] [address] [place] [address], [place] [id number] 12 Jan, 2010 [facility] [address] [id number] [address] [place] [address], [place] [address] 17 Nov, 2009 [facility] [address] [id number] [address] [place] [address], [place] [address] Sep, [facility] [place] [address] [id number] [address] [place] [address], [place] [id number] Aug, [facility] [place] [address] [id number] [address] [place] [id number] 12 Aug, 2009 [facility] [place] [address] [id number] [address] [place] [id number] 03 Aug, 2009 [facility] [address] [id number] [address] [place] [id number] 16 Jun, 2009 [facility] [address] [id number] [address] [place] [address], [place] [id number] 10 May, 2009 [facility] [address] [id number] [address] [place] [id number] 19 Mar, 2009 [facility] [address] [id number] [address] [place] [id number] 15 Mar, 2009 [facility] [address] [id number] [address] [place] [id number] Nov, [facility] [address] [facility] [id number] [address] [place] [id number] Nov, IMMUNIZATIONS No Known Immunizations SOCIAL HISTORY Never Assessed REASON FOR VISIT PLAN OF CARE VITAL SIGNS Height 59.75 in 2014-08-06 Weight 203.38 lbs 2014-08-06 Temperature 98.4 degrees Fahrenheit 2014-08-06 Heart Rate 68 bpm 2014-08-06 Respiratory Rate 28 2014-08-06 Blood pressure systolic 102 mmHg 2014-08-06 Blood pressure diastolic 78 mmHg 2014-08-06 MEDICATIONS Unknown Medications RESULTS No Results PROCEDURES [...]
--- OUTSIDE RECORDS SUMMARY | 2019-12-27 00:46 | XMS REPORT ---
Author Author Lena Narayan Organization [facility] Address [address] [place] [address] Care Team Providers Care Car Wash Attendant Automatic Name Role Phone NIKOLAS Narayan Unavailable PROBLEMS Type Condition ICD9-CM Code [id number] Code Onset Dates Condition S tatus SNOMED Code Problem Breast lesion N64.9 Active 451489 004 Problem Chronic prescription opiate use Z79.899 Active 718933103 Problem BMI 40.0-44.9, adult Z68.41 Active 490047429 Problem Axillary hidradenitis suppurativa L73.2 Active 712303962 Problem Low back pain M54.5 Active 720877 005 Problem Migraine with aura and without status migrainosu s, not intractable G43.109 Active 9068663 Problem Adjustment disorder with mixed anxiety and depressed mood F43.23 Active 04402150 Problem Bipolar disorder in partial remission, most recent episode unspecified type F31.70 Active 2871178 ALLERGIES No Information ENCOUNTERS Encounter Location Date Diagnosis [place] [id number] [place] [address] Jul, Low back pain M54.5 [facility] [address] [place] [id number] [address] [place] [id number] 28 Jun, 2018 BMI 40.0-44.9, adult Z68.41 ; Axillary hidradenitis suppurativa L73.2 and Low back pain M54.5 [facility] [address] [place] [id number] [address] [place] [address] 11 Jun, 2017 [facility] [address] [place] [id number] [address] [place] [phone] May, Plantar fasciitis of right f oot M72.2 [facility] [address] [place] [id number] [address] [place] [address] Jan, Breast lesion N64.9 [facility] [address] [facility] [id number] [address] [place] [address] Jan, Breast lesion N64.9 [facility] [address] [facility] [id number] [address] [place] [address] Jan, Breast lesion N64.9 [facility] [address] [facility] [id number] [address] [place] [address] Jan, [facility] [address] [facility] [id number] [address] [place] [address] Dec, Breast lesion N64.9 [facility] [address] [place] [id number] [address] [place] [address] Oct, BMI 40.0-44.9, adult Z68.41 ; Low back pain M54.5 ; Chronic prescription opiate use Z79.899 and Breast lesion N64.9 [facility] [address] [facility] [id number] [address] [place] [address] Oct, Adjustment disorder with mix ed anxiety and depressed mood F43.23 and Bipolar disorder in partial remission, most recent episode unspecified type F31.70 [facility] [address] [place] [id number] [address] [place] [address] Oct, Adjustment disorder with mix ed anxiety and depressed mood F43.23 and Bipolar disorder in partial remission, most recent episode unspecified type F31.70 [facility] [address] [facility] [id number] [address] [place] [address] Sep, Sore throat J02.9 ; Other vi ral agents as the cause of diseases classified elsewhere B97.89 and Acute pharyngitis due to other specified organisms J02.8 [facility] [address] [facility] [id number] [address] [place] [address] Sep, Breast lesion N64.9 [facility] [address] [place] [id number] [address] [place] [phone] 09 Sep, 2016 Breast lump N63 [place] [address] [place] [id number] [place] [address] 18 Jul, 2016 Elevated fasting glucose R73 .01 [place] [address] [place] [id number] [place] [address] 18 Jul, 2016 Elevated fasting glucose R73 .01 [place] [address] [address] 14 Jul, 2016 Pelvic pain R10.2 ; Screenin g, lipid Z13.220 and Screening for diabetes mellitus Z13.1 [place] [address] [address] 15 Jun, 2016 Pelvic pain R10.2 and Vagina l candidiasis B37.3 [facility] [place] [address] [address] 14 Jun, 2016 Abdominal pain, lower R10.30 [facility] [place] [address] [address] 14 Jun, 2016 [place] [address] [address] 07 Mar, 2016 Acute pain of right shoulder M25.511 [place] [address] [address] Mar, Right anterior shoulder pain M25.511 [facility] [place] [address] [address] February, Acute pain of right shoulder M25.511 [place] [address] [place] [id number] [place] [address] Jan, Low back pain M54.5 ; Migrai ne G43.909 ; Screening, lipid Z13.220 ; Screening for diabetes mellitus Z13.1 and Tobacco abuse counseling Z71.6 [place] [address] [address] Dec, [facility] [address] [place] [address] Dec, [facility] [address] [address] Dec, Lateral meniscus tear S83.28 9A [facility] [address] [address] Nov, Sore throat J02.9 [facility] [address] [address] Nov, [facility] [address] [address] Nov, [facility] [address] [address] Oct, Acute pain of left knee M25. 562 ; Low back pain M54.5 and Chronic prescription opiate use Z79.899 [facility] [address] [address] Aug, Plantar fasciitis M72.2 [place] [address] [address] Jul, Metatarsus primus varus Q66. 2 and Bunion of great toe of left foot M20.12 [place] [address] [address] 30 Jun, 2015 Chronic migraine 346.70 ; Bi polar disorder 296.80 ; Bilateral foot pain 729.5 ; Cellulitis 682.9 and Lumbosacral radiculopathy at L5 724.4 [place] [address] [address] 16 Jun, 2015 Plantar fasciitis, bilateral 728.71 [place] [address] [address] 27 Apr, 2015 Major depression, recurrent 296.30 ; Anxiety, generalized 300.02 ; No condition on Jermyn II V71.09 and No condition on axis III V71.09 [facility] [address] [id number] [address] [place] [address] Apr, Unspecified episodic mood di sorder 296.90 [facility] [address] [id number] [address] [place] [address] Apr, Acute pharyngitis 462 [facility] [address] [facility] [id number] [address] [place] [address] Apr, [facility] [address] [id number] [address] [place] [address] Apr, Major depression, recurrent 296.30 ; Anxiety 300.00 ; No condition on Jermyn II V71.09 and No condition on axis III V71.09 [facility] [address] [facility] [id number] [address] [place] [address] Mar, Unspecified episodic mood di sorder 296.90 and 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 [facility] [address] [facility] [id number] [address] [place] [phone] Mar, [facility] [address] [id number] [address] [place] [id number] February, Dental examination V72.2 [facility] [address] [facility] [id number] [address] [place] [address] February, [facility] [address] [facility] [id number] [address] [place] [phone] February, [facility] [address] [facility] [id number] [address] [place] [phone] Jan, [facility] [address] [facility] [id number] [address] [place] [phone] Jan, [facility] [address] [facility] [id number] [address] [place] [address] Dec, [facility] [address] [facility] [id number] [address] [place] [phone] Dec, [facility] [address] [id number] [address] [place] [address], [place] [address] Dec, [facility] [address] [id number] [address] [place] [address], [place] [address] Dec, [facility] [address] [id number] [address] [place] [address], [place] [address] Oct, [facility] [address] [id number] [address] [place] [address], [place] [address] Oct, [facility] [address] [id number] [address] [place] [address], [place] [address] Aug, [facility] [address] [id number] [address] [place] [address], [place] [address] Aug, [facility] [address] [id number] [address] [place] [address], [place] [address] Aug, [facility] [address] [id number] [address] [place] [address], [place] [address] Aug, [facility] [address] [id number] [address] [place] [address], [place] [address] Jul, [facility] [address] [id number] [address] [place] [phone] Jul, [facility] [address] [id number] [address] [place] [address], [place] [address] Jul, [facility] [address] [id number] [address] [place] [phone] Jul, [facility] [address] [id number] [address] [place] [address], [place] [address] Jun, [facility] [address] [id number] [address] [place] [address], [place] [address] Jun, [facility] [address] [id number] [address] [place] [address], [place] [address] 17 Jun, 2014 [facility] [address] [id number] [address] [place] [phone] Jun, [facility] [address] [id number] [address] [place] [address], [place] [address] Jun, [facility] [address] [id number] [address] [place] [address], [place] [address] Jun, [facility] [address] [id number] [address] [place] [address], [place] [address] May, [facility] [address] [id number] [address] [place] [address], [place] [address] May, [facility] [address] [id number] [address] [place] [address], [place] [address] Mar, [facility] [address] [id number] [address] [place] [address], [place] [address] Mar, [facility] [address] [id number] [address] [place] [address], [place] [address] February, [facility] [address] [id number] [address] [place] [address], [place] [address] February, [facility] [address] [id number] [address] [place] [address], [place] [address] Jan, [facility] [address] [id number] [address] [place] [address], [place] [address] Jan, [facility] [address] [id number] [address] [place] [address], [place] [address] Jan, [facility] [address] [id number] [address] [place] [address], [place] [address] Jan, [facility] [address] [id number] [address] [place] [address], [place] [address] Jan, [facility] [address] [id number] [address] [place] [address], [place] [address] Jan, [facility] [address] [id number] [address] [place] [address], [place] [address] Dec, [facility] [address] [id number] [address] [place] [address], [place] [address] Dec, [facility] [address] [id number] [address] [place] [address], [place] [address] Nov, [facility] [address] [id number] [address] [place] [address], [place] [address] Nov, [facility] [address] [id number] [address] [place] [address], [place] [address] Oct, [facility] [address] [id number] [address] [place] [address], [place] [address] Oct, [facility] [address] [id number] [address] [place] [address], [place] [address] Sep, [facility] [address] [id number] [address] [place] [address], [place] [address] Sep, [facility] [address] [id number] [address] [place] [address], [place] [address] Sep, [facility] [address] [id number] [address] [place] [address], [place] [address] Sep, [facility] [address] [id number] [address] [place] [address], [place] [address] Jul, [facility] [address] [id number] [address] [place] [address], [place] [address] Jul, [facility] [address] [id number] [address] [place] [address], [place] [address] Jul, [facility] [address] [id number] [address] [place] [address], [place] [address] Jun, [facility] [address] [id number] [address] [place] [address], [place] [address] Jun, [facility] [address] [id number] [address] [place] [address], [place] [address] Jun, [facility] [address] [id number] [address] [place] [address], [place] [address] 09 Jun, 2012 [facility] [address] [id number] [address] [place] [address], [place] [address] 05 Jun, 2012 [facility] [address] [id number] [address] [place] [address], [place] [address] 05 Jun, 2012 [facility] [address] [id number] [address] [place] [address], [place] [address] 04 Jun, 2013 [facility] [address] [id number] [address] [place] [address], [place] [address] May, [facility] [address] [id number] [address] [place] [address], [place] [address] Apr, [facility] [address] [id number] [address] [place] [address], [place] [address] Apr, [facility] [address] [id number] [address] [place] [address], [place] [address] Apr, [facility] [address] [id number] [address] [place] [address], [place] [address] Apr, [facility] [address] [id number] [address] [place] [address], [place] [address] Apr, [facility] [address] [id number] [address] [place] [address], [place] [address] Apr, [facility] [address] [id number] [address] [place] [address], [place] [address] Apr, [facility] [address] [id number] [address] [place] [address], [place] [address] Mar, [facility] [address] [id number] [address] [place] [address], [place] [address] Mar, [facility] [address] [id number] [address] [place] [address], [place] [address] Mar, [facility] [address] [id number] [address] [place] [address], [place] [address] Mar, [facility] [address] [id number] [address] [place] [address], [place] [address] 11 Mar, 2013 [facility] [address] [id number] [address] [place] [address], [place] [address] Mar, [facility] [address] [id number] [address] [place] [address], [place] [address] February, [facility] [address] [id number] [address] [place] [address], [place] [address] February, [facility] [address] [id number] [address] [place] [address], [place] [address] February, [facility] [address] [id number] [address] [place] [address], [place] [address] Jan, [facility] [address] [id number] [address] [place] [address], [place] [address] Jan, [facility] [address] [id number] [address] [place] [address], [place] [address] Jan, [facility] [address] [id number] [address] [place] [address], [place] [address] Jan, [facility] [address] [id number] [address] [place] [address], [place] [address] Dec, [facility] [address] [id number] [address] [place] [address], [place] [address] 14 Nov, 2012 [facility] [address] [id number] [address] [place] [address], [place] [address] Oct, [facility] [address] [id number] [address] [place] [address], [place] [address] Oct, [facility] [address] [id number] [address] [place] [address], [place] [address] Oct, [facility] [address] [id number] [address] [place] [address], [place] [address] Sep, [facility] [address] [id number] [address] [place] [address], [place] [address] Sep, [facility] [address] [id number] [address] [place] [address], [place] [address] Sep, [facility] [address] [id number] [address] [place] [address], [place] [address] Sep, [facility] [address] [id number] [address] [place] [address], [place] [address] Jul, [facility] [address] [id number] [address] [place] [address], [place] [address] Jul, [facility] [address] [id number] [address] [place] [address], [place] [address] Jul, [facility] [address] [id number] [address] [place] [address], [place] [address] Jul, [facility] [address] [id number] [address] [place] [address], [place] [address] Jul, [facility] [address] [id number] [address] [place] [address] Jul, [facility] [address] [id number] [address] [place] [address] Jul, [facility] [address] [id number] [address] [place] [address] 27 Jun, 2012 [facility] [address] [id number] [address] [place] [address] 25 Jun, 2012 [facility] [address] [id number] [address] [place] [id number] 18 Jun, 2012 [facility] [address] [id number] [id number] 17 Jun, 2012 [facility] [address] [id number] [address] [place] [address] 12 Jun, 2012 [facility] [address] [id number] [address] [place] [address] 11 Jun, 2012 [facility] [address] [id number] [address] [place] [address] Apr, [facility] [address] [id number] [address] [place] [address], [place] [address] Apr, [facility] [address] [id number] [address] [place] [address], [place] [address] Apr, [facility] [address] [id number] [address] [place] [address], [place] [address] February, [facility] [address] [id number] [address] [place] [address], [place] [address] Dec, [facility] [address] [id number] [address] [place] [address], [place] [address] Dec, [facility] [address] [id number] [address] [place] [address], [place] [address] Dec, [facility] [address] [id number] [address] [place] [address], [place] [address] Nov, [facility] [address] [id number] [address] [place] [address], [place] [address] Nov, [facility] [address] [id number] [address] [place] [address], [place] [address] Oct, [facility] [address] [id number] [address] [place] [address], [place] [address] Oct, [facility] [address] [id number] [address] [place] [address], [place] [address] Oct, [facility] [address] [id number] [address] [place] [address], [place] [address] Sep, [facility] [address] [id number] [address] [place] [address], [place] [address] Sep, [facility] [address] [id number] [address] [place] [address], [place] [address] 15 Sep, 2011 [facility] [address] [id number] [address] [place] [address], [place] [address] 14 Sep, 2011 [facility] [address] [id number] [address] [place] [address], [place] [address] 14 Sep, 2011 [facility] [address] [id number] [address] [place] [address], [place] [address] 18 Aug, 2011 [facility] [address] [id number] [address] [place] [address], [place] [address] 17 Aug, 2011 [facility] [address] [id number] [address] [place] [address], [place] [address] 08 Aug, 2011 [facility] [address] [id number] [address] [place] [address], [place] [address] Aug, [facility] [address] [id number] [address] [place] [address], [place] [address] 27 Jul, 2011 [facility] [address] [id number] [address] [place] [address], [place] [address] Jul, [facility] [address] [id number] [address] [place] [address], [place] [address] Jul, [facility] [address] [id number] [address] [place] [address], [place] [address] Jul, [facility] [address] [id number] [address] [place] [address], [place] [address] Jul, [facility] [address] [id number] [address] [place] [address], [place] [address] Apr, [facility] [address] [id number] [address] [place] [address], [place] [address] 28 Sep, 2010 [facility] [address] [id number] [address] [place] [address], [place] [address] Sep, [facility] [address] [id number] [address] [place] [address], [place] [address] Sep, [facility] [address] [id number] [address] [place] [address], [place] [address] Aug, [facility] [address] [id number] [address] [place] [address], [place] [address] Aug, [facility] [address] [id number] [address] [place] [address], [place] [address] 10 Aug, 2010 [facility] [address] [id number] [address] [place] [address], [place] [address] 27 Jul, 2010 [facility] [address] [id number] [address] [place] [address], [place] [address] 16 Jun, 2010 [facility] [address] [id number] [address] [place] [address], [place] [address] 14 Apr, 2010 [facility] [address] [id number] [address] [place] [address], [place] [address] 10 Apr, 2010 [facility] [address] [id number] [address] [place] [address], [place] [address] 12 Jan, 2010 [facility] [address] [id number] [address] [place] [address], [place] [address] 17 Nov, 2009 [facility] [address] [id number] [address] [place] [address], [place] [address] Sep, [facility] [address] [id number] [address] [place] [address], [place] [address] Aug, [facility] [address] [id number] [address] [place] [id number] 12 Aug, 2009 [facility] [address] [id number] [address] [place] [address], [place] [address] Aug, [facility] [address] [id number] [address] [place] [id number] 16 Jun, 2009 [facility] [address] [id number] [address] [place] [address], [place] [address] 10 May, 2009 [facility] [address] [id number] [address] [place] [id number] 19 Mar, 2009 [facility] [facility] [address] [id number] [address] [place] [address], [place] [id number] 15 Mar, 2009 [facility] [address] [id number] [address] [place] [id number] Nov, [facility] [address] [facility] [id number] [address] [place] [id number] Nov, IMMUNIZATIONS No Known Immunizations SOCIAL HISTORY Never Assessed REASON FOR VISIT PLAN OF CARE VITAL SIGNS Height 60 in 2014-12-15 Weight 214.19 lbs 2014-12-15 Temperature 97.7 degrees Fahrenheit 2014-12-15 Heart Rate 78 bpm 2014-12-15 Respiratory Rate 20 2014-12-15 Blood pressure systolic 112 mmHg 2014-12-15 Blood pressure diastolic 68 mmHg 2014-12-15 MEDICATIONS Unknown Medications RESULTS No Results PROCEDURES [...]
--- OUTSIDE RECORDS SUMMARY | 2019-12-27 00:46 | XMS REPORT ---
Author Author Lena VALDES Organization [facility] Address [address] [place] [address] Care Team Providers Care Fashion Illustrator Name Role Phone NITIN VALDES Unavailable PROBLEMS Type Condition ICD9-CM Code MAO83-DG Code Onset Dates Condition S tatus SNOMED Code Problem Breast lesion N64.9 Active 708259 004 Problem Chronic prescription opiate use Z79.899 Active 221012538 Problem BMI 40.0-44.9, adult Z68.41 Active 427439595 Problem Axillary hidradenitis suppurativa L73.2 Active 005390860 Problem Low back pain M54.5 Active 729694 005 Problem Migraine with aura and without status migrainosu s, not intractable G43.109 Active 0472295 Problem Adjustment disorder with mixed anxiety and depressed mood F43.23 Active 44774086 Problem Bipolar disorder in partial remission, most recent episode unspecified type F31.70 Active 5307395 ALLERGIES No Information ENCOUNTERS Encounter Location Date Diagnosis [facility] [id number] [address] [place] [address] Jul, Low back pain M54.5 [facility] [address] [id number] [address] [place] [address] 28 Jun, 2018 BMI 40.0-44.9, adult Z68.41 ; Axillary hidradenitis suppurativa L73.2 and Low back pain M54.5 [facility] [address] [facility] [id number] [address] [place] [address] Jun, [facility] [id number] [address] [place] [address] May, Plantar fasciitis of right f oot M72.2 [facility] [id number] [address] [place] [address] Jan, Breast lesion N64.9 [facility] [id number] [place] [address] Jan, Breast lesion N64.9 [facility] [id number] [place] [address] Jan, Breast lesion N64.9 [facility] [address] [address] Jan, [facility] [id number] [place] [address] Dec, Breast lesion N64.9 [facility] [address] [address] Oct, BMI 40.0-44.9, adult Z68.41 ; Low back pain M54.5 ; Chronic prescription opiate use Z79.899 and Breast lesion N64.9 [facility] [id number] [place] [address] Oct, Adjustment disorder with mix ed anxiety and depressed mood F43.23 and Bipolar disorder in partial remission, most recent episode unspecified type F31.70 [facility] [id number] [place] [address] Oct, Adjustment disorder with mix ed anxiety and depressed mood F43.23 and Bipolar disorder in partial remission, most recent episode unspecified type F31.70 [facility] [id number] [address] [place] [address] Sep, Sore throat J02.9 ; Other vi ral agents as the cause of diseases classified elsewhere B97.89 and Acute pharyngitis due to other specified organisms J02.8 [facility] [id number] [address] [place] [address] Sep, Breast lesion N64.9 [facility] [id number] [place] [address] Sep, Breast lump [address] [place] [address] [facility] [id number] [address] [place] [address] 18 Jul, 2016 Elevated fasting glucose R73 .01 [place] [address] [facility] [id number] [address] [place] [address] 18 Jul, 2016 Elevated fasting glucose R73 .01 [place] [address] [facility] [id number] [address] [place] [address] 14 Jul, 2016 Pelvic pain R10.2 ; Screenin g, lipid Z13.220 and Screening for diabetes mellitus Z13.1 [place] [address] [facility] [id number] [place] [address] 15 Jun, 2016 Pelvic pain R10.2 and Vagina l candidiasis B37.3 [facility] [place] [id number] [place] [address] 14 Jun, 2016 Abdominal pain, lower R10.30 [facility] [place] [address] [id number] [address] [place] [address] 14 Jun, 2016 [place] [id number] [place] [address] 07 Mar, 2016 Acute pain of right shoulder M25.511 [place] [address] [id number] [address] [place] [address] Mar, Right anterior shoulder pain M25.511 [facility] [place] [address] [id number] [address] [place] [address] February, Acute pain of right shoulder M25.511 [place] [address] [id number] [address] [place] [address] Jan, Low back pain M54.5 ; Migrai ne G43.909 ; Screening, lipid Z13.220 ; Screening for diabetes mellitus Z13.1 and Tobacco abuse counseling Z71.6 [place] [address] [facility] [id number] [address] [place] [address] Dec, [place] [address] [place] [address] [place] [address] Dec, [facility] [address] [address] Dec, Lateral meniscus tear S83.28 9A [facility] [address] [address] Nov, Sore throat J02.9 [facility] [address] [address] Nov, [facility] [address] [address] Nov, [place] [address] [address] Oct, Acute pain of left knee M25. 562 ; Low back pain M54.5 and Chronic prescription opiate use Z79.899 [place] [address] [address] Aug, Plantar fasciitis M72.2 [place] [address] [address] Jul, Metatarsus primus varus Q66. 2 and Bunion of great toe of left foot M20.12 [place] [address] [address] 30 Jun, 2015 Chronic migraine 346.70 ; Bi polar disorder 296.80 ; Bilateral foot pain 729.5 ; Cellulitis 682.9 and Lumbosacral radiculopathy at L5 724.4 [place] [address] [address] 16 Jun, 2015 Plantar fasciitis, bilateral 728.71 [place] [address] [address] 27 Apr, 2015 Major depression, recurrent 296.30 ; Anxiety, generalized 300.02 ; No condition on [place] II V71.09 and No condition on axis III V71.09 [facility] [address] [facility] [id number] [address] [place] [address] Apr, Unspecified episodic mood di sorder 296.90 [facility] [address] [facility] [id number] [address] [place] [address] Apr, Acute pharyngitis 462 [facility] [address] [facility] [id number] [address] [place] [address] Apr, [facility] [address] [facility] [id number] [address] [place] [address] Apr, Major depression, recurrent 296.30 ; Anxiety 300.00 ; No condition on [place] II V71.09 and No condition on axis III V71.09 [facility] [address] 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 [id number] [address] [place] [address] Mar, [facility] [address] [id number] [address] [place] [id number] February, Dental examination V72.2 [facility] [address] [facility] [id number] [address] [place] [address] February, [facility] [address] [facility] [id number] [address] [place] [address] February, [facility] [address] [facility] [id number] [address] [place] [address] Jan, [facility] [address] [facility] [id number] [address] [place] [address] Jan, [facility] [address] [facility] [id number] [address] [place] [address] Dec, [facility] [address] [facility] [id number] [address] [place] [address] Dec, [facility] [address] [id number] [address] [place] [address], [place] [address] Dec, [facility] [address] [id number] [address] [place] [address], [place] [address] Dec, [facility] [address] [id number] [address] [place] [address], [place] [address] Oct, [facility] [address] [id number] [address] [place] [address], [place] [address] Oct, [facility] [address] [id number] [address] [place] [address], [place] [address] Aug, [facility] [address] [id number] [address] [place] [address], [place] [address] Aug, [facility] [address] [id number] [address] [place] [address], [place] [address] Aug, [facility] [address] [id number] [address] [place] [address], [place] [address] Aug, [facility] [address] [id number] [address] [place] [address], [place] [address] Jul, [facility] [address] [id number] [address] [place] [address], [place] [address] Jul, [facility] [address] [id number] [address] [place] [address], [place] [address] Jul, [facility] [address] [id number] [address] [place] [address], [place] [address] Jul, [facility] [address] [id number] [address] [place] [address], [place] [address] Jun, [facility] [address] [id number] [address] [place] [address], [place] [address] Jun, [facility] [address] [id number] [address] [place] [address], [place] [address] Jun, [facility] [address] [id number] [address] [place] [address], [place] [address] Jun, [facility] [address] [id number] [facility] [place] [address] Jun, [facility] [address] [id number] [address] [place] [address], [place] [address] Jun, [facility] [address] [id number] [address] [place] [address], [place] [address] May, [facility] [address] [id number] [address] [place] [address], [place] [address] May, [facility] [address] [id number] [address] [place] [address], [place] [address] Mar, [facility] [address] [id number] [address] [place] [address], [place] [address] Mar, [facility] [address] [id number] [address] [place] [address], [place] [address] February, [facility] [address] [id number] [address] [place] [address], [place] [address] February, [facility] [address] [id number] [address] [place] [address], [place] [address] Jan, [facility] [address] [id number] [address] [place] [address], [place] [address] Jan, [facility] [address] [id number] [address] [place] [address], [place] [address] Jan, [facility] [address] [id number] [address] [place] [address], [place] [address] Jan, [facility] [address] [id number] [address] [place] [address], [place] [address] Jan, [facility] [address] [id number] [address] [place] [address], [place] [address] Jan, [facility] [address] [id number] [address] [place] [address], [place] [address] Dec, [facility] [address] [id number] [address] [place] [address], [place] [address] Dec, [facility] [address] [id number] [address] [place] [address], [place] [address] Nov, [facility] [address] [id number] [address] [place] [address], [place] [address] Nov, [facility] [address] [id number] [address] [place] [address], [place] [address] Oct, [facility] [address] [id number] [address] [place] [address], [place] [address] Oct, [facility] [address] [id number] [address] [place] [address], [place] [address] Sep, [facility] [address] [id number] [address] [place] [address], [place] [address] Sep, [facility] [address] [id number] [address] [place] [address], [place] [address] Sep, [facility] [address] [id number] [address] [place] [address], [place] [address] Sep, [facility] [address] [id number] [address] [place] [address], [place] [address] Jul, [facility] [address] [id number] [address] [place] [address], [place] [address] Jul, [facility] [address] [id number] [address] [place] [address], [place] [address] Jul, [facility] [address] [id number] [address] [place] [address], [place] [address] 25 Jun, 2013 [facility] [address] [id number] [address] [place] [address], [place] [address] 11 Jun, 2013 [facility] [address] [id number] [address] [place] [address], [place] [address] 10 Jun, 2013 [facility] [address] [id number] [address] [place] [address], [place] [address] 09 Jun, 2013 [facility] [address] [id number] [address] [place] [address], [place] [address] 05 Jun, 2012 [facility] [address] [id number] [address] [place] [address], [place] [address] 05 Jun, 2012 [facility] [address] [id number] [address] [place] [address], [place] [address] 04 Jun, 2013 [facility] [address] [id number] [address] [place] [address], [place] [address] May, [facility] [address] [id number] [address] [place] [address], [place] [address] Apr, [facility] [address] [id number] [address] [place] [address], [place] [address] Apr, [facility] [address] [id number] [address] [place] [address], [place] [address] Apr, [facility] [address] [id number] [address] [place] [address], [place] [address] Apr, [facility] [address] [id number] [address] [place] [address], [place] [address] Apr, [facility] [address] [id number] [address] [place] [address], [place] [address] Apr, [facility] [address] [id number] [address] [place] [address], [place] [address] Apr, [facility] [address] [id number] [address] [place] [address], [place] [address] Mar, [facility] [address] [id number] [address] [place] [address], [place] [address] Mar, [facility] [address] [id number] [address] [place] [address], [place] [address] Mar, [facility] [address] [id number] [address] [place] [address], [place] [address] Mar, [facility] [address] [id number] [address] [place] [address], [place] [address] Mar, [facility] [address] [id number] [address] [place] [address], [place] [address] Mar, [facility] [address] [id number] [address] [place] [address], [place] [address] February, [facility] [address] [id number] [address] [place] [address], [place] [address] February, [facility] [address] [id number] [address] [place] [address], [place] [address] February, [facility] [address] [id number] [address] [place] [address], [place] [address] Jan, [facility] [address] [id number] [address] [place] [address], [place] [address] Jan, [facility] [address] [id number] [address] [place] [address], [place] [address] Jan, [facility] [address] [id number] [address] [place] [address], [place] [address] Jan, [facility] [address] [id number] [address] [place] [address], [place] [address] Dec, [facility] [address] [id number] [address] [place] [address], [place] [address] Nov, [facility] [address] [id number] [address] [place] [address], [place] [address] Oct, [facility] [address] [id number] [address] [place] [address], [place] [address] Oct, [facility] [address] [id number] [address] [place] [address], [place] [address] Oct, [facility] [address] [id number] [address] [place] [address], [place] [address] Sep, [facility] [address] [id number] [address] [place] [address], [place] [address] Sep, [facility] [address] [id number] [address] [place] [address], [place] [address] Sep, [facility] [address] [id number] [address] [place] [address], [place] [address] Sep, [facility] [address] [id number] [address] [place] [address], [place] [address] Jul, [facility] [address] [id number] [address] [place] [address], [place] [address] Jul, [facility] [address] [id number] [address] [place] [address], [place] [address] Jul, [facility] [address] [id number] [address] [place] [address], [place] [address] Jul, [facility] [address] [id number] [address] [place] [address], [place] [address] Jul, [facility] [address] [id number] [address] [place] [address], [place] [address] Jul, [facility] [address] [id number] [address] [place] [address], [place] [address] Jul, [facility] [address] [id number] [address] [place] [address], [place] [address] 27 Jun, 2012 [facility] [address] [id number] [address] [place] [address], [place] [address] 25 Jun, 2012 [facility] [address] [id number] [address] [place] [address], [place] [address] 18 Jun, 2012 [facility] [address] [id number] [id number] 17 Jun, 2012 [facility] [address] [id number] [address] [place] [address], [place] [address] 12 Jun, 2012 [facility] [address] [id number] [address] [place] [address], [place] [id number] 11 Jun, 2012 [facility] [address] [id number] [address] [place] [address], [place] [id number] Apr, [facility] [address] [id number] [address] [place] [address], [place] [address] Apr, [facility] [address] [id number] [address] [place] [address], [place] [address] Apr, [facility] [address] [id number] [address] [place] [address], [place] [id number] February, [facility] [address] [id number] [address] [place] [address], [place] [address] Dec, [facility] [address] [id number] [address] [place] [address], [place] [address] Dec, [facility] [address] [id number] [address] [place] [address], [place] [address] Dec, [facility] [address] [id number] [address] [place] [address], [place] [address] Nov, [facility] [address] [id number] [address] [place] [address], [place] [address] Nov, [facility] [address] [id number] [address] [place] [address], [place] [address] Oct, [facility] [address] [id number] [address] [place] [address], [place] [address] Oct, [facility] [address] [id number] [address] [place] [address], [place] [address] Oct, [facility] [address] [id number] [address] [place] [address], [place] [address] Sep, [facility] [address] [id number] [address] [place] [address], [place] [address] Sep, [facility] [address] [id number] [address] [place] [address], [place] [id number] 15 Sep, 2011 [facility] [address] [id number] [address] [place] [address], [place] [id number] 14 Sep, 2011 [facility] [address] [id number] [address] [place] [address], [place] [id number] 14 Sep, 2011 [facility] [address] [id number] [address] [place] [address], [place] [id number] 18 Aug, 2011 [facility] [address] [id number] [address] [place] [address], [place] [address] 17 Aug, 2011 [facility] [address] [id number] [address] [place] [address], [place] [id number] 08 Aug, 2011 [facility] [address] [id number] [address] [place] [address], [place] [address] Aug, [facility] [address] [id number] [address] [place] [address], [place] [id number] 27 Jul, 2011 [facility] [address] [id number] [address] [place] [address], [place] [id number] Jul, [facility] [address] [id number] [address] [place] [address], [place] [address] Jul, [facility] [address] [id number] [address] [place] [address], [place] [id number] Jul, [facility] [address] [id number] [address] [place] [address], [place] [id number] Jul, [facility] [address] [id number] [address] [place] [address], [place] [address] Apr, [facility] [address] [id number] [address] [place] [address], [place] [id number] 28 Sep, 2010 [facility] [address] [id number] [address] [place] [address], [place] [id number] 10 Sep, 2010 [facility] [address] [id number] [address] [place] [address], [place] [address] Sep, [facility] [address] [id number] [address] [place] [address], [place] [address] Aug, [facility] [address] [id number] [address] [place] [address], [place] [address] 11 Aug, 2010 [facility] [address] [id number] [address] [place] [address], [place] [id number] 10 Aug, 2010 [facility] [address] [id number] [address] [place] [address], [place] [id number] 27 Jul, 2010 [facility] [address] [id number] [address] [place] [address], [place] [id number] 16 Jun, 2010 [facility] [address] [id number] [address] [place], [place] [address], [place] [id number] 14 Apr, 2010 [facility] [address] [id number] [address] [place] [address], [place] [id number] 10 Apr, 2010 [facility] [address] [id number] [address] [place] [address], [place] [id number] 12 Jan, 2010 [facility] [address] [id number] [address] [place] [address], [place] [id number] 17 Nov, 2009 [facility] [address] [id number] [address] [place] [address], [place] [id number] 23 Sep, 2009 [facility] [address] [id number] [address] [place] [address], [place] [id number] 12 Aug, 2009 [facility] [address] [id number] [address] [place] [address], [place] [id number] 12 Aug, 2009 [facility] [address] [id number] [address] [place] [address], [place] [id number] 03 Aug, 2009 [facility] [address] [id number] [address] [place] [address], [place] [id number] 16 Jun, 2009 [facility] [address] [id number] [address] [place] [address], [place] [id number] 10 May, 2009 [facility] [address] [id number] [address] [place] [address], [place] [id number] 19 Mar, 2009 [facility] [address] [id number] [address] [place] [id number] 15 Mar, 2009 [facility] [address] [id number] [address] [place] [id number] Nov, [facility] [address] [facility] [id number] [address] [place] [address] Nov, IMMUNIZATIONS No Known Immunizations SOCIAL HISTORY [...]
--- OUTSIDE RECORDS SUMMARY | 2019-12-27 00:46 | XMS REPORT ---
Author Author Lena Lara Organization [facility] Address [address] [place] [address] Care Team Providers Care Financial Institution Branch Manager Name Role Phone ARNIE Lara Unavailable PROBLEMS Type Condition ICD9-CM Code LTO75-UH Code Onset Dates Condition S tatus SNOMED Code Problem Breast lesion N64.9 Active 140756 004 Problem Chronic prescription opiate use Z79.899 Active 869138440 Problem BMI 40.0-44.9, adult Z68.41 Active 940626005 Problem Axillary hidradenitis suppurativa L73.2 Active 732282034 Problem Low back pain M54.5 Active 590103 005 Problem Migraine with aura and without status migrainosu s, not intractable G43.109 Active 4386542 Problem Adjustment disorder with mixed anxiety and depressed mood F43.23 Active 32553184 Problem Bipolar disorder in partial remission, most recent episode unspecified type F31.70 Active 2091541 ALLERGIES No Information ENCOUNTERS Encounter Location Date Diagnosis [facility] [id number] [address] [place] [id number] Jul, Low back pain M54.5 [facility] [address] [facility] [id number] [address] [place] [id number] 28 Jun, 2018 BMI 40.0-44.9, adult Z68.41 ; Axillary hidradenitis suppurativa L73.2 and Low back pain M54.5 [facility] [id number] [place] [id number] 11 Jun, 2017 [facility] [address] [facility] [id number] [address] [place] [address] May, Plantar fasciitis of right f oot M72.2 [facility] [address] [id number] [address] [place] [address] Jan, Breast lesion N64.9 [facility] [address] [address] Jan, Breast lesion N64.9 [facility] [address] [address] Jan, Breast lesion N64.9 [facility] [address] [address] Jan, [facility] [address] [address] Dec, Breast lesion N64.9 [facility] [address] [address] Oct, BMI 40.0-44.9, adult Z68.41 ; Low back pain M54.5 ; Chronic prescription opiate use Z79.899 and Breast lesion N64.9 [facility] [address] [id number] [address] [place] [address] Oct, Adjustment disorder with mix ed anxiety and depressed mood F43.23 and Bipolar disorder in partial remission, most recent episode unspecified type F31.70 [facility] [address] [id number] [address] [place] [address] Oct, Adjustment disorder with mix ed anxiety and depressed mood F43.23 and Bipolar disorder in partial remission, most recent episode unspecified type F31.70 [facility] [id number] [address] [place] [address] Sep, Sore throat J02.9 ; Other vi ral agents as the cause of diseases classified elsewhere B97.89 and Acute pharyngitis due to other specified organisms J02.8 [facility] [id number] [address] [place] [address] Sep, Breast lesion N64.9 [facility] [address] [address] 09 Sep, 2016 Breast lump N63 [place] [id number] [facility] [id number] [address] [place] [address] 18 Jul, 2016 Elevated fasting glucose R73 .01 [place] [address] [facility] [id number] [address] [place] [address] 18 Jul, 2016 Elevated fasting glucose R73 .01 [place] [address] [place] [id number] [place] [address] 14 Jul, 2016 Pelvic pain R10.2 ; Screenin g, lipid Z13.220 and Screening for diabetes mellitus Z13.1 [place] [address] [address] 15 Jun, 2016 Pelvic pain R10.2 and Vagina l candidiasis B37.3 [facility] [place] [address] [id number] [place] [id number] 14 Jun, 2016 Abdominal pain, lower R10.30 [facility] [place] [address] [id number] [place] [address] 14 Jun, 2016 [place] [address] [address] 07 Mar, 2016 Acute pain of right shoulder M25.511 [place] [address] [id number] [place] [address] Mar, Right anterior shoulder pain M25.511 [facility] [place] [address] [id number] [place] [address] February, Acute pain of right shoulder M25.511 [place] [address] [place] [id number] [address] [place] [address] Jan, Low back pain M54.5 ; Migrai ne G43.909 ; Screening, lipid Z13.220 ; Screening for diabetes mellitus Z13.1 and Tobacco abuse counseling Z71.6 [place] [address] [place] [id number] [address] [place] [address] Dec, [place] [address] [place] [id number] [address] [place] [address] Dec, [facility] [address] [address] Dec, Lateral meniscus tear S83.28 9A [facility] [id number] [place] [address] Nov, Sore throat J02.9 [facility] [address] [address] Nov, [facility] [address] [address] Nov, [facility] [address] [address] Oct, Acute pain of left knee M25. 562 ; Low back pain M54.5 and Chronic prescription opiate use Z79.899 [facility] [address] [address] Aug, Plantar fasciitis M72.2 [place] [address] [address] Jul, Metatarsus primus varus Q66. 2 and Bunion of great toe of left foot M20.12 [place] [address] [address] 30 Jun, 2015 Chronic migraine 346.70 ; Bi polar disorder 296.80 ; Bilateral foot pain 729.5 ; Cellulitis 682.9 and Lumbosacral radiculopathy at L5 724.4 [facility] [address] [address] 16 Jun, 2015 Plantar fasciitis, bilateral 728.71 [place] [address] [address] 27 Apr, 2015 Major depression, recurrent 296.30 ; Anxiety, generalized 300.02 ; No condition on [place] II V71.09 and No condition on axis III V71.09 [facility] [address] [facility] [id number] [address] [place] [address] Apr, Unspecified episodic mood di sorder 296.90 [facility] [address] [id number] [address] [place] [id number] 08 Apr, 2015 Acute pharyngitis 462 [facility] [address] [facility] [id number] [address] [place] [address] Apr, [facility] [address] [id number] [address] [place] [address] Apr, Major depression, recurrent 296.30 ; Anxiety 300.00 ; No condition on [place] II V71.09 and No condition on axis III V71.09 [facility] [address] [facility] [id number] [address] [place] [address] Mar, Unspecified episodic mood di sorder 296.90 and 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 [facility] [address] [facility] [id number] [address] [place] [address] Mar, [facility] [address] [id number] [address] [place] [id number] February, Dental examination V72.2 [facility] [address] [facility] [id number] [address] [place] [address] February, [facility] [address] [facility] [id number] [address] [place] [address] February, [facility] [address] [facility] [id number] [address] [place] [address] Jan, [facility] [address] [facility] [id number] [address] [place] [id number] Jan, [facility] [address] [facility] [id number] [address] [place] [address] Dec, [facility] [address] [facility] [id number] [address] [place] [id number] Dec, [facility] [address] [id number] [address] [place] [address], [place] [address] Dec, [facility] [address] [id number] [address] [place] [address], [place] [address] Dec, [facility] [address] [id number] [address] [place] [address], [place] [address] Oct, [facility] [address] [id number] [address] [place] [address], [place] [address] Oct, [facility] [address] [id number] [address] [place] [address], [place] [address] Aug, [facility] [address] [id number] [address] [place] [address], [place] [address] Aug, [facility] [address] [id number] [address] [place] [address], [place] [address] Aug, [facility] [address] [id number] [address] [place] [address], [place] [address] Aug, [facility] [address] [id number] [address] [place] [address], [place] [address] Jul, [facility] [address] [id number] [address] [place] [address], [place] [address] Jul, [facility] [address] [id number] [address] [place] [address], [place] [address] Jul, [facility] [address] [id number] [address] [place] [address], [place] [address] Jul, [facility] [address] [id number] [address] [place] [address], [place] [address] Jun, [facility] [address] [id number] [address] [place] [address], [place] [address] Jun, [facility] [address] [id number] [address] [place] [address], [place] [address] 17 Jun, 2014 [facility] [address] [id number] [address] [place] [address], [place] [address] Jun, [facility] [address] [id number] [address] [place] [address], [place] [address] Jun, [facility] [address] [id number] [address] [place] [address], [place] [address] Jun, [facility] [address] [id number] [address] [place] [address], [place] [address] May, [facility] [address] [id number] [address] [place] [address], [place] [address] May, [facility] [address] [id number] [address] [place] [address], [place] [address] Mar, [facility] [address] [id number] [address] [place] [address], [place] [address] Mar, [facility] [address] [id number] [address] [place] [address], [place] [address] February, [facility] [address] [id number] [address] [place] [address], [place] [address] February, [facility] [address] [id number] [address] [place] [address], [place] [address] Jan, [facility] [address] [id number] [address] [place] [address], [place] [address] Jan, [facility] [address] [id number] [address] [place] [address], [place] [address] Jan, [facility] [address] [id number] [address] [place] [address], [place] [address] Jan, [facility] [address] [id number] [address] [place] [address], [place] [address] Jan, [facility] [address] [id number] [address] [place] [address], [place] [address] Jan, [facility] [address] [id number] [address] [place] [address], [place] [address] Dec, [facility] [address] [id number] [address] [place] [address], [place] [address] Dec, [facility] [address] [id number] [address] [place] [address], [place] [address] Nov, [facility] [address] [id number] [address] [place] [address], [place] [address] Nov, [facility] [address] [id number] [address] [place] [address], [place] [address] Oct, [facility] [address] [id number] [address] [place] [address], [place] [address] Oct, [facility] [address] [id number] [address] [place] [address], [place] [address] Sep, [facility] [address] [id number] [address] [place] [address], [place] [address] Sep, [facility] [address] [id number] [address] [place] [address], [place] [address] Sep, [facility] [address] [id number] [address] [place] [address], [place] [address] Sep, [facility] [address] [id number] [address] [place] [address], [place] [address] Jul, [facility] [address] [id number] [address] [place] [address], [place] [address] Jul, [facility] [address] [id number] [address] [place] [address], [place] [address] Jul, [facility] [address] [id number] [address] [place] [address], [place] [address] Jun, [facility] [address] [id number] [address] [place] [address], [place] [address] Jun, [facility] [address] [id number] [address] [place] [address], [place] [address] Jun, [facility] [address] [id number] [address] [place] [address], [place] [address] Jun, [facility] [address] [id number] [facility] [place] [address] 05 Jun, 2012 [facility] [address] [id number] [address] [place] [address], [place] [address] 05 Jun, 2012 [facility] [address] [id number] [address] [place] [address], [place] [address] 04 Jun, 2013 [facility] [address] [id number] [address] [place] [address], [place] [address] May, [facility] [address] [id number] [address] [place] [address], [place] [address] Apr, [facility] [address] [id number] [address] [place] [address], [place] [address] Apr, [facility] [address] [id number] [address] [place] [address], [place] [address] Apr, [facility] [address] [id number] [address] [place] [address], [place] [address] Apr, [facility] [address] [id number] [address] [place] [address], [place] [address] Apr, [facility] [address] [id number] [address] [place] [address], [place] [address] Apr, [facility] [address] [id number] [address] [place] [address], [place] [address] Apr, [facility] [address] [id number] [address] [place] [address], [place] [address] Mar, [facility] [address] [id number] [address] [place] [address], [place] [address] Mar, [facility] [address] [id number] [address] [place] [address], [place] [address] Mar, [facility] [address] [id number] [address] [place] [address], [place] [address] Mar, [facility] [address] [id number] [address] [place] [address], [place] [address] 11 Mar, 2013 [facility] [address] [id number] [address] [place] [address], [place] [address] 06 Mar, 2013 [facility] [address] [id number] [address] [place] [address], [place] [address] February, [facility] [address] [id number] [address] [place] [address], [place] [address] February, [facility] [address] [id number] [address] [place] [address], [place] [address] February, [facility] [address] [id number] [address] [place] [address], [place] [address] Jan, [facility] [address] [id number] [address] [place] [address], [place] [address] Jan, [facility] [address] [id number] [address] [place] [address], [place] [address] Jan, [facility] [address] [id number] [address] [place] [address], [place] [address] Jan, [facility] [address] [id number] [address] [place] [address], [place] [address] Dec, [facility] [address] [id number] [address] [place] [address], [place] [address] 14 Nov, 2012 [facility] [address] [id number] [address] [place] [address], [place] [address] Oct, [facility] [address] [id number] [address] [place] [address], [place] [address] Oct, [facility] [address] [id number] [address] [place] [address], [place] [address] Oct, [facility] [address] [id number] [address] [place] [address], [place] [address] Sep, [facility] [address] [id number] [address] [place] [address], [place] [address] Sep, [facility] [address] [id number] [address] [place] [address], [place] [address] Sep, [facility] [address] [id number] [address] [place] [address], [place] [address] Sep, [facility] [address] [id number] [address] [place] [address], [place] [address] Jul, [facility] [address] [id number] [address] [place] [address], [place] [address] Jul, [facility] [address] [id number] [address] [place] [address], [place] [address] Jul, [facility] [address] [id number] [address] [place] [address], [place] [address] Jul, [facility] [address] [id number] [address] [place] [address], [place] [address] Jul, [facility] [address] [id number] [address] [place] [address], [place] [address] Jul, [facility] [address] [id number] [address] [place] [address], [place] [address] Jul, [facility] [address] [id number] [address] [place] [address], [place] [address] 27 Jun, 2012 [facility] [address] [id number] [address] [place] [address], [place] [address] 25 Jun, 2012 [facility] [address] [id number] [address] [place] [address], [place] [address] 18 Jun, 2012 [facility] [address] [id number] 17 Jun, 2012 [facility] [address] [id number] [address] [place] [address], [place] [address] 12 Jun, 2012 [facility] [address] [id number] [address] [place] [address], [place] [address] 11 Jun, 2012 [facility] [address] [id number] [address] [place] [address], [place] [address] Apr, [facility] [address] [id number] [address] [place] [address], [place] [address] Apr, [facility] [address] [id number] [address] [place] [address], [place] [id number] Apr, [facility] [address] [id number] [address] [place] [address], [place] [id number] February, [facility] [address] [id number] [address] [place] [address], [place] [id number] Dec, [facility] [address] [id number] [address] [place] [address], [place] [id number] Dec, [facility] [address] [id number] [address] [place] [address], [place] [id number] Dec, [facility] [address] [id number] [address] [place] [address], [place] [id number] Nov, [facility] [address] [id number] [address] [place] [address], [place] [id number] Nov, [facility] [address] [id number] [address] [place] [address], [place] [address] Oct, [facility] [address] [id number] [address] [place] [address], [place] [id number] Oct, [facility] [address] [id number] [address] [place] [address], [place] [id number] Oct, [facility] [address] [id number] [address] [place] [address], [place] [id number] Sep, [facility] [address] [id number] [address] [place] [address], [place] [id number] Sep, [facility] [address] [id number] [address] [place] [address], [place] [id number] 15 Sep, 2011 [facility] [address] [id number] [address] [place] [address], [place] [id number] 14 Sep, 2011 [facility] [address] [id number] [address] [place] [address], [place] [id number] 14 Sep, 2011 [facility] [address] [id number] [address] [place] [address], [place] [id number] 18 Aug, 2011 [facility] [address] [id number] [address] [place] [address], [place] [id number] 17 Aug, 2011 [facility] [address] [id number] [address] [place] [address], [place] [id number] 08 Aug, 2011 [facility] [address] [id number] [address] [place] [address], [place] [address] Aug, [facility] [address] [id number] [address] [place] [address], [place] [id number] 27 Jul, 2011 [facility] [address] [id number] [address] [place] [address], [place] [id number] 20 Jul, 2011 [facility] [address] [id number] [address] [place] [address], [place] [id number] Jul, [facility] [address] [id number] [address] [place] [address], [place] [id number] Jul, [facility] [address] [id number] [address] [place] [address], [place] [address] Jul, [facility] [address] [id number] [address] [place] [address], [place] [address] Apr, [facility] [address] [id number] [address] [place] [address], [place] [id number] 28 Sep, 2010 [facility] [address] [id number] [address] [place] [address], [place] [id number] 10 Sep, 2010 [facility] [address] [id number] [address] [place] [address], [place] [id number] Sep, [facility] [address] [id number] [address] [place] [address], [place] [id number] Aug, [facility] [address] [id number] [address] [place] [address], [place] [id number] Aug, [facility] [address] [id number] [address] [place] [address], [place] [id number] 10 Aug, 2010 [facility] [address] [id number] [address] [place] [address], [place] [id number] 27 Jul, 2010 [facility] [address] [id number] [address] [place] [address], [place] [id number] 16 Jun, 2010 [facility] [address] [id number] [address] [place] [address], [place] [id number] 14 Apr, 2010 [facility] [address] [id number] [address] [place] [address], [place] [id number] 10 Apr, 2010 [facility] [address] [id number] [address] [place] [address], [place] [id number] 12 Jan, 2010 [facility] [address] [id number] [address] [place] [address], [place] [id number] 17 Nov, 2009 [facility] [address] [id number] [address] [place] [address], [place] [id number] Sep, [facility] [address] [id number] [address] [place] [address], [place] [id number] Aug, [facility] [address] [id number] [address] [place] [id number] 12 Aug, 2009 [facility] [address] [id number] [address] [place] [id number] 03 Aug, 2009 [facility] [address] [id number] [address] [place] [id number] 16 Jun, 2009 [facility] [address] [id number] [address] [place] [address], [place] [id number] 10 May, 2009 [facility] [address] [id number] [address] [place] [id number] 19 Mar, 2009 [facility] [address] [id number] [address] [place] [id number] 15 Mar, 2009 [facility] [address] [id number] [address] [place] [id number] Nov, [facility] [address] [facility] [id number] [address] [place] [id number] 13 Nov, 2008 IMMUNIZATIONS No Known Immunizations [...]
--- OUTSIDE RECORDS SUMMARY | 2019-12-27 00:47 | XMS REPORT ---
Author Author Lena Weldon Doctor Organization [facility] Address Unknown Phone Unavailable Care Team Providers Care Corporate Manager Name Role Phone Migration, Doctor Unavailable Unavailable PROBLEMS Type Condition ICD9-CM Code EJD59-IN Code Onset Dates Condition S tatus SNOMED Code Problem Breast lesion N64.9 Active 310777 004 Problem Chronic prescription opiate use Z79.899 Active 422699420 Problem BMI 40.0-44.9, adult Z68.41 Active 419429380 Problem Axillary hidradenitis suppurativa L73.2 Active 207245558 Problem Low back pain M54.5 Active 091811 005 Problem Migraine with aura and without status migrainosu s, not intractable G43.109 Active 1132971 Problem Adjustment disorder with mixed anxiety and depressed mood F43.23 Active 22640259 Problem Bipolar disorder in partial remission, most recent episode unspecified type F31.70 Active 2099963 ALLERGIES No Information ENCOUNTERS Encounter Location Date Diagnosis [facility] [place] [address] [id number] [address] [place] [address] Jul, Low back pain M54.5 [facility] [place] [address] [id number] [address] [place] [address] Jun, BMI 40.0-44.9, adult Z68.41 ; Axillary hidradenitis suppurativa L73.2 and Low back pain M54.5 [facility] [place] [address] [id number] [address] [place] [address] Jun, [facility] [address] [facility] [id number] [address] [place] [address] May, Plantar fasciitis of right f oot M72.2 [facility] [place] [address] [id number] [address] [place] [address] Jan, Breast lesion N64.9 [facility] [place] [address] [facility] [id number] [address] [place] [address] Jan, Breast lesion N64.9 [facility] [place] [address] [facility] [id number] [address] [place] [address] Jan, Breast lesion N64.9 [facility] [place] [address] [facility] [id number] [address] [place] [address] Jan, [facility] [place] [address] [facility] [id number] [address] [place] [address] Dec, Breast lesion N64.9 [facility] [place] [address] [facility] [id number] [address] [place] [address] Oct, BMI 40.0-44.9, adult Z68.41 ; Low back pain M54.5 ; Chronic prescription opiate use Z79.899 and Breast lesion N64.9 [facility] [place] [address] [id number] [address] [place] [address] Oct, Adjustment disorder with mix ed anxiety and depressed mood F43.23 and Bipolar disorder in partial remission, most recent episode unspecified type F31.70 [facility] [place] [address] [facility] [id number] [address] [place] [address] Oct, Adjustment disorder with mix ed anxiety and depressed mood F43.23 and Bipolar disorder in partial remission, most recent episode unspecified type F31.70 [facility] [address] [facility] [id number] [address] [place] [address] Sep, Sore throat J02.9 ; Other vi ral agents as the cause of diseases classified elsewhere B97.89 and Acute pharyngitis due to other specified organisms J02.8 [facility] [place] [address] [facility] [id number] [address] [place] [address] Sep, Breast lesion N64.9 [facility] [place] [address] [facility] [id number] [address] [place] [address] Sep, Breast lump N63 [facility] [place] [address] [id number] [address] [place] [address] 18 Jul, 2016 Elevated fasting glucose R73 .01 [place] [address] [address] 18 Jul, 2016 Elevated fasting glucose R73 .01 [place] [address] [address] 14 Jul, 2016 Pelvic pain R10.2 ; Screenin g, lipid Z13.220 and Screening for diabetes mellitus Z13.1 [place] [address] [address] 15 Jun, 2016 Pelvic pain R10.2 and Vagina l candidiasis B37.3 [facility] [address] [place] [address] [address] 14 Jun, 2016 Abdominal pain, lower R10.30 [facility] [place] [address] [address] 14 Jun, 2016 [place] [address] [address] 07 Mar, 2016 Acute pain of right shoulder M25.511 [place] [address] [address] Mar, Right anterior shoulder pain M25.511 [facility] [address] [place] [address] [address] February, Acute pain of right shoulder M25.511 [place] [address] [address] Jan, Low back pain M54.5 ; Migrai ne G43.909 ; Screening, lipid Z13.220 ; Screening for diabetes mellitus Z13.1 and Tobacco abuse counseling Z71.6 [place] [address] [id number] [address] [place] [address] Dec, [place] [address] [address] Dec, [place] [id number] [address] Dec, Lateral meniscus tear S83.28 [address] [facility] [address] [address] Nov, Sore throat J02.9 [facility] [place] [address] [address] Nov, [facility] [place] [address] [address] Nov, [place] [address] [address] Oct, Acute pain of left knee M25. 562 ; Low back pain M54.5 and Chronic prescription opiate use Z79.899 [place] [address] [address] Aug, Plantar fasciitis M72.2 [place] [address] [address] Jul, Metatarsus primus varus Q66. 2 and Bunion of great toe of left foot M20.12 [place] [address] [address] 30 Jun, 2015 Chronic migraine 346.70 ; Bi polar disorder 296.80 ; Bilateral foot pain 729.5 ; Cellulitis 682.9 and Lumbosacral radiculopathy at L5 724.4 [place] [address] [address] 16 Jun, 2015 Plantar fasciitis, bilateral 728.71 [place] [address] [address] Apr, Major depression, recurrent 296.30 ; Anxiety, generalized 300.02 ; No condition on Shattuck II V71.09 and No condition on axis III V71.09 [place] [address] [address] Apr, Unspecified episodic mood di sorder 296.90 [facility] [place] [address] [facility] [id number] [address] [place] [address] Apr, Acute pharyngitis 462 [facility] [place] [address] [facility] [id number] [address] [place] [address] Apr, [facility] [place] [address] [facility] [id number] [address] [place] [address] Apr, Major depression, recurrent 296.30 ; Anxiety 300.00 ; No condition on Shattuck II V71.09 and No condition on axis III V71.09 [facility] [place] [address] [facility] [id number] [address] [place] [address] Mar, Unspecified episodic mood di sorder 296.90 and 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 [facility] [place] [address] [facility] [id number] [address] [place] [address] Mar, [facility] [address] [id number] [address] [place] [id number] February, Dental examination V72.2 [facility] [place] [address] [facility] [id number] [address] [place] [address] February, [facility] [place] [address] [facility] [id number] [address] [place] [address] February, [facility] [place] [address] [facility] [id number] [address] [place] [address] Jan, [facility] [place] [address] [facility] [id number] [address] [place] [address] Jan, [facility] [place] [address] [facility] [id number] [address] [place] [address] Dec, [facility] [place] [address] [facility] [id number] [address] [place] [address] Dec, [facility] [place] [address] [facility] [id number] [address] [place] [address] Dec, [facility] [address] [id number] [address] [place] [address], [place] [address] Dec, [facility] [address] [id number] [address] [place] [address], [place] [address] Oct, [facility] [address] [id number] [address] [place] [address], [place] [address] Oct, [facility] [address] [id number] [address] [place] [address], [place] [address] Aug, [facility] [address] [id number] [address] [place] [address], [place] [address] Aug, [facility] [address] [id number] [address] [place] [address], [place] [address] Aug, [facility] [address] [id number] [address] [place] [address], [place] [address] Aug, [facility] [address] [id number] [address] [place] [address], [place] [address] Jul, [facility] [address] [id number] [address] [place] [address], [place] [address] Jul, [facility] [address] [id number] [address] [place] [address], [place] [address] Jul, [facility] [address] [id number] [address] [place] [address], [place] [address] Jul, [facility] [address] [id number] [address] [place] [address], [place] [address] Jun, [facility] [address] [id number] [address] [place] [address], [place] [address] 23 Jun, 2014 [facility] [address] [id number] [address] [place] [address], [place] [address] Jun, [facility] [address] [id number] [address] [place] [address], [place] [address] Jun, [facility] [address] [id number] [address] [place] [address], [place] [address] Jun, [facility] [address] [id number] [address] [place] [address], [place] [address] Jun, [facility] [address] [id number] [address] [place] [address], [place] [address] May, [facility] [address] [id number] [address] [place] [address], [place] [address] May, [facility] [address] [id number] [address] [place] [address], [place] [address] Mar, [facility] [address] [id number] [address] [place] [address], [place] [address] Mar, [facility] [address] [id number] [address] [place] [address], [place] [address] February, [facility] [address] [id number] [address] [place] [address], [place] [address] February, [facility] [address] [id number] [address] [place] [address], [place] [address] Jan, [facility] [address] [id number] [address] [place] [address], [place] [address] Jan, [facility] [address] [id number] [address] [place] [address], [place] [address] Jan, [facility] [address] [id number] [address] [place] [address], [place] [address] Jan, [facility] [address] [id number] [address] [place] [address], [place] [address] Jan, [facility] [address] [id number] [address] [place] [address], [place] [address] Jan, [facility] [address] [id number] [address] [place] [address], [place] [address] Dec, [facility] [address] [id number] [address] [place] [address], [place] [address] Dec, [facility] [address] [id number] [address] [place] [address], [place] [address] Nov, [facility] [address] [id number] [address] [place] [address], [place] [address] Nov, [facility] [address] [id number] [address] [place] [address], [place] [address] Oct, [facility] [address] [id number] [address] [place] [address], [place] [address] Oct, [facility] [address] [id number] [address] [place] [address], [place] [address] Sep, [facility] [address] [id number] [address] [place] [address], [place] [address] Sep, [facility] [address] [id number] [address] [place] [address], [place] [address] Sep, [facility] [address] [id number] [address] [place] [address], [place] [address] Sep, [facility] [address] [id number] [address] [place] [address], [place] [address] Jul, [facility] [address] [id number] [address] [place] [address], [place] [address] Jul, [facility] [address] [id number] [address] [place] [address], [place] [address] Jul, [facility] [address] [id number] [address] [place] [address], [place] [address] 25 Jun, 2013 [facility] [address] [id number] [address] [place] [address], [place] [address] 11 Jun, 2013 [facility] [address] [id number] [address] [place] [address], [place] [address] 10 Jun, 2013 [facility] [address] [id number] [address] [place] [address], [place] [address] 09 Jun, 2013 [facility] [address] [id number] [address] [place] [address], [place] [address] 05 Sep, 2012 [facility] [address] [id number] [address] [place] [address], [place] [address] 05 Jun, 2012 [facility] [address] [id number] [address] [place] [address], [place] [address] 04 Jun, 2013 [facility] [address] [id number] [address] [place] [address], [place] [address] May, [facility] [address] [id number] [address] [place] [address], [place] [address] Apr, [facility] [address] [id number] [address] [place] [address], [place] [address] Apr, [facility] [address] [id number] [address] [place] [address], [place] [address] Apr, [facility] [address] [id number] [address] [place] [address], [place] [address] Apr, [facility] [address] [id number] [address] [place] [address], [place] [address] Apr, [facility] [address] [id number] [address] [place] [address], [place] [address] Apr, [facility] [address] [id number] [address] [place] [address], [place] [address] Apr, [facility] [address] [id number] [address] [place] [address], [place] [address] Mar, [facility] [address] [id number] [address] [place] [address], [place] [address] Mar, [facility] [address] [id number] [address] [place] [address], [place] [address] Mar, [facility] [address] [id number] [address] [place] [address], [place] [address] Mar, [facility] [address] [id number] [address] [place] [address], [place] [address] Mar, [facility] [address] [id number] [address] [place] [address], [place] [address] 06 Mar, 2013 [facility] [address] [id number] [address] [place] [address], [place] [address] February, [facility] [address] [id number] [address] [place] [address], [place] [address] February, [facility] [address] [id number] [address] [place] [address], [place] [address] February, [facility] [address] [id number] [address] [place] [address], [place] [address] Jan, [facility] [address] [id number] [address] [place] [address], [place] [address] Jan, [facility] [address] [id number] [address] [place] [address], [place] [address] Jan, [facility] [address] [id number] [address] [place] [address], [place] [address] Jan, [facility] [address] [id number] [address] [place] [address], [place] [address] Dec, [facility] [address] [id number] [address] [place] [address], [place] [address] Nov, [facility] [address] [id number] [address] [place] [address], [place] [address] Oct, [facility] [address] [id number] [address] [place] [address], [place] [address] Oct, [facility] [address] [id number] [address] [place] [address], [place] [address] Oct, [facility] [address] [id number] [address] [place] [address], [place] [address] Sep, [facility] [address] [id number] [address] [place] [address], [place] [address] Sep, [facility] [address] [id number] [address] [place] [address], [place] [address] Sep, [facility] [address] [id number] [address] [place] [address], [place] [address] Sep, [facility] [address] [id number] [address] [place] [address], [place] [address] Jul, [facility] [address] [id number] [address] [place] [address], [place] [address] Jul, [facility] [address] [id number] [address] [place] [address], [place] [address] Jul, [facility] [address] [id number] [address] [place] [address], [place] [address] Jul, [facility] [address] [id number] [address] [place] [address], [place] [address] Jul, [facility] [address] [id number] [address] [place] [address], [place] [address] Jul, [facility] [address] [id number] [address] [place] [address], [place] [address] Jul, [facility] [address] [id number] [address] [place] [address], [place] [address] 27 Jun, 2012 [facility] [address] [id number] [address] [place] [address] 25 Jun, 2012 [facility] [address] [id number] [address] [place] [address] 18 Jun, 2012 [facility] [place] [id number] [place] [id number] 17 Jun, 2012 [facility] [address] [id number] [address] [place] [address], [place] [address] 12 Jun, 2012 [facility] [address] [id number] [address] [place] [address], [place] [address] 11 Jun, 2012 [facility] [address] [id number] [address] [place] [address] Apr, [facility] [address] [id number] [address] [place] [id number] Apr, [facility] [address] [id number] [address] [place] [address], [place] [address] Apr, [facility] [address] [id number] [address] [place] [address], [place] [address] February, [facility] [address] [id number] [address] [place] [address], [place] [address] Dec, [facility] [address] [id number] [address] [place] [address], [place] [address] Dec, [facility] [address] [id number] [address] [place] [address], [place] [address] Dec, [facility] [address] [id number] [address] [place] [address], [place] [address] Nov, [facility] [address] [id number] [address] [place] [address], [place] [address] Nov, [facility] [address] [id number] [address] [place] [address], [place] [address] Oct, [facility] [address] [id number] [address] [place] [address], [place] [address] Oct, [facility] [address] [id number] [address] [place] [address], [place] [address] Oct, [facility] [address] [id number] [address] [place] [address], [place] [address] Sep, [facility] [address] [id number] [address] [place] [address], [place] [address] Sep, [facility] [address] [id number] [address] [place] [address], [place] [address] 15 Sep, 2011 [facility] [address] [id number] [address] [place] [address], [place] [address] 14 Sep, 2011 [facility] [address] [id number] [address] [place] [address], [place] [address] 14 Sep, 2011 [facility] [address] [id number] [address] [place] [address], [place] [address] 18 Aug, 2011 [facility] [address] [id number] [address] [place] [address], [place] [address] 17 Aug, 2011 [facility] [address] [id number] [address] [place] [address], [place] [address] Aug, [facility] [address] [id number] [address] [place] [address], [place] [address] Aug, [facility] [address] [id number] [address] [place] [address], [place] [address] 27 Jul, 2011 [facility] [address] [id number] [address] [place] [address], [place] [address] Jul, [facility] [address] [id number] [address] [place] [address], [place] [address] Jul, [facility] [address] [id number] [address] [place] [address], [place] [address] Jul, [facility] [address] [id number] [address] [place] [address], [place] [address] Jul, [facility] [address] [id number] [address] [place] [address], [place] [address] Apr, [facility] [address] [id number] [address] [place] [address], [place] [address] Sep, [facility] [address] [id number] [address] [place] [address], [place] [address] Sep, [facility] [address] [id number] [address] [place] [address], [place] [address] Sep, [facility] [address] [id number] [address] [place] [address], [place] [address] Aug, [facility] [address] [id number] [address] [place] [address], [place] [address] Aug, [facility] [address] [id number] [address] [place] [address], [place] [address] 10 Aug, 2010 [facility] [address] [id number] [address] [place] [address], [place] [address] 27 Jul, 2010 [facility] [address] [id number] [address] [place] [address], [place] [address] 16 Jun, 2010 [facility] [address] [id number] [address] [place] [address], [place] [address] 14 Apr, 2010 [facility] [address] [id number] [address] [place] [address], [place] [id number] 10 Apr, 2010 [facility] [address] [id number] [address] [place] [address], [place] [address] 12 Jan, 2010 [facility] [address] [id number] [address] [place] [address], [place] [address] 17 Nov, 2009 [facility] [address] [id number] [address] [place] [address], [place] [address] Sep, [facility] [address] [id number] [address] [place] [id number] 12 Aug, 2009 [facility] [address] [id number] [address] [place] [address], [place] [address] Aug, [facility] [address] [id number] [address] [place] [id number] 03 Aug, 2009 [facility] [address] [id number] [address] [place] [id number] 16 Jun, 2009 [facility] [address] [id number] [address] [place] [id number] 10 May, 2009 [facility] [address] [id number] [address] [place] [address], [place] [address] Mar, [facility] [address] [id number] [address] [place] [id number] 15 Mar, 2009 [facility] [address] [id number] [address] [place] [id number] 19 Nov, 2008 [facility] [address] [id number] [address] [place] [address] [place] [address] 13 Nov, 2008 IMMUNIZATIONS No Known Immunizations SOCIAL HISTORY Never Assessed [place] [place] VITAL SIGNS MEDICATIONS Unknown [...]
--- OUTSIDE RECORDS SUMMARY | 2019-12-27 00:47 | XMS REPORT ---
Author Author Lena Weldon Doctor Organization [facility] Address Unknown Phone Unavailable Care Team Providers Care Violin Teacher Name Role Phone Migration, Doctor Unavailable Unavailable PROBLEMS Type Condition ICD9-CM Code [id number] Code Onset Dates Condition S tatus SNOMED Code Problem Breast lesion N64.9 Active 076853 004 Problem Chronic prescription opiate use Z79.899 Active 159579824 Problem BMI 40.0-44.9, adult Z68.41 Active 457793347 Problem Axillary hidradenitis suppurativa L73.2 Active 707781201 Problem Low back pain M54.5 Active 515304 005 Problem Migraine with aura and without status migrainosu s, not intractable G43.109 Active 6110844 Problem Adjustment disorder with mixed anxiety and depressed mood F43.23 Active 94846141 Problem Bipolar disorder in partial remission, most recent episode unspecified type F31.70 Active 1449961 ALLERGIES No Information ENCOUNTERS Encounter Location Date Diagnosis [facility] [address] [id number] [address] [place] [address] Jul, Low back pain M54.5 [facility] [address] [id number] [address] [place] [address] 28 Jun, 2018 BMI 40.0-44.9, adult Z68.41 ; Axillary hidradenitis suppurativa L73.2 and Low back pain M54.5 [facility] [address] [id number] [address] [place] [address] Jun, [facility] [address] [id number] [address] [place] [address] May, Plantar fasciitis of right f oot M72.2 [facility] [address] [id number] [address] [place] [phone] Jan, Breast lesion N64.9 [facility] [address] [facility] [id number] [address] [place] [address] Jan, Breast lesion N64.9 [facility] [address] [facility] [id number] [address] [place] [phone] Jan, Breast lesion N64.9 [facility] [address] [facility] [id number] [address] [place] [address] Jan, [facility] [address] [facility] [id number] [address] [place] [address] Dec, Breast lesion N64.9 [facility] [address] [facility] [id number] [address] [place] [address] Oct, BMI 40.0-44.9, adult Z68.41 ; Low back pain M54.5 ; Chronic prescription opiate use Z79.899 and Breast lesion N64.9 [facility] [address] [id number] [address] [place] [phone] Oct, Adjustment disorder with mix ed anxiety and depressed mood F43.23 and Bipolar disorder in partial remission, most recent episode unspecified type F31.70 [facility] [address] [facility] [id number] [address] [place] [address] Oct, Adjustment disorder with mix ed anxiety and depressed mood F43.23 and Bipolar disorder in partial remission, most recent episode unspecified type F31.70 [facility] [address] [facility] [id number] [address] [place] [address] Sep, Sore throat J02.9 ; Other vi ral agents as the cause of diseases classified elsewhere B97.89 and Acute pharyngitis due to other specified organisms J02.8 [facility] [address] [facility] [id number] [address] [place] [phone] Sep, Breast lesion N64.9 [facility] [address] [facility] [id number] [address] [place] [address] Sep, Breast lump N63 [facility] [address] [id number] [address] [place] [address] 18 Jul, 2016 Elevated fasting glucose R73 .01 [place] [address] [address] 18 Jul, 2016 Elevated fasting glucose R73 .01 [place] [address] [address] 14 Jul, 2016 Pelvic pain R10.2 ; Screenin g, lipid Z13.220 and Screening for diabetes mellitus Z13.1 [place] [address] [address] 15 Jun, 2016 Pelvic pain R10.2 and Vagina l candidiasis B37.3 [facility] [place] [address] [address] 14 Jun, 2016 Abdominal pain, lower R10.30 [facility] [place] [address] [address] 14 Jun, 2016 [place] [address] [address] 07 Mar, 2016 Acute pain of right shoulder M25.511 [place] [address] [address] Mar, Right anterior shoulder pain M25.511 [facility] [place] [address] [address] February, Acute pain of right shoulder M25.511 [place] [address] [address] Jan, Low back pain M54.5 ; Migrai ne G43.909 ; Screening, lipid Z13.220 ; Screening for diabetes mellitus Z13.1 and Tobacco abuse counseling Z71.6 [place] [address] [id number] [address] [place] [address] Dec, [place] [address] [address] Dec, [place] [address] [address] Dec, Lateral meniscus tear S83.28 [facility] [address] [address] Nov, Sore throat J02.9 [facility] [address] [address] Nov, [facility] [address] [address] Nov, [place] [address] [address] Oct, Acute pain of left knee M25. 562 ; Low back pain M54.5 and Chronic prescription opiate use Z79.899 [place] [address] [address] Aug, Plantar fasciitis M72.2 [place] [address] [address] Jul, Metatarsus primus varus Q66. 2 and Bunion of great toe of left foot M20.12 [place] [address] [address] 30 Jun, 2015 Chronic migraine 346.70 ; Bi polar disorder 296.80 ; Bilateral foot pain 729.5 ; Cellulitis 682.9 and Lumbosacral radiculopathy at L5 724.4 [place] [address] [address] 16 Jun, 2015 Plantar fasciitis, bilateral 728.71 [place] [address] [address] Apr, Major depression, recurrent 296.30 ; Anxiety, generalized 300.02 ; No condition on [place] II V71.09 and No condition on axis III V71.09 [place] [address] [address] Apr, Unspecified episodic mood di sorder 296.90 [facility] [address] [facility] [id number] [address] [place] [address] Apr, Acute pharyngitis 462 [facility] [address] [facility] [id number] [address] [place] [address] Apr, [facility] [address] [facility] [id number] [address] [place] [address] Apr, Major depression, recurrent 296.30 ; Anxiety 300.00 ; No condition on Tif[place] II V71.09 and No condition on axis III V71.09 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 [address] [facility] [id number] [address] [place] [address] Mar, [facility] [address] [id number] [address] [place] [id number] February, Dental examination V72.2 [facility] [address] [facility] [id number] [address] [place] [phone] February, [facility] [address] [facility] [id number] [address] [place] [address] February, [facility] [address] [facility] [id number] [address] [place] [address] Jan, [facility] [address] [facility] [id number] [address] [place] [phone] Jan, [facility] [address] [facility] [id number] [address] [place] [phone] Dec, [facility] [address] [facility] [id number] [address] [place] [address] Dec, [facility] [address] [facility] [id number] [address] [place] [phone] Dec, [facility] [address] [id number] [address] [place] [address], [place] [address] Dec, [facility] [address] [id number] [address] [place] [address], [place] [address] Oct, [facility] [address] [id number] [address] [place] [address], [place] [address] Oct, [facility] [address] [id number] [address] [place] [address], [place] [address] Aug, [facility] [address] [id number] [address] [place] [address], [place] [address] Aug, [facility] [address] [id number] [address] [place] [address], [place] [address] Aug, [facility] [address] [id number] [address] [place] [address], [place] [address] Aug, [facility] [address] [id number] [address] [place] [address], [place] [address] Jul, [facility] [address] [id number] [address] [place] [address], [place] [address] Jul, [facility] [address] [id number] [address] [place] [address], [place] [address] Jul, [facility] [address] [id number] [address] [place] [address], [place] [address] Jul, [facility] [address] [id number] [address] [place] [address], [place] [address] Jun, [facility] [address] [id number] [address] [place] [address], [place] [address] 23 Jun, 2014 [facility] [address] [id number] [address] [place] [address], [place] [address] Jun, [facility] [address] [id number] [address] [place] [address], [place] [address] Jun, [facility] [address] [id number] [address] [place] [address], [place] [address] Jun, [facility] [address] [id number] [address] [place] [address], [place] [address] Jun, [facility] [address] [id number] [address] [place] [address], [place] [address] May, [facility] [address] [id number] [address] [place] [address], [place] [address] May, [facility] [address] [id number] [address] [place] [address], [place] [address] Mar, [facility] [address] [id number] [address] [place] [address], [place] [address] Mar, [facility] [address] [id number] [address] [place] [address], [place] [address] February, [facility] [address] [id number] [address] [place] [address], [place] [address] February, [facility] [address] [id number] [address] [place] [address], [place] [address] Jan, [facility] [address] [id number] [address] [place] [address], [place] [address] Jan, [facility] [address] [id number] [address] [place] [address], [place] [address] Jan, [facility] [address] [id number] [address] [place] [address], [place] [address] Jan, [facility] [address] [id number] [address] [place] [address], [place] [address] Jan, [facility] [address] [id number] [address] [place] [address], [place] [address] Jan, [facility] [address] [id number] [address] [place] [address], [place] [address] Dec, [facility] [address] [id number] [address] [place] [address], [place] [address] Dec, [facility] [address] [id number] [address] [place] [address], [place] [address] Nov, [facility] [address] [id number] [address] [place] [address], [place] [address] Nov, [facility] [address] [id number] [address] [place] [address], [place] [address] Oct, [facility] [address] [id number] [address] [place] [address], [place] [address] Oct, [facility] [address] [id number] [address] [place] [address], [place] [address] Sep, [facility] [address] [id number] [address] [place] [address], [place] [address] Sep, [facility] [address] [id number] [address] [place] [address], [place] [address] Sep, [facility] [address] [id number] [address] [place] [address], [place] [address] Sep, [facility] [address] [id number] [address] [place] [address], [place] [address] Jul, [facility] [address] [id number] [address] [place] [address], [place] [address] Jul, [facility] [address] [id number] [address] [place] [address], [place] [address] Jul, [facility] [address] [id number] [address] [place] [address], [place] [address] 25 Jun, 2013 [facility] [address] [id number] [address] [place] [address], [place] [address] 11 Jun, 2013 [facility] [address] [id number] [address] [place] [address], [place] [address] 10 Jun, 2013 [facility] [address] [id number] [address] [place] [address], [place] [address] 09 Jun, 2013 [facility] [address] [id number] [address] [place] [address], [place] [address] 05 Sep, 2012 [facility] [address] [id number] [address] [place] [address], [place] [address] 05 Jun, 2012 [facility] [address] [id number] [address] [place] [address], [place] [address] 04 Jun, 2013 [facility] [address] [id number] [address] [place] [address], [place] [address] May, [facility] [address] [id number] [address] [place] [address], [place] [address] Apr, [facility] [address] [id number] [address] [place] [address], [place] [address] Apr, [facility] [address] [id number] [address] [place] [address], [place] [address] Apr, [facility] [address] [id number] [address] [place] [address], [place] [address] Apr, [facility] [address] [id number] [address] [place] [address], [place] [address] Apr, [facility] [address] [id number] [address] [place] [address], [place] [address] Apr, [facility] [address] [id number] [address] [place] [address], [place] [address] Apr, [facility] [address] [id number] [address] [place] [address], [place] [address] Mar, [facility] [address] [id number] [address] [place] [address], [place] [address] Mar, [facility] [address] [id number] [address] [place] [address], [place] [address] Mar, [facility] [address] [id number] [address] [place] [address], [place] [address] Mar, [facility] [address] [id number] [address] [place] [address], [place] [address] Mar, [facility] [address] [id number] [address] [place] [address], [place] [address] 06 Mar, 2013 [facility] [address] [id number] [address] [place] [address], [place] [address] February, [facility] [address] [id number] [address] [place] [address], [place] [address] February, [facility] [address] [id number] [address] [place] [address], [place] [address] February, [facility] [address] [id number] [address] [place] [address], [place] [address] Jan, [facility] [address] [id number] [address] [place] [address], [place] [address] Jan, [facility] [address] [id number] [address] [place] [address], [place] [address] Jan, [facility] [address] [id number] [address] [place] [address], [place] [address] Jan, [facility] [address] [id number] [address] [place] [address], [place] [address] Dec, [facility] [address] [id number] [address] [place] [address], [place] [address] Nov, [facility] [address] [id number] [address] [place] [address], [place] [address] Oct, [facility] [address] [id number] [address] [place] [address], [place] [address] Oct, [facility] [address] [id number] [address] [place] [address], [place] [address] Oct, [facility] [address] [id number] [address] [place] [address], [place] [address] Sep, [facility] [address] [id number] [address] [place] [address], [place] [address] Sep, [facility] [address] [id number] [address] [place] [address], [place] [address] Sep, [facility] [address] [id number] [address] [place] [address], [place] [address] Sep, [facility] [address] [id number] [address] [place] [address], [place] [address] Jul, [facility] [address] [id number] [address] [place] [address], [place] [address] Jul, [facility] [address] [id number] [address] [place] [address], [place] [address] Jul, [facility] [address] [id number] [address] [place] [address], [place] [address] Jul, [facility] [address] [id number] [address] [place] [address], [place] [address] Jul, [facility] [address] [id number] [address] [place] [address], [place] [address] Jul, [facility] [address] [id number] [address] [place] [address], [place] [address] Jul, [facility] [address] [id number] [address] [place] [address], [place] [address] 27 Jun, 2012 [facility] [address] [id number] [address] [place] [place] [address] 25 Jun, 2012 [facility] [address] [id number] [address] [place] [address] 18 Jun, 2012 [facility] [place] [id number] [place] [id number] 17 Jun, 2012 [facility] [address] [id number] [address] [place] [address], [place] [address] 12 Jun, 2012 [facility] [address] [id number] [address] [place] [address], [place] [address] 11 Jun, 2012 [facility] [address] [id number] [address] [place] [place] [address] Apr, [facility] [address] [id number] [address] [place] [place] [address] Apr, [facility] [address] [id number] [address] [place] [address], [place] [address] Apr, [facility] [address] [id number] [address] [place] [address], [place] [address] February, [facility] [address] [id number] [address] [place] [address], [place] [address] Dec, [facility] [address] [id number] [address] [place] [address], [place] [address] Dec, [facility] [address] [id number] [address] [place] [address], [place] [address] Dec, [facility] [address] [id number] [address] [place] [address], [place] [address] Nov, [facility] [address] [id number] [address] [place] [address], [place] [address] Nov, [facility] [address] [id number] [address] [place] [address], [place] [address] Oct, [facility] [address] [id number] [address] [place] [address], [place] [address] Oct, [facility] [address] [id number] [address] [place] [address], [place] [address] Oct, [facility] [address] [id number] [address] [place] [address], [place] [address] Sep, [facility] [address] [id number] [address] [place] [address], [place] [address] Sep, [facility] [address] [id number] [address] [place] [address], [place] [address] 15 Sep, 2011 [facility] [address] [id number] [address] [place] [address], [place] [address] 14 Sep, 2011 [facility] [address] [id number] [address] [place] [address], [place] [address] 14 Sep, 2011 [facility] [address] [id number] [address] [place] [address], [place] [address] 18 Aug, 2011 [facility] [address] [id number] [address] [place] [address], [place] [address] 17 Aug, 2011 [facility] [address] [id number] [address] [place] [address], [place] [address] Aug, [facility] [address] [id number] [address] [place] [address], [place] [address] Aug, [facility] [address] [id number] [address] [place] [address], [place] [address] 27 Jul, 2011 [facility] [address] [id number] [address] [place] [address], [place] [address] Jul, [facility] [address] [id number] [address] [place] [address], [place] [address] Jul, [facility] [address] [id number] [address] [place] [address], [place] [address] Jul, [facility] [address] [id number] [address] [place] [address], [place] [address] Jul, [facility] [address] [id number] [address] [place] [address], [place] [address] Apr, [facility] [address] [id number] [address] [place] [address], [place] [address] Sep, [facility] [address] [id number] [address] [place] [address], [place] [address] Sep, [facility] [address] [id number] [address] [place] [address], [place] [address] Sep, [facility] [address] [id number] [address] [place] [address], [place] [address] Aug, [facility] [address] [id number] [address] [place] [address], [place] [address] Aug, [facility] [address] [id number] [address] [place] [address], [place] [address] 10 Aug, 2010 [facility] [address] [id number] [address] [place] [address], [place] [address] 27 Jul, 2010 [facility] [address] [id number] [address] [place] [address], [place] [address] 16 Jun, 2010 [facility] [address] [id number] [address] [place] [address], [place] [address] 14 Apr, 2010 [facility] [address] [id number] [address] [place] [address], [place] [address] 10 Apr, 2010 [facility] [address] [id number] [address] [place] [address], [place] [address] 12 Jan, 2010 [facility] [address] [id number] [address] [place] [address], [place] [address] 17 Nov, 2009 [facility] [address] [id number] [address] [place] [address], [place] [id number] Sep, [facility] [address] [id number] [address] [place] [id number] 12 Aug, 2009 [facility] [address] [id number] [address] [place] [address], [place] [address] Aug, [facility] [address] [id number] [address] [place] [place] [id number] 03 Aug, 2009 [facility] [address] [id number] [address] [place] [place] [id number] 16 Jun, 2009 [facility] [address] [id number] [address] [place] [id number] 10 May, 2009 [facility] [address] [id number] [address] [place] [address], [place] [address] Mar, [facility] [address] [id number] [address] [place] [id number] 15 Mar, 2009 [facility] [address] [id number] [address] [place] [id number] 19 Nov, 2008 [facility] [address] [id number] [address] [place] [address] [place] [phone] 13 Nov, 2008 IMMUNIZATIONS No Known Immunizations SOCIAL HISTORY Never Assessed [place]AS[place] [place] VITAL SIGNS MEDICATIONS Unknown [...]
--- OUTSIDE RECORDS SUMMARY | 2019-12-27 00:47 | XMS REPORT ---
Author Author Lena Weldon Doctor Organization [facility] Address Unknown Phone Unavailable Care Team Providers Care Shearing Shed Hand Name Role Phone Migration, Doctor Unavailable Unavailable PROBLEMS Type Condition ICD9-CM Code GOV38-FT Code Onset Dates Condition S tatus SNOMED Code Problem Breast lesion N64.9 Active 562351 004 Problem Chronic prescription opiate use Z79.899 Active 019863199 Problem BMI 40.0-44.9, adult Z68.41 Active 227363001 Problem Axillary hidradenitis suppurativa L73.2 Active 233920397 Problem Low back pain M54.5 Active 382723 005 Problem Migraine with aura and without status migrainosu s, not intractable G43.109 Active 7339115 Problem Adjustment disorder with mixed anxiety and depressed mood F43.23 Active 61218522 Problem Bipolar disorder in partial remission, most recent episode unspecified type F31.70 Active [id number] ALLERGIES No Information ENCOUNTERS Encounter Location Date Diagnosis [facility] [address] [id number] [address] [place] [address] Jul, Low back pain M54.5 [facility] [address] [id number] [address] [place] [address] 28 Jun, 2018 BMI 40.0-44.9, adult Z68.41 ; Axillary hidradenitis suppurativa L73.2 and Low back pain M54.5 [facility] [address] [id number] [address] [place] [address] Jun, [facility] [address] [id number] [address] [place] [address] May, Plantar fasciitis of right f oot M72.2 [facility] [address] [id number] [address] [place] [address] Jan, Breast lesion N64.9 [facility] [address] [facility] [id number] [address] [place] [address] Jan, Breast lesion N64.9 [facility] [address] [facility] [id number] [address] [place] [address] Jan, Breast lesion N64.9 [facility] [address] [facility] [id number] [address] [place] [address] Jan, [facility] [address] [facility] [id number] [address] [place] [address] Dec, Breast lesion N64.9 [facility] [address] [facility] [id number] [address] [place] [address] Oct, BMI 40.0-44.9, adult Z68.41 ; Low back pain M54.5 ; Chronic prescription opiate use Z79.899 and Breast lesion N64.9 [facility] [address] [id number] [address] [place] [address] Oct, Adjustment disorder with mix ed anxiety and depressed mood F43.23 and Bipolar disorder in partial remission, most recent episode unspecified type F31.70 [facility] [address] [facility] [id number] [address] [place] [address] Oct, Adjustment disorder with mix ed anxiety and depressed mood F43.23 and Bipolar disorder in partial remission, most recent episode unspecified type F31.70 [facility] [address] [facility] [id number] [address] [place] [address] Sep, Sore throat J02.9 ; Other vi ral agents as the cause of diseases classified elsewhere B97.89 and Acute pharyngitis due to other specified organisms J02.8 [facility] [address] [facility] [id number] [address] [place] [address] Sep, Breast lesion N64.9 [facility] [address] [facility] [id number] [address] [place] [address] Sep, Breast lump N63 [facility] [address] [id number] [address] [place] [address] 18 Jul, 2016 Elevated fasting glucose R73 .01 [place] [address] [address] 18 Jul, 2016 Elevated fasting glucose R73 .01 [place] [address] [address] 14 Jul, 2016 Pelvic pain R10.2 ; Screenin g, lipid Z13.220 and Screening for diabetes mellitus Z13.1 [place] [address] [address] 15 Jun, 2016 Pelvic pain R10.2 and Vagina l candidiasis B37.3 [facility] [place] [address] [address] 14 Jun, 2016 Abdominal pain, lower R10.30 [facility] [place] [address] [address] 14 Jun, 2016 [place] [address] [address] 07 Mar, 2016 Acute pain of right shoulder M25.511 [place] [address] [address] Mar, Right anterior shoulder pain M25.511 [facility] [place] [address] [address] February, Acute pain of right shoulder M25.511 [place] [address] [address] Jan, Low back pain M54.5 ; Migrai ne G43.909 ; Screening, lipid Z13.220 ; Screening for diabetes mellitus Z13.1 and Tobacco abuse counseling Z71.6 [place] [address] [id number] [address] [place] [address] Dec, [place] [address] [address] Dec, [place] [address] [address] Dec, Lateral meniscus tear S83.[address] [facility] [address] [address] Nov, Sore throat J02.9 [facility] [address] [address] Nov, [facility] [address] [address] Nov, [place] [address] [address] Oct, Acute pain of left knee M25. 562 ; Low back pain M54.5 and Chronic prescription opiate use Z79.899 [place] [address] [address] Aug, Plantar fasciitis M72.2 [place] [address] [address] Jul, Metatarsus primus varus Q66. 2 and Bunion of great toe of left foot M20.12 [place] [address] [address] 30 Jun, 2015 Chronic migraine 346.70 ; Bi polar disorder 296.80 ; Bilateral foot pain 729.5 ; Cellulitis 682.9 and Lumbosacral radiculopathy at L5 724.4 [place] [address] [address] 16 Jun, 2015 Plantar fasciitis, bilateral 728.71 [place] [address] [address] Apr, Major depression, recurrent 296.30 ; Anxiety, generalized 300.02 ; No condition on [place] II V71.09 and No condition on axis III V71.09 [place] [address] [address] Apr, Unspecified episodic mood di sorder 296.90 [facility] [address] [facility] [id number] [address] [place] [address] Apr, Acute pharyngitis 462 [facility] [address] [facility] [id number] [address] [place] [address] Apr, [facility] [address] [facility] [id number] [address] [place] [address] Apr, Major depression, recurrent 296.30 ; Anxiety 300.00 ; No condition on [place] II V71.09 and No condition on axis III V71.09 [facility] [address] [facility] [id number] [address] [place] [address] Mar, Unspecified episodic mood di sorder 296.90 and 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 [facility] [address] [facility] [id number] [address] [place] [address] Mar, [facility] [address] [id number] [address] [place] [address] [id number] February, Dental examination V72.2 [facility] [address] [facility] [id number] [address] [place] [address] February, [facility] [address] [facility] [id number] [address] [place] [address] February, [facility] [address] [facility] [id number] [address] [place] [address] Jan, [facility] [address] [facility] [id number] [address] [place] [address] Jan, [facility] [address] [facility] [id number] [address] [place] [address] Dec, [facility] [address] [facility] [id number] [address] [place] [address] Dec, [facility] [address] [facility] [id number] [address] [place] [address] Dec, [facility] [address] [id number] [address] [place] [address], [place] [address] Dec, [facility] [address] [id number] [address] [place] [address], [place] [address] Oct, [facility] [address] [id number] [address] [place] [address], [place] [address] Oct, [facility] [address] [id number] [address] [place] [address], [place] [address] Aug, [facility] [address] [id number] [address] [place] [address], [place] [address] Aug, [facility] [address] [id number] [address] [place] [address], [place] [address] Aug, [facility] [address] [id number] [address] [place] [address], [place] [address] Aug, [facility] [address] [id number] [address] [place] [address], [place] [address] Jul, [facility] [address] [id number] [address] [place] [address], [place] [address] Jul, [facility] [address] [id number] [address] [place] [address], [place] [address] Jul, [facility] [address] [id number] [address] [place] [address], [place] [address] Jul, [facility] [address] [id number] [address] [place] [address], [place] [address] Jun, [facility] [address] [id number] [address] [place] [address], [place] [address] 23 Jun, 2014 [facility] [address] [id number] [address] [place] [address], [place] [address] Jun, [facility] [address] [id number] [address] [place] [address], [place] [address] Jun, [facility] [address] [id number] [address] [place] [address], [place] [address] Jun, [facility] [address] [id number] [address] [place] [address], [place] [address] Jun, [facility] [address] [id number] [address] [place] [address], [place] [address] May, [facility] [address] [id number] [address] [place] [address], [place] [address] May, [facility] [address] [id number] [address] [place] [address], [place] [address] Mar, [facility] [address] [id number] [address] [place] [address], [place] [address] Mar, [facility] [address] [id number] [address] [place] [address], [place] [address] February, [facility] [address] [id number] [address] [place] [address], [place] [address] February, [facility] [address] [id number] [address] [place] [address], [place] [address] Jan, [facility] [address] [id number] [address] [place] [address], [place] [address] Jan, [facility] [address] [id number] [address] [place] [address], [place] [address] Jan, [facility] [address] [id number] [address] [place] [address], [place] [address] Jan, [facility] [address] [id number] [address] [place] [address], [place] [address] Jan, [facility] [address] [id number] [address] [place] [address], [place] [address] Jan, [facility] [address] [id number] [address] [place] [address], [place] [address] Dec, [facility] [address] [id number] [address] [place] [address], [place] [address] Dec, [facility] [address] [id number] [address] [place] [address], [place] [address] Nov, [facility] [address] [id number] [address] [place] [address], [place] [address] Nov, [facility] [address] [id number] [address] [place] [address], [place] [address] Oct, [facility] [address] [id number] [address] [place] [address], [place] [address] Oct, [facility] [address] [id number] [address] [place] [address], [place] [address] Sep, [facility] [address] [id number] [address] [place] [address], [place] [address] Sep, [facility] [address] [id number] [address] [place] [address], [place] [address] Sep, [facility] [address] [id number] [address] [place] [address], [place] [address] Sep, [facility] [address] [id number] [address] [place] [address], [place] [address] Jul, [facility] [address] [id number] [address] [place] [address], [place] [address] Jul, [facility] [address] [id number] [address] [place] [address], [place] [address] Jul, [facility] [address] [id number] [address] [place] [address], [place] [address] 25 Jun, 2013 [facility] [address] [id number] [address] [place] [address], [place] [address] 11 Jun, 2013 [facility] [address] [id number] [address] [place] [address], [place] [address] 10 Jun, 2013 [facility] [address] [id number] [address] [place] [address], [place] [address] 09 Jun, 2013 [facility] [address] [id number] [address] [place] [address], [place] [address] 05 Sep, 2012 [facility] [address] [id number] [address] [place] [address], [place] [address] 05 Jun, 2012 [facility] [address] [id number] [address] [place] [address], [place] [address] 04 Jun, 2013 [facility] [address] [id number] [address] [place] [address], [place] [address] May, [facility] [address] [id number] [address] [place] [address], [place] [address] Apr, [facility] [address] [id number] [address] [place] [address], [place] [address] Apr, [facility] [address] [id number] [address] [place] [address], [place] [address] Apr, [facility] [address] [id number] [address] [place] [address], [place] [address] Apr, [facility] [address] [id number] [address] [place] [address], [place] [address] Apr, [facility] [address] [id number] [address] [place] [address], [place] [address] Apr, [facility] [address] [id number] [address] [place] [address], [place] [address] Apr, [facility] [address] [id number] [address] [place] [address], [place] [address] Mar, [facility] [address] [id number] [address] [place] [address], [place] [address] Mar, [facility] [address] [id number] [address] [place] [address], [place] [address] Mar, [facility] [address] [id number] [address] [place] [address], [place] [address] Mar, [facility] [address] [id number] [address] [place] [address], [place] [address] Mar, [facility] [address] [id number] [address] [place] [address], [place] [address] 06 Mar, 2013 [facility] [address] [id number] [address] [place] [address], [place] [address] February, [facility] [address] [id number] [address] [place] [address], [place] [address] February, [facility] [address] [id number] [address] [place] [address], [place] [address] February, [facility] [address] [id number] [address] [place] [address], [place] [address] Jan, [facility] [address] [id number] [address] [place] [address], [place] [address] Jan, [facility] [address] [id number] [address] [place] [address], [place] [address] Jan, [facility] [address] [id number] [address] [place] [address], [place] [address] Jan, [facility] [address] [id number] [address] [place] [address], [place] [address] Dec, [facility] [address] [id number] [address] [place] [address], [place] [address] Nov, [facility] [address] [id number] [address] [place] [address], [place] [address] Oct, [facility] [address] [id number] [address] [place] [address], [place] [address] Oct, [facility] [address] [id number] [address] [place] [address], [place] [address] Oct, [facility] [address] [id number] [address] [place] [address], [place] [address] Sep, [facility] [address] [id number] [address] [place] [address], [place] [address] Sep, [facility] [address] [id number] [address] [place] [address], [place] [address] Sep, [facility] [address] [id number] [address] [place] [address], [place] [address] Sep, [facility] [address] [id number] [address] [place] [address], [place] [address] Jul, [facility] [address] [id number] [address] [place] [address], [place] [address] Jul, [facility] [address] [id number] [address] [place] [address], [place] [address] Jul, [facility] [address] [id number] [address] [place] [address], [place] [address] Jul, [facility] [address] [id number] [address] [place] [address], [place] [address] Jul, [facility] [address] [id number] [address] [place] [address], [place] [address] Jul, [facility] [address] [id number] [address] [place] [address], [place] [address] Jul, [facility] [address] [id number] [address] [place] [address], [place] [address] 27 Jun, 2012 [facility] [address] [id number] [address] [place] [address] 25 Jun, 2012 [facility] [address] [id number] [address] [place] [address] 18 Jun, 2012 [facility] [place] [id number] [place] [id number] 17 Jun, 2012 [facility] [address] [id number] [address] [place] [address], [place] [address] 12 Jun, 2012 [facility] [address] [id number] [address] [place] [address], [place] [address] 11 Jun, 2012 [facility] [address] [id number] [address] [place] [address] Apr, [facility] [address] [id number] [address] [place] [id number] Apr, [facility] [address] [id number] [address] [place] [address], [place] [address] Apr, [facility] [address] [id number] [address] [place] [address], [place] [address] February, [facility] [address] [id number] [address] [place] [address], [place] [id number] Dec, [facility] [address] [id number] [address] [place] [address], [place] [address] Dec, [facility] [address] [id number] [address] [place] [address], [place] [id number] Dec, [facility] [address] [id number] [address] [place] [address], [place] [address] Nov, [facility] [address] [id number] [address] [place] [address], [place] [address] Nov, [facility] [address] [id number] [address] [place] [address], [place] [address] Oct, [facility] [address] [id number] [address] [place] [address], [place] [id number] Oct, [facility] [address] [id number] [address] [place] [address], [place] [address] Oct, [facility] [address] [id number] [address] [place] [address], [place] [address] Sep, [facility] [address] [id number] [address] [place] [address], [place] [address] Sep, [facility] [address] [id number] [address] [place] [address], [place] [id number] 15 Sep, 2011 [facility] [address] [id number] [address] [place] [address], [place] [id number] 14 Sep, 2011 [facility] [address] [id number] [address] [place] [address], [place] [id number] 14 Sep, 2011 [facility] [address] [id number] [address] [place] [address], [place] [id number] 18 Aug, 2011 [facility] [address] [id number] [address] [place] [address], [place] [id number] 17 Aug, 2011 [facility] [address] [id number] [address] [place] [address], [place] [address] Aug, [facility] [address] [id number] [address] [place] [address], [place] [id number] Aug, [facility] [address] [id number] [address] [place] [address], [place] [id number] 27 Jul, 2011 [facility] [address] [id number] [address] [place] [address], [place] [address] Jul, [facility] [address] [id number] [address] [place] [address], [place] [address] Jul, [facility] [address] [id number] [address] [place] [address], [place] [id number] Jul, [facility] [address] [id number] [address] [place] [address], [place] [id number] Jul, [facility] [address] [id number] [address] [place] [address], [place] [address] Apr, [facility] [address] [id number] [address] [place] [address], [place] [address] Sep, [facility] [address] [id number] [address] [place] [address], [place] [address] Sep, [facility] [address] [id number] [address] [place] [address], [place] [address] Sep, [facility] [address] [id number] [address] [place] [address], [place] [address] Aug, [facility] [address] [id number] [address] [place] [address], [place] [address] Aug, [facility] [address] [id number] [address] [place] [address], [place] [id number] 10 Aug, 2010 [facility] [address] [id number] [address] [place] [address], [place] [id number] 27 Jul, 2010 [facility] [address] [id number] [address] [place] [address], [place] [address] 16 Jun, 2010 [facility] [address] [id number] [address] [place] [address], [place] [id number] 14 Apr, 2010 [facility] [address] [id number] [address] [place] [address], [place] [id number] 10 Apr, 2010 [facility] [address] [id number] [address] [place] [address], [place] [id number] 12 Jan, 2010 [facility] [address] [id number] [address] [place] [address], [place] [id number] 17 Nov, 2009 [facility] [address] [id number] [address] [place] [address], [place] [id number] Sep, [facility] [address] [id number] [address] [place] [id number] 12 Aug, 2009 [facility] [address] [id number] [address] [place] [address], [place] [id number] Aug, [facility] [address] [id number] [address] [place] [id number] 03 Aug, 2009 [facility] [address] [id number] [address] [place] [id number] 16 Jun, 2009 [facility] [address] [id number] [address] [place] [id number] 10 May, 2009 [facility] [address] [id number] [address] [place] [address], [place] [id number] Mar, [facility] [address] [id number] [address] [place] [id number] 15 Mar, 2009 [facility] [address] [id number] [address] [place] [id number] 19 Nov, 2008 [facility] [address] [id number] [address] [place] [address] [place] [id number] 13 Nov, 2008 IMMUNIZATIONS No Known Immunizations SOCIAL HISTORY Never Assessed REASON FOR VISIT EMR-[facility] PLAN OF CARE VITAL SIGNS MEDICATIONS Unknown [...]
--- OUTSIDE RECORDS SUMMARY | 2019-12-27 00:47 | XMS REPORT ---
Author Author Lena Weldon Doctor Organization [facility] Address Unknown Phone Unavailable Care Team Providers Care Client Resource Specialist Name Role Phone Migration, Doctor Unavailable Unavailable PROBLEMS Type Condition ICD9-CM Code [id number]-LP Code Onset Dates Condition S tatus SNOMED Code Problem Breast lesion N64.9 Active 228758 004 Problem Chronic prescription opiate use Z79.899 Active 248059107 Problem BMI 40.0-44.9, adult Z68.41 Active 908573926 Problem Axillary hidradenitis suppurativa L73.2 Active 867505210 Problem Low back pain M54.5 Active 292143 005 Problem Migraine with aura and without status migrainosu s, not intractable G43.109 Active 5048458 Problem Adjustment disorder with mixed anxiety and depressed mood F43.23 Active 99316480 Problem Bipolar disorder in partial remission, most recent episode unspecified type F31.70 Active [id number] ALLERGIES No Information ENCOUNTERS Encounter Location Date Diagnosis [facility] [address] [id number] [address] [place] [address] Jul, Low back pain M54.5 [facility] [address] [id number] [address] [place] [address] 28 Jun, 2018 BMI 40.0-44.9, adult Z68.41 ; Axillary hidradenitis suppurativa L73.2 and Low back pain M54.5 [facility] [address] [id number] [address] [place] [address] Jun, [facility] [address] [id number] [address] [place] [address] May, Plantar fasciitis of right f oot M72.2 [facility] [address] [id number] [address] [place] [address] Jan, Breast lesion N64.9 [facility] [address] [facility] [id number] [address] [place] [address] Jan, Breast lesion N64.9 [facility] [address] [facility] [id number] [address] [place] [address] Jan, Breast lesion N64.9 [facility] [address] [facility] [id number] [address] [place] [address] Jan, [facility] [address] [facility] [id number] [address] [place] [address] Dec, Breast lesion N64.9 [facility] [address] [facility] [id number] [address] [place] [address] Oct, BMI 40.0-44.9, adult Z68.41 ; Low back pain M54.5 ; Chronic prescription opiate use Z79.899 and Breast lesion N64.9 [facility] [address] [id number] [address] [place] [address] Oct, Adjustment disorder with mix ed anxiety and depressed mood F43.23 and Bipolar disorder in partial remission, most recent episode unspecified type F31.70 [facility] [address] [facility] [id number] [address] [place] [address] Oct, Adjustment disorder with mix ed anxiety and depressed mood F43.23 and Bipolar disorder in partial remission, most recent episode unspecified type F31.70 [facility] [address] [facility] [id number] [address] [place] [address] Sep, Sore throat J02.9 ; Other vi ral agents as the cause of diseases classified elsewhere B97.89 and Acute pharyngitis due to other specified organisms J02.8 [facility] [address] [facility] [id number] [address] [place] [address] Sep, Breast lesion N64.9 [facility] [address] [facility] [id number] [address] [place] [address] Sep, Breast lump N63 [facility] [address] [id number] [address] [place] [address] 18 Jul, 2016 Elevated fasting glucose R73 .01 [place] [address] [address] 18 Jul, 2016 Elevated fasting glucose R73 .01 [address] [address] [address] 14 Jul, 2016 Pelvic pain R10.2 ; Screenin g, lipid Z13.220 and Screening for diabetes mellitus Z13.1 [place] [address] [address] 15 Jun, 2016 Pelvic pain R10.2 and Vagina l candidiasis B37.3 [facility] [place] [address] [address] 14 Jun, 2016 Abdominal pain, lower R10.30 [facility] [place] [address] [address] 14 Jun, 2016 [place] [address] [address] 07 Mar, 2016 Acute pain of right shoulder M25.511 [place] [address] [address] Mar, Right anterior shoulder pain M25.511 [facility] [place] [address] [address] February, Acute pain of right shoulder M25.511 [address] [address] [address] Jan, Low back pain M54.5 ; Migrai ne G43.909 ; Screening, lipid Z13.220 ; Screening for diabetes mellitus Z13.1 and Tobacco abuse counseling Z71.6 [place] [address] [id number] [address] [place] [address] Dec, [place] [address] [address] Dec, [place] [id number] [address] Dec, Lateral meniscus tear S83.28 9A [facility] [address] [address] Nov, Sore throat J02.9 [facility] [address] [address] Nov, [facility] [address] [address] Nov, [place] [address] [address] Oct, Acute pain of left knee M25. 562 ; Low back pain M54.5 and Chronic prescription opiate use Z79.899 [place] [address] [address] Aug, Plantar fasciitis M72.2 [place] [address] [address] Jul, Metatarsus primus varus Q66. 2 and Bunion of great toe of left foot M20.12 [place] [address] [address] 30 Jun, 2015 Chronic migraine 346.70 ; Bi polar disorder 296.80 ; Bilateral foot pain 729.5 ; Cellulitis 682.9 and Lumbosacral radiculopathy at L5 724.4 [place] [address] [address] 16 Jun, 2015 Plantar fasciitis, bilateral 728.71 [place] [address] [address] Apr, Major depression, recurrent 296.30 ; Anxiety, generalized 300.02 ; No condition on Tridell II V71.09 and No condition on axis III V71.09 [place] [address] [address] Apr, Unspecified episodic mood di sorder 296.90 [facility] [address] [facility] [id number] [address] [place] [address] Apr, Acute pharyngitis 462 [facility] [address] [facility] [id number] [address] [place] [address] Apr, [facility] [address] [facility] [id number] [address] [place] [address] Apr, Major depression, recurrent 296.30 ; Anxiety 300.00 ; No condition on Tridell II V71.09 and No condition on axis III V71.09 [facility] [address] [facility] [id number] [address] [place] [address] Mar, Unspecified episodic mood di sorder 296.90 and 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 [facility] [address] [facility] [id number] [address] [place] [address] Mar, [facility] [address] [id number] [address] [place] [id number] February, Dental examination V72.2 [facility] [address] [facility] [id number] [address] [place] [address] February, [facility] [address] [facility] [id number] [address] [place] [address] February, [facility] [address] [facility] [id number] [address] [place] [address] Jan, [facility] [address] [facility] [id number] [address] [place] [address] Jan, [facility] [address] [facility] [id number] [address] [place] [address] Dec, [facility] [address] [facility] [id number] [address] [place] [address] Dec, [facility] [address] [facility] [id number] [address] [place] [address] Dec, [facility] [address] [id number] [address] [place] [address], [place] [address] Dec, [facility] [address] [id number] [address] [place] [address], [place] [address] Oct, [facility] [address] [id number] [address] [address], [place] [address] Oct, [facility] [address] [id number] [address] [place] [address], [place] [address] Aug, [facility] [address] [id number] [address] [place] [address], [place] [address] Aug, [facility] [address] [id number] [address] [place] [address], [place] [address] Aug, [facility] [address] [id number] [address] [place] [address], [place] [address] Aug, [facility] [address] [id number] [address] [place] [address], [place] [address] Jul, [facility] [address] [id number] [address] [place] [address], [place] [address] Jul, [facility] [address] [id number] [address] [address], [place] [address] Jul, [facility] [address] [id number] [address] [place] [address], [place] [address] Jul, [facility] [address] [id number] [address] [place] [address], [place] [address] Jun, [facility] [address] [id number] [address] [address], [place] [address] 23 Jun, 2014 [facility] [address] [id number] [address] [place] [address], [place] [address] Jun, [facility] [address] [id number] [address] [place] [address], [place] [address] Jun, [facility] [address] [id number] [address] [place] [address], [place] [address] Jun, [facility] [address] [id number] [address] [place] [address], [place] [address] Jun, [facility] [address] [id number] [address] [place] [address], [place] [address] May, [facility] [address] [id number] [address] [place] [address], [place] [address] May, [facility] [address] [id number] [address] [address], [place] [address] Mar, [facility] [address] [id number] [address] [address], [place] [address] Mar, [facility] [address] [id number] [address] [place] [address], [place] [address] February, [facility] [address] [id number] [address] [place] [address], [place] [address] February, [facility] [address] [id number] [address] [place] [address], [place] [address] Jan, [facility] [address] [id number] [address] [place] [address], [place] [address] Jan, [facility] [address] [id number] [address] [place] [address], [place] [address] Jan, [facility] [address] [id number] [address] [place] [address], [place] [address] Jan, [facility] [address] [id number] [address] [place] [address], [place] [address] Jan, [facility] [address] [id number] [address] [place] [address], [place] [address] Jan, [facility] [address] [id number] [address] [address], [place] [address] Dec, [facility] [address] [id number] [address] [place] [address], [place] [address] Dec, [facility] [address] [id number] [address] [address], [place] [address] Nov, [facility] [address] [id number] [address] [place] [address], [place] [address] Nov, [facility] [address] [id number] [address] [place] [address], [place] [address] Oct, [facility] [address] [id number] [address] [place] [address], [place] [address] Oct, [facility] [address] [id number] [address] [address], [place] [address] Sep, [facility] [address] [id number] [address] [place] [address], [place] [address] Sep, [facility] [address] [id number] [address] [place] [address], [place] [address] Sep, [facility] [address] [id number] [address] [place] [address], [place] [address] Sep, [facility] [address] [id number] [address] [place] [address], [place] [address] Jul, [facility] [address] [id number] [address] [place] [address], [place] [address] Jul, [facility] [address] [id number] [address] [place] [address], [place] [address] Jul, [facility] [address] [id number] [address] [place] [address], [place] [address] 25 Jun, 2013 [facility] [address] [id number] [address] [place] [address], [place] [address] 11 Jun, 2013 [facility] [address] [id number] [address] [place] [address], [place] [address] 10 Jun, 2013 [facility] [address] [id number] [address] [place] [address], [place] [address] 09 Jun, 2013 [facility] [address] [id number] [address] [place] [address], [place] [address] 05 Sep, 2012 [facility] [address] [id number] [address] [place] [address], [place] [address] 05 Jun, 2012 [facility] [address] [id number] [address] [place] [address], [place] [address] 04 Jun, 2013 [facility] [address] [id number] [address] [place] [address], [place] [address] May, [facility] [address] [id number] [address] [place] [address], [place] [address] Apr, [facility] [address] [id number] [address] [address], [place] [address] Apr, [facility] [address] [id number] [address] [place] [address], [place] [address] Apr, [facility] [address] [id number] [address] [place] [address], [place] [address] Apr, [facility] [address] [id number] [address] [place] [address], [place] [address] Apr, [facility] [address] [id number] [address] [address], [place] [address] Apr, [facility] [address] [id number] [address] [address], [place] [address] Apr, [facility] [address] [id number] [address] [place] [address], [place] [address] Mar, [facility] [address] [id number] [address] [address], [place] [address] Mar, [facility] [address] [id number] [address] [place] [address], [place] [address] Mar, [facility] [address] [id number] [address] [address], [place] [address] Mar, [facility] [address] [id number] [address] [address], [place] [address] Mar, [facility] [address] [id number] [address] [address], [place] [address] 06 Mar, 2013 [facility] [address] [id number] [address] [place] [address], [place] [address] February, [facility] [address] [id number] [address] [place] [address], [place] [address] February, [facility] [address] [id number] [address] [place] [address], [place] [address] February, [facility] [address] [id number] [address] [place] [address], [place] [address] Jan, [facility] [address] [id number] [address] [address], [place] [address] Jan, [facility] [address] [id number] [address] [place] [address], [place] [address] Jan, [facility] [address] [id number] [address] [place] [address], [place] [address] Jan, [facility] [address] [id number] [address] [place] [address], [place] [address] Dec, [facility] [address] [id number] [address] [place] [address], [place] [address] Nov, [facility] [address] [id number] [address] [place] [address], [place] [address] Oct, [facility] [address] [id number] [address] [place] [address], [place] [address] Oct, [facility] [address] [id number] [address] [place] [address], [place] [address] Oct, [facility] [address] [id number] [address] [place] [address], [place] [address] Sep, [facility] [address] [id number] [address] [place] [address], [place] [address] Sep, [facility] [address] [id number] [address] [place] [address], [place] [address] Sep, [facility] [address] [id number] [address] [place] [address], [place] [address] Sep, [facility] [address] [id number] [address] [place] [address], [place] [address] Jul, [facility] [address] [id number] [address] [place] [address], [place] [address] Jul, [facility] [address] [id number] [address] [place] [address], [place] [address] Jul, [facility] [address] [id number] [address] [place] [address], [place] [address] Jul, [facility] [address] [id number] [address] [place] [address], [place] [address] Jul, [facility] [address] [id number] [address] [place] [address], [place] [address] Jul, [facility] [address] [id number] [address] [place] [address], [place] [address] Jul, [facility] [address] [id number] [address] [place] [address], [place] [address] 27 Jun, 2012 [facility] [address] [id number] [address] [place] [address] 25 Jun, 2012 [facility] [address] [id number] [address] [place] [address] 18 Jun, 2012 [facility] [place] [address] [id number] [place] [id number] 17 Jun, 2012 [facility] [address] [id number] [address] [place] [address], [place] [address] 12 Jun, 2012 [facility] [address] [id number] [address] [place] [address], [place] [address] 11 Jun, 2012 [facility] [address] [id number] [address] [place] [id number] Apr, [facility] [address] [id number] [address] [place] [id number] Apr, [facility] [address] [id number] [address] [place] [address], [place] [address] Apr, [facility] [address] [id number] [address] [place] [address], [place] [address] February, [facility] [address] [id number] [address] [place] [address], [place] [address] Dec, [facility] [address] [id number] [address] [address], [place] [address] Dec, [facility] [address] [id number] [address] [place] [address], [place] [address] Dec, [facility] [address] [id number] [address] [place] [address], [place] [address] Nov, [facility] [address] [id number] [address] [place] [address], [place] [address] Nov, [facility] [address] [id number] [address] [place] [address], [place] [address] Oct, [facility] [address] [id number] [address] [place] [address], [place] [address] Oct, [facility] [address] [id number] [address] [place] [address], [place] [address] Oct, [facility] [address] [id number] [address] [place] [address], [place] [address] Sep, [facility] [address] [id number] [address] [place] [address], [place] [address] Sep, [facility] [address] [id number] [address] [place] [address], [place] [address] 15 Sep, 2011 [facility] [address] [id number] [address] [place] [address], [place] [address] 14 Sep, 2011 [facility] [address] [id number] [address] [place] [address], [place] [address] 14 Sep, 2011 [facility] [address] [id number] [address] [place] [address], [place] [address] 18 Aug, 2011 [facility] [address] [id number] [address] [place] [address], [place] [address] 17 Aug, 2011 [facility] [address] [id number] [address] [place] [address], [place] [address] Aug, [facility] [address] [id number] [address] [place] [address], [place] [address] Aug, [facility] [address] [id number] [address] [place] [address], [place] [address] 27 Jul, 2011 [facility] [address] [id number] [address] [place] [address], [place] [address] Jul, [facility] [address] [id number] [address] [place] [address], [place] [address] Jul, [facility] [address] [id number] [address] [place] [address], [place] [address] Jul, [facility] [address] [id number] [address] [place] [address], [place] [address] Jul, [facility] [address] [id number] [address] [place] [address], [place] [address] Apr, [facility] [address] [id number] [address] [place] [address], [place] [address] Sep, [facility] [address] [id number] [address] [place] [address], [place] [address] Sep, [facility] [address] [id number] [address] [place] [address], [place] [address] Sep, [facility] [address] [id number] [address] [place] [address], [place] [address] Aug, [facility] [address] [id number] [address] [place] [address], [place] [address] Aug, [facility] [address] [id number] [address] [place] [address], [place] [address] 10 Aug, 2010 [facility] [address] [id number] [address] [place] [address], [place] [address] 27 Jul, 2010 [facility] [address] [id number] [address] [place] [address], [place] [address] 16 Jun, 2010 [facility] [address] [id number] [address] [place] [address], [place] [address] 14 Apr, 2010 [facility] [address] [id number] [address] [place] [address], [place] [address] 10 Apr, 2010 [facility] [address] [id number] [address] [place] [address], [place] [address] 12 Jan, 2010 [facility] [address] [id number] [address] [place] [address], [place] [address] 17 Nov, 2009 [facility] [address] [id number] [address] [place] [address], [place] [address] Sep, [facility] [address] [id number] [address] [place] [id number] 12 Aug, 2009 [facility] [address] [id number] [address] [place] [address], [place] [address] Aug, [facility] [address] [id number] [address] [place] [id number] 03 Aug, 2009 [facility] [address] [id number] [address] [place] [id number] 16 Jun, 2009 [facility] [address] [id number] [address] [place] [id number] 10 May, 2009 [facility] [address] [id number] [address] [place] [address], [place] [address] Mar, [facility] [address] [id number] [address] [place] [id number] 15 Mar, 2009 [facility] [address] [id number] [address] [place] [id number] 19 Nov, 2008 [facility] [address] [id number] [address] [place] [address] [place] [id number] 13 Nov, 2008 IMMUNIZATIONS No Known Immunizations SOCIAL HISTORY Never Assessed REASON FOR VISIT EMR-[facility] [place] PLAN OF CARE VITAL SIGNS MEDICATIONS Unknown [...]
--- OUTSIDE RECORDS SUMMARY | 2019-12-27 00:48 | XMS REPORT ---
Author Author Lena Weldon Doctor Organization [facility] Address Unknown Phone Unavailable Care Team Providers Care Store Shopper Name Role Phone Migration, Doctor Unavailable Unavailable PROBLEMS Type Condition ICD9-CM Code MLU85-BO Code Onset Dates Condition S tatus SNOMED Code Problem Breast lesion N64.9 Active 567557 004 Problem Chronic prescription opiate use Z79.899 Active 292601304 Problem BMI 40.0-44.9, adult Z68.41 Active 150252408 Problem Axillary hidradenitis suppurativa L73.2 Active 784591084 Problem Low back pain M54.5 Active 602066 005 Problem Migraine with aura and without status migrainosu s, not intractable G43.109 Active 2533350 Problem Adjustment disorder with mixed anxiety and depressed mood F43.23 Active 31514334 Problem Bipolar disorder in partial remission, most recent episode unspecified type F31.70 Active 6917982 ALLERGIES No Information ENCOUNTERS Encounter Location Date Diagnosis [facility] [address] [id number] [address] [place] [address] Jul, Low back pain M54.5 [facility] [address] [id number] [address] [place] [phone] Jun, BMI 40.0-44.9, adult Z68.41 ; Axillary hidradenitis suppurativa L73.2 and Low back pain M54.5 [facility] [address] [id number] [address] [place] [phone] Jun, [facility] [address] [id number] [address] [place] [phone] May, Plantar fasciitis of right f oot M72.2 [facility] [address] [id number] [address] [place] [phone] Jan, Breast lesion N64.9 [facility] [address] [facility] [id number] [address] [place] [address] Jan, Breast lesion N64.9 [facility] [address] [facility] [id number] [address] [place] [address] Jan, Breast lesion N64.9 [facility] [address] [facility] [id number] [address] [place] [phone] Jan, [facility] [address] [facility] [id number] [address] [place] [phone] Dec, Breast lesion N64.9 [facility] [address] [facility] [id number] [address] [place] [address] Oct, BMI 40.0-44.9, adult Z68.41 ; Low back pain M54.5 ; Chronic prescription opiate use Z79.899 and Breast lesion N64.9 [facility] [address] [id number] [address] [place] [phone] Oct, Adjustment disorder with mix ed anxiety and depressed mood F43.23 and Bipolar disorder in partial remission, most recent episode unspecified type F31.70 [facility] [address] [facility] [id number] [address] [place] [address] Oct, Adjustment disorder with mix ed anxiety and depressed mood F43.23 and Bipolar disorder in partial remission, most recent episode unspecified type F31.70 [facility] [address] [facility] [id number] [address] [place] [address] Sep, Sore throat J02.9 ; Other vi ral agents as the cause of diseases classified elsewhere B97.89 and Acute pharyngitis due to other specified organisms J02.8 [facility] [address] [facility] [id number] [address] [place] [address] Sep, Breast lesion N64.9 [facility] [address] [facility] [id number] [address] [place] [address] Sep, Breast lump N63 [facility] [address] [id number] [address] [place] [address] 18 Jul, 2016 Elevated fasting glucose R73 .01 [place] [address] [address] 18 Jul, 2016 Elevated fasting glucose R73 .01 [place] [address] [address] 14 Jul, 2016 Pelvic pain R10.2 ; Screenin g, lipid Z13.220 and Screening for diabetes mellitus Z13.1 [place] [address] [address] 15 Jun, 2016 Pelvic pain R10.2 and Vagina l candidiasis B37.3 [facility] [place] [address] [address] 14 Jun, 2016 Abdominal pain, lower R10.30 [facility] [place] [address] [address] 14 Jun, 2016 [place] [address] [address] 07 Mar, 2016 Acute pain of right shoulder M25.511 [place] [address] [address] Mar, Right anterior shoulder pain M25.511 [facility] [place] [address] [address] February, Acute pain of right shoulder M25.511 [place] [address] [address] Jan, Low back pain M54.5 ; Migrai ne G43.909 ; Screening, lipid Z13.220 ; Screening for diabetes mellitus Z13.1 and Tobacco abuse counseling Z71.6 [place] [address] [id number] [address] [place] [address] Dec, [place] [address] [address] Dec, [place] [address] [address] Dec, Lateral meniscus tear S83.28 [facility] [address] [address] Nov, Sore throat J02.9 [facility] [address] [address] Nov, [facility] [address] [address] Nov, [place] [address] [address] Oct, Acute pain of left knee M25. 562 ; Low back pain M54.5 and Chronic prescription opiate use Z79.899 [place] [address] [address] Aug, Plantar fasciitis M72.2 [place] [address] [address] Jul, Metatarsus primus varus Q66. 2 and Bunion of great toe of left foot M20.12 [place] [address] [address] 30 Jun, 2015 Chronic migraine 346.70 ; Bi polar disorder 296.80 ; Bilateral foot pain 729.5 ; Cellulitis 682.9 and Lumbosacral radiculopathy at L5 724.4 [place] [address] [address] 16 Jun, 2015 Plantar fasciitis, bilateral 728.71 [place] [address] [address] Apr, Major depression, recurrent 296.30 ; Anxiety, generalized 300.02 ; No condition on [place] II V71.09 and No condition on axis III V71.09 [place] [address] [address] Apr, Unspecified episodic mood di sorder 296.90 [facility] [address] [facility] [id number] [address] [place] [address] Apr, Acute pharyngitis 462 [facility] [address] [facility] [id number] [address] [place] [address] Apr, [facility] [address] [facility] [id number] [address] [place] [address] Apr, Major depression, recurrent 296.30 ; Anxiety 300.00 ; No condition on B[place] II V71.09 and No condition on axis III V71.09 [facility] [address] [facility] [id number] [address] [place] [address] Mar, Unspecified episodic mood di sorder 296.90 and 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 [facility] [address] [facility] [id number] [address] [place] [address] Mar, [facility] [address] [id number] [address] [place] [id number] February, Dental examination V72.2 [facility] [address] [facility] [id number] [address] [place] [address] February, [facility] [address] [facility] [id number] [address] [place] [address] February, [facility] [address] [facility] [id number] [address] [place] [phone] Jan, [facility] [address] [facility] [id number] [address] [place] [phone] Jan, [facility] [address] [facility] [id number] [address] [place] [phone] Dec, [facility] [address] [facility] [id number] [address] [place] [phone] Dec, [facility] [address] [facility] [id number] [address] [place] [phone] Dec, [facility] [address] [id number] [address] [place] [address], [place] [address] Dec, [facility] [address] [id number] [address] [place] [address], [place] [address] Oct, [facility] [address] [id number] [address] [place] [address], [place] [address] Oct, [facility] [address] [id number] [address] [place] [address], [place] [address] Aug, [facility] [address] [id number] [address] [place] [address], [place] [address] Aug, [facility] [address] [id number] [address] [place] [address], [place] [address] Aug, [facility] [address] [id number] [address] [place] [address], [place] [address] Aug, [facility] [address] [id number] [address] [place] [address], [place] [address] Jul, [facility] [address] [id number] [address] [place] [address], [place] [address] Jul, [facility] [address] [id number] [address] [place] [address], [place] [address] Jul, [facility] [address] [id number] [address] [place] [address], [place] [address] Jul, [facility] [address] [id number] [address] [place] [address], [place] [address] Jun, [facility] [address] [id number] [address] [place] [address], [place] [address] 23 Jun, 2014 [facility] [address] [id number] [address] [place] [address], [place] [address] Jun, [facility] [address] [id number] [address] [place] [address], [place] [address] Jun, [facility] [address] [id number] [address] [place] [address], [place] [address] Jun, [facility] [address] [id number] [address] [place] [address], [place] [address] Jun, [facility] [address] [id number] [address] [place] [address], [place] [address] May, [facility] [address] [id number] [address] [place] [address], [place] [address] May, [facility] [address] [id number] [address] [place] [address], [place] [address] Mar, [facility] [address] [id number] [address] [place] [address], [place] [address] Mar, [facility] [address] [id number] [address] [place] [address], [place] [address] February, [facility] [address] [id number] [address] [place] [address], [place] [address] February, [facility] [address] [id number] [address] [place] [address], [place] [address] Jan, [facility] [address] [id number] [address] [place] [address], [place] [address] Jan, [facility] [address] [id number] [address] [place] [address], [place] [address] Jan, [facility] [address] [id number] [address] [place] [address], [place] [address] Jan, [facility] [address] [id number] [address] [place] [address], [place] [address] Jan, [facility] [address] [id number] [address] [place] [address], [place] [address] Jan, [facility] [address] [id number] [address] [place] [address], [place] [address] Dec, [facility] [address] [id number] [address] [place] [address], [place] [address] Dec, [facility] [address] [id number] [address] [place] [address], [place] [address] Nov, [facility] [address] [id number] [address] [place] [address], [place] [address] Nov, [facility] [address] [id number] [address] [place] [address], [place] [address] Oct, [facility] [address] [id number] [address] [place] [address], [place] [address] Oct, [facility] [address] [id number] [address] [place] [address], [place] [address] Sep, [facility] [address] [id number] [address] [place] [address], [place] [address] Sep, [facility] [address] [id number] [address] [place] [address], [place] [address] Sep, [facility] [address] [id number] [address] [place] [address], [place] [address] Sep, [facility] [address] [id number] [address] [place] [address], [place] [address] Jul, [facility] [address] [id number] [address] [place] [address], [place] [address] Jul, [facility] [address] [id number] [address] [place] [address], [place] [address] Jul, [facility] [address] [id number] [address] [place] [address], [place] [address] 25 Jun, 2013 [facility] [address] [id number] [address] [place] [address], [place] [address] 11 Jun, 2013 [facility] [address] [id number] [address] [place] [address], [place] [address] 10 Jun, [address] [facility] [address] [id number] [address] [place] [address], [place] [address] 09 Jun, 2013 [facility] [address] [id number] [address] [place] [address], [place] [address] 05 Sep, 2012 [facility] [address] [id number] [address] [place] [address], [place] [address] 05 Jun, 2012 [facility] [address] [id number] [address] [place] [address], [place] [address] 04 Jun, 2013 [facility] [address] [id number] [address] [place] [address], [place] [address] May, [facility] [address] [id number] [address] [place] [address], [place] [address] Apr, [facility] [address] [id number] [address] [place] [address], [place] [address] Apr, [facility] [address] [id number] [address] [place] [address], [place] [address] Apr, [facility] [address] [id number] [address] [place] [address], [place] [address] Apr, [facility] [address] [id number] [address] [place] [address], [place] [address] Apr, [facility] [address] [id number] [address] [place] [address], [place] [address] Apr, [facility] [address] [id number] [address] [place] [address], [place] [address] Apr, [facility] [address] [id number] [address] [place] [address], [place] [address] Mar, [facility] [address] [id number] [address] [place] [address], [place] [address] Mar, [facility] [address] [id number] [address] [place] [address], [place] [address] Mar, [facility] [address] [id number] [address] [place] [address], [place] [address] Mar, [facility] [address] [id number] [address] [place] [address], [place] [address] Mar, [facility] [address] [id number] [address] [place] [address], [place] [address] 06 Mar, 2013 [facility] [address] [id number] [address] [place] [address], [place] [address] February, [facility] [address] [id number] [address] [place] [address], [place] [address] February, [facility] [address] [id number] [address] [place] [address], [place] [address] February, [facility] [address] [id number] [address] [place] [address], [place] [address] Jan, [facility] [address] [id number] [address] [place] [address], [place] [address] Jan, [facility] [address] [id number] [address] [place] [address], [place] [address] Jan, [facility] [address] [id number] [address] [place] [address], [place] [address] Jan, [facility] [address] [id number] [address] [place] [address], [place] [address] Dec, [facility] [address] [id number] [address] [place] [address], [place] [address] Nov, [facility] [address] [id number] [address] [place] [address], [place] [address] Oct, [facility] [address] [id number] [address] [place] [address], [place] [address] Oct, [facility] [address] [id number] [address] [place] [address], [place] [address] Oct, [facility] [address] [id number] [address] [place] [address], [place] [address] Sep, [facility] [address] [id number] [address] [place] [address], [place] [address] Sep, [facility] [address] [id number] [address] [place] [address], [place] [address] Sep, [facility] [address] [id number] [address] [place] [address], [place] [address] Sep, [facility] [address] [id number] [address] [place] [address], [place] [address] Jul, [facility] [address] [id number] [address] [place] [address], [place] [address] Jul, [facility] [address] [id number] [address] [place] [address], [place] [address] Jul, [facility] [address] [id number] [address] [place] [address], [place] [address] Jul, [facility] [address] [id number] [address] [place] [address], [place] [address] Jul, [facility] [address] [id number] [address] [place] [address], [place] [address] Jul, [facility] [address] [id number] [address] [place] [address], [place] [address] Jul, [facility] [address] [id number] [address] [place] [address], [place] [address] 27 Jun, 2012 [facility] [address] [id number] [address] [place] [address] 25 Jun, 2012 [facility] [address] [id number] [address] [place] [address] 18 Jun, 2012 [facility] [place] [address] [id number] [place] [id number] 17 Jun, 2012 [facility] [address] [id number] [address] [place] [address], [place] [address] 12 Jun, 2012 [facility] [address] [id number] [address] [place] [address], [place] [address] 11 Jun, 2012 [facility] [address] [id number] [address] [place] [address] Apr, [facility] [address] [id number] [address] [place] [address] Apr, [facility] [address] [id number] [address] [place] [address], [place] [address] Apr, [facility] [address] [id number] [address] [place] [address], [place] [address] February, [facility] [address] [id number] [address] [place] [address], [place] [address] Dec, [facility] [address] [id number] [address] [place] [address], [place] [address] Dec, [facility] [address] [id number] [address] [place] [address], [place] [address] Dec, [facility] [address] [id number] [address] [place] [address], [place] [address] Nov, [facility] [address] [id number] [address] [place] [address], [place] [address] Nov, [facility] [address] [id number] [address] [place] [address], [place] [address] Oct, [facility] [address] [id number] [address] [place] [address], [place] [address] Oct, [facility] [address] [id number] [address] [place] [address], [place] [address] Oct, [facility] [address] [id number] [address] [place] [address], [place] [address] Sep, [facility] [address] [id number] [address] [place] [address], [place] [address] Sep, [facility] [address] [id number] [address] [place] [address], [place] [address] 15 Sep, 2011 [facility] [address] [id number] [address] [place] [address], [place] [address] 14 Sep, 2011 [facility] [address] [id number] [address] [place] [address], [place] [address] 14 Sep, 2011 [facility] [address] [id number] [address] [place] [address], [place] [address] 18 Aug, 2011 [facility] [address] [id number] [address] [place] [address], [place] [address] 17 Aug, 2011 [facility] [address] [id number] [address] [place] [address], [place] [address] Aug, [facility] [address] [id number] [address] [place] [address], [place] [address] Aug, [facility] [address] [id number] [address] [place] [address], [place] [address] 27 Jul, 2011 [facility] [address] [id number] [address] [place] [address], [place] [address] Jul, [facility] [address] [id number] [address] [place] [address], [place] [address] Jul, [facility] [address] [id number] [address] [place] [address], [place] [address] Jul, [facility] [address] [id number] [address] [place] [address], [place] [address] Jul, [facility] [address] [id number] [address] [place] [address], [place] [address] Apr, [facility] [address] [id number] [address] [place] [address], [place] [address] Sep, [facility] [address] [id number] [address] [place] [address], [place] [address] Sep, [facility] [address] [id number] [address] [place] [address], [place] [address] Sep, [facility] [address] [id number] [address] [place] [address], [place] [address] Aug, [facility] [address] [id number] [address] [place] [address], [place] [address] Aug, [facility] [address] [id number] [address] [place] [address], [place] [address] 10 Aug, 2010 [facility] [address] [id number] [address] [place] [address], [place] [address] 27 Jul, 2010 [facility] [address] [id number] [address] [place] [address], [place] [address] 16 Jun, 2010 [facility] [address] [id number] [address] [place] [address], [place] [address] 14 Apr, 2010 [facility] [address] [id number] [address] [place] [address], [place] [address] 10 Apr, 2010 [facility] [address] [id number] [address] [place] [address], [place] [address] 12 Jan, 2010 [facility] [address] [id number] [address] [place] [address], [place] [address] 17 Nov, 2009 [facility] [address] [id number] [address] [place] [address], [place] [address] Sep, [facility] [address] [id number] [address] [place] [id number] 12 Aug, 2009 [facility] [address] [id number] [address] [place] [address], [place] [address] Aug, [facility] [address] [id number] [address] [place] [id number] 03 Aug, 2009 [facility] [address] [id number] [address] [place] [id number] 16 Jun, 2009 [facility] [address] [id number] [address] [place] [id number] 10 May, 2009 [facility] [address] [id number] [address] [place] [address], [place] [address] Mar, [facility] [address] [id number] [address] [place] [id number] 15 Mar, 2009 [facility] [address] [id number] [address] [place] [id number] 19 Nov, 2008 [facility] [address] [id number] [place] [address] [place] [id number] 13 Nov, 2008 IMMUNIZATIONS No Known Immunizations SOCIAL HISTORY Never Assessed REASON FOR VISIT EMR-[facility] [place] OF CARE VITAL SIGNS MEDICATIONS Unknown [...]
--- OUTSIDE RECORDS SUMMARY | 2019-12-27 00:48 | XMS REPORT ---
Author Author Lena Weldon Doctor Organization [facility] Address Unknown Phone Unavailable Care Team Providers Care Acquisition Consultant Name Role Phone Migration, Doctor Unavailable Unavailable PROBLEMS Type Condition ICD9-CM Code PUY18-DL Code Onset Dates Condition S tatus SNOMED Code Problem Breast lesion N64.9 Active 450555 004 Problem Chronic prescription opiate use Z79.899 Active 285700613 Problem BMI 40.0-44.9, adult Z68.41 Active 706432468 Problem Axillary hidradenitis suppurativa L73.2 Active 042302579 Problem Low back pain M54.5 Active 275139 005 Problem Migraine with aura and without status migrainosu s, not intractable G43.109 Active 6597927 Problem Adjustment disorder with mixed anxiety and depressed mood F43.23 Active 34021956 Problem Bipolar disorder in partial remission, most recent episode unspecified type F31.70 Active 6542942 ALLERGIES No Information ENCOUNTERS Encounter Location Date Diagnosis [facility] [address] [id number] [address] [place] [address] Jul, Low back pain M54.5 [facility] [address] [id number] [address] [place] [address] 28 Jun, 2018 BMI 40.0-44.9, adult Z68.41 ; Axillary hidradenitis suppurativa L73.2 and Low back pain M54.5 [facility] [address] [id number] [address] [place] [address] Jun, [facility] [address] [id number] [address] [place] [address] May, Plantar fasciitis of right f oot M72.2 [facility] [address] [id number] [address] [place] [address] Jan, Breast lesion N64.9 [facility] [address] [facility] [id number] [address] [place] [address] Jan, Breast lesion N64.9 [facility] [address] [facility] [id number] [address] [place] [address] Jan, Breast lesion N64.9 [facility] [address] [facility] [id number] [address] [place] [address] Jan, [facility] [address] [facility] [id number] [address] [place] [address] Dec, Breast lesion N64.9 [facility] [address] [facility] [id number] [address] [place] [address] Oct, BMI 40.0-44.9, adult Z68.41 ; Low back pain M54.5 ; Chronic prescription opiate use Z79.899 and Breast lesion N64.9 [facility] [address] [id number] [address] [place] [address] Oct, Adjustment disorder with mix ed anxiety and depressed mood F43.23 and Bipolar disorder in partial remission, most recent episode unspecified type F31.70 [facility] [address] [facility] [id number] [address] [place] [address] Oct, Adjustment disorder with mix ed anxiety and depressed mood F43.23 and Bipolar disorder in partial remission, most recent episode unspecified type F31.70 [facility] [address] [facility] [id number] [address] [place] [address] Sep, Sore throat J02.9 ; Other vi ral agents as the cause of diseases classified elsewhere B97.89 and Acute pharyngitis due to other specified organisms J02.8 [facility] [address] [facility] [id number] [address] [place] [address] Sep, Breast lesion N64.9 [facility] [address] [facility] [id number] [address] [place] [address] Sep, Breast lump N63 [facility] [address] [id number] [address] [place] [address] 18 Jul, 2016 Elevated fasting glucose R73 .01 [place] [address] [address] 18 Jul, 2016 Elevated fasting glucose R73 .01 [place] [address] [address] 14 Jul, 2016 Pelvic pain R10.2 ; Screenin g, lipid Z13.220 and Screening for diabetes mellitus Z13.1 [place] [address] [address] 15 Jun, 2016 Pelvic pain R10.2 and Vagina l candidiasis B37.3 [facility] [place] [address] [address] 14 Jun, 2016 Abdominal pain, lower R10.30 [facility] [place] [address] [address] 14 Jun, 2016 [place] [address] [address] 07 Mar, 2016 Acute pain of right shoulder M25.511 [place] [address] [address] Mar, Right anterior shoulder pain M25.511 [facility] [place] [address] [address] February, Acute pain of right shoulder M25.511 [place] [address] [address] Jan, Low back pain M54.5 ; Migrai ne G43.909 ; Screening, lipid Z13.220 ; Screening for diabetes mellitus Z13.1 and Tobacco abuse counseling Z71.6 [place] [address] [id number] [address] [place] [address] Dec, [place] [address] [address] Dec, [place] [address] [address] Dec, Lateral meniscus tear S83.[address] [facility] [address] [address] Nov, Sore throat J02.9 [facility] [address] [address] Nov, [facility] [address] [address] Nov, [place] [address] [address] Oct, Acute pain of left knee M25. 562 ; Low back pain M54.5 and Chronic prescription opiate use Z79.899 [place] [address] [address] Aug, Plantar fasciitis M72.2 [place] [address] [address] Jul, Metatarsus primus varus Q66. 2 and Bunion of great toe of left foot M20.12 [place] [address] [address] 30 Jun, 2015 Chronic migraine 346.70 ; Bi polar disorder 296.80 ; Bilateral foot pain 729.5 ; Cellulitis 682.9 and Lumbosacral radiculopathy at L5 724.4 [place] [address] [address] 16 Jun, 2015 Plantar fasciitis, bilateral 728.71 [place] [address] [address] Apr, Major depression, recurrent 296.30 ; Anxiety, generalized 300.02 ; No condition on [place] II V71.09 and No condition on axis III V71.09 [place] [address] [address] Apr, Unspecified episodic mood di sorder 296.90 [facility] [address] [facility] [id number] [address] [place] [address] Apr, Acute pharyngitis 462 [facility] [address] [facility] [id number] [address] [place] [address] Apr, [facility] [address] [facility] [id number] [address] [place] [address] Apr, Major depression, recurrent 296.30 ; Anxiety 300.00 ; No condition on [place] II V71.09 and No condition on axis III V71.09 [facility] [address] [facility] [id number] [address] [place] [address] Mar, Unspecified episodic mood di sorder 296.90 and 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 [facility] [address] [facility] [id number] [address] [place] [address] Mar, [facility] [address] [id number] [address] [place] [id number] February, Dental examination V72.2 [facility] [address] [facility] [id number] [address] [place] [address] February, [facility] [address] [facility] [id number] [address] [place] [address] February, [facility] [address] [facility] [id number] [address] [place] [address] Jan, [facility] [address] [facility] [id number] [address] [place] [address] Jan, [facility] [address] [facility] [id number] [address] [place] [address] Dec, [facility] [address] [facility] [id number] [address] [place] [address] Dec, [facility] [address] [facility] [id number] [address] [place] [address] Dec, [facility] [address] [id number] [address] [place] [address], [place] [address] Dec, [facility] [address] [id number] [address] [place] [address], [place] [address] Oct, [facility] [address] [id number] [address] [place] [address], [place] [address] Oct, [facility] [address] [id number] [address] [place] [address], [place] [address] Aug, [facility] [address] [id number] [address] [place] [address], [place] [address] Aug, [facility] [address] [id number] [address] [place] [address], [place] [address] Aug, [facility] [address] [id number] [address] [place] [address], [place] [address] Aug, [facility] [address] [id number] [address] [place] [address], [place] [address] Jul, [facility] [address] [id number] [address] [place] [address], [place] [address] Jul, [facility] [address] [id number] [address] [place] [address], [place] [address] Jul, [facility] [address] [id number] [address] [place] [address], [place] [address] Jul, [facility] [address] [id number] [address] [place] [address], [place] [address] Jun, [facility] [address] [id number] [address] [place] [address], [place] [address] 23 Jun, 2014 [facility] [address] [id number] [address] [place] [address], [place] [address] Jun, [facility] [address] [id number] [address] [place] [address], [place] [address] Jun, [facility] [address] [id number] [address] [place] [address], [place] [address] Jun, [facility] [address] [id number] [address] [place] [address], [place] [address] Jun, [facility] [address] [id number] [address] [place] [address], [place] [address] May, [facility] [address] [id number] [address] [place] [address], [place] [address] May, [facility] [address] [id number] [address] [place] [address], [place] [address] Mar, [facility] [address] [id number] [address] [place] [address], [place] [address] Mar, [facility] [address] [id number] [address] [place] [address], [place] [address] February, [facility] [address] [id number] [address] [place] [address], [place] [address] February, [facility] [address] [id number] [address] [place] [address], [place] [address] Jan, [facility] [address] [id number] [address] [place] [address], [place] [address] Jan, [facility] [address] [id number] [address] [place] [address], [place] [address] Jan, [facility] [address] [id number] [address] [place] [address], [place] [address] Jan, [facility] [address] [id number] [address] [place] [address], [place] [address] Jan, [facility] [address] [id number] [address] [place] [address], [place] [address] Jan, [facility] [address] [id number] [address] [place] [address], [place] [address] Dec, [facility] [address] [id number] [address] [place] [address], [place] [address] Dec, [facility] [address] [id number] [address] [place] [address], [place] [address] Nov, [facility] [address] [id number] [address] [place] [address], [place] [address] Nov, [facility] [address] [id number] [address] [place] [address], [place] [address] Oct, [facility] [address] [id number] [address] [place] [address], [place] [address] Oct, [facility] [address] [id number] [address] [place] [address], [place] [address] Sep, [facility] [address] [id number] [address] [place] [address], [place] [address] Sep, [facility] [address] [id number] [address] [place] [address], [place] [address] Sep, [facility] [address] [id number] [address] [place] [address], [place] [address] Sep, [facility] [address] [id number] [address] [place] [address], [place] [address] Jul, [facility] [address] [id number] [address] [place] [address], [place] [address] Jul, [facility] [address] [id number] [address] [place] [address], [place] [address] Jul, [facility] [address] [id number] [address] [place] [address], [place] [address] 25 Jun, 2013 [facility] [address] [id number] [address] [place] [address], [place] [address] 11 Jun, 2013 [facility] [address] [id number] [address] [place] [address], [place] [address] 10 Jun, 2013 [facility] [address] [id number] [address] [place] [address], [place] [address] 09 Jun, 2013 [facility] [address] [id number] [address] [place] [address], [place] [address] 05 Sep, 2012 [facility] [address] [id number] [address] [place] [address], [place] [address] 05 Jun, 2012 [facility] [address] [id number] [address] [place] [address], [place] [address] 04 Jun, 2013 [facility] [address] [id number] [address] [place] [address], [place] [address] May, [facility] [address] [id number] [address] [place] [address], [place] [address] Apr, [facility] [address] [id number] [address] [place] [address], [place] [address] Apr, [facility] [address] [id number] [address] [place] [address], [place] [address] Apr, [facility] [address] [id number] [address] [place] [address], [place] [address] Apr, [facility] [address] [id number] [address] [place] [address], [place] [address] Apr, [facility] [address] [id number] [address] [place] [address], [place] [address] Apr, [facility] [address] [id number] [address] [place] [address], [place] [address] Apr, [facility] [address] [id number] [address] [place] [address], [place] [address] Mar, [facility] [address] [id number] [address] [place] [address], [place] [address] Mar, [facility] [address] [id number] [address] [place] [address], [place] [address] Mar, [facility] [address] [id number] [address] [place] [address], [place] [address] Mar, [facility] [address] [id number] [address] [place] [address], [place] [address] Mar, [facility] [address] [id number] [address] [place] [address], [place] [address] 06 Mar, 2013 [facility] [address] [id number] [address] [place] [address], [place] [address] February, [facility] [address] [id number] [address] [place] [address], [place] [address] February, [facility] [address] [id number] [address] [place] [address], [place] [address] February, [facility] [address] [id number] [address] [place] [address], [place] [address] Jan, [facility] [address] [id number] [address] [place] [address], [place] [address] Jan, [facility] [address] [id number] [address] [place] [address], [place] [address] Jan, [facility] [address] [id number] [address] [place] [address], [place] [address] Jan, [facility] [address] [id number] [address] [place] [address], [place] [address] Dec, [facility] [address] [id number] [address] [place] [address], [place] [address] Nov, [facility] [address] [id number] [address] [place] [address], [place] [address] Oct, [facility] [address] [id number] [address] [place] [address], [place] [address] Oct, [facility] [address] [id number] [address] [place] [address], [place] [address] Oct, [facility] [address] [id number] [address] [place] [address], [place] [address] Sep, [facility] [address] [id number] [address] [place] [address], [place] [address] Sep, [facility] [address] [id number] [address] [place] [address], [place] [address] Sep, [facility] [address] [id number] [address] [place] [address], [place] [address] Sep, [facility] [address] [id number] [address] [place] [address], [place] [address] Jul, [facility] [address] [id number] [address] [place] [address], [place] [address] Jul, [facility] [address] [id number] [address] [place] [address], [place] [address] Jul, [facility] [address] [id number] [address] [place] [address], [place] [address] Jul, [facility] [address] [id number] [address] [place] [address], [place] [address] Jul, [facility] [address] [id number] [address] [place] [address], [place] [address] Jul, [facility] [address] [id number] [address] [place] [address], [place] [address] Jul, [facility] [address] [id number] [address] [place] [address], [place] [address] 27 Jun, 2012 [facility] [address] [id number] [address] [place] [address] 25 Jun, 2012 [facility] [address] [id number] [address] [place] [address] 18 Jun, 2012 [facility] [place] [id number] [place] [id number] 17 Jun, 2012 [facility] [address] [id number] [address] [place] [address], [place] [address] 12 Jun, 2012 [facility] [address] [id number] [address] [place] [address], [place] [address] 11 Jun, 2012 [facility] [address] [id number] [address] [place] [address] Apr, [facility] [address] [id number] [address] [place] [address] Apr, [facility] [address] [id number] [address] [place] [address], [place] [address] Apr, [facility] [address] [id number] [address] [place] [address], [place] [address] February, [facility] [address] [id number] [address] [place] [address], [place] [address] Dec, [facility] [address] [id number] [address] [place] [address], [place] [address] Dec, [facility] [address] [id number] [address] [place] [address], [place] [address] Dec, [facility] [address] [id number] [address] [place] [address], [place] [address] Nov, [facility] [address] [id number] [address] [place] [address], [place] [address] Nov, [facility] [address] [id number] [address] [place] [address], [place] [address] Oct, [facility] [address] [id number] [address] [place] [address], [place] [address] Oct, [facility] [address] [id number] [address] [place] [address], [place] [address] Oct, [facility] [address] [id number] [address] [place] [address], [place] [address] Sep, [facility] [address] [id number] [address] [place] [address], [place] [address] Sep, [facility] [address] [id number] [address] [place] [address], [place] [address] 15 Sep, 2011 [facility] [address] [id number] [address] [place] [address], [place] [address] 14 Sep, 2011 [facility] [address] [id number] [address] [place] [address], [place] [address] 14 Sep, 2011 [facility] [address] [id number] [address] [place] [address], [place] [address] 18 Aug, 2011 [facility] [address] [id number] [address] [place] [address], [place] [address] 17 Aug, 2011 [facility] [address] [id number] [address] [place] [address], [place] [address] Aug, [facility] [address] [id number] [address] [place] [address], [place] [address] Aug, [facility] [address] [id number] [address] [place] [address], [place] [address] 27 Jul, 2011 [facility] [address] [id number] [address] [place] [address], [place] [address] Jul, [facility] [address] [id number] [address] [place] [address], [place] [address] Jul, [facility] [address] [id number] [address] [place] [address], [place] [address] Jul, [facility] [address] [id number] [address] [place] [address], [place] [address] Jul, [facility] [address] [id number] [address] [place] [address], [place] [address] Apr, [facility] [address] [id number] [address] [place] [address], [place] [address] Sep, [facility] [address] [id number] [address] [place] [address], [place] [address] Sep, [facility] [address] [id number] [address] [place] [address], [place] [address] Sep, [facility] [address] [id number] [address] [place] [address], [place] [address] Aug, [facility] [address] [id number] [address] [place] [address], [place] [address] Aug, [facility] [address] [id number] [address] [place] [address], [place] [address] 10 Aug, 2010 [facility] [address] [id number] [address] [place] [address], [place] [address] 27 Jul, 2010 [facility] [address] [id number] [address] [place] [address], [place] [address] 16 Jun, 2010 [facility] [address] [id number] [address] [place] [address], [place] [address] 14 Apr, 2010 [facility] [address] [id number] [address] [place] [address], [place] [address] 10 Apr, 2010 [facility] [address] [id number] [address] [place] [address], [place] [address] 12 Jan, 2010 [facility] [address] [id number] [address] [place] [address], [place] [address] 17 Nov, 2009 [facility] [address] [id number] [address] [place] [address], [place] [address] Sep, [facility] [address] [id number] [address] [place] [address] 12 Aug, 2009 [facility] [address] [id number] [address] [place] [address], [place] [address] Aug, [facility] [address] [id number] [address] [place] [address] 03 Aug, 2009 [facility] [address] [id number] [address] [place] [id number] 16 Jun, 2009 [facility] [address] [id number] [address] [place] [id number] 10 May, 2009 [facility] [address] [id number] [address] [place] [address], [place] [id number] Mar, [facility] [address] [id number] [address] [place] [id number] 15 Mar, 2009 [facility] [address] [id number] [address] [place] [id number] 19 Nov, 2008 [facility] [address] [id number] [address] [place] [address] [place] [id number] 13 Nov, 2008 IMMUNIZATIONS No Known Immunizations SOCIAL HISTORY Never Assessed REASON FOR VISIT EMR-[facility] [place] PLAN OF CARE VITAL SIGNS MEDICATIONS Unknown [...]
--- OUTSIDE RECORDS SUMMARY | 2019-12-27 00:48 | XMS REPORT ---
Author Author Lena Weldon Doctor Organization [facility] Address Unknown Phone Unavailable Care Team Providers Care Engineering Group Leader Name Role Phone Migration, Doctor Unavailable Unavailable PROBLEMS Type Condition ICD9-CM Code EFY55-MN Code Onset Dates Condition S tatus SNOMED Code Problem Breast lesion N64.9 Active 069420 004 Problem Chronic prescription opiate use Z79.899 Active 158485695 Problem BMI 40.0-44.9, adult Z68.41 Active 615669536 Problem Axillary hidradenitis suppurativa L73.2 Active 055303124 Problem Low back pain M54.5 Active 815815 005 Problem Migraine with aura and without status migrainosu s, not intractable G43.109 Active 3870929 Problem Adjustment disorder with mixed anxiety and depressed mood F43.23 Active 05613877 Problem Bipolar disorder in partial remission, most recent episode unspecified type F31.70 Active [id number] ALLERGIES No Information ENCOUNTERS Encounter Location Date Diagnosis [facility] [place] [address] [id number] [address] [place] [address] Jul, Low back pain M54.5 [facility] [place] [address] [id number] [address] [place] [address] 28 Jun, 2018 BMI 40.0-44.9, adult Z68.41 ; Axillary hidradenitis suppurativa L73.2 and Low back pain M54.5 [facility] [place] [address] [id number] [address] [place] [address] Jun, [facility] [address] [id number] [address] [place] [address] May, Plantar fasciitis of right f oot M72.2 [facility] [place] [address] [id number] [address] [place] [address] Jan, Breast lesion N64.9 [facility] [place] [address] [facility] [place] [id number] [address] [place] [address] Jan, Breast lesion N64.9 [facility] [place] [address] [facility] [place] [id number] [address] [place] [address] Jan, Breast lesion N64.9 [facility] [place] [address] [facility] [place] [id number] [address] [place] [address] Jan, [facility] [place] [address] [facility] [place] [id number] [address] [place] [address] Dec, Breast lesion N64.9 [facility] [place] [address] [facility] [place] [id number] [address] [place] [address] Oct, BMI 40.0-44.9, adult Z68.41 ; Low back pain M54.5 ; Chronic prescription opiate use Z79.899 and Breast lesion N64.9 [facility] [place] [address] [id number] [address] [place] [address] Oct, Adjustment disorder with mix ed anxiety and depressed mood F43.23 and Bipolar disorder in partial remission, most recent episode unspecified type F31.70 [facility] [place] [address] [facility] [place] [id number] [address] [place] [address] Oct, Adjustment disorder with mix ed anxiety and depressed mood F43.23 and Bipolar disorder in partial remission, most recent episode unspecified type F31.70 [facility] [address] [facility] [place] [id number] [address] [place] [address] Sep, Sore throat J02.9 ; Other vi ral agents as the cause of diseases classified elsewhere B97.89 and Acute pharyngitis due to other specified organisms J02.8 [facility] [place] [address] [facility] [place] [id number] [address] [place] [address] Sep, Breast lesion N64.9 [facility] [place] [address] [facility] [place] [id number] [address] [place] [address] Sep, Breast lump N63 [facility] [place] [address] [id number] [address] [place] [address] 18 Jul, 2016 Elevated fasting glucose R73 .01 [address] [address] [address] 18 Jul, 2016 Elevated fasting glucose R73 .01 [address] [address] [address] 14 Jul, 2016 Pelvic pain R10.2 ; Screenin g, lipid Z13.220 and Screening for diabetes mellitus Z13.1 [address] [address] [address] 15 Jun, 2016 Pelvic pain R10.2 and Vagina l candidiasis B37.3 [facility] [place] [address] [address] 14 Jun, 2016 Abdominal pain, lower R10.30 [facility] [place] [address] [address] 14 Jun, 2016 [address] [address] [address] 07 Mar, 2016 Acute pain of right shoulder M25.511 [address] [address] [address] Mar, Right anterior shoulder pain M25.511 [facility] [place] [address] [address] February, Acute pain of right shoulder M25.511 [address] [address] [address] Jan, Low back pain M54.5 ; Migrai ne G43.909 ; Screening, lipid Z13.220 ; Screening for diabetes mellitus Z13.1 and Tobacco abuse counseling Z71.6 [place] [address] [id number] [address] [place] [address] Dec, [address] [address] [address] Dec, [place] [address] [address] Dec, Lateral meniscus tear S83.28 [facility] [address] [address] Nov, Sore throat J02.9 [facility] [place] [address] [address] Nov, [facility] [place] [address] [address] Nov, [address] [address] [address] Oct, Acute pain of left knee M25. 562 ; Low back pain M54.5 and Chronic prescription opiate use Z79.899 [address] [address] [address] Aug, Plantar fasciitis M72.2 [address] [address] [address] Jul, Metatarsus primus varus Q66. 2 and Bunion of great toe of left foot M20.12 [place] [address] [address] 30 Jun, 2015 Chronic migraine 346.70 ; Bi polar disorder 296.80 ; Bilateral foot pain 729.5 ; Cellulitis 682.9 and Lumbosacral radiculopathy at L5 724.4 [address] [address] [address] 16 Jun, 2015 Plantar fasciitis, bilateral 728.71 [place] [address] [address] Apr, Major depression, recurrent 296.30 ; Anxiety, generalized 300.02 ; No condition on [place] II V71.09 and No condition on axis III V71.09 [place] [address] [address] Apr, Unspecified episodic mood di sorder 296.90 [facility] [place] [address] [facility] [place] [id number] [address] [place] [address] Apr, Acute pharyngitis 462 [facility] [place] [address] [facility] [place] [id number] [address] [place] [address] Apr, [facility] [place] [address] [facility] [place] [id number] [address] [place] [address] Apr, Major depression, recurrent 296.30 ; Anxiety 300.00 ; No condition on [place] II V71.09 and No condition on axis III V71.09 [facility] [place] [address] [facility] [place] [id number] [address] [place] [address] Mar, Unspecified episodic mood di sorder 296.90 and 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 [facility] [place] [address] [facility] [place] [id number] [address] [place] [address] Mar, [facility] [address] [id number] [address] [place] [address] [id number] February, Dental examination V72.2 [facility] [place] [address] [facility] [place] [id number] [address] [place] [address] February, [facility] [place] [address] [facility] [place] [id number] [address] [place] [address] February, [facility] [place] [address] [facility] [place] [id number] [address] [place] [address] Jan, [facility] [place] [address] [facility] [place] [id number] [address] [place] [address] Jan, [facility] [place] [address] [facility] [place] [id number] [address] [place] [address] Dec, [facility] [place] [address] [facility] [place] [id number] [address] [place] [address] Dec, [facility] [place] [address] [facility] [place] [id number] [address] [place] [address] Dec, [facility] [address] [id number] [address] [place] [address], [place] [address] Dec, [facility] [address] [id number] [address] [place] [address], [place] [address] Oct, [facility] [address] [id number] [address] [place] [address], [place] [address] Oct, [facility] [address] [id number] [address] [place] [address], [place] [address] Aug, [facility] [address] [id number] [address] [place] [address], [place] [address] Aug, [facility] [address] [id number] [address] [place] [address], [place] [address] Aug, [facility] [address] [id number] [address] [place] [address], [place] [address] Aug, [facility] [address] [id number] [address] [place] [address], [place] [address] Jul, [facility] [address] [id number] [address] [place] [address], [place] [address] Jul, [facility] [address] [id number] [address] [place] [address], [place] [address] Jul, [facility] [address] [id number] [address] [place] [address], [place] [address] Jul, [facility] [address] [id number] [address] [place] [address], [place] [address] Jun, [facility] [address] [id number] [address] [place] [address], [place] [address] 23 Jun, 2014 [facility] [address] [id number] [address] [place] [address], [place] [address] Jun, [facility] [address] [id number] [address] [place] [address], [place] [address] Jun, [facility] [address] [id number] [address] [place] [address], [place] [address] Jun, [facility] [address] [id number] [address] [place] [address], [place] [address] Jun, [facility] [address] [id number] [address] [place] [address], [place] [address] May, [facility] [address] [id number] [address] [place] [address], [place] [address] May, [facility] [address] [id number] [address] [place] [address], [place] [address] Mar, [facility] [address] [id number] [address] [place] [address], [place] [address] Mar, [facility] [address] [id number] [address] [place] [address], [place] [address] February, [facility] [address] [id number] [address] [place] [address], [place] [address] February, [facility] [address] [id number] [address] [place] [address], [place] [address] Jan, [facility] [address] [id number] [address] [place] [address], [place] [address] Jan, [facility] [address] [id number] [address] [place] [address], [place] [address] Jan, [facility] [address] [id number] [address] [place] [address], [place] [address] Jan, [facility] [address] [id number] [address] [place] [address], [place] [address] Jan, [facility] [address] [id number] [address] [place] [address], [place] [address] Jan, [facility] [address] [id number] [address] [place] [address], [place] [address] Dec, [facility] [address] [id number] [address] [place] [address], [place] [address] Dec, [facility] [address] [id number] [address] [place] [address], [place] [address] Nov, [facility] [address] [id number] [address] [place] [address], [place] [address] Nov, [facility] [address] [id number] [address] [place] [address], [place] [address] Oct, [facility] [address] [id number] [address] [place] [address], [place] [address] Oct, [facility] [address] [id number] [address] [place] [address], [place] [address] Sep, [facility] [address] [id number] [address] [place] [address], [place] [address] Sep, [facility] [address] [id number] [address] [place] [address], [place] [address] Sep, [facility] [address] [id number] [address] [place] [address], [place] [address] Sep, [facility] [address] [id number] [address] [place] [address], [place] [address] Jul, [facility] [address] [id number] [address] [place] [address], [place] [address] Jul, [facility] [address] [id number] [address] [place] [address], [place] [address] Jul, [facility] [address] [id number] [address] [place] [address], [place] [address] 25 Jun, 2013 [facility] [address] [id number] [address] [place] [address], [place] [address] 11 Jun, 2013 [facility] [address] [id number] [address] [place] [address], [place] [address] 10 Jun, 2013 [facility] [address] [id number] [address] [place] [address], [place] [address] 09 Jun, 2013 [facility] [address] [id number] [address] [place] [address], [place] [address] 05 Sep, 2012 [facility] [address] [id number] [address] [place] [address], [place] [address] 05 Jun, 2012 [facility] [address] [id number] [address] [place] [address], [place] [address] 04 Jun, 2013 [facility] [address] [id number] [address] [place] [address], [place] [address] May, [facility] [address] [id number] [address] [place] [address], [place] [address] Apr, [facility] [address] [id number] [address] [place] [address], [place] [address] Apr, [facility] [address] [id number] [address] [place] [address], [place] [address] Apr, [facility] [address] [id number] [address] [place] [address], [place] [address] Apr, [facility] [address] [id number] [address] [place] [address], [place] [address] Apr, [facility] [address] [id number] [address] [place] [address], [place] [address] Apr, [facility] [address] [id number] [address] [place] [address], [place] [address] Apr, [facility] [address] [id number] [address] [place] [address], [place] [address] Mar, [facility] [address] [id number] [address] [place] [address], [place] [address] Mar, [facility] [address] [id number] [address] [place] [address], [place] [address] Mar, [facility] [address] [id number] [address] [place] [address], [place] [address] Mar, [facility] [address] [id number] [address] [place] [address], [place] [address] Mar, [facility] [address] [id number] [address] [place] [address], [place] [address] 06 Mar, 2013 [facility] [address] [id number] [address] [place] [address], [place] [address] February, [facility] [address] [id number] [address] [place] [address], [place] [address] February, [facility] [address] [id number] [address] [place] [address], [place] [address] February, [facility] [address] [id number] [address] [place] [address], [place] [address] Jan, [facility] [address] [id number] [address] [place] [address], [place] [address] Jan, [facility] [address] [id number] [address] [place] [address], [place] [address] Jan, [facility] [address] [id number] [address] [place] [address], [place] [address] Jan, [facility] [address] [id number] [address] [place] [address], [place] [address] Dec, [facility] [address] [id number] [address] [place] [address], [place] [address] Nov, [facility] [address] [id number] [address] [place] [address], [place] [address] Oct, [facility] [address] [id number] [address] [place] [address], [place] [address] Oct, [facility] [address] [id number] [address] [place] [address], [place] [address] Oct, [facility] [address] [id number] [address] [place] [address], [place] [address] Sep, [facility] [address] [id number] [address] [place] [address], [place] [address] Sep, [facility] [address] [id number] [address] [place] [address], [place] [address] Sep, [facility] [address] [id number] [address] [place] [address], [place] [address] Sep, [facility] [address] [id number] [address] [place] [address], [place] [address] Jul, [facility] [address] [id number] [address] [place] [address], [place] [address] Jul, [facility] [address] [id number] [address] [place] [address], [place] [address] Jul, [facility] [address] [id number] [address] [place] [address], [place] [address] Jul, [facility] [address] [id number] [address] [place] [address], [place] [address] Jul, [facility] [address] [id number] [address] [place] [address], [place] [address] Jul, [facility] [address] [id number] [address] [place] [address], [place] [address] Jul, [facility] [address] [id number] [address] [place] [address], [place] [address] 27 Jun, 2012 [facility] [address] [id number] [address] [place] [id number] 25 Jun, 2012 [facility] [address] [id number] [address] [place] [id number] 18 Jun, 2012 [facility] [address] [id number] [place] [id number] 17 Jun, 2012 [facility] [address] [id number] [address] [place] [address], [place] [address] 12 Jun, 2012 [facility] [address] [id number] [address] [place] [address], [place] [address] 11 Jun, 2012 [facility] [address] [id number] [address] [place] [id number] Apr, [facility] [address] [id number] [address] [place] [id number] Apr, [facility] [address] [id number] [address] [place] [address], [place] [address] Apr, [facility] [address] [id number] [address] [place] [address], [place] [address] February, [facility] [address] [id number] [address] [place] [address], [place] [address] Dec, [facility] [address] [id number] [address] [place] [address], [place] [address] Dec, [facility] [address] [id number] [address] [place] [address], [place] [address] Dec, [facility] [address] [id number] [address] [place] [address], [place] [address] Nov, [facility] [address] [id number] [address] [place] [address], [place] [address] Nov, [facility] [address] [id number] [address] [place] [address], [place] [address] Oct, [facility] [address] [id number] [address] [place] [address], [place] [address] Oct, [facility] [address] [id number] [address] [place] [address], [place] [address] Oct, [facility] [address] [id number] [address] [place] [address], [place] [address] Sep, [facility] [address] [id number] [address] [place] [address], [place] [address] Sep, [facility] [address] [id number] [address] [place] [address], [place] [address] 15 Sep, 2011 [facility] [address] [id number] [address] [place] [address], [place] [address] 14 Sep, 2011 [facility] [address] [id number] [address] [place] [address], [place] [address] 14 Sep, 2011 [facility] [address] [id number] [address] [place] [address], [place] [address] 18 Aug, 2011 [facility] [address] [id number] [address] [place] [address], [place] [address] 17 Aug, 2011 [facility] [address] [id number] [address] [place] [address], [place] [address] Aug, [facility] [address] [id number] [address] [place] [address], [place] [address] Aug, [facility] [address] [id number] [address] [place] [address], [place] [address] 27 Jul, 2011 [facility] [address] [id number] [address] [place] [address], [place] [address] Jul, [facility] [address] [id number] [address] [place] [address], [place] [address] Jul, [facility] [address] [id number] [address] [place] [address], [place] [address] Jul, [facility] [address] [id number] [address] [place] [address], [place] [address] Jul, [facility] [address] [id number] [address] [place] [address], [place] [address] Apr, [facility] [address] [id number] [address] [place] [address], [place] [id number] Sep, [facility] [address] [id number] [address] [place] [address], [place] [address] Sep, [facility] [address] [id number] [address] [place] [address], [place] [address] Sep, [facility] [address] [id number] [address] [place] [address], [place] [address] Aug, [facility] [address] [id number] [address] [place] [address], [place] [address] Aug, [facility] [address] [id number] [address] [place] [address], [place] [address] 10 Aug, 2010 [facility] [address] [id number] [address] [place] [address], [place] [address] 27 Jul, 2010 [facility] [address] [id number] [address] [place] [address], [place] [address] 16 Jun, 2010 [facility] [address] [id number] [address] [place] [address], [place] [address] 14 Apr, 2010 [facility] [address] [id number] [address] [place] [address], [place] [address] 10 Apr, 2010 [facility] [address] [id number] [address] [place] [address], [place] [address] 12 Jan, 2010 [facility] [address] [id number] [address] [place] [address], [place] [address] 17 Nov, 2009 [facility] [address] [id number] [address] [place] [address], [place] [address] Sep, [facility] [address] [id number] [address] [place] [id number] 12 Aug, 2009 [facility] [address] [id number] [address] [place] [address], [place] [address] Aug, [facility] [address] [id number] [address] [place] [address] 03 Aug, 2009 [facility] [address] [id number] [address] [place] [address] 16 Jun, 2009 [facility] [address] [id number] [address] [place] [id number] 10 May, 2009 [facility] [address] [id number] [address] [place] [address], [place] [address] Mar, [facility] [address] [id number] [address] [place] [id number] 15 Mar, 2009 [facility] [address] [id number] [address] [place] [id number] 19 Nov, 2008 [facility] [address] [id number] [address] [place] [address] [place] [address] 13 Nov, 2008 IMMUNIZATIONS No Known Immunizations SOCIAL HISTORY Never Assessed [place]ASON FOR [place]IT [place] [place] VITAL SIGNS MEDICATIONS Unknown [...]
--- OUTSIDE RECORDS SUMMARY | 2019-12-27 00:48 | XMS REPORT ---
Author Author Lena Weldon Doctor Organization [facility] Address Unknown Phone Unavailable Care Team Providers Care Petroleum Analyst Name Role Phone Migration, Doctor Unavailable Unavailable PROBLEMS Type Condition ICD9-CM Code [id number] Code Onset Dates Condition S tatus SNOMED Code Problem Breast lesion N64.9 Active 996487 004 Problem Chronic prescription opiate use Z79.899 Active 743492486 Problem BMI 40.0-44.9, adult Z68.41 Active 721136230 Problem Axillary hidradenitis suppurativa L73.2 Active 843797039 Problem Low back pain M54.5 Active 620720 005 Problem Migraine with aura and without status migrainosu s, not intractable G43.109 Active 3154105 Problem Adjustment disorder with mixed anxiety and depressed mood F43.23 Active 18211480 Problem Bipolar disorder in partial remission, most recent episode unspecified type F31.70 Active 7208747 ALLERGIES No Information ENCOUNTERS Encounter Location Date Diagnosis [facility] [address] [id number] [address] [place] [address] Jul, Low back pain M54.5 [facility] [address] [id number] [address] [place] [id number] 28 Jun, 2018 BMI 40.0-44.9, adult Z68.41 ; Axillary hidradenitis suppurativa L73.2 and Low back pain M54.5 [facility] [address] [id number] [address] [place] [address] Jun, [facility] [address] [id number] [address] [place] [address] May, Plantar fasciitis of right f oot M72.2 [facility] [address] [id number] [address] [place] [address] Jan, Breast lesion N64.9 [facility] [address] [facility] [id number] [address] [place] [address] Jan, Breast lesion N64.9 [facility] [address] [facility] [id number] [address] [place] [address] Jan, Breast lesion N64.9 [facility] [address] [facility] [id number] [address] [place] [address] Jan, [facility] [address] [facility] [id number] [address] [place] [address] Dec, Breast lesion N64.9 [facility] [address] [facility] [id number] [address] [place] [address] Oct, BMI 40.0-44.9, adult Z68.41 ; Low back pain M54.5 ; Chronic prescription opiate use Z79.899 and Breast lesion N64.9 [facility] [address] [id number] [address] [place] [address] Oct, Adjustment disorder with mix ed anxiety and depressed mood F43.23 and Bipolar disorder in partial remission, most recent episode unspecified type F31.70 [facility] [address] [facility] [id number] [address] [place] [address] Oct, Adjustment disorder with mix ed anxiety and depressed mood F43.23 and Bipolar disorder in partial remission, most recent episode unspecified type F31.70 [facility] [address] [facility] [id number] [address] [place] [address] Sep, Sore throat J02.9 ; Other vi ral agents as the cause of diseases classified elsewhere B97.89 and Acute pharyngitis due to other specified organisms J02.8 [facility] [address] [facility] [id number] [address] [place] [address] Sep, Breast lesion N64.9 [facility] [address] [facility] [id number] [address] [place] [address] Sep, Breast lump N63 [facility] [address] [id number] [address] [place] [address] 18 Jul, 2016 Elevated fasting glucose R73 .01 [place] [address] [address] 18 Jul, 2016 Elevated fasting glucose R73 .01 [place] [address] [address] 14 Jul, 2016 Pelvic pain R10.2 ; Screenin g, lipid Z13.220 and Screening for diabetes mellitus Z13.1 [place] [address] [address] 15 Jun, 2016 Pelvic pain R10.2 and Vagina l candidiasis B37.3 [facility] [place] [address] [address] 14 Jun, 2016 Abdominal pain, lower R10.30 [facility] [place] [address] [address] 14 Jun, 2016 [place] [address] [address] 07 Mar, 2016 Acute pain of right shoulder M25.511 [place] [address] [address] Mar, Right anterior shoulder pain M25.511 [facility] [place] [address] [address] February, Acute pain of right shoulder M25.511 [place] [address] [address] Jan, Low back pain M54.5 ; Migrai ne G43.909 ; Screening, lipid Z13.220 ; Screening for diabetes mellitus Z13.1 and Tobacco abuse counseling Z71.6 [place] [address] [id number] [address] [place] [address] Dec, [place] [address] [address] Dec, [place] [address] [address] Dec, Lateral meniscus tear S83.28 [facility] [address] [address] Nov, Sore throat J02.9 [facility] [address] [address] Nov, [facility] [address] [address] Nov, [place] [address] [address] Oct, Acute pain of left knee M25. 562 ; Low back pain M54.5 and Chronic prescription opiate use Z79.899 [address] [address] [address] Aug, Plantar fasciitis M72.2 [place] [address] [address] Jul, Metatarsus primus varus Q66. 2 and Bunion of great toe of left foot M20.12 [place] [address] [address] 30 Jun, 2015 Chronic migraine 346.70 ; Bi polar disorder 296.80 ; Bilateral foot pain 729.5 ; Cellulitis 682.9 and Lumbosacral radiculopathy at L5 724.4 [place] [address] [address] 16 Jun, 2015 Plantar fasciitis, bilateral 728.71 [place] [address] [address] Apr, Major depression, recurrent 296.30 ; Anxiety, generalized 300.02 ; No condition on [place] II V71.09 and No condition on axis III V71.09 [place] [address] [address] Apr, Unspecified episodic mood di sorder 296.90 [facility] [address] [facility] [id number] [address] [place] [address] Apr, Acute pharyngitis 462 [facility] [address] [facility] [id number] [address] [place] [address] Apr, [facility] [address] [facility] [id number] [address] [place] [address] Apr, Major depression, recurrent 296.30 ; Anxiety 300.00 ; No condition on [place] II V71.09 and No condition on axis III V71.09 [facility] [address] [facility] [id number] [address] [place] [address] Mar, Unspecified episodic mood di sorder 296.90 and 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 [facility] [address] [facility] [id number] [address] [place] [address] Mar, [facility] [address] [id number] [address] [place] [id number] February, Dental examination V72.2 [facility] [address] [facility] [id number] [address] [place] [address] February, [facility] [address] [facility] [id number] [address] [place] [address] February, [facility] [address] [facility] [id number] [address] [place] [address] Jan, [facility] [address] [facility] [id number] [address] [place] [address] Jan, [facility] [address] [facility] [id number] [address] [place] [address] Dec, [facility] [address] [facility] [id number] [address] [place] [address] Dec, [facility] [address] [facility] [id number] [address] [place] [address] Dec, [facility] [address] [id number] [address] [place] [address], [place] [address] Dec, [facility] [address] [id number] [address] [place] [address], [place] [address] Oct, [facility] [address] [id number] [address] [place] [address], [place] [address] Oct, [facility] [address] [id number] [address] [place] [address], [place] [address] Aug, [facility] [address] [id number] [address] [place] [address], [place] [address] Aug, [facility] [address] [id number] [address] [place] [address], [place] [address] Aug, [facility] [address] [id number] [address] [place] [address], [place] [address] Aug, [facility] [address] [id number] [address] [place] [address], [place] [address] Jul, [facility] [address] [id number] [address] [place] [address], [place] [address] Jul, [facility] [address] [id number] [address] [place] [address], [place] [address] Jul, [facility] [address] [id number] [address] [place] [address], [place] [address] Jul, [facility] [address] [id number] [address] [place] [address], [place] [address] Jun, [facility] [address] [id number] [address] [place] [address], [place] [address] 23 Jun, 2014 [facility] [address] [id number] [address] [place] [address], [place] [address] Jun, [facility] [address] [id number] [address] [place] [address], [place] [address] Jun, [facility] [address] [id number] [address] [place] [address], [place] [address] Jun, [facility] [address] [id number] [address] [place] [address], [place] [address] Jun, [facility] [address] [id number] [address] [place] [address], [place] [address] May, [facility] [address] [id number] [address] [place] [address], [place] [address] May, [facility] [address] [id number] [address] [place] [address], [place] [address] Mar, [facility] [address] [id number] [address] [place] [address], [place] [address] Mar, [facility] [address] [id number] [address] [place] [address], [place] [address] February, [facility] [address] [id number] [address] [place] [address], [place] [address] February, [facility] [address] [id number] [address] [place] [address], [place] [address] Jan, [facility] [address] [id number] [address] [place] [address], [place] [address] Jan, [facility] [address] [id number] [address] [place] [address], [place] [address] Jan, [facility] [address] [id number] [address] [place] [address], [place] [address] Jan, [facility] [address] [id number] [address] [place] [address], [place] [address] Jan, [facility] [address] [id number] [address] [place] [address], [place] [address] Jan, [facility] [address] [id number] [address] [place] [address], [place] [address] Dec, [facility] [address] [id number] [address] [place] [address], [place] [address] Dec, [facility] [address] [id number] [address] [place] [address], [place] [address] Nov, [facility] [address] [id number] [address] [place] [address], [place] [address] Nov, [facility] [address] [id number] [address] [place] [address], [place] [address] Oct, [facility] [address] [id number] [address] [place] [address], [place] [address] Oct, [facility] [address] [id number] [address] [place] [address], [place] [address] Sep, [facility] [address] [id number] [address] [place] [address], [place] [address] Sep, [facility] [address] [id number] [address] [place] [address], [place] [address] Sep, [facility] [address] [id number] [address] [place] [address], [place] [address] Sep, [facility] [address] [id number] [address] [place] [address], [place] [address] Jul, [facility] [address] [id number] [address] [place] [address], [place] [address] Jul, [facility] [address] [id number] [address] [place] [address], [place] [address] Jul, [facility] [address] [id number] [address] [place] [address], [place] [address] 25 Jun, 2013 [facility] [address] [id number] [address] [place] [address], [place] [address] 11 Jun, 2013 [facility] [address] [id number] [address] [place] [address], [place] [address] 10 Jun, 2013 [facility] [address] [id number] [address] [place] [address], [place] [address] 09 Jun, 2013 [facility] [address] [id number] [address] [place] [address], [place] [address] 05 Sep, 2012 [facility] [address] [id number] [address] [place] [address], [place] [address] 05 Jun, 2012 [facility] [address] [id number] [address] [place] [address], [place] [address] 04 Jun, 2013 [facility] [address] [id number] [address] [place] [address], [place] [address] May, [facility] [address] [id number] [address] [place] [address], [place] [address] Apr, [facility] [address] [id number] [address] [place] [address], [place] [address] Apr, [facility] [address] [id number] [address] [place] [address], [place] [address] Apr, [facility] [address] [id number] [address] [place] [address], [place] [address] Apr, [facility] [address] [id number] [address] [place] [address], [place] [address] Apr, [facility] [address] [id number] [address] [place] [address], [place] [address] Apr, [facility] [address] [id number] [address] [place] [address], [place] [address] Apr, [facility] [address] [id number] [address] [place] [address], [place] [address] Mar, [facility] [address] [id number] [address] [place] [address], [place] [address] Mar, [facility] [address] [id number] [address] [place] [address], [place] [address] Mar, [facility] [address] [id number] [address] [place] [address], [place] [address] Mar, [facility] [address] [id number] [address] [place] [address], [place] [address] Mar, [facility] [address] [id number] [address] [place] [address], [place] [address] 06 Mar, 2013 [facility] [address] [id number] [address] [place] [address], [place] [address] February, [facility] [address] [id number] [address] [place] [address], [place] [address] February, [facility] [address] [id number] [address] [place] [address], [place] [address] February, [facility] [address] [id number] [address] [place] [address], [place] [address] Jan, [facility] [address] [id number] [address] [place] [address], [place] [address] Jan, [facility] [address] [id number] [address] [place] [address], [place] [address] Jan, [facility] [address] [id number] [address] [place] [address], [place] [address] Jan, [facility] [address] [id number] [address] [place] [address], [place] [address] Dec, [facility] [address] [id number] [address] [place] [address], [place] [address] Nov, [facility] [address] [id number] [address] [place] [address], [place] [address] Oct, [facility] [address] [id number] [address] [place] [address], [place] [address] Oct, [facility] [address] [id number] [address] [place] [address], [place] [address] Oct, [facility] [address] [id number] [address] [place] [address], [place] [address] Sep, [facility] [address] [id number] [address] [place] [address], [place] [address] Sep, [facility] [address] [id number] [address] [place] [address], [place] [address] Sep, [facility] [address] [id number] [address] [place] [address], [place] [address] Sep, [facility] [address] [id number] [address] [place] [address], [place] [address] Jul, [facility] [address] [id number] [address] [place] [address], [place] [address] Jul, [facility] [address] [id number] [address] [place] [address], [place] [address] Jul, [facility] [address] [id number] [address] [place] [address], [place] [address] Jul, [facility] [address] [id number] [address] [place] [address], [place] [address] Jul, [facility] [address] [id number] [address] [place] [address], [place] [address] Jul, [facility] [address] [id number] [address] [place] [address], [place] [address] Jul, [facility] [address] [id number] [address] [place] [address], [place] [address] 27 Jun, 2012 [facility] [address] [id number] [address] [place] [address] 25 Jun, 2012 [facility] [address] [id number] [address] [place] [address] 18 Jun, 2012 [facility] [place] [id number] [place] [id number] 17 Jun, 2012 [facility] [address] [id number] [address] [place] [address], [place] [address] 12 Jun, 2012 [facility] [address] [id number] [address] [place] [address], [place] [address] 11 Jun, 2012 [facility] [address] [id number] [address] [place] [address] Apr, [facility] [address] [id number] [address] [place] [id number] Apr, [facility] [address] [id number] [address] [place] [address], [place] [address] Apr, [facility] [address] [id number] [address] [place] [address], [place] [address] February, [facility] [address] [id number] [address] [place] [address], [place] [address] Dec, [facility] [address] [id number] [address] [place] [address], [place] [address] Dec, [facility] [address] [id number] [address] [place] [address], [place] [address] Dec, [facility] [address] [id number] [address] [place] [address], [place] [address] Nov, [facility] [address] [id number] [address] [place] [address], [place] [address] Nov, [facility] [address] [id number] [address] [place] [address], [place] [address] Oct, [facility] [address] [id number] [address] [place] [address], [place] [address] Oct, [facility] [address] [id number] [address] [place] [address], [place] [address] Oct, [facility] [address] [id number] [address] [place] [address], [place] [address] Sep, [facility] [address] [id number] [address] [place] [address], [place] [address] Sep, [facility] [address] [id number] [address] [place] [address], [place] [address] 15 Sep, 2011 [facility] [address] [id number] [address] [place] [address], [place] [address] 14 Sep, 2011 [facility] [address] [id number] [address] [place] [address], [place] [address] 14 Sep, 2011 [facility] [address] [id number] [address] [place] [address], [place] [address] 18 Aug, 2011 [facility] [address] [id number] [address] [place] [address], [place] [address] 17 Aug, 2011 [facility] [address] [id number] [address] [place] [address], [place] [address] Aug, [facility] [address] [id number] [address] [place] [address], [place] [address] Aug, [facility] [address] [id number] [address] [place] [address], [place] [address] 27 Jul, 2011 [facility] [address] [id number] [address] [place] [address], [place] [address] Jul, [facility] [address] [id number] [address] [place] [address], [place] [address] Jul, [facility] [address] [id number] [address] [place] [address], [place] [address] Jul, [facility] [address] [id number] [address] [place] [address], [place] [address] Jul, [facility] [address] [id number] [address] [place] [address], [place] [address] Apr, [facility] [address] [id number] [address] [place] [address], [place] [address] Sep, [facility] [address] [id number] [address] [place] [address], [place] [address] Sep, [facility] [address] [id number] [address] [place] [address], [place] [address] Sep, [facility] [address] [id number] [address] [place] [address], [place] [address] Aug, [facility] [address] [id number] [address] [place] [address], [place] [address] Aug, [facility] [address] [id number] [address] [place] [address], [place] [address] 10 Aug, 2010 [facility] [address] [id number] [address] [place] [address], [place] [address] 27 Jul, 2010 [facility] [address] [id number] [address] [place] [address], [place] [address] 16 Jun, 2010 [facility] [address] [id number] [address] [place] [address], [place] [address] 14 Apr, 2010 [facility] [address] [id number] [address] [place] [address], [place] [address] 10 Apr, 2010 [facility] [address] [id number] [address] [place] [address], [place] [address] 12 Jan, 2010 [facility] [facility] [address] [id number] [address] [place] [address], [place] [id number] 17 Nov, 2009 [facility] [address] [id number] [address] [place] [address], [place] [id number] Sep, [facility] [address] [id number] [address] [place] [id number] 12 Aug, 2009 [facility] [address] [id number] [address] [place] [address], [place] [address] Aug, [facility] [address] [id number] [address] [place] [id number] 03 Aug, 2009 [facility] [address] [id number] [address] [place] [id number] 16 Jun, 2009 [facility] [address] [id number] [address] [place] [id number] 10 May, 2009 [facility] [address] [id number] [address] [place] [address], [place] [address] Mar, [facility] [address] [id number] [address] [place] [id number] 15 Mar, 2009 [facility] [address] [id number] [address] [place] [id number] 19 Nov, 2008 [facility] [address] [id number] [address] [place] [address] [place] [id number] 13 Nov, 2008 IMMUNIZATIONS No Known Immunizations SOCIAL HISTORY Never Assessed REASON FOR VISIT EMR-[facility] PLAN OF CARE VITAL SIGNS MEDICATIONS Unknown [...]
--- OUTSIDE RECORDS SUMMARY | 2019-12-27 00:48 | XMS REPORT ---
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 Name Role Phone Migration, Doctor Unavailable Unavailable PROBLEMS Type Condition ICD9-CM Code [id number] Code Onset Dates Condition S tatus SNOMED Code Problem Breast lesion N64.9 Active 308593 004 Problem Chronic prescription opiate use Z79.899 Active 269109989 Problem BMI 40.0-44.9, adult Z68.41 Active 428864446 Problem Axillary hidradenitis suppurativa L73.2 Active 130264470 Problem Low back pain M54.5 Active 027352 005 Problem Migraine with aura and without status migrainosu s, not intractable G43.109 Active 5589634 Problem Adjustment disorder with mixed anxiety and depressed mood F43.23 Active 74371765 Problem Bipolar disorder in partial remission, most recent episode unspecified type F31.70 Active 2513913 ALLERGIES No Information ENCOUNTERS Encounter Location Date Diagnosis [facility] [address] [id number] [address] [place] [address] Jul, Low back pain M54.5 [facility] [address] [place] [address] [id number] [address] [place] [address] 28 Jun, 2018 BMI 40.0-44.9, adult Z68.41 ; Axillary hidradenitis suppurativa L73.2 and Low back pain M54.5 [facility] [address] [id number] [address] [place] [address] Jun, [facility] [address] [id number] [address] [place] [address] May, Plantar fasciitis of right f oot M72.2 [facility] [address] [id number] [address] [place] [address] Jan, Breast lesion N64.9 [facility] [address] [facility] [id number] [address] [place] [address] Jan, Breast lesion N64.9 [facility] [address] [facility] [id number] [address] [place] [address] Jan, Breast lesion N64.9 [facility] [address] [facility] [id number] [address] [place] [address] Jan, [facility] [address] [facility] [id number] [address] [place] [address] Dec, Breast lesion N64.9 [facility] [address] [facility] [id number] [address] [place] [address] Oct, BMI 40.0-44.9, adult Z68.41 ; Low back pain M54.5 ; Chronic prescription opiate use Z79.899 and Breast lesion N64.9 [facility] [id number] [address] [place] [address] Oct, Adjustment disorder with mix ed anxiety and depressed mood F43.23 and Bipolar disorder in partial remission, most recent episode unspecified type F31.70 [facility] [address] [facility] [id number] [address] [place] [address] Oct, Adjustment disorder with mix ed anxiety and depressed mood F43.23 and Bipolar disorder in partial remission, most recent episode unspecified type F31.70 [facility] [address] [facility] [id number] [address] [place] [address] Sep, Sore throat J02.9 ; Other vi ral agents as the cause of diseases classified elsewhere B97.89 and Acute pharyngitis due to other specified organisms J02.8 [facility] [address] [facility] [id number] [address] [place] [address] Sep, Breast lesion N64.9 [facility] [address] [facility] [id number] [address] [place] [address] Sep, Breast lump N63 [facility] [id number] [address] [place] [address] 18 Jul, 2016 Elevated fasting glucose R73 .01 [place] [address] [address] 18 Jul, 2016 Elevated fasting glucose R73 .01 [place] [address] [address] 14 Jul, 2016 Pelvic pain R10.2 ; Screenin g, lipid Z13.220 and Screening for diabetes mellitus Z13.1 [place] [address] [address] 15 Jun, 2016 Pelvic pain R10.2 and Vagina l candidiasis B37.3 [facility] [place] [address] [address] 14 Jun, 2016 Abdominal pain, lower R10.30 [facility] [place] [address] [address] 14 Jun, 2016 [place] [address] [address] 07 Mar, 2016 Acute pain of right shoulder M25.511 [place] [address] [address] Mar, Right anterior shoulder pain M25.511 [facility] [place] [address] [address] February, Acute pain of right shoulder M25.511 [place] [address] [address] Jan, Low back pain M54.5 ; Migrai ne G43.909 ; Screening, lipid Z13.220 ; Screening for diabetes mellitus Z13.1 and Tobacco abuse counseling Z71.6 [place] [address] [id number] [address] [place] [address] Dec, [place] [address] [address] Dec, [place] [address] [address] Dec, Lateral meniscus tear S83.28 [address] [facility] [address] [address] Nov, Sore throat J02.9 [facility] [address] [address] Nov, [facility] [address] [address] Nov, [place] [address] [address] Oct, Acute pain of left knee M25. 562 ; Low back pain M54.5 and Chronic prescription opiate use Z79.899 [place] [address] [address] Aug, Plantar fasciitis M72.2 [place] [address] [address] Jul, Metatarsus primus varus Q66. 2 and Bunion of great toe of left foot M20.12 [place] [address] [address] 30 Jun, 2015 Chronic migraine 346.70 ; Bi polar disorder 296.80 ; Bilateral foot pain 729.5 ; Cellulitis 682.9 and Lumbosacral radiculopathy at L5 724.4 [place] [address] [address] 16 Jun, 2015 Plantar fasciitis, bilateral 728.71 [place] [address] [address] Apr, Major depression, recurrent 296.30 ; Anxiety, generalized 300.02 ; No condition on Schlater II V71.09 and No condition on axis III V71.09 [place] [address] [address] Apr, Unspecified episodic mood di sorder 296.90 [facility] [address] [facility] [id number] [address] [place] [address] Apr, Acute pharyngitis 462 [facility] [address] [facility] [id number] [address] [place] [address] Apr, [facility] [address] [facility] [id number] [address] [place] [address] Apr, Major depression, recurrent 296.30 ; Anxiety 300.00 ; No condition on Schlater II V71.09 and No condition on axis III V71.09 [facility] [address] [facility] [id number] [address] [place] [address] Mar, Unspecified episodic mood di sorder 296.90 and 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 [facility] [address] [facility] [id number] [address] [place] [address] Mar, [facility] [address] [id number] [address] [place] [id number] February, Dental examination V72.2 [facility] [address] [facility] [id number] [address] [place] [address] February, [facility] [address] [facility] [id number] [address] [place] [address] February, [facility] [address] [facility] [id number] [address] [place] [address] Jan, [facility] [address] [facility] [id number] [address] [place] [address] Jan, [facility] [address] [facility] [id number] [address] [place] [address] Dec, [facility] [address] [facility] [id number] [address] [place] [address] Dec, [facility] [address] [facility] [id number] [address] [place] [address] Dec, [facility] [address] [id number] [address] [place] [address], [place] [address] Dec, [facility] [address] [id number] [address] [place] [address], [place] [address] Oct, [facility] [address] [id number] [address] [place] [address], [place] [address] Oct, [facility] [address] [id number] [address] [place] [address], [place] [address] Aug, [facility] [address] [id number] [address] [place] [address], [place] [address] Aug, [facility] [address] [id number] [address] [place] [address], [place] [address] Aug, [facility] [address] [id number] [address] [place] [address], [place] [address] Aug, [facility] [address] [id number] [address] [place] [address], [place] [address] Jul, [facility] [address] [id number] [address] [place] [address], [place] [address] Jul, [facility] [address] [id number] [address] [place] [address], [place] [address] Jul, [facility] [address] [id number] [address] [place] [address], [place] [address] Jul, [facility] [address] [id number] [address] [place] [address], [place] [address] Jun, [facility] [address] [id number] [address] [place] [address], [place] [address] 23 Jun, 2014 [facility] [address] [id number] [address] [place] [address], [place] [address] Jun, [facility] [address] [id number] [address] [place] [address], [place] [address] Jun, [facility] [address] [id number] [address] [place] [address], [place] [address] Jun, [facility] [address] [id number] [address] [place] [address], [place] [address] Jun, [facility] [address] [id number] [address] [place] [address], [place] [address] May, [facility] [address] [id number] [address] [place] [address], [place] [address] May, [facility] [address] [id number] [address] [place] [address], [place] [address] Mar, [facility] [address] [id number] [address] [place] [address], [place] [address] Mar, [facility] [address] [id number] [address] [place] [address], [place] [address] February, [facility] [address] [id number] [address] [place] [address], [place] [address] February, [facility] [address] [id number] [address] [place] [address], [place] [address] Jan, [facility] [address] [id number] [address] [place] [address], [place] [address] Jan, [facility] [address] [id number] [address] [place] [address], [place] [address] Jan, [facility] [address] [id number] [address] [place] [address], [place] [address] Jan, [facility] [address] [id number] [address] [place] [address], [place] [address] Jan, [facility] [address] [id number] [address] [place] [address], [place] [address] Jan, [facility] [address] [id number] [address] [place] [address], [place] [address] Dec, [facility] [address] [id number] [address] [place] [address], [place] [address] Dec, [facility] [address] [id number] [address] [place] [address], [place] [address] Nov, [facility] [address] [id number] [address] [place] [address], [place] [address] Nov, [facility] [address] [id number] [address] [place] [address], [place] [address] Oct, [facility] [address] [id number] [address] [place] [address], [place] [address] Oct, [facility] [address] [id number] [address] [place] [address], [place] [address] Sep, [facility] [address] [id number] [address] [place] [address], [place] [address] Sep, [facility] [address] [id number] [address] [place] [address], [place] [address] Sep, [facility] [address] [id number] [address] [place] [address], [place] [address] Sep, [facility] [address] [id number] [address] [place] [address], [place] [address] Jul, [facility] [address] [id number] [address] [place] [address], [place] [address] Jul, [facility] [address] [id number] [address] [place] [address], [place] [address] Jul, [facility] [address] [id number] [address] [place] [address], [place] [address] 25 Jun, 2013 [facility] [address] [id number] [address] [place] [address], [place] [address] 11 Jun, 2013 [facility] [address] [id number] [address] [place] [address], [place] [address] 10 Jun, 2013 [facility] [address] [id number] [address] [place] [address], [place] [address] 09 Jun, 2013 [facility] [address] [id number] [address] [place] [address], [place] [address] 05 Sep, 2012 [facility] [address] [id number] [address] [place] [address], [place] [address] 05 Jun, 2012 [facility] [address] [id number] [address] [place] [address], [place] [address] 04 Jun, 2013 [facility] [address] [id number] [address] [place] [address], [place] [address] May, [facility] [address] [id number] [address] [place] [address], [place] [address] Apr, [facility] [address] [id number] [address] [place] [address], [place] [address] Apr, [facility] [address] [id number] [address] [place] [address], [place] [address] Apr, [facility] [address] [id number] [address] [place] [address], [place] [address] Apr, [facility] [address] [id number] [address] [place] [address], [place] [address] Apr, [facility] [address] [id number] [address] [place] [address], [place] [address] Apr, [facility] [address] [id number] [address] [place] [address], [place] [address] Apr, [facility] [address] [id number] [address] [place] [address], [place] [address] Mar, [facility] [address] [id number] [address] [place] [address], [place] [address] Mar, [facility] [address] [id number] [address] [place] [address], [place] [address] Mar, [facility] [address] [id number] [address] [place] [address], [place] [address] Mar, [facility] [address] [id number] [address] [place] [address], [place] [address] Mar, [facility] [address] [id number] [address] [place] [address], [place] [address] 06 Mar, 2013 [facility] [address] [id number] [address] [place] [address], [place] [address] February, [facility] [address] [id number] [address] [place] [address], [place] [address] February, [facility] [address] [id number] [address] [place] [address], [place] [address] February, [facility] [address] [id number] [address] [place] [address], [place] [address] Jan, [facility] [address] [id number] [address] [place] [address], [place] [address] Jan, [facility] [address] [id number] [address] [place] [address], [place] [address] Jan, [facility] [address] [id number] [address] [place] [address], [place] [address] Jan, [facility] [address] [id number] [address] [place] [address], [place] [address] Dec, [facility] [address] [id number] [address] [place] [address], [place] [address] Nov, [facility] [address] [id number] [address] [place] [address], [place] [address] Oct, [facility] [address] [id number] [address] [place] [address], [place] [address] Oct, [facility] [address] [id number] [address] [place] [address], [place] [address] Oct, [facility] [address] [id number] [address] [place] [address], [place] [address] Sep, [facility] [address] [id number] [address] [place] [address], [place] [address] Sep, [facility] [address] [id number] [address] [place] [address], [place] [address] Sep, [facility] [address] [id number] [address] [place] [address], [place] [address] Sep, [facility] [address] [id number] [address] [place] [address], [place] [address] Jul, [facility] [address] [id number] [address] [place] [address], [place] [address] Jul, [facility] [address] [id number] [address] [place] [address], [place] [address] Jul, [facility] [address] [id number] [address] [place] [address], [place] [address] Jul, [facility] [address] [id number] [address] [place] [address], [place] [address] Jul, [facility] [address] [id number] [address] [place] [address], [place] [address] Jul, [facility] [address] [id number] [address] [place] [address], [place] [address] Jul, [facility] [address] [id number] [address] [place] [address], [place] [address] 27 Jun, 2012 [facility] [address] [id number] [address] [place] [address] 25 Jun, 2012 [facility] [address] [id number] [address] [place] [address] 18 Jun, 2012 [facility] [place] [id number] [place] [id number] 17 Jun, 2012 [facility] [address] [id number] [address] [place] [address], [place] [address] 12 Jun, 2012 [facility] [address] [id number] [address] [place] [address], [place] [address] 11 Jun, 2012 [facility] [address] [id number] [address] [place] [address] Apr, [facility] [address] [id number] [address] [place] [address] Apr, [facility] [address] [id number] [address] [place] [address], [place] [address] Apr, [facility] [address] [id number] [address] [place] [address], [place] [address] February, [facility] [address] [id number] [address] [place] [address], [place] [address] Dec, [facility] [address] [id number] [address] [place] [address], [place] [address] Dec, [facility] [address] [id number] [address] [place] [address], [place] [address] Dec, [facility] [address] [id number] [address] [place] [address], [place] [address] Nov, [facility] [address] [id number] [address] [place] [address], [place] [address] Nov, [facility] [address] [id number] [address] [place] [address], [place] [address] Oct, [facility] [address] [id number] [address] [place] [address], [place] [address] Oct, [facility] [address] [id number] [address] [place] [address], [place] [address] Oct, [facility] [address] [id number] [address] [place] [address], [place] [address] Sep, [facility] [address] [id number] [address] [place] [address], [place] [address] Sep, [facility] [address] [id number] [address] [place] [address], [place] [address] 15 Sep, 2011 [facility] [address] [id number] [address] [place] [address], [place] [address] 14 Sep, 2011 [facility] [address] [id number] [address] [place] [address], [place] [address] 14 Sep, 2011 [facility] [address] [id number] [address] [place] [address], [place] [address] 18 Aug, 2011 [facility] [address] [id number] [address] [place] [address], [place] [address] 17 Aug, 2011 [facility] [address] [id number] [address] [place] [address], [place] [address] Aug, [facility] [address] [id number] [address] [place] [address], [place] [address] Aug, [facility] [address] [id number] [address] [place] [address], [place] [address] 27 Jul, 2011 [facility] [address] [id number] [address] [place] [address], [place] [address] Jul, [facility] [address] [id number] [address] [place] [address], [place] [address] Jul, [facility] [address] [id number] [address] [place] [address], [place] [address] Jul, [facility] [address] [id number] [address] [place] [address], [place] [address] Jul, [facility] [address] [id number] [address] [place] [address], [place] [address] Apr, [facility] [address] [id number] [address] [place] [address], [place] [address] Sep, [facility] [address] [id number] [address] [place] [address], [place] [address] Sep, [facility] [address] [id number] [address] [place] [address], [place] [address] Sep, [facility] [address] [id number] [address] [place] [address], [place] [address] Aug, [facility] [address] [id number] [address] [place] [address], [place] [address] Aug, [facility] [address] [id number] [address] [place] [address], [place] [address] 10 Aug, 2010 [facility] [address] [id number] [address] [place] [address], [place] [address] 27 Jul, 2010 [facility] [address] [id number] [address] [place] [address], [place] [address] 16 Jun, 2010 [facility] [address] [id number] [address] [place] [address], [place] [id number] 14 Apr, 2010 [facility] [address] [id number] [address] [place] [address], [place] [id number] 10 Apr, 2010 [facility] [address] [id number] [address] [place] [address], [place] [id number] 12 Jan, 2010 [facility] [address] [id number] [address] [place] [address], [place] [id number] 17 Nov, 2009 [facility] [address] [id number] [address] [place] [address], [place] [id number] Sep, [facility] [address] [id number] [address] [place] [id number] 12 Aug, 2009 [facility] [address] [id number] [address] [place] [address], [place] [id number] Aug, [facility] [address] [id number] [address] [place] [id number] 03 Aug, 2009 [facility] [address] [id number] [address] [place] [id number] 16 Jun, 2009 [facility] [address] [id number] [address] [place] [id number] 10 May, 2009 [facility] [address] [id number] [address] [place] [address], [place] [address] Mar, [facility] [address] [id number] [address] [place] [id number] 15 Mar, 2009 [facility] [address] [id number] [address] [place] [id number] 19 Nov, 2008 [facility] [address] [id number] [address] [place] [address] [place] [id number] 13 Nov, 2008 IMMUNIZATIONS No Known Immunizations SOCIAL HISTORY Never Assessed REASON FOR VISIT EMR-[facility] PLAN OF CARE VITAL SIGNS MEDICATIONS Unknown [...]
--- OUTSIDE RECORDS SUMMARY | 2019-12-27 00:49 | XMS REPORT ---
Author Author Lena Weldon Doctor Organization [facility] Address Unknown Phone Unavailable Care Team Providers Care Tubular Splitting Machine Tender Name Role Phone Migration, Doctor Unavailable Unavailable PROBLEMS Type Condition ICD9-CM Code COM25-MO Code Onset Dates Condition S tatus SNOMED Code Problem Breast lesion N64.9 Active 715649 004 Problem Chronic prescription opiate use Z79.899 Active 184564932 Problem BMI 40.0-44.9, adult Z68.41 Active 369508519 Problem Axillary hidradenitis suppurativa L73.2 Active 730237283 Problem Low back pain M54.5 Active 852834 005 Problem Migraine with aura and without status migrainosu s, not intractable G43.109 Active 8042698 Problem Adjustment disorder with mixed anxiety and depressed mood F43.23 Active 70403492 Problem Bipolar disorder in partial remission, most recent episode unspecified type F31.70 Active 4111823 ALLERGIES No Information ENCOUNTERS Encounter Location Date Diagnosis [facility] [address] [id number] [address] [place] [address] Jul, Low back pain M54.5 [facility] [address] [id number] [address] [place] [address] 28 Jun, 2018 BMI 40.0-44.9, adult Z68.41 ; Axillary hidradenitis suppurativa L73.2 and Low back pain M54.5 [facility] [address] [id number] [address] [place] [address] Jun, [facility] [address] [id number] [address] [place] [address] May, Plantar fasciitis of right f oot M72.2 [facility] [address] [id number] [address] [place] [address] Jan, Breast lesion N64.9 [facility] [address] [facility] [id number] [place] [address] Jan, Breast lesion N64.9 [facility] [address] [facility] [id number] [place] [address] Jan, Breast lesion N64.9 [facility] [address] [facility] [id number] [place] [address] Jan, [facility] [address] [facility] [id number] [place] [address] Dec, Breast lesion N64.9 [facility] [address] [facility] [id number] [place] [address] Oct, BMI 40.0-44.9, adult Z68.41 ; Low back pain M54.5 ; Chronic prescription opiate use Z79.899 and Breast lesion N64.9 [facility] [id number] [address] [place] [address] Oct, Adjustment disorder with mix ed anxiety and depressed mood F43.23 and Bipolar disorder in partial remission, most recent episode unspecified type F31.70 [facility] [address] [facility] [id number] [place] [address] Oct, Adjustment disorder with mix ed anxiety and depressed mood F43.23 and Bipolar disorder in partial remission, most recent episode unspecified type F31.70 [facility] [address] [facility] [id number] [place] [address] Sep, Sore throat J02.9 ; Other vi ral agents as the cause of diseases classified elsewhere B97.89 and Acute pharyngitis due to other specified organisms J02.8 [facility] [address] [facility] [id number] [place] [address] Sep, Breast lesion N64.9 [facility] [address] [facility] [id number] [place] [address] Sep, Breast lump N63 [facility] [id number] [address] [place] [address] 18 Jul, 2016 Elevated fasting glucose R73 .01 [place] [address] [address] 18 Jul, 2016 Elevated fasting glucose R73 .01 [place] [address] [address] 14 Jul, 2016 Pelvic pain R10.2 ; Screenin g, lipid Z13.220 and Screening for diabetes mellitus Z13.1 [place] [address] [address] 15 Jun, 2016 Pelvic pain R10.2 and Vagina l candidiasis B37.3 [facility] [place] [address] [address] 14 Jun, 2016 Abdominal pain, lower R10.30 [facility] [place] [address] [address] 14 Jun, 2016 [place] [address] [address] 07 Mar, 2016 Acute pain of right shoulder M25.511 [place] [address] [address] Mar, Right anterior shoulder pain M25.511 [facility] [place] [address] [address] February, Acute pain of right shoulder M25.511 [place] [address] [address] Jan, Low back pain M54.5 ; Migrai ne G43.909 ; Screening, lipid Z13.220 ; Screening for diabetes mellitus Z13.1 and Tobacco abuse counseling Z71.6 [place] [address] [id number] [address] [place] [address] Dec, [place] [address] [address] Dec, [place] [address] [address] Dec, Lateral meniscus tear S83.28 [facility] [address] [address] Nov, Sore throat J02.9 [facility] [address] [address] Nov, [facility] [address] [address] Nov, [place] [address] [address] Oct, Acute pain of left knee M25. 562 ; Low back pain M54.5 and Chronic prescription opiate use Z79.899 [place] [address] [address] Aug, Plantar fasciitis M72.2 [place] [address] [address] Jul, Metatarsus primus varus Q66. 2 and Bunion of great toe of left foot M20.12 [place] [address] [address] 30 Jun, 2015 Chronic migraine 346.70 ; Bi polar disorder 296.80 ; Bilateral foot pain 729.5 ; Cellulitis 682.9 and Lumbosacral radiculopathy at L5 724.4 [place] [address] [address] 16 Jun, 2015 Plantar fasciitis, bilateral 728.71 [place] [address] [address] Apr, Major depression, recurrent 296.30 ; Anxiety, generalized 300.02 ; No condition on Velma II V71.09 and No condition on axis III V71.09 [place] [address] [address] Apr, Unspecified episodic mood di sorder 296.90 [facility] [address] [facility] [id number] [place] [address] Apr, Acute pharyngitis 462 [facility] [address] [facility] [id number] [place] [address] Apr, [facility] [address] [facility] [id number] [place] [address] Apr, Major depression, recurrent 296.30 ; Anxiety 300.00 ; No condition on Velma II V71.09 and No condition on axis III V71.09 [facility] [address] [facility] [id number] [place] [address] Mar, Unspecified episodic mood di sorder 296.90 and 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 [facility] [address] [facility] [id number] [place] [address] Mar, [facility] [address] [id number] [address] [place] [id number] February, Dental examination V72.2 [facility] [address] [facility] [id number] [place] [address] February, [facility] [address] [facility] [id number] [place] [address] February, [facility] [address] [facility] [id number] [place] [address] Jan, [facility] [address] [facility] [id number] [place] [address] Jan, [facility] [address] [facility] [id number] [place] [address] Dec, [facility] [address] [facility] [id number] [place] [address] Dec, [facility] [address] [facility] [id number] [place] [address] Dec, [facility] [address] [id number] [address] [place] [address], [place] [address] Dec, [facility] [address] [id number] [address] [place] [address], [place] [address] Oct, [facility] [address] [id number] [address] [place] [address], [place] [address] Oct, [facility] [address] [id number] [address] [place] [address], [place] [address] Aug, [facility] [address] [id number] [address] [place] [address], [place] [address] Aug, [facility] [address] [id number] [address] [place] [address], [place] [address] Aug, [facility] [address] [id number] [address] [place] [address], [place] [address] Aug, [facility] [address] [id number] [address] [place] [address], [place] [address] Jul, [facility] [address] [id number] [address] [place] [address], [place] [address] Jul, [facility] [address] [id number] [address] [place] [address], [place] [address] Jul, [facility] [address] [id number] [address] [place] [address], [place] [address] Jul, [facility] [address] [id number] [address] [place] [address], [place] [address] Jun, [facility] [address] [id number] [address] [place] [address], [place] [address] 23 Jun, 2014 [facility] [address] [id number] [address] [place] [address], [place] [address] Jun, [facility] [address] [id number] [address] [place] [address], [place] [address] Jun, [facility] [address] [id number] [address] [place] [address], [place] [address] Jun, [facility] [address] [id number] [address] [place] [address], [place] [address] Jun, [facility] [address] [id number] [address] [place] [address], [place] [address] May, [facility] [address] [id number] [address] [place] [address], [place] [address] May, [facility] [address] [id number] [address] [place] [address], [place] [address] Mar, [facility] [address] [id number] [address] [place] [address], [place] [address] Mar, [facility] [address] [id number] [address] [place] [address], [place] [address] February, [facility] [address] [id number] [address] [place] [address], [place] [address] February, [facility] [address] [id number] [address] [place] [address], [place] [address] Jan, [facility] [address] [id number] [address] [place] [address], [place] [address] Jan, [facility] [address] [id number] [address] [place] [address], [place] [address] Jan, [facility] [address] [id number] [address] [place] [address], [place] [address] Jan, [facility] [address] [id number] [address] [place] [address], [place] [address] Jan, [facility] [address] [id number] [address] [place] [address], [place] [address] Jan, [facility] [address] [id number] [address] [place] [address], [place] [address] Dec, [facility] [address] [id number] [address] [place] [address], [place] [address] Dec, [facility] [address] [id number] [address] [place] [address], [place] [address] Nov, [facility] [address] [id number] [address] [place] [address], [place] [address] Nov, [facility] [address] [id number] [address] [place] [address], [place] [address] Oct, [facility] [address] [id number] [address] [place] [address], [place] [address] Oct, [facility] [address] [id number] [address] [place] [address], [place] [address] Sep, [facility] [address] [id number] [address] [place] [address], [place] [address] Sep, [facility] [address] [id number] [address] [place] [address], [place] [address] Sep, [facility] [address] [id number] [address] [place] [address], [place] [address] Sep, [facility] [address] [id number] [address] [place] [address], [place] [address] Jul, [facility] [address] [id number] [address] [place] [address], [place] [address] Jul, [facility] [address] [id number] [address] [place] [address], [place] [address] Jul, [facility] [address] [id number] [address] [place] [address], [place] [address] 25 Jun, 2013 [facility] [address] [id number] [address] [place] [address], [place] [address] 11 Jun, 2013 [facility] [address] [id number] [address] [place] [address], [place] [address] 10 Jun, 2013 [facility] [address] [id number] [address] [place] [address], [place] [address] 09 Jun, 2013 [facility] [address] [id number] [address] [place] [address], [place] [address] 05 Sep, 2012 [facility] [address] [id number] [address] [place] [address], [place] [address] 05 Jun, 2012 [facility] [address] [id number] [address] [place] [address], [place] [address] 04 Jun, 2013 [facility] [address] [id number] [address] [place] [address], [place] [address] May, [facility] [address] [id number] [address] [place] [address], [place] [address] Apr, [facility] [address] [id number] [address] [place] [address], [place] [address] Apr, [facility] [address] [id number] [address] [place] [address], [place] [address] Apr, [facility] [address] [id number] [address] [place] [address], [place] [address] Apr, [facility] [address] [id number] [address] [place] [address], [place] [address] Apr, [facility] [address] [id number] [address] [place] [address], [place] [address] Apr, [facility] [address] [id number] [address] [place] [address], [place] [address] Apr, [facility] [address] [id number] [address] [place] [address], [place] [address] Mar, [facility] [address] [id number] [address] [place] [address], [place] [address] Mar, [facility] [address] [id number] [address] [place] [address], [place] [address] Mar, [facility] [address] [id number] [address] [place] [address], [place] [address] Mar, [facility] [address] [id number] [address] [place] [address], [place] [address] Mar, [facility] [address] [id number] [address] [place] [address], [place] [address] 06 Mar, 2013 [facility] [address] [id number] [address] [place] [address], [place] [address] February, [facility] [address] [id number] [address] [place] [address], [place] [address] February, [facility] [address] [id number] [address] [place] [address], [place] [address] February, [facility] [address] [id number] [address] [place] [address], [place] [address] Jan, [facility] [address] [id number] [address] [place] [address], [place] [address] Jan, [facility] [address] [id number] [address] [place] [address], [place] [address] Jan, [facility] [address] [id number] [address] [place] [address], [place] [address] Jan, [facility] [address] [id number] [address] [place] [address], [place] [address] Dec, [facility] [address] [id number] [address] [place] [address], [place] [address] Nov, [facility] [address] [id number] [address] [place] [address], [place] [address] Oct, [facility] [address] [id number] [address] [place] [address], [place] [address] Oct, [facility] [address] [id number] [address] [place] [address], [place] [address] Oct, [facility] [address] [id number] [address] [place] [address], [place] [address] Sep, [facility] [address] [id number] [address] [place] [address], [place] [address] Sep, [facility] [address] [id number] [address] [place] [address], [place] [address] Sep, [facility] [address] [id number] [address] [place] [address], [place] [address] Sep, [facility] [address] [id number] [address] [place] [address], [place] [address] Jul, [facility] [address] [id number] [address] [place] [address], [place] [address] Jul, [facility] [address] [id number] [address] [place] [address], [place] [address] Jul, [facility] [address] [id number] [address] [place] [address], [place] [address] Jul, [facility] [address] [id number] [address] [place] [address], [place] [address] Jul, [facility] [address] [id number] [address] [place] [address], [place] [address] Jul, [facility] [address] [id number] [address] [place] [address], [place] [address] Jul, [facility] [address] [id number] [address] [place] [address], [place] [address] 27 Jun, 2012 [facility] [address] [id number] [address] [place] [address] 25 Jun, 2012 [facility] [address] [id number] [address] [place] [address] 18 Jun, 2012 [facility] [place] [address] [id number] [place] [id number] 17 Jun, 2012 [facility] [address] [id number] [address] [place] [address], [place] [address] 12 Jun, 2012 [facility] [address] [id number] [address] [place] [address], [place] [address] 11 Jun, 2012 [facility] [address] [id number] [address] [place] [address] Apr, [facility] [address] [id number] [address] [place] [address] Apr, [facility] [address] [id number] [address] [place] [address], [place] [address] Apr, [facility] [address] [id number] [address] [place] [address], [place] [address] February, [facility] [address] [id number] [address] [place] [address], [place] [address] Dec, [facility] [address] [id number] [address] [place] [address], [place] [address] Dec, [facility] [address] [id number] [address] [place] [address], [place] [address] Dec, [facility] [address] [id number] [address] [place] [address], [place] [address] Nov, [facility] [address] [id number] [address] [place] [address], [place] [address] Nov, [facility] [address] [id number] [address] [place] [address], [place] [address] Oct, [facility] [address] [id number] [address] [place] [address], [place] [address] Oct, [facility] [address] [id number] [address] [place] [address], [place] [address] Oct, [facility] [address] [id number] [address] [place] [address], [place] [address] Sep, [facility] [address] [id number] [address] [place] [address], [place] [address] Sep, [facility] [address] [id number] [address] [place] [address], [place] [address] 15 Sep, 2011 [facility] [address] [id number] [address] [place] [address], [place] [address] 14 Sep, 2011 [facility] [address] [id number] [address] [place] [address], [place] [address] 14 Sep, 2011 [facility] [address] [id number] [address] [place] [address], [place] [address] 18 Aug, 2011 [facility] [address] [id number] [address] [place] [address], [place] [address] 17 Aug, 2011 [facility] [address] [id number] [address] [place] [address], [place] [address] Aug, [facility] [address] [id number] [address] [place] [address], [place] [address] Aug, [facility] [address] [id number] [address] [place] [address], [place] [address] 27 Jul, 2011 [facility] [address] [id number] [address] [place] [address], [place] [address] Jul, [facility] [address] [id number] [address] [place] [address], [place] [address] Jul, [facility] [address] [id number] [address] [place] [address], [place] [address] Jul, [facility] [address] [id number] [address] [place] [address], [place] [address] Jul, [facility] [address] [id number] [address] [place] [address], [place] [address] Apr, [facility] [address] [id number] [address] [place] [address], [place] [address] Sep, [facility] [address] [id number] [address] [place] [address], [place] [address] Sep, [facility] [address] [id number] [address] [place] [address], [place] [address] Sep, [facility] [address] [id number] [address] [place] [address], [place] [address] Aug, [facility] [address] [id number] [address] [place] [address], [place] [address] Aug, [facility] [address] [id number] [address] [place] [address], [place] [address] 10 Aug, 2010 [facility] [address] [id number] [address] [place] [address], [place] [address] 27 Jul, 2010 [facility] [address] [id number] [address] [place] [address], [place] [address] 16 Jun, 2010 [facility] [address] [id number] [address] [place] [address], [place] [address] 14 Apr, 2010 [facility] [address] [id number] [address] [place] [address], [place] [address] 10 Apr, 2010 [facility] [address] [id number] [address] [place] [address], [place] [address] 12 Jan, 2010 [facility] [address] [id number] [address] [place] [address], [place] [address] 17 Nov, 2009 [facility] [address] [id number] [address] [place] [address], [place] [address] Sep, [facility] [address] [id number] [address] [place] [address] 12 Aug, 2009 [facility] [address] [id number] [address] [place] [address], [place] [address] Aug, [facility] [address] [address] [id number] [address] [place] [id number] 03 Aug, 2009 [facility] [address] [id number] [address] [place] [id number] 16 Jun, 2009 [facility] [address] [id number] [address] [place] [id number] 10 May, 2009 [facility] [address] [id number] [address] [place] [address], [place] [id number] Mar, [facility] [address] [id number] [address] [place] [id number] 15 Mar, 2009 [facility] [address] [id number] [address] [place] [id number] 19 Nov, 2008 [facility] [address] [id number] [address] [place] [address] [place] [phone] 13 Nov, 2008 IMMUNIZATIONS No Known Immunizations SOCIAL HISTORY Never Assessed REASON FOR VISIT [facility] PLAN OF CARE VITAL SIGNS MEDICATIONS Medication Instructions Dosage Frequency Start Date End Date Duration S tatus Seroquel XR 200 mg 1 tablet by Oral rou te 1 time per day for 30 day(s) take once daily X7 at bedtime. Jun, Ac tive Latuda 40 mg 1 tablet 1 time per day take with a full meal Oct, Active Bactroban 2 % 1 najma by Topical route 2 times per day f or 14 day(s) Jul, Active Amoxicillin 875 mg 1 tablet by Oral route 2 times per day for 10 day(s) Dec, Active Bactrim DS 800-160 mg 1 tablet by Oral route 2 times p er day for 10 day(s) Jul, Active Methocarbamol 500 mg 1 [address]t [address] Po [address] e 3 times per day prescribed by Dr Corea Jan, Active PredniSONE 10 mg 1 Tablet by Oral rou te 2 times per day for 5 days Take at 8 am and noon. Sep, Active Meloxicam 15 mg 1 Tablet by Po route 1 time per day gi margareth by Dr. Corea Aug, Active PredniSONE 20 mg 1 tablet by Oral rou te 2 times per day for 7 day(s) f/u 2 weeks after finishing steriods. Jun, Active Gabapentin 800 mg 1 Tablet by Oral route 3 daily PRN f or back/hip/leg pain Jun, Active Ambien 5 mg 1 tablet by Oral route 1 time per day PRN Oct, Active RESULTS No Results PROCEDURES No Known procedures [...]
--- OUTSIDE RECORDS SUMMARY | 2019-12-27 00:49 | XMS REPORT ---
Author Author Lena Weldon Doctor Organization [facility] Address Unknown Phone Unavailable Care Team Providers Care Storeroom Clerk Name Role Phone Migration, Doctor Unavailable Unavailable PROBLEMS Type Condition ICD9-CM Code [id number] Code Onset Dates Condition S tatus SNOMED Code Problem Breast lesion N64.9 Active 731575 004 Problem Chronic prescription opiate use Z79.899 Active 143936958 Problem BMI 40.0-44.9, adult Z68.41 Active 401839456 Problem Axillary hidradenitis suppurativa L73.2 Active 934547254 Problem Low back pain M54.5 Active 312274 005 Problem Migraine with aura and without status migrainosu s, not intractable G43.109 Active 1212146 Problem Adjustment disorder with mixed anxiety and depressed mood F43.23 Active 82798679 Problem Bipolar disorder in partial remission, most recent episode unspecified type F31.70 Active 7999851 ALLERGIES No Information ENCOUNTERS Encounter Location Date Diagnosis [facility] [address] [id number] [address] [place] [address] Jul, Low back pain M54.5 [facility] [address] [id number] [address] [place] [address] 28 Jun, 2018 BMI 40.0-44.9, adult Z68.41 ; Axillary hidradenitis suppurativa L73.2 and Low back pain M54.5 [facility] [address] [id number] [address] [place] [address] Jun, [facility] [address] [id number] [address] [place] [address] May, Plantar fasciitis of right f oot M72.2 [facility] [address] [id number] [address] [place] [address] Jan, Breast lesion N64.9 [facility] [address] [facility] [id number] [address] [place] [address] Jan, Breast lesion N64.9 [facility] [address] [facility] [id number] [address] [place] [address] Jan, Breast lesion N64.9 [facility] [address] [facility] [id number] [address] [place] [address] Jan, [facility] [address] [facility] [id number] [address] [place] [address] Dec, Breast lesion N64.9 [facility] [address] [facility] [id number] [address] [place] [address] Oct, BMI 40.0-44.9, adult Z68.41 ; Low back pain M54.5 ; Chronic prescription opiate use Z79.899 and Breast lesion N64.9 [facility] [address] [id number] [address] [place] [address] Oct, Adjustment disorder with mix ed anxiety and depressed mood F43.23 and Bipolar disorder in partial remission, most recent episode unspecified type F31.70 [facility] [address] [facility] [id number] [address] [place] [address] Oct, Adjustment disorder with mix ed anxiety and depressed mood F43.23 and Bipolar disorder in partial remission, most recent episode unspecified type F31.70 [facility] [address] [facility] [id number] [address] [place] [address] Sep, Sore throat J02.9 ; Other vi ral agents as the cause of diseases classified elsewhere B97.89 and Acute pharyngitis due to other specified organisms J02.8 [facility] [address] [facility] [id number] [address] [place] [address] Sep, Breast lesion N64.9 [facility] [address] [facility] [id number] [address] [place] [address] Sep, Breast lump N63 [facility] [address] [id number] [address] [place] [address] 18 Jul, 2016 Elevated fasting glucose R73 .01 [place] [address] [address] 18 Jul, 2016 Elevated fasting glucose R73 .01 [place] [address] [address] 14 Jul, 2016 Pelvic pain R10.2 ; Screenin g, lipid Z13.220 and Screening for diabetes mellitus Z13.1 [place] [address] [address] 15 Jun, 2016 Pelvic pain R10.2 and Vagina l candidiasis B37.3 [facility] [place] [address] [address] 14 Jun, 2016 Abdominal pain, lower R10.30 [facility] [place] [address] [address] 14 Jun, 2016 [place] [address] [address] 07 Mar, 2016 Acute pain of right shoulder M25.511 [place] [address] [address] Mar, Right anterior shoulder pain M25.511 [facility] [place] [address] [address] February, Acute pain of right shoulder M25.511 [place] [address] [address] Jan, Low back pain M54.5 ; Migrai ne G43.909 ; Screening, lipid Z13.220 ; Screening for diabetes mellitus Z13.1 and Tobacco abuse counseling Z71.6 [place] [address] [id number] [address] [place] [address] Dec, [place] [address] [address] Dec, [place] [id number] [address] Dec, Lateral meniscus tear S83.[address] [facility] [address] [address] Nov, Sore throat J02.9 [facility] [address] [address] Nov, [facility] [address] [address] Nov, [place] [address] [address] Oct, Acute pain of left knee M25. 562 ; Low back pain M54.5 and Chronic prescription opiate use Z79.899 [place] [address] [address] Aug, Plantar fasciitis M72.2 [place] [address] [address] Jul, Metatarsus primus varus Q66. 2 and Bunion of great toe of left foot M20.12 [place] [address] [address] 30 Jun, 2015 Chronic migraine 346.70 ; Bi polar disorder 296.80 ; Bilateral foot pain 729.5 ; Cellulitis 682.9 and Lumbosacral radiculopathy at L5 724.4 [place] [address] [address] 16 Jun, 2015 Plantar fasciitis, bilateral 728.71 [place] [address] [address] Apr, Major depression, recurrent 296.30 ; Anxiety, generalized 300.02 ; No condition on [place] II V71.09 and No condition on axis III V71.09 [place] [address] [address] Apr, Unspecified episodic mood di sorder 296.90 [facility] [address] [facility] [id number] [address] [place] [address] Apr, Acute pharyngitis 462 [facility] [address] [facility] [id number] [address] [place] [address] Apr, [facility] [address] [facility] [id number] [address] [place] [address] Apr, Major depression, recurrent 296.30 ; Anxiety 300.00 ; No condition on [place] II V71.09 and No condition on axis III V71.09 [facility] [address] 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 [address] [facility] [id number] [address] [place] [address] Mar, [facility] [address] [id number] [address] [place] [id number] February, Dental examination V72.2 [facility] [address] [facility] [id number] [address] [place] [address] February, [facility] [address] [facility] [id number] [address] [place] [address] February, [facility] [address] [facility] [id number] [address] [place] [address] Jan, [facility] [address] [facility] [id number] [address] [place] [address] Jan, [facility] [address] [facility] [id number] [address] [place] [phone] Dec, [facility] [address] [facility] [id number] [address] [place] [address] Dec, [facility] [address] [facility] [id number] [address] [place] [address] Dec, [facility] [address] [id number] [address] [place] [address], [place] [address] Dec, [facility] [address] [id number] [address] [place] [address], [place] [address] Oct, [facility] [address] [id number] [address] [place] [address], [place] [address] Oct, [facility] [address] [id number] [address] [place] [address], [place] [address] Aug, [facility] [address] [id number] [address] [place] [address], [place] [address] Aug, [facility] [address] [id number] [address] [place] [address], [place] [address] Aug, [facility] [address] [id number] [address] [place] [address], [place] [address] Aug, [facility] [address] [id number] [address] [place] [address], [place] [address] Jul, [facility] [address] [id number] [address] [place] [address], [place] [address] Jul, [facility] [address] [id number] [address] [place] [address], [place] [address] Jul, [facility] [address] [id number] [address] [place] [address], [place] [address] Jul, [facility] [address] [id number] [address] [place] [address], [place] [address] Jun, [facility] [address] [id number] [address] [place] [address], [place] [address] 23 Jun, 2014 [facility] [address] [id number] [address] [place] [address], [place] [address] Jun, [facility] [address] [id number] [address] [place] [address], [place] [address] Jun, [facility] [address] [id number] [address] [place] [address], [place] [address] Jun, [facility] [address] [id number] [address] [place] [address], [place] [address] Jun, [facility] [address] [id number] [address] [place] [address], [place] [address] May, [facility] [address] [id number] [address] [place] [address], [place] [address] May, [facility] [address] [id number] [address] [place] [address], [place] [address] Mar, [facility] [address] [id number] [address] [place] [address], [place] [address] Mar, [facility] [address] [id number] [address] [place] [address], [place] [address] February, [facility] [address] [id number] [address] [place] [address], [place] [address] February, [facility] [address] [id number] [address] [place] [address], [place] [address] Jan, [facility] [address] [id number] [address] [place] [address], [place] [address] Jan, [facility] [address] [id number] [address] [place] [address], [place] [address] Jan, [facility] [address] [id number] [address] [place] [address], [place] [address] Jan, [facility] [address] [id number] [address] [place] [address], [place] [address] Jan, [facility] [address] [id number] [address] [place] [address], [place] [address] Jan, [facility] [address] [id number] [address] [place] [address], [place] [address] Dec, [facility] [address] [id number] [address] [place] [address], [place] [address] Dec, [facility] [address] [id number] [address] [place] [address], [place] [address] Nov, [facility] [address] [id number] [address] [place] [address], [place] [address] Nov, [facility] [address] [id number] [address] [place] [address], [place] [address] Oct, [facility] [address] [id number] [address] [place] [address], [place] [address] Oct, [facility] [address] [id number] [address] [place] [address], [place] [address] Sep, [facility] [address] [id number] [address] [place] [address], [place] [address] Sep, [facility] [address] [id number] [address] [place] [address], [place] [address] Sep, [facility] [address] [id number] [address] [place] [address], [place] [address] Sep, [facility] [address] [id number] [address] [place] [address], [place] [address] Jul, [facility] [address] [id number] [address] [place] [address], [place] [address] Jul, [facility] [address] [id number] [address] [place] [address], [place] [address] Jul, [facility] [address] [id number] [address] [place] [address], [place] [address] 25 Jun, 2013 [facility] [address] [id number] [address] [place] [address], [place] [address] 11 Jun, 2013 [facility] [address] [id number] [address] [place] [address], [place] [address] 10 Jun, 2013 [facility] [address] [id number] [address] [place] [address], [place] [address] 09 Jun, 2013 [facility] [address] [id number] [address] [place] [address], [place] [address] 05 Sep, 2012 [facility] [address] [id number] [address] [place] [address], [place] [address] 05 Jun, 2012 [facility] [address] [id number] [address] [place] [address], [place] [address] 04 Jun, 2013 [facility] [address] [id number] [address] [place] [address], [place] [address] May, [facility] [address] [id number] [address] [place] [address], [place] [address] Apr, [facility] [address] [id number] [address] [place] [address], [place] [address] Apr, [facility] [address] [id number] [address] [place] [address], [place] [address] Apr, [facility] [address] [id number] [address] [place] [address], [place] [address] Apr, [facility] [address] [id number] [address] [place] [address], [place] [address] Apr, [facility] [address] [id number] [address] [place] [address], [place] [address] Apr, [facility] [address] [id number] [address] [place] [address], [place] [address] Apr, [facility] [address] [id number] [address] [place] [address], [place] [address] Mar, [facility] [address] [id number] [address] [place] [address], [place] [address] Mar, [facility] [address] [id number] [address] [place] [address], [place] [address] Mar, [facility] [address] [id number] [address] [place] [address], [place] [address] Mar, [facility] [address] [id number] [address] [place] [address], [place] [address] Mar, [facility] [address] [id number] [address] [place] [address], [place] [address] 06 Mar, 2013 [facility] [address] [id number] [address] [place] [address], [place] [address] February, [facility] [address] [id number] [address] [place] [address], [place] [address] February, [facility] [address] [id number] [address] [place] [address], [place] [address] February, [facility] [address] [id number] [address] [place] [address], [place] [address] Jan, [facility] [address] [id number] [address] [place] [address], [place] [address] Jan, [facility] [address] [id number] [address] [place] [address], [place] [address] Jan, [facility] [address] [id number] [address] [place] [address], [place] [address] Jan, [facility] [address] [id number] [address] [place] [address], [place] [address] Dec, [facility] [address] [id number] [address] [place] [address], [place] [address] Nov, [facility] [address] [id number] [address] [place] [address], [place] [address] Oct, [facility] [address] [id number] [address] [place] [address], [place] [address] Oct, [facility] [address] [id number] [address] [place] [address], [place] [address] Oct, [facility] [address] [id number] [address] [place] [address], [place] [address] Sep, [facility] [address] [id number] [address] [place] [address], [place] [address] Sep, [facility] [address] [id number] [address] [place] [address], [place] [address] Sep, [facility] [address] [id number] [address] [place] [address], [place] [address] Sep, [facility] [address] [id number] [address] [place] [address], [place] [address] Jul, [facility] [address] [id number] [address] [place] [address], [place] [address] Jul, [facility] [address] [id number] [address] [place] [address], [place] [address] Jul, [facility] [address] [id number] [address] [place] [address], [place] [address] Jul, [facility] [address] [id number] [address] [place] [address], [place] [address] Jul, [facility] [address] [id number] [address] [place] [address], [place] [address] Jul, [facility] [address] [id number] [address] [place] [address], [place] [address] Jul, [facility] [address] [id number] [address] [place] [address], [place] [address] 27 Jun, 2012 [facility] [address] [id number] [address] [place] [address] 25 Jun, 2012 [facility] [address] [id number] [address] [place] [address] 18 Jun, 2012 [facility] [id number] [place] [id number] 17 Jun, 2012 [facility] [address] [id number] [address] [place] [address], [place] [address] 12 Jun, 2012 [facility] [address] [id number] [address] [place] [address], [place] [address] 11 Jun, 2012 [facility] [address] [id number] [address] [place] [address] Apr, [facility] [address] [id number] [address] [place] [address] Apr, [facility] [address] [id number] [address] [place] [address], [place] [address] Apr, [facility] [address] [id number] [address] [place] [address], [place] [address] February, [facility] [address] [id number] [address] [place] [address], [place] [address] Dec, [facility] [address] [id number] [address] [place] [address], [place] [address] Dec, [facility] [address] [id number] [address] [place] [address], [place] [address] Dec, [facility] [address] [id number] [address] [place] [address], [place] [address] Nov, [facility] [address] [id number] [address] [place] [address], [place] [address] Nov, [facility] [address] [id number] [address] [place] [address], [place] [address] Oct, [facility] [address] [id number] [address] [place] [address], [place] [address] Oct, [facility] [address] [id number] [address] [place] [address], [place] [address] Oct, [facility] [address] [id number] [address] [place] [address], [place] [address] Sep, [facility] [address] [id number] [address] [place] [address], [place] [address] Sep, [facility] [address] [id number] [address] [place] [address], [place] [id number] 15 Sep, 2011 [facility] [address] [id number] [address] [place] [address], [place] [id number] 14 Sep, 2011 [facility] [address] [id number] [address] [place] [address], [place] [id number] 14 Sep, 2011 [facility] [address] [id number] [address] [place] [address], [place] [address] 18 Aug, 2011 [facility] [address] [id number] [address] [place] [address], [place] [id number] 17 Aug, 2011 [facility] [address] [id number] [address] [place] [address], [place] [address] Aug, [facility] [address] [id number] [address] [place] [address], [place] [address] Aug, [facility] [address] [id number] [address] [place] [address], [place] [id number] 27 Jul, 2011 [facility] [address] [id number] [address] [place] [address], [place] [address] Jul, [facility] [address] [id number] [address] [place] [address], [place] [address] Jul, [facility] [address] [id number] [address] [place] [address], [place] [address] Jul, [facility] [address] [id number] [address] [place] [address], [place] [address] Jul, [facility] [address] [id number] [address] [place] [address], [place] [address] Apr, [facility] [address] [id number] [address] [place] [address], [place] [address] Sep, [facility] [address] [id number] [address] [place] [address], [place] [address] Sep, [facility] [address] [id number] [address] [place] [address], [place] [address] Sep, [facility] [address] [id number] [address] [place] [address], [place] [address] Aug, [facility] [address] [id number] [address] [place] [address], [place] [address] Aug, [facility] [address] [id number] [address] [place] [address], [place] [id number] 10 Aug, 2010 [facility] [address] [id number] [address] [place] [address], [place] [address] 27 Jul, 2010 [facility] [address] [id number] [address] [place] [address], [place] [address] 16 Jun, 2010 [facility] [address] [id number] [address] [place] [address], [place] [id number] 14 Apr, 2010 [facility] [address] [id number] [address] [place] [address], [place] [address] 10 Apr, 2010 [facility] [address] [id number] [address] [place] [address], [place] [id number] 12 Jan, 2010 [facility] [address] [id number] [address] [place] [address], [place] [id number] 17 Nov, 2009 [facility] [address] [id number] [address] [place] [address], [place] [address] Sep, [facility] [address] [id number] [address] [place] [id number] 12 Aug, 2009 [facility] [address] [id number] [address] [place] [address], [place] [address] Aug, [facility] [address] [id number] [address] [place] [id number] 03 Aug, 2009 [facility] [address] [id number] [address] [place] [id number] 16 Jun, 2009 [facility] [address] [id number] [address] [place] [id number] 10 May, 2009 [facility] [address] [id number] [address] [place] [address], [place] [address] Mar, [facility] [address] [id number] [address] [place] [id number] 15 Mar, 2009 [facility] [address] [id number] [address] [place] [id number] 19 Nov, 2008 [facility] [address] [id number] [address] [place] [address] [place] [address] 13 Nov, 2008 IMMUNIZATIONS No Known Immunizations SOCIAL HISTORY Never Assessed REASON FOR VISIT EMR-[facility] [place] PLAN OF CARE VITAL SIGNS MEDICATIONS Unknown [...]
--- OUTSIDE RECORDS SUMMARY | 2019-12-27 00:49 | XMS REPORT ---
Author Author Lena LOUIS Organization [facility] Address [address] [place] [address] Care Team Providers Care Credit Card Control Clerk Name Role Phone TED LOUIS Unavailable PROBLEMS Type Condition ICD9-CM Code [id number] Code Onset Dates Condition S tatus SNOMED Code Problem Chronic prescription opiate use Z79.899 Active 625901702 Problem Breast lesion N64.9 Active 584433 004 Problem Axillary hidradenitis suppurativa L73.2 Active 859575429 Problem BMI 40.0-44.9, adult Z68.41 Active 171102029 Problem Migraine with aura and without status migrainosu s, not intractable G43.109 Active 1563236 Problem Low back pain M54.5 Active 918499 005 Problem Bipolar disorder in partial remission, most recent episode unspecified type F31.70 Active 4879110 Problem Adjustment disorder with mixed anxiety and depressed mood F43.23 Active [id number] ALLERGIES No Information ENCOUNTERS Encounter Location Date Diagnosis [facility] [id number] [address] [place] [address] Jul, Low back pain M54.5 [facility] [address] [id number] [address] [place] [address] 28 Jun, 2018 BMI 40.0-44.9, adult Z68.41 ; Axillary hidradenitis suppurativa L73.2 and Low back pain M54.5 [facility] [address] [id number] [address] [place] [address] 11 Jun, 2017 [facility] [address] [id number] [address] [place] [address] May, Plantar fasciitis of right f oot M72.2 [facility] [address] [id number] [address] [place] [address] Jan, Breast lesion N64.9 [facility] [address] [address] Jan, Breast lesion N64.9 [facility] [address] [address] Jan, Breast lesion N64.9 [facility] [address] [address] Jan, [facility] [address] [address] Dec, Breast lesion N64.9 [facility] [address] [address] Oct, BMI 40.0-44.9, adult Z68.41 ; Low back pain M54.5 ; Chronic prescription opiate use Z79.899 and Breast lesion N64.9 [facility] [address] [address] Oct, Adjustment disorder with mix ed anxiety and depressed mood F43.23 and Bipolar disorder in partial remission, most recent episode unspecified type F31.70 [facility] [address] [address] Oct, Adjustment disorder with mix ed anxiety and depressed mood F43.23 and Bipolar disorder in partial remission, most recent episode unspecified type F31.70 [facility] [address] [id number] [address] [place] [address] Sep, Sore throat J02.9 ; Other vi ral agents as the cause of diseases classified elsewhere B97.89 and Acute pharyngitis due to other specified organisms J02.8 [facility] [address] [id number] [address] [place] [address] Sep, Breast lesion N64.9 [facility] [address] [address] Sep, Breast lump N63 [facility] [id number] [address] [place] [address] 18 Jul, 2016 Elevated fasting glucose R73 .01 [place] [address] [facility] [id number] [address] [place] [address] 18 Jul, 2016 Elevated fasting glucose R73 .01 [place] [address] [address] 14 Jul, 2016 Pelvic pain R10.2 ; Screenin g, lipid Z13.220 and Screening for diabetes mellitus Z13.1 [place] [address] [address] 15 Jun, 2016 Pelvic pain R10.2 and Vagina l candidiasis B37.3 [facility] [place] [address] [address] 14 Jun, 2016 Abdominal pain, lower R10.30 [facility] [place] [id number] [place] [address] 14 Jun, 2016 [place] [address] [address] 07 Mar, 2016 Acute pain of right shoulder M25.511 [place] [address] [address] Mar, Right anterior shoulder pain M25.511 [facility] [place] [address] [address] February, Acute pain of right shoulder M25.511 [place] [address] [id number] [address] [place] [address] Jan, Low back pain M54.5 ; Migrai ne G43.909 ; Screening, lipid Z13.220 ; Screening for diabetes mellitus Z13.1 and Tobacco abuse counseling Z71.6 [place] [address] [id number] [address] [place] [address] Dec, [place] [address] [place] [id number] [address] [place] [address] Dec, [facility] [address] [address] Dec, Lateral meniscus tear S83.28 9A [facility] [address] [address] Nov, Sore throat J02.9 [facility] [address] [address] Nov, [facility] [address] [address] Nov, [facility] [address] [address] Oct, Acute pain of left knee M25. 562 ; Low back pain M54.5 and Chronic prescription opiate use Z79.899 [facility] [address] [address] Aug, Plantar fasciitis M72.2 [place] [address] [address] Jul, Metatarsus primus varus Q66. 2 and Bunion of great toe of left foot M20.12 [place] [address] [address] 30 Jun, 2015 Chronic migraine 346.70 ; Bi polar disorder 296.80 ; Bilateral foot pain 729.5 ; Cellulitis 682.9 and Lumbosacral radiculopathy at L5 724.4 [place] [address] [address] 16 Jun, 2015 Plantar fasciitis, bilateral 728.71 [place] [address] [address] Apr, Major depression, recurrent 296.30 ; Anxiety, generalized 300.02 ; No condition on Helena II V71.09 and No condition on axis III V71.09 [facility] [address] [facility] [id number] [address] [place] [address] Apr, Unspecified episodic mood di sorder 296.90 [facility] [address] [facility] [id number] [address] [place] [address] 08 Apr, 2015 Acute pharyngitis 462 [facility] [address] [facility] [id number] [address] [place] [address] Apr, [facility] [address] [id number] [address] [place] [address] Apr, Major depression, recurrent 296.30 ; Anxiety 300.00 ; No condition on Helena II V71.09 and No condition on axis III V71.09 [facility] [address] [facility] [id number] [address] [place] [address] Mar, Unspecified episodic mood di sorder 296.90 and 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 [facility] [address] [facility] [id number] [address] [place] [address] Mar, [facility] [address] [id number] [address] [place] [id number] February, Dental examination V72.2 [facility] [address] [facility] [id number] [address] [place] [address] February, [facility] [address] [facility] [id number] [address] [place] [address] February, [facility] [address] [facility] [id number] [address] [place] [address] Jan, [facility] [address] [facility] [id number] [address] [place] [address] Jan, [facility] [address] [facility] [id number] [address] [place] [address] Dec, [facility] [address] [facility] [id number] [address] [place] [address] Dec, [facility] [address] [id number] [address] [place] [address], [place] [address] Dec, [facility] [address] [id number] [address] [place] [address], [place] [address] Dec, [facility] [address] [id number] [address] [place] [address], [place] [address] Oct, [facility] [address] [id number] [address] [place] [address], [place] [address] Oct, [facility] [address] [id number] [address] [place] [address], [place] [address] Aug, [facility] [address] [id number] [address] [place] [address], [place] [address] Aug, [facility] [address] [id number] [address] [place] [address], [place] [address] Aug, [facility] [address] [id number] [address] [place] [address], [place] [address] Aug, [facility] [address] [id number] [address] [place] [address], [place] [address] Jul, [facility] [address] [id number] [address] [place] [address], [place] [address] Jul, [facility] [address] [id number] [address] [place] [address], [place] [address] Jul, [facility] [address] [id number] [address] [place] [address], [place] [address] Jul, [facility] [address] [id number] [address] [place] [address], [place] [address] Jun, [facility] [address] [id number] [address] [place] [address], [place] [address] 23 Jun, 2014 [facility] [address] [id number] [address] [place] [address], [place] [address] 17 Jun, 2014 [facility] [address] [id number] [address] [place] [address], [place] [address] Jun, [facility] [address] [id number] [address] [place] [address], [place] [address] Jun, [facility] [address] [id number] [address] [place] [address], [place] [address] Jun, [facility] [address] [id number] [address] [place] [address], [place] [address] May, [facility] [address] [id number] [address] [place] [address], [place] [address] May, [facility] [address] [id number] [address] [place] [address], [place] [address] Mar, [facility] [address] [id number] [address] [place] [address], [place] [address] Mar, [facility] [address] [id number] [address] [place] [address], [place] [address] February, [facility] [address] [id number] [address] [place] [address], [place] [address] February, [facility] [address] [id number] [address] [place] [address], [place] [address] Jan, [facility] [address] [id number] [address] [place] [address], [place] [address] Jan, [facility] [address] [id number] [address] [place] [address], [place] [address] Jan, [facility] [address] [id number] [address] [place] [address], [place] [address] Jan, [facility] [address] [id number] [address] [place] [address], [place] [address] Jan, [facility] [address] [id number] [address] [place] [address], [place] [address] Jan, [facility] [address] [id number] [address] [place] [address], [place] [address] Dec, [facility] [address] [id number] [address] [place] [address], [place] [address] Dec, [facility] [address] [id number] [address] [place] [address], [place] [address] Nov, [facility] [address] [id number] [address] [place] [address], [place] [address] Nov, [facility] [address] [id number] [address] [place] [address], [place] [address] Oct, [facility] [address] [id number] [address] [place] [address], [place] [address] Oct, [facility] [address] [id number] [address] [place] [address], [place] [address] Sep, [facility] [address] [id number] [address] [place] [address], [place] [address] Sep, [facility] [address] [id number] [address] [place] [address], [place] [address] Sep, [facility] [address] [id number] [address] [place] [address], [place] [address] Sep, [facility] [address] [id number] [address] [place] [address], [place] [address] Jul, [facility] [address] [id number] [address] [place] [address], [place] [address] Jul, [facility] [address] [id number] [address] [place] [address], [place] [address] Jul, [facility] [address] [id number] [address] [place] [address], [place] [address] Jun, [facility] [address] [id number] [address] [place] [address], [place] [address] 11 Jun, 2013 [facility] [address] [id number] [address] [place] [address], [place] [address] 10 Jun, 2013 [facility] [address] [id number] [address] [place] [address], [place] [address] 09 Jun, 2013 [facility] [address] [id number] [address] [place] [address], [place] [address] 05 Jun, 2012 [facility] [address] [id number] [address] [place] [address], [place] [address] 05 Jun, 2012 [facility] [address] [id number] [address] [place] [address], [place] [address] 04 Jun, 2013 [facility] [address] [id number] [address] [place] [address], [place] [address] May, [facility] [address] [id number] [address] [place] [address], [place] [address] Apr, [facility] [address] [id number] [address] [place] [address], [place] [address] Apr, [facility] [address] [id number] [address] [place] [address], [place] [address] Apr, [facility] [address] [id number] [address] [place] [address], [place] [address] Apr, [facility] [address] [id number] [address] [place] [address], [place] [address] Apr, [facility] [address] [id number] [address] [place] [address], [place] [address] Apr, [facility] [address] [id number] [address] [place] [address], [place] [address] Apr, [facility] [address] [id number] [address] [place] [address], [place] [address] Mar, [facility] [address] [id number] [address] [place] [address], [place] [address] Mar, [facility] [address] [id number] [address] [place] [address], [place] [address] Mar, [facility] [address] [id number] [address] [place] [address], [place] [address] Mar, [facility] [address] [id number] [address] [place] [address] 11 Mar, 2013 [facility] [address] [id number] [address] [place] [address], [place] [address] Mar, [facility] [address] [id number] [address] [place] [address], [place] [address] February, [facility] [address] [id number] [address] [place] [address], [place] [address] February, [facility] [address] [id number] [address] [place] [address], [place] [address] February, [facility] [address] [id number] [address] [place] [address], [place] [address] Jan, [facility] [address] [id number] [address] [place] [address], [place] [address] Jan, [facility] [address] [id number] [address] [place] [address], [place] [address] Jan, [facility] [address] [id number] [address] [place] [address], [place] [address] Jan, [facility] [address] [id number] [address] [place] [address], [place] [address] Dec, [facility] [address] [id number] [address] [place] [address], [place] [address] 14 Nov, 2012 [facility] [address] [id number] [address] [place] [address], [place] [address] Oct, [facility] [address] [id number] [address] [place] [address], [place] [address] Oct, [facility] [address] [id number] [address] [place] [address], [place] [address] Oct, [facility] [address] [id number] [address] [place] [address], [place] [address] Sep, [facility] [address] [id number] [address] [place] [address], [place] [address] Sep, [facility] [address] [id number] [address] [place] [address], [place] [address] Sep, [facility] [address] [id number] [address] [place] [address], [place] [address] Sep, [facility] [address] [id number] [address] [place] [address], [place] [address] Jul, [facility] [address] [id number] [address] [place] [address], [place] [address] Jul, [facility] [address] [id number] [address] [place] [address], [place] [address] Jul, [facility] [address] [id number] [address] [place] [address], [place] [address] Jul, [facility] [address] [id number] [address] [place] [address], [place] [address] Jul, [facility] [address] [id number] [address] [place] [address], [place] [address] Jul, [facility] [address] [id number] [address] [place] [address], [place] [address] Jul, [facility] [address] [id number] [address] [place] [address], [place] [address] 27 Jun, 2012 [facility] [address] [id number] [address] [place] [address], [place] [address] 25 Jun, 2012 [facility] [address] [id number] [address] [place] [address], [place] [address] 18 Jun, 2012 [facility] [place] [address] [id number] [id number] 17 Jun, 2012 [facility] [address] [id number] [address] [place] [address], [place] [address] 12 Jun, 2012 [facility] [address] [id number] [address] [place] [address], [place] [address] 11 Jun, 2012 [facility] [address] [id number] [address] [place] [address], [place] [address] Apr, [facility] [address] [id number] [address] [place] [address], [place] [address] Apr, [facility] [address] [id number] [address] [place] [address], [place] [address] Apr, [facility] [address] [id number] [address] [place] [address], [place] [address] February, [facility] [address] [id number] [address] [place] [address], [place] [address] Dec, [facility] [address] [id number] [address] [place] [address], [place] [address] Dec, [facility] [address] [id number] [address] [place] [address], [place] [address] Dec, [facility] [address] [id number] [address] [place] [address], [place] [address] Nov, [facility] [address] [id number] [address] [place] [address], [place] [address] Nov, [facility] [address] [id number] [address] [place] [address], [place] [address] Oct, [facility] [address] [id number] [address] [place] [address], [place] [address] Oct, [facility] [address] [id number] [address] [place] [address], [place] [address] Oct, [facility] [address] [id number] [address] [place] [address], [place] [address] Sep, [facility] [address] [id number] [address] [place] [address], [place] [address] Sep, [facility] [address] [id number] [address] [place] [address], [place] [address] 15 Sep, 2011 [facility] [address] [id number] [address] [place] [address], [place] [address] 14 Sep, 2011 [facility] [address] [id number] [address] [place] [address], [place] [address] 14 Sep, 2011 [facility] [address] [id number] [address] [place] [address], [place] [address] 18 Aug, 2011 [facility] [address] [id number] [address] [place] [address], [place] [address] 17 Aug, 2011 [facility] [address] [id number] [address] [place] [address], [place] [address] 08 Aug, 2011 [facility] [address] [id number] [address] [place] [address], [place] [address] Aug, [facility] [address] [id number] [address] [place] [address], [place] [id number] 27 Jul, 2011 [facility] [address] [id number] [address] [place] [address], [place] [address] 20 Jul, 2011 [facility] [address] [id number] [address] [place] [address], [place] [address] Jul, [facility] [address] [id number] [address] [place] [address], [place] [address] Jul, [facility] [address] [id number] [address] [place] [address], [place] [address] Jul, [facility] [address] [id number] [address] [place] [address], [place] [address] Apr, [facility] [address] [id number] [address] [place] [address], [place] [address] 28 Sep, 2010 [facility] [address] [id number] [address] [place] [address], [place] [address] 10 Sep, 2010 [facility] [address] [id number] [address] [place] [address], [place] [address] Sep, [facility] [address] [id number] [address] [place] [address], [place] [address] Aug, [facility] [address] [id number] [address] [place] [address], [place] [address] Aug, [facility] [address] [id number] [address] [place] [address], [place] [address] 10 Aug, 2010 [facility] [address] [id number] [address] [place] [address], [place] [address] 27 Jul, 2010 [facility] [address] [id number] [address] [place] [address], [place] [address] 16 Jun, 2010 [facility] [address] [id number] [address] [place] [address], [place] [address] 14 Apr, 2010 [facility] [address] [id number] [address] [place] [address], [place] [address] 10 Apr, 2010 [facility] [address] [id number] [address] [place] [address], [place] [address] 12 Jan, 2010 [facility] [address] [id number] [address] [place] [address], [place] [address] 17 Nov, 2009 [facility] [address] [id number] [address] [place] [address], [place] [address] Sep, [facility] [address] [id number] [address] [place] [address], [place] [address] Aug, [facility] [address] [id number] [address] [place] [address], [place] [address] 12 Aug, 2009 [facility] [address] [id number] [address] [place] [address], [place] [address] Aug, [facility] [address] [id number] [address] [place] [address], [place] [address] 16 Jun, 2009 [facility] [address] [id number] [address] [place] [address], [place] [address] 10 May, 2009 [facility] [address] [id number] [address] [place] [address], [place] [address] 19 Mar, 2009 [facility] [address] [id number] [address] [place] [address], [place] [address] 15 Mar, 2009 [facility] [address] [id number] [address] [address] Nov, [facility] [address] [facility] [id number] [address] [place] [address] 13 Nov, 2008 IMMUNIZATIONS No Known Immunizations SOCIAL HISTORY Never Assessed REASON FOR VISIT MRI order PLAN OF CARE Activity Details Pending Test MRI : Lumbar w/o contrast VITAL SIGNS MEDICATIONS Unknown Medications RESULTS No [...]
--- OUTSIDE RECORDS SUMMARY | 2019-12-27 00:49 | XMS REPORT ---
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 Name Role Phone Migration, Doctor Unavailable Unavailable PROBLEMS Type Condition ICD9-CM Code [id number] Code Onset Dates Condition S tatus SNOMED Code Problem Breast lesion N64.9 Active 225405 004 Problem Chronic prescription opiate use Z79.899 Active 028620970 Problem BMI 40.0-44.9, adult Z68.41 Active 506829014 Problem Axillary hidradenitis suppurativa L73.2 Active 083117610 Problem Low back pain M54.5 Active 558645 005 Problem Migraine with aura and without status migrainosu s, not intractable G43.109 Active 6989049 Problem Adjustment disorder with mixed anxiety and depressed mood F43.23 Active 85257840 Problem Bipolar disorder in partial remission, most recent episode unspecified type F31.70 Active [id number] ALLERGIES No Information ENCOUNTERS Encounter Location Date Diagnosis [facility] [address] [id number] [address] [place] [address] Jul, Low back pain M54.5 [facility] [address] [id number] [address] [place] [address] 28 Jun, 2018 BMI 40.0-44.9, adult Z68.41 ; Axillary hidradenitis suppurativa L73.2 and Low back pain M54.5 [facility] [address] [id number] [address] [place] [address] Jun, [facility] [address] [id number] [address] [place] [address] May, Plantar fasciitis of right f oot M72.2 [facility] [address] [id number] [address] [place] [address] Jan, Breast lesion N64.9 [facility] [address] [facility] [id number] [address] [place] [address] Jan, Breast lesion N64.9 [facility] [address] [facility] [id number] [address] [place] [address] Jan, Breast lesion N64.9 [facility] [address] [facility] [id number] [address] [place] [address] Jan, [facility] [address] [facility] [id number] [address] [place] [address] Dec, Breast lesion N64.9 [facility] [address] [facility] [id number] [address] [place] [address] Oct, BMI 40.0-44.9, adult Z68.41 ; Low back pain M54.5 ; Chronic prescription opiate use Z79.899 and Breast lesion N64.9 [facility] [address] [id number] [address] [place] [address] Oct, Adjustment disorder with mix ed anxiety and depressed mood F43.23 and Bipolar disorder in partial remission, most recent episode unspecified type F31.70 [facility] [address] [facility] [id number] [address] [place] [address] Oct, Adjustment disorder with mix ed anxiety and depressed mood F43.23 and Bipolar disorder in partial remission, most recent episode unspecified type F31.70 [facility] [address] [facility] [id number] [address] [place] [address] Sep, Sore throat J02.9 ; Other vi ral agents as the cause of diseases classified elsewhere B97.89 and Acute pharyngitis due to other specified organisms J02.8 [facility] [address] [facility] [id number] [address] [place] [address] Sep, Breast lesion N64.9 [facility] [address] [facility] [id number] [address] [place] [address] Sep, Breast lump N63 [facility] [address] [id number] [address] [place] [address] 18 Jul, 2016 Elevated fasting glucose R73 .01 [place] [address] [address] 18 Jul, 2016 Elevated fasting glucose R73 .01 [place] [address] [address] 14 Jul, 2016 Pelvic pain R10.2 ; Screenin g, lipid Z13.220 and Screening for diabetes mellitus Z13.1 [place] [address] [address] 15 Jun, 2016 Pelvic pain R10.2 and Vagina l candidiasis B37.3 [facility] [place] [address] [address] 14 Jun, 2016 Abdominal pain, lower R10.30 [facility] [place] [address] [address] 14 Jun, 2016 [place] [address] [address] 07 Mar, 2016 Acute pain of right shoulder M25.511 [place] [address] [address] Mar, Right anterior shoulder pain M25.511 [facility] [place] [address] [address] February, Acute pain of right shoulder M25.511 [place] [address] [address] Jan, Low back pain M54.5 ; Migrai ne G43.909 ; Screening, lipid Z13.220 ; Screening for diabetes mellitus Z13.1 and Tobacco abuse counseling Z71.6 [place] [address] [id number] [address] [place] [address] Dec, [place] [address] [address] Dec, [place] [id number] [address] Dec, Lateral meniscus tear S83.28 [facility] [address] [address] Nov, Sore throat J02.9 [facility] [address] [address] Nov, [facility] [address] [address] Nov, [place] [address] [address] Oct, Acute pain of left knee M25. 562 ; Low back pain M54.5 and Chronic prescription opiate use Z79.899 [place] [address] [address] Aug, Plantar fasciitis M72.2 [place] [address] [address] Jul, Metatarsus primus varus Q66. 2 and Bunion of great toe of left foot M20.12 [place] [address] [address] 30 Jun, 2015 Chronic migraine 346.70 ; Bi polar disorder 296.80 ; Bilateral foot pain 729.5 ; Cellulitis 682.9 and Lumbosacral radiculopathy at L5 724.4 [place] [address] [address] 16 Jun, 2015 Plantar fasciitis, bilateral 728.71 [place] [address] [address] Apr, Major depression, recurrent 296.30 ; Anxiety, generalized 300.02 ; No condition on [place] II V71.09 and No condition on axis III V71.09 [place] [address] [address] Apr, Unspecified episodic mood di sorder 296.90 [facility] [address] [facility] [id number] [address] [place] [address] Apr, Acute pharyngitis 462 [facility] [address] [facility] [id number] [address] [place] [address] Apr, [facility] [address] [facility] [id number] [address] [place] [address] Apr, Major depression, recurrent 296.30 ; Anxiety 300.00 ; No condition on [place] II V71.09 and No condition on axis III V71.09 [facility] [address] [facility] [id number] [address] [place] [address] Mar, Unspecified episodic mood di sorder 296.90 and 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 [facility] [address] [facility] [id number] [address] [place] [address] Mar, [facility] [address] [id number] [address] [place] [id number] February, Dental examination V72.2 [facility] [address] [facility] [id number] [address] [place] [address] February, [facility] [address] [facility] [id number] [address] [place] [address] February, [facility] [address] [facility] [id number] [address] [place] [address] Jan, [facility] [address] [facility] [id number] [address] [place] [address] Jan, [facility] [address] [facility] [id number] [address] [place] [address] Dec, [facility] [address] [facility] [id number] [address] [place] [address] Dec, [facility] [address] [facility] [id number] [address] [place] [address] Dec, [facility] [address] [id number] [address] [place] [address], [place] [address] Dec, [facility] [address] [id number] [address] [place] [address], [place] [address] Oct, [facility] [address] [id number] [address] [place] [address], [place] [address] Oct, [facility] [address] [id number] [address] [place] [address], [place] [address] Aug, [facility] [address] [id number] [address] [place] [address], [place] [address] Aug, [facility] [address] [id number] [address] [place] [address], [place] [address] Aug, [facility] [address] [id number] [address] [place] [address], [place] [address] Aug, [facility] [address] [id number] [address] [place] [address], [place] [address] Jul, [facility] [address] [id number] [address] [place] [address], [place] [address] Jul, [facility] [address] [id number] [address] [place] [address], [place] [address] Jul, [facility] [address] [id number] [address] [place] [address], [place] [address] Jul, [facility] [address] [id number] [address] [place] [address], [place] [address] Jun, [facility] [address] [id number] [address] [place] [address], [place] [address] 23 Jun, 2014 [facility] [address] [id number] [address] [place] [address], [place] [address] Jun, [facility] [address] [id number] [address] [place] [address], [place] [address] Jun, [facility] [address] [id number] [address] [place] [address], [place] [address] Jun, [facility] [address] [id number] [address] [place] [address], [place] [address] Jun, [facility] [address] [id number] [address] [place] [address], [place] [address] May, [facility] [address] [id number] [address] [place] [address], [place] [address] May, [facility] [address] [id number] [address] [place] [address], [place] [address] Mar, [facility] [address] [id number] [address] [place] [address], [place] [address] Mar, [facility] [address] [id number] [address] [place] [address], [place] [address] February, [facility] [address] [id number] [address] [place] [address], [place] [address] February, [facility] [address] [id number] [address] [place] [address], [place] [address] Jan, [facility] [address] [id number] [address] [place] [address], [place] [address] Jan, [facility] [address] [id number] [address] [place] [address], [place] [address] Jan, [facility] [address] [id number] [address] [place] [address], [place] [address] Jan, [facility] [address] [id number] [address] [place] [address], [place] [address] Jan, [facility] [address] [id number] [address] [place] [address], [place] [address] Jan, [facility] [address] [id number] [address] [place] [address], [place] [address] Dec, [facility] [address] [id number] [address] [place] [address], [place] [address] Dec, [facility] [address] [id number] [address] [place] [address], [place] [address] Nov, [facility] [address] [id number] [address] [place] [address], [place] [address] Nov, [facility] [address] [id number] [address] [place] [address], [place] [address] Oct, [facility] [address] [id number] [address] [place] [address], [place] [address] Oct, [facility] [address] [id number] [address] [place] [address], [place] [address] Sep, [facility] [address] [id number] [address] [place] [address], [place] [address] Sep, [facility] [address] [id number] [address] [place] [address], [place] [address] Sep, [facility] [address] [id number] [address] [place] [address], [place] [address] Sep, [facility] [address] [id number] [address] [place] [address], [place] [address] Jul, [facility] [address] [id number] [address] [place] [address], [place] [address] Jul, [facility] [address] [id number] [address] [place] [address], [place] [address] Jul, [facility] [address] [id number] [address] [place] [address], [place] [address] 25 Jun, 2013 [facility] [address] [id number] [address] [place] [address], [place] [address] 11 Jun, 2013 [facility] [address] [id number] [address] [place] [address], [place] [address] 10 Jun, 2013 [facility] [address] [id number] [address] [place] [address], [place] [address] 09 Jun, 2013 [facility] [address] [id number] [address] [place] [address], [place] [address] 05 Sep, 2012 [facility] [address] [id number] [address] [place] [address], [place] [address] 05 Jun, 2012 [facility] [address] [id number] [address] [place] [address], [place] [address] 04 Jun, 2013 [facility] [address] [id number] [address] [place] [address], [place] [address] May, [facility] [address] [id number] [address] [place] [address], [place] [address] Apr, [facility] [address] [id number] [address] [place] [address], [place] [address] Apr, [facility] [address] [id number] [address] [place] [address], [place] [address] Apr, [facility] [address] [id number] [address] [place] [address], [place] [address] Apr, [facility] [address] [id number] [address] [place] [address], [place] [address] Apr, [facility] [address] [id number] [address] [place] [address], [place] [address] Apr, [facility] [address] [id number] [address] [place] [address], [place] [address] Apr, [facility] [address] [id number] [address] [place] [address], [place] [address] Mar, [facility] [address] [id number] [address] [place] [address], [place] [address] Mar, [facility] [address] [id number] [address] [place] [address], [place] [address] Mar, [facility] [address] [id number] [address] [place] [address], [place] [address] Mar, [facility] [address] [id number] [address] [place] [address], [place] [address] Mar, [facility] [address] [id number] [address] [place] [address], [place] [address] 06 Mar, 2013 [facility] [address] [id number] [address] [place] [address], [place] [address] February, [facility] [address] [id number] [address] [place] [address], [place] [address] February, [facility] [address] [id number] [address] [place] [address], [place] [address] February, [facility] [address] [id number] [address] [place] [address], [place] [address] Jan, [facility] [address] [id number] [address] [place] [address], [place] [address] Jan, [facility] [address] [id number] [address] [place] [address], [place] [address] Jan, [facility] [address] [id number] [address] [place] [address], [place] [address] Jan, [facility] [address] [id number] [address] [place] [address], [place] [address] Dec, [facility] [address] [id number] [address] [place] [address], [place] [address] Nov, [facility] [address] [id number] [address] [place] [address], [place] [address] Oct, [facility] [address] [id number] [address] [place] [address], [place] [address] Oct, [facility] [address] [id number] [address] [place] [address], [place] [address] Oct, [facility] [address] [id number] [address] [place] [address], [place] [address] Sep, [facility] [address] [id number] [address] [place] [address], [place] [address] Sep, [facility] [address] [id number] [address] [place] [address], [place] [address] Sep, [facility] [address] [id number] [address] [place] [address], [place] [address] Sep, [facility] [address] [id number] [address] [place] [address], [place] [address] Jul, [facility] [address] [id number] [address] [place] [address], [place] [address] Jul, [facility] [address] [id number] [address] [place] [address], [place] [address] Jul, [facility] [address] [id number] [address] [place] [address], [place] [address] Jul, [facility] [address] [id number] [address] [place] [address], [place] [address] Jul, [facility] [address] [id number] [address] [place] [address], [place] [address] Jul, [facility] [address] [id number] [address] [place] [address], [place] [address] Jul, [facility] [address] [id number] [address] [place] [address], [place] [address] 27 Jun, 2012 [facility] [address] [id number] [address] [place] [id number] 25 Jun, 2012 [facility] [address] [id number] [address] [place] [id number] 18 Jun, 2012 [facility] [place] [id number] [place] [id number] 17 Jun, 2012 [facility] [address] [id number] [address] [place] [address], [place] [address] 12 Jun, 2012 [facility] [address] [id number] [address] [place] [address], [place] [address] 11 Jun, 2012 [facility] [address] [id number] [address] [place] [address] Apr, [facility] [address] [id number] [address] [place] [address] Apr, [facility] [address] [id number] [address] [place] [address], [place] [address] Apr, [facility] [address] [id number] [address] [place] [address], [place] [address] February, [facility] [address] [id number] [address] [place] [address], [place] [address] Dec, [facility] [address] [id number] [address] [place] [address], [place] [id number] Dec, [facility] [address] [id number] [address] [place] [address], [place] [address] Dec, [facility] [address] [id number] [address] [place] [address], [place] [id number] Nov, [facility] [address] [id number] [address] [place] [address], [place] [address] Nov, [facility] [address] [id number] [address] [place] [address], [place] [address] Oct, [facility] [address] [id number] [address] [place] [address], [place] [address] Oct, [facility] [address] [id number] [address] [place] [address], [place] [address] Oct, [facility] [address] [id number] [address] [place] [address], [place] [id number] Sep, [facility] [address] [id number] [address] [place] [address], [place] [id number] Sep, [facility] [address] [id number] [address] [place] [address], [place] [id number] 15 Sep, 2011 [facility] [address] [id number] [address] [place] [address], [place] [id number] 14 Sep, 2011 [facility] [address] [id number] [address] [place] [address], [place] [id number] 14 Sep, 2011 [facility] [address] [id number] [address] [place] [address], [place] [id number] 18 Aug, 2011 [facility] [address] [id number] [address] [place] [address], [place] [id number] 17 Aug, 2011 [facility] [address] [id number] [address] [place] [address], [place] [id number] Aug, [facility] [address] [id number] [address] [place] [address], [place] [id number] Aug, [facility] [address] [id number] [address] [place] [address], [place] [id number] 27 Jul, 2011 [facility] [address] [id number] [address] [place] [address], [place] [address] Jul, [facility] [address] [id number] [address] [place] [address], [place] [id number] Jul, [facility] [address] [id number] [address] [place] [address], [place] [address] Jul, [facility] [address] [id number] [address] [place] [address], [place] [id number] Jul, [facility] [address] [id number] [address] [place] [address], [place] [address] Apr, [facility] [address] [id number] [address] [place] [address], [place] [id number] Sep, [facility] [address] [id number] [address] [place] [address], [place] [id number] Sep, [facility] [address] [id number] [address] [place] [address], [place] [id number] Sep, [facility] [address] [id number] [address] [place] [address], [place] [address] Aug, [facility] [address] [id number] [address] [place] [address], [place] [address] Aug, [facility] [address] [id number] [address] [place] [address], [place] [id number] 10 Aug, 2010 [facility] [address] [id number] [address] [place] [address], [place] [id number] 27 Jul, 2010 [facility] [address] [id number] [address] [place] [address], [place] [id number] 16 Jun, 2010 [facility] [address] [id number] [address] [place] [address], [place] [id number] 14 Apr, 2010 [facility] [address] [id number] [address] [place] [place] [address], [place] [id number] 10 Apr, 2010 [facility] [address] [id number] [place] [address], [place] [id number] 12 Jan, 2010 [facility] [address] [id number] [address] [place] [address], [place] [id number] 17 Nov, 2009 [facility] [address] [id number] [place] [address], [place] [id number] Sep, [facility] [address] [id number] [address] [place] [id number] 12 Aug, 2009 [facility] [address] [id number] [address] [place] [address], [place] [id number] Aug, [facility] [address] [id number] [address] [place] [id number] 03 Aug, 2009 [facility] [address] [id number] [address] [place] [id number] 16 Jun, 2009 [facility] [address] [id number] [address] [place] [id number] 10 May, 2009 [facility] [address] [id number] [address] [place] [address], [place] [id number] Mar, [facility] [address] [id number] [address] [place] [id number] 15 Mar, 2009 [facility] [address] [id number] [address] [place] [id number] 19 Nov, 2008 [facility] [address] [id number] [address] [place] [address] [place] [id number] 13 Nov, 2008 IMMUNIZATIONS No Known Immunizations SOCIAL HISTORY Never Assessed [place]IT [place] [place] V[place] SIGNS [...]
--- OUTSIDE RECORDS SUMMARY | 2019-12-27 00:50 | XMS REPORT ---
Author Author Lena LOUIS Organization [facility] Address [address] [place] [address] Care Team Providers Care Manager Of Revenue Name Role Phone TED [place] Unavailable PROBLEMS Type Condition ICD9-CM Code [id number] Code Onset Dates Condition S tatus SNOMED Code Problem Breast lesion N64.9 Active 630846 004 Problem BMI 40.0-44.9, adult Z68.41 Active 695390950 Problem Bipolar disorder in partial remission, most recent episode unspecified type F31.70 Active 0119014 Problem Low back pain M54.5 Active 755438 005 Problem Chronic prescription opiate use Z79.899 Active 664651270 Problem Adjustment disorder with mixed anxiety and depressed mood F43.23 Active 39934645 Problem Migraine with aura and without status migrainosu s, not intractable G43.109 Active 9298255 ALLERGIES No Information ENCOUNTERS Encounter Location Date Diagnosis [facility] [place] [id number] [address] [place] [id number] Jun, [facility] [address] [id number] [address] [place] [place] [phone] May, Plantar fasciitis of right f oot M72.2 [facility] [address] [id number] [address] [place] [place] [phone] Jan, Breast lesion N64.9 [facility] [address] [id number] [address] [place] [place] [id number] Jan, Breast lesion N64.9 [facility] [address] [id number] [address] [place] [place] [phone] Jan, Breast lesion N64.9 [facility] [address] [id number] [address] [place] [place] [phone] Jan, [facility] [address] [id number] [address] [place] [place] [id number] Dec, Breast lesion N64.9 [facility] [address] [id number] [address] [place] [place] [id number] Oct, BMI 40.0-44.9, adult Z68.41 ; Low back pain M54.5 ; Chronic prescription opiate use Z79.899 and Breast lesion N64.9 [place] [id number] [place] [place] [phone] Oct, Adjustment disorder with mix ed anxiety and depressed mood F43.23 and Bipolar disorder in partial remission, most recent episode unspecified type F31.70 [facility] [address] [id number] [address] [place] [place] [phone] Oct, Adjustment disorder with mix ed anxiety and depressed mood F43.23 and Bipolar disorder in partial remission, most recent episode unspecified type F31.70 [facility] [address] [id number] [address] [place] [place] [address] Sep, Sore throat J02.9 ; Other vi ral agents as the cause of diseases classified elsewhere B97.89 and Acute pharyngitis due to other specified organisms J02.8 [place] [address] [id number] [address] [place] [place] [phone] Sep, Breast lesion N64.9 [place] [address] [id number] [place] [place] [address] Sep, Breast lump N63 [place] [address] [id number] [place] [address] Jul, Elevated fasting glucose R73 .01 [place] [address] [id number] [place] [id number] 18 Jul, 2016 Elevated fasting glucose R73 .01 [place] [address] [place] [id number] [address] [place] [place] [address] 14 Jul, 2016 Pelvic pain R10.2 ; Screenin g, lipid Z13.220 and Screening for diabetes mellitus Z13.1 [place] [address] [facility] [id number] [place] [address] 15 Jun, 2016 Pelvic pain R10.2 and Vagina l candidiasis B37.3 [facility] [place] [address] [id number] [address] [place] [place] [address] 14 Jun, 2016 Abdominal pain, lower R10.30 [facility] [place] [id number] [place] [id number] 14 Jun, 2016 [place] [address] [address] 07 Mar, 2016 Acute pain of right shoulder M25.511 [place] [address] [place] [address] [id number] [place] [address] Mar, Right anterior shoulder pain M25.511 [facility] [place] [address] [address] February, Acute pain of right shoulder M25.511 [place] [address] [address] Jan, Low back pain M54.5 ; Migrai ne G43.909 ; Screening, lipid Z13.220 ; Screening for diabetes mellitus Z13.1 and Tobacco abuse counseling Z71.6 [place] [address] [address] Dec, [place] [address] [address] Dec, [place] [address] [address] Dec, Lateral meniscus tear S83.28 9A [facility] [place] [address] [id number] [address] [place] [place] [id number] 11 Nov, 2015 Sore throat J02.9 [place] [address] [address] Nov, [facility] [id number] [place] [place] [id number] Nov, [place] [address] [id number] [place] [place] [address] Oct, Low back pain M54.5 ; Chroni c prescription opiate use Z79.899 and Acute pain of left knee M25.562 [place] [address] [address] Aug, Plantar fasciitis M72.2 [place] [address] [address] Jul, Metatarsus primus varus Q66. 2 and Bunion of great toe of left foot M20.12 [place] [address] [address] Jun, Chronic migraine 346.70 ; Bi polar disorder 296.80 ; Bilateral foot pain 729.5 ; Cellulitis 682.9 and Lumbosacral radiculopathy at L5 724.4 [place] [address] [address] Jun, Plantar fasciitis, bilateral 728.71 [place] [address] [id number] [place] [place] [address] Apr, Major depression, recurrent 296.30 ; Anxiety, generalized 300.02 ; No condition on [place] II V71.09 and No condition on axis III V71.09 [place] [address] [place] [id number] [address] [place] [place] [address] Apr, Unspecified episodic mood di sorder 296.90 [place] [address] [id number] [place] [address] Apr, Acute pharyngitis 462 [place] [address] [address] Apr, [place] [address] [facility] [id number] [address] [place] [place] [address] Apr, Major depression, recurrent 296.30 ; Anxiety 300.00 ; No condition on [place] II V71.09 and No condition on axis III V71.09 [facility] [address] [facility] [id number] [address] [place] [place] [address] Mar, Unspecified episodic mood di sorder 296.90 and 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 [facility] [address] [facility] [id number] [address] [place] [place] [phone] Mar, [facility] [address] [id number] [address] [place] [id number] February, Dental examination V72.2 [facility] [address] [facility] [id number] [address] [place] [place] [phone] February, [facility] [address] [facility] [id number] [address] [place] [place] [phone] February, [facility] [address] [facility] [id number] [address] [place] [place] [phone] Jan, [facility] [address] [facility] [id number] [address] [place] [place] [phone] Jan, [facility] [address] [facility] [id number] [address] [place] [place] [phone] Dec, [facility] [address] [facility] [id number] [address] [place] [place] [phone] Dec, [facility] [address] [facility] [id number] [address] [place] [place] [phone] Dec, [facility] [address] [facility] [id number] [address] [place] [place] [phone] Dec, [facility] [address] [facility] [id number] [address] [place] [place] [phone] Oct, [facility] [address] [facility] [id number] [address] [place] [phone] Oct, [facility] [address] [id number] [address] [place] [address], [place] [address] Aug, [facility] [address] [id number] [address] [place] [address], [place] [address] Aug, [facility] [address] [id number] [address] [place] [address], [place] [address] Aug, [facility] [address] [id number] [address] [place] [address], [place] [address] Aug, [facility] [address] [id number] [address] [place] [address], [place] [address] Jul, [facility] [address] [id number] [address] [place] [address], [place] [address] Jul, [facility] [address] [id number] [address] [place] [address], [place] [address] Jul, [facility] [address] [id number] [address] [place] [address], [place] [address] Jul, [facility] [address] [id number] [address] [place] [address], [place] [address] Jun, [facility] [address] [id number] [address] [place] [address], [place] [address] Jun, [facility] [address] [id number] [address] [place] [address], [place] [address] Jun, [facility] [address] [id number] [address] [place] [address], [place] [address] Jun, [facility] [address] [id number] [address] [place] [address], [place] [address] Jun, [facility] [address] [id number] [address] [place] [address], [place] [address] Jun, [facility] [address] [id number] [address] [place] [address], [place] [address] May, [facility] [address] [id number] [address] [place] [place] [phone] May, [facility] [address] [id number] [address] [place] [address], [place] [address] Mar, [facility] [address] [id number] [address] [place] [address], [place] [address] Mar, [facility] [address] [id number] [address] [place] [address], [place] [address] February, [facility] [address] [id number] [address] [place] [address], [place] [address] February, [facility] [address] [id number] [address] [place] [address], [place] [address] Jan, [facility] [address] [id number] [address] [place] [address], [place] [address] Jan, [facility] [address] [id number] [address] [place] [address], [place] [address] Jan, [facility] [address] [id number] [address] [place] [address], [place] [address] Jan, [facility] [address] [id number] [address] [place] [address], [place] [address] Jan, [facility] [address] [id number] [address] [place] [address], [place] [address] Jan, [facility] [address] [id number] [address] [place] [address], [place] [address] Dec, [facility] [address] [id number] [address] [place] [address], [place] [address] Dec, [facility] [address] [id number] [address] [place] [address], [place] [address] Nov, [facility] [address] [id number] [address] [place] [address], [place] [address] Nov, [facility] [address] [id number] [address] [place] [address], [place] [address] Oct, [facility] [address] [id number] [address] [place] [address], [place] [address] Oct, [facility] [address] [id number] [address] [place] [address], [place] [address] Sep, [facility] [address] [id number] [address] [place] [address], [place] [address] Sep, [facility] [address] [id number] [address] [place] [address], [place] [address] Sep, [facility] [address] [id number] [address] [place] [address], [place] [address] Sep, [facility] [address] [id number] [address] [place] [address], [place] [address] Jul, [facility] [address] [id number] [address] [place] [address], [place] [address] Jul, [facility] [address] [id number] [address] [place] [address], [place] [address] Jul, [facility] [address] [id number] [address] [place] [address], [place] [address] 25 Jun, 2013 [facility] [address] [id number] [address] [place] [address], [place] [address] 11 Jun, 2013 [facility] [address] [id number] [address] [place] [address], [place] [address] Jun, [facility] [address] [id number] [address] [place] [address], [place] [address] 09 Jun, 2013 [facility] [address] [id number] [address] [place] [address], [place] [id number] 05 Jun, 2012 [facility] [address] [id number] [address] [place] [address], [place] [address] 05 Jun, 2012 [facility] [address] [id number] [address] [place] [address], [place] [address] 04 Jun, 2012 [facility] [address] [id number] [address] [place] [address], [place] [address] May, [facility] [address] [id number] [facility] [place] [address] Apr, [facility] [address] [id number] [address] [place] [address], [place] [address] Apr, [facility] [address] [id number] [address] [place] [address], [place] [address] Apr, [facility] [address] [id number] [address] [place] [address], [place] [address] Apr, [facility] [address] [id number] [address] [place] [address], [place] [address] Apr, [facility] [address] [id number] [address] [place] [address], [place] [address] Apr, [facility] [address] [id number] [address] [place] [address], [place] [address] Apr, [facility] [address] [id number] [address] [place] [address], [place] [address] Mar, [facility] [address] [id number] [address] [place] [address], [place] [address] Mar, [facility] [address] [id number] [address] [place] [address], [place] [address] Mar, [facility] [address] [id number] [address] [place] [address], [place] [address] Mar, [facility] [address] [id number] [address] [place] [address], [place] [address] Mar, [facility] [address] [id number] [address] [place] [address], [place] [address] Mar, [facility] [address] [id number] [address] [place] [address], [place] [address] February, [facility] [address] [id number] [address] [place] [address], [place] [address] February, [facility] [address] [id number] [address] [place] [address], [place] [address] February, [facility] [address] [id number] [address] [place] [address], [place] [address] Jan, [facility] [address] [id number] [address] [place] [address], [place] [address] Jan, [facility] [address] [id number] [address] [place] [address], [place] [address] Jan, [facility] [address] [id number] [address] [place] [address], [place] [address] Jan, [facility] [address] [id number] [address] [place] [address], [place] [address] Dec, [facility] [address] [id number] [address] [place] [address], [place] [address] Nov, [facility] [address] [id number] [address] [place] [address], [place] [address] Oct, [facility] [address] [id number] [address] [place] [address], [place] [address] Oct, [facility] [address] [id number] [address] [place] [address], [place] [address] Oct, [facility] [address] [id number] [address] [place] [address], [place] [address] Sep, [facility] [address] [id number] [address] [place] [address], [place] [address] Sep, [facility] [address] [id number] [address] [place] [address], [place] [address] Sep, [facility] [address] [id number] [address] [place] [address], [place] [address] Sep, [facility] [address] [id number] [address] [place] [address], [place] [address] Jul, [facility] [address] [id number] [address] [place] [address], [place] [address] Jul, [facility] [address] [id number] [address] [place] [address], [place] [address] Jul, [facility] [address] [id number] [address] [place] [address], [place] [address] 24 Jul, 2012 [facility] [address] [id number] [address] [place] [address], [place] [address] Jul, [facility] [address] [id number] [address] [place] [address], [place] [address] Jul, [facility] [address] [id number] [address] [place] [address], [place] [address] Jul, [facility] [address] [id number] [address] [place] [address], [place] [address] 27 Jun, 2012 [facility] [address] [id number] [address] [place] [address], [place] [address] 25 Jun, 2012 [facility] [address] [id number] [address] [place] [address], [place] [address] 18 Jun, 2012 [facility] [address] [id number] [id number] 17 Jun, 2012 [facility] [address] [id number] [address] [place] [address], [place] [address] 12 Jun, 2012 [facility] [address] [id number] [address] [place] [address], [place] [address] Jun, [facility] [address] [id number] [address] [place] [address], [place] [id number] Apr, [facility] [address] [id number] [address] [place] [address], [place] [id number] Apr, [facility] [address] [id number] [address] [place] [address], [place] [id number] Apr, [facility] [address] [id number] [address] [place] [address], [place] [id number] February, [facility] [address] [id number] [address] [place] [address], [place] [id number] Dec, [facility] [address] [id number] [address] [place] [address], [place] [id number] Dec, [facility] [address] [id number] [address] [place] [address], [place] [id number] Dec, [facility] [address] [id number] [address] [place] [address], [place] [id number] Nov, [facility] [address] [id number] [address] [place] [address], [place] [id number] Nov, [facility] [address] [id number] [address] [place] [address], [place] [id number] Oct, [facility] [address] [id number] [address] [place] [address], [place] [id number] Oct, [facility] [address] [id number] [address] [place] [address], [place] [id number] Oct, [facility] [address] [id number] [address] [place] [address], [place] [id number] Sep, [facility] [address] [id number] [address] [place] [address], [place] [id number] 26 Sep, 2011 [facility] [address] [id number] [address] [place] [address], [place] [id number] 15 Sep, 2011 [facility] [address] [id number] [address] [place] [address], [place] [id number] 14 Sep, 2011 [facility] [address] [id number] [address] [place] [address], [place] [id number] 14 Sep, 2011 [facility] [address] [id number] [address] [place] [address], [place] [id number] 18 Aug, 2011 [facility] [address] [id number] [address] [place] [address], [place] [id number] 17 Aug, 2011 [facility] [address] [id number] [address] [place] [address], [place] [id number] Aug, [facility] [address] [id number] [address] [place] [address], [place] [id number] Aug, [facility] [address] [id number] [address] [place] [address], [place] [id number] 27 Jul, 2011 [facility] [address] [id number] [address] [place] [address], [place] [id number] 20 Jul, 2011 [facility] [address] [id number] [address] [place] [address], [place] [id number] Jul, [facility] [address] [id number] [address] [place] [address], [place] [id number] Jul, [facility] [address] [id number] [address] [place] [address], [place] [id number] Jul, [facility] [address] [id number] [address] [place] [address], [place] [id number] Apr, [facility] [address] [id number] [address] [place] [address], [place] [id number] Sep, [facility] [address] [id number] [address] [place] [address], [place] [id number] Sep, [facility] [address] [id number] [address] [place] [address], [place] [id number] Sep, [facility] [address] [id number] [address] [place] [address], [place] [id number] Aug, [facility] [address] [id number] [address] [place] [address], [place] [id number] 11 Aug, 2010 [facility] [address] [id number] [address] [place] [address], [place] [id number] Aug, [facility] [address] [id number] [address] [place] [address], [place] [id number] 27 Jul, 2010 [facility] [address] [id number] [address] [place] [address], [place] [id number] 16 Jun, 2010 [facility] [address] [id number] [address] [place] [address], [place] [id number] 14 Apr, 2010 [facility] [address] [id number] [address] [place] [place] [id number] 10 Apr, 2010 [facility] [place] [address] [id number] [address] [place] [place] [id number] Jan, [facility] [place] [address] [id number] [address] [place] [place] [id number] 17 Nov, 2009 [facility] [place] [address] [id number] [address] [place] [place] [phone] Sep, [facility] [place] [address] [id number] [address] [place] [place] [phone] Aug, [facility] [place] [address] [id number] [address] [place] [place] [phone] Aug, [facility] [place] [address] [id number] [address] [place] [place] [phone] Aug, [facility] [place] [address] [id number] [address] [place] [place] [phone] 16 Jun, 2009 [facility] [place] [address] [id number] [address] [place] [place] [phone] May, [facility] [place] [address] [id number] [address] [place] [place] [phone] Mar, [facility] [place] [address] [id number] [address] [place] [place] [phone] Mar, [facility] [place] [address] [id number] [address] [place] [place] [phone] Nov, [facility] [place] [address] [id number] [address] [place] [place] [phone] 13 Nov, 2008 IMMUNIZATIONS No Known Immunizations SOCIAL HISTORY Never Assessed REASON FOR VISIT Requests return call PLAN OF CARE VITAL SIGNS MEDICATIONS Unknown [...]
--- OUTSIDE RECORDS SUMMARY | 2019-12-27 00:50 | XMS REPORT ---
Author Author Lena L[place]IS Organization [facility] Address [address] [place] [address] Care Team Providers Care Land Sales Agent Name Role Phone [facility] Unavailable PROBLEMS Type Condition ICD9-CM Code [id number] Code Onset Dates Condition S tatus SNOMED Code Problem Breast lesion N64.9 Active 514116 004 Problem BMI 40.0-44.9, adult Z68.41 Active 136709736 Problem Bipolar disorder in partial remission, most recent episode unspecified type F31.70 Active 4593593 Problem Low back pain M54.5 Active 630562 005 Problem Chronic prescription opiate use Z79.899 Active 278976089 Problem Adjustment disorder with mixed anxiety and depressed mood F43.23 Active 87971156 Problem Migraine with aura and without status migrainosu s, not intractable G43.109 Active 9935113 ALLERGIES No Information SOCIAL HISTORY Never Assessed PLAN OF CARE VITAL SIGNS MEDICATIONS Unknown Medications RESULTS Name Result Date Reference Range Ultrasound : Breast, Right 2017-01-16 PROCEDURES No Known procedures IMMUNIZATIONS No Known Immunizations MEDICAL (GENERAL) HISTORY Type Description Date Medical [...]
--- OUTSIDE RECORDS SUMMARY | 2019-12-27 00:50 | XMS REPORT ---
Author Author Lena LOUIS Organization [facility] Address [address] [place] [address] Care Team Providers Care Writing Center Director Name Role Phone TED LOUIS Unavailable PROBLEMS Type Condition ICD9-CM Code BMS86-PW Code Onset Dates Condition S tatus SNOMED Code Problem Chronic prescription opiate use Z79.899 Active 425859020 Problem Breast lesion N64.9 Active 671684 004 Problem Axillary hidradenitis suppurativa L73.2 Active 210090418 Problem BMI 40.0-44.9, adult Z68.41 Active 919880225 Problem Migraine with aura and without status migrainosu s, not intractable G43.109 Active 9591038 Problem Low back pain M54.5 Active 127083 005 Problem Bipolar disorder in partial remission, most recent episode unspecified type F31.70 Active 8007093 Problem Adjustment disorder with mixed anxiety and depressed mood F43.23 Active 90013051 ALLERGIES Substance Reaction Event Type Date Status Bee Pollen Unknown Drug Allergy Jun, Active Rome Peppers Unknown Non Drug Allergy Jun, Active CT Dye tongue swells, respiratory distress, rash Non Drug All ergy Jun, Active ENCOUNTERS Encounter Location Date Diagnosis [facility] [address] [place] [id number] [address] [place] [address] Jun, BMI 40.0-44.9, adult Z68.41 ; Axillary hidradenitis suppurativa L73.2 and Low back pain M54.5 [facility] [address] [facility] [id number] [address] [place] [id number] Jun, [facility] [address] [facility] [id number] [address] [place] [address] May, Plantar fasciitis of right f oot M72.2 [facility] [address] [facility] [id number] [address] [place] [address] Jan, Breast lesion N64.9 [facility] [address] [facility] [id number] [address] [place] [address] Jan, Breast lesion N64.9 [facility] [address] [facility] [id number] [address] [place] [address] Jan, Breast lesion N64.9 [facility] [address] [facility] [id number] [address] [place] [address] Jan, [facility] [address] [facility] [id number] [address] [place] [address] Dec, Breast lesion N64.9 [facility] [address] [facility] [id number] [address] [place] [address] Oct, BMI 40.0-44.9, adult Z68.41 ; Low back pain M54.5 ; Chronic prescription opiate use Z79.899 and Breast lesion N64.9 [facility] [address] [facility] [id number] [address] [place] [address] Oct, Adjustment disorder with mix ed anxiety and depressed mood F43.23 and Bipolar disorder in partial remission, most recent episode unspecified type F31.70 [facility] [address] [facility] [id number] [address] [place] [address] Oct, Adjustment disorder with mix ed anxiety and depressed mood F43.23 and Bipolar disorder in partial remission, most recent episode unspecified type F31.70 [facility] [address] [facility] [id number] [address] [place] [address] Sep, Sore throat J02.9 ; Other vi ral agents as the cause of diseases classified elsewhere B97.89 and Acute pharyngitis due to other specified organisms J02.8 [facility] [address] [facility] [id number] [address] [place] [address] Sep, Breast lesion N64.9 [facility] [address] [place] [id number] [address] [place] [address] 09 Sep, 2016 Breast lump N63 [place] [address] [address] 18 Jul, 2016 Elevated fasting glucose R73 .01 [place] [address] [address] 18 Jul, 2016 Elevated fasting glucose R73 .01 [place] [address] [address] 14 Jul, 2016 Pelvic pain R10.2 ; Screenin g, lipid Z13.220 and Screening for diabetes mellitus Z13.1 [place] [address] [address] 15 Jun, 2016 Pelvic pain R10.2 and Vagina l candidiasis B37.3 [facility] [place] [address] [address] 14 Jun, 2016 Abdominal pain, lower R10.30 [facility] [place] [address] [address] 14 Jun, 2016 [place] [address] [address] 07 Mar, 2016 Acute pain of right shoulder M25.511 [place] [address] [address] Mar, Right anterior shoulder pain M25.511 [facility] [place] [address] [address] February, Acute pain of right shoulder M25.511 [place] [address] [address] Jan, Low back pain M54.5 ; Migrai ne G43.909 ; Screening, lipid Z13.220 ; Screening for diabetes mellitus Z13.1 and Tobacco abuse counseling Z71.6 [place] [address] [address] Dec, [facility] [address] [address] Dec, [facility] [address] [address] Dec, Lateral meniscus tear S83.28 9A [facility] [address] [address] Nov, Sore throat J02.9 [facility] [address] [address] Nov, [facility] [address] [address] Nov, [facility] [address] [address] Oct, Acute pain of left knee M25. 562 ; Low back pain M54.5 and Chronic prescription opiate use Z79.899 [facility] [address] [address] Aug, Plantar fasciitis M72.2 [place] [address] [address] Jul, Metatarsus primus varus Q66. 2 and Bunion of great toe of left foot M20.12 [place] [address] [address] 30 Jun, 2015 Chronic migraine 346.70 ; Bi polar disorder 296.80 ; Bilateral foot pain 729.5 ; Cellulitis 682.9 and Lumbosacral radiculopathy at L5 724.4 [place] [address] [address] 16 Jun, 2015 Plantar fasciitis, bilateral 728.71 [place] [address] [address] 27 Apr, 2015 Major depression, recurrent 296.30 ; Anxiety, generalized 300.02 ; No condition on [place] II V71.09 and No condition on axis III V71.09 [facility] [address] [id number] [address] [place] [address] Apr, Unspecified episodic mood di sorder 296.90 [facility] [address] [id number] [address] [place] [address] Apr, Acute pharyngitis 462 [facility] [address] [facility] [id number] [address] [place] [address] Apr, [facility] [address] [id number] [address] [place] [address] Apr, Major depression, recurrent 296.30 ; Anxiety 300.00 ; No condition on [place] II V71.09 and No condition on axis III V71.09 [facility] [address] [facility] [id number] [address] [place] [address] Mar, Unspecified episodic mood di sorder 296.90 and 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 [facility] [address] [facility] [id number] [address] [place] [address] Mar, [facility] [address] [id number] [address] [place] [id number] February, Dental examination V72.2 [facility] [address] [facility] [id number] [address] [place] [address] February, [facility] [address] [facility] [id number] [address] [place] [address] February, [facility] [address] [facility] [id number] [address] [place] [address] Jan, [facility] [address] [facility] [id number] [address] [place] [phone] Jan, [facility] [address] [facility] [id number] [address] [place] [address] Dec, [facility] [address] [facility] [id number] [address] [place] [address] Dec, [facility] [address] [id number] [address] [place] [address], [place] [address] Dec, [facility] [place] [facility] [address] [id number] [address] [place] [address], [place] [address] Dec, [facility] [address] [id number] [address] [place] [address], [place] [address] Oct, [facility] [place] [facility] [address] [id number] [address] [place] [address], [place] [address] Oct, [facility] [address] [id number] [address] [place] [address], [place] [address] Aug, [facility] [place] [facility] [address] [id number] [address] [place] [address], [place] [address] Aug, [facility] [address] [id number] [address] [place] [address], [place] [address] Aug, [facility] [place] [facility] [address] [id number] [address] [place] [address], [place] [address] Aug, [facility] [place] [facility] [address] [id number] [address] [place] [address], [place] [address] Jul, [facility] [place] [facility] [address] [id number] [address] [place] [address], [place] [address] Jul, [facility] [place] [facility] [address] [id number] [address] [place] [address], [place] [address] Jul, [facility] [place] [facility] [address] [id number] [address] [place] [address], [place] [address] Jul, [facility] [place] [facility] [address] [id number] [address] [place] [address], [place] [address] Jun, [facility] [place] [facility] [address] [id number] [address] [place] [address], [place] [address] Jun, [facility] [place] [address] [id number] [address] [place] [address], [place] [address] 17 Jun, 2014 [facility] [place] [facility] [address] [id number] [address] [place] [address], [place] [address] Jun, [facility] [address] [id number] [address] [place] [address], [place] [address] Jun, [facility] [address] [id number] [address] [place] [address], [place] [address] Jun, [facility] [address] [id number] [address] [place] [address], [place] [address] May, [facility] [address] [id number] [address] [place] [address], [place] [address] May, [facility] [address] [id number] [address] [place] [address], [place] [address] Mar, [facility] [address] [id number] [address] [place] [address], [place] [address] Mar, [facility] [address] [id number] [address] [place] [address], [place] [address] February, [facility] [address] [id number] [address] [place] [address], [place] [address] February, [facility] [address] [id number] [address] [place] [address], [place] [address] Jan, [facility] [address] [id number] [address] [place] [address], [place] [address] Jan, [facility] [address] [id number] [address] [place] [address], [place] [address] Jan, [facility] [address] [id number] [address] [place] [address], [place] [address] Jan, [facility] [address] [id number] [address] [place] [address], [place] [address] Jan, [facility] [address] [id number] [address] [place] [address], [place] [address] Jan, [facility] [address] [id number] [address] [place] [address], [place] [address] Dec, [facility] [address] [id number] [address] [place] [address], [place] [address] Dec, [facility] [address] [id number] [address] [place] [address], [place] [address] Nov, [facility] [address] [id number] [address] [place] [address], [place] [address] Nov, [facility] [address] [id number] [address] [place] [address], [place] [address] Oct, [facility] [address] [id number] [address] [place] [address], [place] [address] Oct, [facility] [address] [id number] [address] [place] [address], [place] [address] Sep, [facility] [address] [id number] [address] [place] [address], [place] [address] Sep, [facility] [address] [id number] [address] [place] [address], [place] [address] Sep, [facility] [address] [id number] [address] [place] [address], [place] [address] Sep, [facility] [address] [id number] [address] [place] [address], [place] [address] Jul, [facility] [address] [id number] [address] [place] [address], [place] [address] Jul, [facility] [address] [id number] [address] [place] [address], [place] [address] Jul, [facility] [address] [id number] [address] [place] [address], [place] [address] Jun, [facility] [address] [id number] [address] [place] [address], [place] [address] Jun, [facility] [address] [id number] [address] [place] [address], [place] [address] Jun, [facility] [address] [id number] [address] [place] [address], [place] [address] 09 Jun, 2012 [facility] [address] [id number] [address] [place] [address], [place] [address] 05 Jun, 2012 [facility] [address] [id number] [address] [place] [address], [place] [address] 05 Jun, 2012 [facility] [address] [id number] [address] [place] [address], [place] [address] 04 Jun, 2013 [facility] [address] [id number] [address] [place] [address], [place] [address] May, [facility] [address] [id number] [address] [place] [address], [place] [address] Apr, [facility] [address] [id number] [address] [place] [address], [place] [address] Apr, [facility] [address] [id number] [address] [place] [address], [place] [address] Apr, [facility] [address] [id number] [address] [place] [address], [place] [address] Apr, [facility] [address] [id number] [address] [place] [address], [place] [address] Apr, [facility] [address] [id number] [address] [place] [address], [place] [address] Apr, [facility] [address] [id number] [address] [place] [address], [place] [address] Apr, [facility] [address] [id number] [address] [place] [address], [place] [address] Mar, [facility] [address] [id number] [address] [place] [address], [place] [address] Mar, [facility] [address] [id number] [address] [place] [address], [place] [address] Mar, [facility] [address] [id number] [address] [place] [address], [place] [address] Mar, [facility] [address] [id number] [address] [place] [address], [place] [address] 11 Mar, 2013 [facility] [address] [id number] [address] [place] [address], [place] [address] Mar, [facility] [address] [id number] [address] [place] [address], [place] [address] February, [facility] [address] [id number] [address] [place] [address], [place] [address] February, [facility] [address] [id number] [address] [place] [address], [place] [address] February, [facility] [address] [id number] [address] [place] [address], [place] [address] Jan, [facility] [address] [id number] [address] [place] [address], [place] [address] Jan, [facility] [address] [id number] [address] [place] [address], [place] [address] Jan, [facility] [address] [id number] [address] [place] [address], [place] [address] Jan, [facility] [address] [id number] [address] [place] [address], [place] [address] Dec, [facility] [address] [id number] [address] [place] [address], [place] [address] 14 Nov, 2012 [facility] [address] [id number] [address] [place] [address], [place] [address] Oct, [facility] [address] [id number] [address] [place] [address], [place] [address] Oct, [facility] [address] [id number] [address] [place] [address], [place] [address] Oct, [facility] [address] [id number] [address] [place] [address], [place] [address] Sep, [facility] [address] [id number] [address] [place] [address], [place] [address] Sep, [facility] [address] [id number] [address] [place] [address], [place] [address] Sep, [facility] [address] [id number] [address] [place] [address], [place] [address] Sep, [facility] [address] [id number] [address] [place] [address], [place] [address] Jul, [facility] [address] [id number] [address] [place] [address], [place] [address] Jul, [facility] [address] [id number] [address] [place] [address], [place] [address] Jul, [facility] [address] [id number] [address] [place] [address], [place] [address] Jul, [facility] [address] [id number] [address] [place] [address], [place] [address] Jul, [facility] [address] [id number] [address] [place] [address], [place] [address] Jul, [facility] [address] [id number] [address] [place] [address], [place] [address] 10 Jul, 2012 [facility] [address] [id number] [address] [place] [address] 27 Jun, 2012 [facility] [address] [id number] [address] [place] [address] 25 Jun, 2012 [facility] [address] [id number] [address] [place] [address] 18 Sep2011 [facility] [address] [id number] [place] [id number] 17 Sep2011 [facility] [address] [id number] [address] [place] [address], [place] [address] 12 Jun, 2012 [facility] [address] [id number] [address] [place] [address], [place] [address] 11 Jun, 2012 [facility] [address] [id number] [address] [place] [address] Apr, [facility] [address] [id number] [address] [place] [address], [place] [address] Apr, [facility] [address] [id number] [address] [place] [address], [place] [address] Apr, [facility] [address] [id number] [address] [place] [address], [place] [address] February, [facility] [address] [id number] [address] [place] [address], [place] [address] Dec, [facility] [address] [id number] [address] [place] [address], [place] [address] Dec, [facility] [address] [id number] [address] [place] [address], [place] [address] Dec, [facility] [address] [id number] [address] [place] [address], [place] [address] Nov, [facility] [address] [id number] [address] [place] [address], [place] [address] Nov, [facility] [address] [id number] [address] [place] [address], [place] [address] Oct, [facility] [address] [id number] [address] [place] [address], [place] [address] Oct, [facility] [address] [id number] [address] [place] [address], [place] [address] Oct, [facility] [address] [id number] [address] [place] [address], [place] [address] Sep, [facility] [address] [id number] [address] [place] [address], [place] [address] Sep, [facility] [address] [id number] [address] [place] [address], [place] [address] 15 Sep, 2011 [facility] [address] [id number] [address] [place] [address], [place] [address] 14 Sep, 2011 [facility] [address] [id number] [address] [place] [address], [place] [address] 14 Sep, 2011 [facility] [address] [id number] [address] [place] [address], [place] [address] 18 Aug, 2011 [facility] [place] [facility] [address] [id number] [address] [place] [address], [place] [address] 17 Aug, 2011 [facility] [address] [id number] [address] [place] [address], [place] [address] 08 Aug, 2011 [facility] [address] [id number] [address] [place] [address], [place] [address] Aug, [facility] [address] [id number] [address] [place] [address], [place] [address] 27 Jul, 2011 [facility] [address] [id number] [address] [place] [address], [place] [address] 20 Jul, 2011 [facility] [address] [id number] [address] [place] [address], [place] [address] Jul, [facility] [address] [id number] [address] [place] [address], [place] [address] Jul, [facility] [address] [id number] [address] [place] [address], [place] [address] Jul, [facility] [address] [id number] [address] [place] [address], [place] [address] Apr, [facility] [address] [id number] [address] [place] [address], [place] [address] 28 Sep, 2010 [facility] [address] [id number] [address] [place] [address], [place] [address] 10 Sep, 2010 [facility] [address] [id number] [address] [place] [address], [place] [address] Sep, [facility] [address] [id number] [address] [place] [address], [place] [address] Aug, [facility] [address] [id number] [address] [place] [address], [place] [address] 11 Aug, 2010 [facility] [address] [id number] [address] [place] [address], [place] [address] 10 Aug, 2010 [facility] [address] [id number] [address] [place] [address], [place] [address] 27 Jul, 2010 [facility] [address] [id number] [address] [place] [address], [place] [address] 16 Jun, 2010 [facility] [address] [id number] [address] [place] [address], [place] [address] 14 Apr, 2010 [facility] [address] [id number] [address] [place] [address], [place] [address] 10 Apr, 2010 [facility] [address] [id number] [address] [place] [address], [place] [address] 12 Jan, 2010 [facility] [address] [id number] [address] [place] [address], [place] [address] 17 Nov, 2009 [facility] [address] [id number] [address] [place] [address], [place] [address] Sep, [facility] [address] [id number] [address] [place] [address], [place] [address] 12 Aug, 2009 [facility] [address] [id number] [address] [place] [id number] 12 Aug, 2009 [facility] [address] [id number] [address] [place] [id number] 03 Aug, 2009 [facility] [place] [facility] [address] [id number] [address] [place] [id number] 16 Jun, 2009 [facility] [address] [id number] [address] [place] [address], [place] [address] 10 May, 2009 [facility] [place] [facility] [address] [id number] [address] [place] [id number] 19 Mar, 2009 [facility] [place] [facility] [address] [id number] [address] [place] [address], [place] [address] 15 Mar, 2009 [facility] [place] [facility] [address] [id number] [address] [place] [id number] Nov, [facility] [address] [facility] [id number] [address] [place] [id number] Nov, IMMUNIZATIONS No Known Immunizations SOCIAL HISTORY Never Assessed REASON FOR VISIT Back pain Calixto Garcia [place], Patient is wanting to be refered to someone in [place] for pain management. PLAN OF CARE Activity Details Follow Up prn Reason: VITAL SIGNS Height 60 in 2018-07-12 Weight 226.5 lbs 2018-07-12 Temperature 97.8 degrees Fahrenheit 2018-07-12 Heart Rate 79 bpm 2018-07-12 Respiratory Rate 19 2018-07-12 BMI 44.23 kg/m2 2018-07-12 Blood pressure systolic 128 mmHg 2018-07-12 Blood pressure diastolic 76 mmHg 2018-07-12 MEDICATIONS Medication Instructions Dosage Frequency Start Date End Date Duration S tatus Clindamycin Phosphate 1 % Externally Twice a day 1 application t o affected area 12h Jun, Dec, 90 days Active Lamictal 25 MG Orally take one tab daily X14 days, then take 1 tab bid 1-2tablets Mar, 30 day(s) Not-Taking Topamax 25 MG Orally Once a day 1 tablet 24h Not-Taking Meloxicam 15 mg 1 Tablet by Po route 1 time per day gi margareth by Dr. Corea Aug, Active Aleve 220 MG Orally every 12 hrs 1 tablet as needed 12h Active Gabapentin 800 mg 1 Tablet by Oral route 3 daily PRN f or back/hip/leg pain Jun, Active Methocarbamol 500 mg [address] Po [address] e 3 times per day prescribed by Dr Corea Jan, Active RESULTS No Results PROCEDURES No Known [...]
--- OUTSIDE RECORDS SUMMARY | 2019-12-27 00:52 | XMS REPORT | Continuity of Care Document ---
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 MD, Ot N60.01 SOLITARY CYST OF RIGHT BREAST 12/25/2019 TED LOUIS MD, Ot N63 UNSPECIFIED LUMP IN BREAST 12/25/2019 TED LOUIS MD, Ot N60.01 SOLITARY CYST OF RIGHT BREAST Procedures Code Description Performed By Per formed On 96.49 OTHE R INSTILLATION 08/18/2007 73.59 MANU AL ASSIST DELIV NEC 08/19/2007 96.49 OTHE R INSTILLATION 08/18/2008 74.1 LOW C ERVICAL 08/19/2008 45.16 ESOP HAGOGASTRODUODENOSCOPY [EGD] W/CLOSE 04/14/2010 45.25 CLOS ED ENDOSCOPIC BIOPSY OF LARGE INTEST 10/30/2010 54.51 LAPA ROSCOP LYSIS-PERITONEAL ADHES 07/18/2011 59.12 LAPA ROSCOP LYSIS-PERIVESICAL ADHES 07/18/2011 69.09 D C NEC 07/18/2011 53.51 INCI SIONAL HERNIA REPAIR 02/06/[address] VAG HYSTER(LAVH) 02/06/2012 Results Test Result Range Streptococcus pyogenes antigen detection - 10/15/16 09:20 Streptococcus pyogenes antigen detection NEGATIVE NEGATIVE Bacterial throat culture - 10/15/16 09:2 0 Bacterial throat culture NBS NRG Serum heterophile antibody titer - 10/15 10:15 Serum heterophile antibody titer NEGATIVE NEGATIVE Complete urinalysis with reflex to cultu re - 01/13/17 18:46 Urine color determination YELLOW NRG Urine clarity determination CLEAR NR G Urine pH measurement by test strip 7 5-9 Specific gravity of urine by test strip 1.015 1.016-1.022 Urine protein assay by test strip, semi-quantitative NEGATIVE NEGATIVE Urine glucose detection by automated test strip NE GATIVE NEGATIVE Erythrocytes detection in urine sediment by light micr oscopy NEGATIVE NEGATIVE Urine ketones detection by automated test strip NE GATIVE NEGATIVE Urine nitrite detection by test strip NEGATIVE NEGATIVE Urine total bilirubin detection by test strip NEGA TIVE NEGATIVE Urine urobilinogen measurement by automated test strip (mass/volume) NORMAL NORMAL Urine leukocyte esterase detection by dipstick NEG ATIVE NEGATIVE Automated urine sediment erythrocyte cou nt by microscopy (number/high power field) NONE NRG Automated urine sediment leukocyte count by microscopy (number/high power field) RARE NRG Bacteria detection in urine sediment by light microsco py NEGATIVE NRG Squamous epithelial cells detection in u rine sediment by light microscopy 5-10 NRG Crystals detection in urine sediment by light microsco py NONE NRG Casts detection in urine sediment by light microscopy NONE NRG Mucus detection in urine sediment by light microscopy NEGATIVE NRG Complete urinalysis with reflex to culture NO NRG Bacteria identification in genital speci men by aerobe culture - 01/13/17 19:30 FREE TEXT EXTERNAL PLUS NORMAL SOCORRO NR G QUANTITY OF GROWTH Scant Growth NRG Bacteria identification in genital specimen by aerobe culture [id number] NRG Microscopic examination by ERICK preparati on - 01/13/17 19:30 Microscopic examination by ERICK preparation TNP NRG Microscopic examination by wet preparati on - 01/13/17 19:30 WET PREP RESULTS AT 2004 BY PK/KD NRG Neisseria gonorrhoeae DNA detection by p robe and signal amplification method - 01/13/17 19:30 Gonorrhea amp DNA-urine Negative Negati ve Chlamydia trachomatis DNA detection by p robe and signal amplification method - 01/13/17 19:30 Chlamydia trachomatis DNA detection by p robe and target amplification method Negative Negative Complete blood count (CBC) with automate d white blood cell (WBC) differential - 01/13/17 19:42 Blood leukocytes automated count (number/volume) 10.6 10*3/uL 4.3-11.0 Blood erythrocytes automated count (number/volume) 4.66 10*6/uL 4.35-5.85 Venous blood hemoglobin measurement (mass/volume) 14.1 g/dL 11.5-16.0 Blood hematocrit (volume fraction) 41 % 35-52 Automated erythrocyte mean corpuscular volume 88 [ foz_us] 80-99 Automated erythrocyte mean corpuscular h emoglobin (mass per erythrocyte) 30 pg 25-34 Automated erythrocyte mean corpuscular h emoglobin concentration measurement (mass/volume) 34 g/dL 32-36 Automated erythrocyte distribution width ratio 13. 6 % 10.0- 14.5 Automated blood platelet count (count/volume) 236 10*3/uL 130-400 Automated blood platelet mean volume measurement 11.4 [foz_us] 7.4-10.4 Automated blood neutrophils/100 leukocytes 59 % 42-75 Automated blood lymphocytes/100 leukocytes 28 % 12-44 Blood monocytes/100 leukocytes 9 % 0-12 Automated blood eosinophils/100 leukocytes 3 % 0-10 Automated blood basophils/100 leukocytes 1 % 0-10 Blood neutrophils automated count (number/volume) 6.3 10*3 1.8-7.8 Blood lymphocytes automated count (number/volume) 2.9 10*3 1.0-4.0 Blood monocytes automated count (number/volume) 0. 9 10*3 0.0-1.0 Automated eosinophil count 0.4 10*3/uL 0 .0-0.3 Automated blood basophil count (count/volume) 0.1 10*3/uL 0.0-0.1 Comprehensive metabolic panel - 01/13/17 19:42 Serum or plasma sodium measurement (moles/volume) 137 mmol/L 135-145 Serum or plasma potassium measurement (moles/volume) 3.8 mmol/L 3.6-5.0 Serum or plasma chloride measurement (moles/volume) 107 mmol/L 98-107 Carbon dioxide 22 mmol/L 21-32 Serum or plasma anion gap determination (moles/volume) 8 mmol/L 5-14 Serum or plasma urea nitrogen measurement (mass/volume ) 13 mg/dL 7-18 Serum or plasma creatinine measurement (mass/volume) 0.69 mg/dL 0.60-1.30 Serum or plasma urea nitrogen/creatinine mass ratio 19 NRG Serum or plasma creatinine measurement w ith calculation of estimated glomerular filtration rate > NRG Serum or plasma glucose measurement (mass/volume) 87 mg/dL 70-105 Serum or plasma calcium measurement (mass/volume) 8.8 mg/dL 8.5-10.1 Serum or plasma total bilirubin measurement (mass/volu me) 0.3 mg/dL 0.1-1.0 Serum or plasma alkaline phosphatase rahul surement (enzymatic activity/volume) 71 U/L 40-136 Serum or plasma aspartate aminotransfera se measurement (enzymatic activity/volume) 13 U/L 5-34 Serum or plasma alanine aminotransferase measurement (enzymatic activity/volume) 14 U/L 0-55 Serum or plasma protein measurement (mass/volume) 6.9 g/dL 6.4-8.2 Serum or plasma albumin measurement (mass/volume) 4.1 g/dL 3.2-4.5 Serum or plasma C reactive protein measu rement (mass/volume) - 01/13/17 19:42 Serum or plasma C reactive protein measurement (mass/v olume) 0.56 mg/dL 0.00-0.50 Automated blood complete blood count (he mogram) panel - 08/15/17 18:58 Blood leukocytes automated count (number/volume) 10.7 10*3/uL 4.3-11.0 Blood erythrocytes automated count (number/volume) 4.53 10*6/uL 4.35-5.85 Venous blood hemoglobin measurement (mass/volume) 13.6 g/dL 11.5-16.0 Blood hematocrit (volume fraction) 41 % 35-52 Automated erythrocyte mean corpuscular volume 90 [ foz_us] 80-99 Automated erythrocyte mean corpuscular h emoglobin (mass per erythrocyte) 30 pg 25-34 Automated erythrocyte mean corpuscular h emoglobin concentration measurement (mass/volume) 34 g/dL 32-36 Automated erythrocyte distribution width ratio 13. 1 % 10.0- 14.5 Automated blood platelet count (count/volume) 244 10*3/uL 130-400 Automated blood platelet mean volume measurement 11.6 [foz_us] 7.4-10.4 Whole blood basic metabolic panel - 10/31 18:58 Serum or plasma sodium measurement (moles/volume) 138 mmol/L 135-145 Serum or plasma potassium measurement (moles/volume) 4.2 mmol/L 3.6-5.0 Serum or plasma chloride measurement (moles/volume) 108 mmol/L 98-107 Carbon dioxide 22 mmol/L 21-32 Serum or plasma anion gap determination (moles/volume) 8 mmol/L 5-14 Serum or plasma urea nitrogen measurement (mass/volume ) 14 mg/dL 7-18 Serum or plasma creatinine measurement (mass/volume) 0.71 mg/dL 0.60-1.30 Serum or plasma urea nitrogen/creatinine mass ratio 20 NRG Serum or plasma creatinine measurement w ith calculation of estimated glomerular filtration rate > NRG Serum or plasma glucose measurement (mass/volume) 96 mg/dL 70-105 Serum or plasma calcium measurement (mass/volume) 8.9 mg/dL 8.5-10.1 Serum or plasma C reactive protein measu rement (mass/volume) - 08/15/17 18:58 Serum or plasma C reactive protein measurement (mass/v olume) 0.87 mg/dL 0.00-0.50 Complete urinalysis with reflex to cultu re - 12/25/19 00:35 Urine color determination YELLOW NRG Urine clarity determination SL CLOUDY N RG Urine pH measurement by test strip 6.5 5-9 Specific gravity of urine by test strip 1.025 1.016-1.022 Urine protein assay by test strip, semi-quantitative NEGATIVE NEGATIVE Urine glucose detection by automated test strip NE GATIVE NEGATIVE Erythrocytes detection in urine sediment by light micr oscopy NEGATIVE NEGATIVE Urine ketones detection by automated test strip NE GATIVE NEGATIVE Urine nitrite detection by test strip NEGATIVE NEGATIVE Urine total bilirubin detection by test strip NEGA TIVE NEGATIVE Urine urobilinogen measurement by automated test strip (mass/volume) 0.2 mg/dL < = 1.0 Urine leukocyte esterase detection by dipstick NEG ATIVE NEGATIVE Automated urine sediment erythrocyte cou nt by microscopy (number/high power field) NONE NRG Automated urine sediment leukocyte count by microscopy (number/high power field) [HPF] NRG Bacteria detection in urine sediment by light microsco py TRACE NRG Squamous epithelial cells detection in u rine sediment by light microscopy 2-5 NRG Crystals detection in urine sediment by light microsco py PRESENT NRG Casts detection in urine sediment by light microscopy NONE NRG Mucus detection in urine sediment by light microscopy SMALL NRG Complete urinalysis with reflex to culture NO NRG Amorphous sediment detection in urine sediment by ligh t microscopy FEW AAYUSH URATES NRG Complete blood count (CBC) with automate d white blood cell (WBC) differential - 12/25/19 01:40 Blood leukocytes automated count (number/volume) 13.1 10*3/uL 4.3-11.0 Blood erythrocytes automated count (number/volume) 4.28 10*6/uL 4.35-5.85 Venous blood hemoglobin measurement (mass/volume) 13.0 g/dL 11.5-16.0 Blood hematocrit (volume fraction) 39 % 35-52 Automated erythrocyte mean corpuscular volume 91 [ foz_us] 80-99 Automated erythrocyte mean corpuscular h emoglobin (mass per erythrocyte) 30 pg 25-34 Automated erythrocyte mean corpuscular h emoglobin concentration measurement (mass/volume) 33 g/dL 32-36 Automated erythrocyte distribution width ratio 13. 5 % 10.0- 14.5 Automated blood platelet count (count/volume) 284 10*3/uL 130-400 Automated blood platelet mean volume measurement 11.3 [foz_us] 7.4-10.4 Automated blood neutrophils/100 leukocytes 63 % 42-75 Automated blood lymphocytes/100 leukocytes 27 % 12-44 Blood monocytes/100 leukocytes 7 % 0-12 Automated blood eosinophils/100 leukocytes 3 % 0-10 Automated blood basophils/100 leukocytes 1 % 0-10 Blood neutrophils automated count (number/volume) 8.2 10*3 1.8-7.8 Blood lymphocytes automated count (number/volume) 3.5 10*3 1.0-4.0 Blood monocytes automated count (number/volume) 0. 9 10*3 0.0-1.0 Automated eosinophil count 0.4 10*3/uL 0 .0-0.3 Automated blood basophil count (count/volume) 0.1 10*3/uL 0.0-0.1 Comprehensive metabolic panel - 12/25/19 01:40 Serum or plasma sodium measurement (moles/volume) 141 mmol/L 135-145 Serum or plasma potassium measurement (moles/volume) 3.7 mmol/L 3.6-5.0 Serum or plasma chloride measurement (moles/volume) 108 mmol/L 98-107 Carbon dioxide 23 mmol/L 21-32 Serum or plasma anion gap determination (moles/volume) 10 mmol/L 5-14 Serum or plasma urea nitrogen measurement (mass/volume ) 15 mg/dL 7-18 Serum or plasma creatinine measurement (mass/volume) 0.70 mg/dL 0.60-1.30 Serum or plasma urea nitrogen/creatinine mass ratio 21 NRG Serum or plasma creatinine measurement w ith calculation of estimated glomerular filtration rate > NRG Serum or plasma glucose measurement (mass/volume) 97 mg/dL 70-105 Serum or plasma calcium measurement (mass/volume) 8.7 mg/dL 8.5-10.1 Serum or plasma total bilirubin measurement (mass/volu me) 0.1 mg/dL 0.1-1.0 Serum or plasma alkaline phosphatase rahul surement (enzymatic activity/volume) 65 U/L 40-136 Serum or plasma aspartate aminotransfera se measurement (enzymatic activity/volume) 9 U/L 5-34 Serum or plasma alanine aminotransferase measurement (enzymatic activity/volume) 13 U/L 0-55 Serum or plasma protein measurement (mass/volume) 6.3 g/dL 6.4-8.2 Serum or plasma albumin measurement (mass/volume) 3.8 g/dL 3.2-4.5 CALCIUM CORRECTED 8.9 mg/dL 8.5-10.1 Serum or plasma C reactive protein measu rement (mass/volume) - 12/25/19 01:40 Serum or plasma C reactive protein measurement (mass/v olume) 0.07 mg/dL 0.00-0.50 Encounters ACCT No. Visit Date/Time Discharge Status Pt. Type Provider Facility Loc./Unit Complaint [id number] 12/26/2019 10:00:00 ACT Outpatient HERIBERTO LOVELL, TED [facility]ASMINE [facility] [id number] 12/24/2019 23:21:00 020 03:56:00 DIS Emergency SANTI MARIA MD [facility] ER OVARIES HURT [id number] 08/15/2017 17:11:00 017 19:46:00 DIS Emergency SANTI MARIA MD Via [facility] ER RT SHOULDER PAIN,RT MATHEUS ED FINGER NUMBNESS [id number] 04/16/2017 12:25:00 017 14:25:00 DIS Emergency KAMILA MORALES MD [facility] ER MIGRAINE [id number] 01/31/2017 12:15:00 017 23:59:59 CLS Outpatient TED LOUIS MD Via [facility] RAD BREAST LESION [id number] 01/16/2017 08:57:00 017 23:59:59 CLS Outpatient TED LOUIS MD [facility] RAD BREAST LESION [id number] 01/13/2017 18:29:00 017 21:02:00 DIS Emergency KAMILA MORALES MD [facility] ER CRAMPING/SPOTTI NG [id number] 10/15/2016 09:13:00 017 11:13:00 DIS Emergency CHELSEA DOSRUTHIA K Vi [facility] ER SWOLLEN TONSILS/VOMITIN G [id number] 10/03/2016 08:34:00 016 23:59:59 CLS Outpatient TED LOUIS MD [facility] RAD BREAST LUMP [id number] 07/10/2016 10:48:00 016 23:59:59 CLS Outpatient RANDAL CHRISTIE APRN [facility] RAD PELVIC PAIN [id number] 05/22/2016 08:35:00 14:59:00 DIS Outpatient LEE FELICIANO MD [facility] REHAB S/P R SHOULDER SCOPE A ND SLAP REPAIR [id number] 03/22/2016 17:58:00 016 21:43:00 DIS Emergency ARMOND KATE [facility] ER R SHOULDER PAIN [id number] 03/18/2016 10:40:00 016 23:59:59 CLS Outpatient ANGELA MARQUEZ [employer]ESS ADMINISTRATOR [facility] RAD RT SHOULDER PAIN [id number] 02/27/2016 11:09:00 016 13:11:00 DIS Emergency ARMOND KATE [facility] ER R SHOULDER INJ [id number] 12/11/2015 23:03:00 016 02:24:00 DIS Emergency ARMOND KATE [facility] ER SORE THROAT/SWOLLEN TO NSILS [id number] 11/18/2015 13:07:00 23:59:59 CLS Outpatient TED LOUIS MD [facility] RAD LEFT KNEE PAIN [id number] 11/07/2015 14:37:00 016 16:16:00 DIS Emergency JESS WRIGHT [employer]ARM[employer] CARE COORDINATOR Via [facility] ER L KNEE WEAKNESS [id number] 10/22/2015 09:14:00 016 11:19:00 DIS Outpatient CRISTOFER ALCARAZ MD [facility] 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 [id number] 10/02/2015 15:28:00 015 17:13:00 DIS Emergency ARMOND KATE [facility] ER BACK PAIN [id number] 03/19/2015 07:39:00 015 09:27:00 DIS Outpatient CRISTOFER ALCARAZ MD [facility] CARD LUMBAR SPONDYLOSIS [id number] 09/25/2014 08:17:00 014 10:14:00 DIS Outpatient CRISTOFER ALCARAZ MD [facility] CARD LUMBAR SPONDYLOSIS [id number] 09/07/2014 12:43:00 014 14:40:00 DIS Emergency ARMOND KATE [facility] ER LOWER BACK/RIGHT LEG P AIN [id number] 07/03/2014 08:12:00 09:13:00 DIS Outpatient CRISTOFER ALCARAZ MD [facility] CARD LUMBAR SPONDYLOSIS [id number] 04/24/2014 10:21:00 10:54:00 DIS Outpatient CRISTOFER ALCARAZ MD [facility] CARD LUMBAR SPONDYLOSIS [id number] 03/03/2014 10:05:00 014 23:59:59 CLS Outpatient CRISTOFER ALCARAZ MD [facility] RAD LUMBAGO [id number] 01/16/2014 09:36:00 10:18:00 DIS Outpatient CRISTOFER ALCARAZ MD [facility] CARD LUMBAR SPINAL STENOSIS [id number] 11/28/2013 07:56:00 23:59:59 CLS Outpatient CRISTOFER ALCARAZ MD [facility] CARD LUMBAR SPINAL STENOSIS [id number] 11/24/2013 19:03:00 014 21:03:00 DIS Emergency JESS WRIGHT PHARMAC[employer] CARE COORDINATOR [facility] ER FELL 11/24/13; BACK ARTIE N [id number] 04/23/2013 13:43:00 23:59:59 CLS Outpatient SHU SIMENTAL PHARMACY CARE COORDINATOR [facility] RAD BACK PAIN [id number] 04/10/2013 13:09:00 14:42:00 DIS Outpatient SHU SIMENTAL PHARMACY CARE COORDINATOR [facility] REHAB LUMBAGO [id number] 04/08/2013 14:25:00 23:59:59 CLS Outpatient MORGAN MONTALVO [facility] QUICK THROAT PAIN/NO VOICE [id number] 03/06/2013 15:06:00 17:21:00 DIS Emergency RYAN TOPETE MD [facility] ER ABD PAIN,NAUSEA ,VOMITING [id number] 02/12/2013 16:40:00 013 23:59:59 CLS Outpatient ARNIE SCHULTZ [facility] QUICK LEG AND BACK PA IN [id number] 12/30/2019 13:00:00 P KARIN MARIA MD, SANTI Mack [facility] RAD RLQ ABD PAIN,HX ENDOMETRIOSI S,OVERIAN CYSTS [id number] 09/26/2017 23:19:00 Document Registration [id number] 01/16/2017 09:11:00 Document Registration [id number] 01/16/2017 09:11:00 Document Registration [id number] 01/16/2017 09:11:00 Document Registration [id number] 01/16/2017 09:09:00 Document Registration [id number] 01/16/2017 09:09:00 Document Registration [id number] 01/16/2017 09:09:00 Document Registration [id number] 01/16/2017 09:09:00 Document Registration [id number] 01/16/2017 09:09:00 Document Registration [id number] 01/16/2017 09:08:00 Document Registration [id number] 01/16/2017 09:08:00 Document Registration [id number] 01/16/2017 09:08:00 Document Registration [id number] 01/16/2017 09:08:00 Document Registration [id number] 01/16/2017 09:08:00 Document Registration [id number] 01/16/2017 09:08:00 Document Registration [id number] 01/16/2017 09:08:00 Document Registration [id number] 01/16/2017 09:08:00 Document Registration [id number] 01/16/2017 09:08:00 Document Registration [id number] 01/16/2017 09:08:00 Document Registration [id number] 01/16/2017 09:08:00 Document Registration [id number] 01/16/2017 09:08:00 Document Registration [id number] 01/16/2017 09:07:00 Document Registration [id number] 01/16/2017 09:07:00 Document Registration [id number] 01/16/2017 09:07:00 Document Registration [id number] 01/16/2017 09:07:00 Document Registration [id number] 01/16/2017 09:07:00 Document Registration [id number] 01/16/2017 09:07:00 Document Registration [id number] 01/16/2017 09:07:00 Document Registration [id number] 01/16/2017 09:07:00 Document Registration [id number] 01/16/2017 09:07:00 Document Registration [id number] 01/16/2017 09:06:00 Document Registration [id number] 01/16/2017 09:06:00 Document Registration [id number] 01/16/2017 09:06:00 Document Registration [id number] 01/16/2017 09:06:00 Document Registration [id number] 01/16/2017 09:06:00 Document Registration [id number] 01/16/2017 09:06:00 Document Registration [id number] 11/16/2015 13:35:00 Document Registration [id number] 10/14/2015 11:31:00 Document Registration [id number] 03/19/2015 09:04:00 Document Registration [id number] 12/16/2012 11:59:00 Document Registration [id number] 12/14/2012 10:01:00 Document Registration [id number] 10/20/2012 17:13:00 Document Registration [id number] 08/28/2012 18:20:00 Document Registration [id number] 07/02/2012 07:44:00 Document Registration [id number] 06/23/2012 19:53:00 Document Registration [id number] 06/07/2012 10:43:00 Document Registration [id number] 04/25/2012 00:50:00 Document Registration [id number] 04/14/2012 08:57:00 Document Registration [id number] 02/09/2012 18:53:00 Document Registration [id number] 02/06/2012 06:12:00 Document Registration [id number] 02/01/2012 10:32:00 Document Registration [id number] 01/13/2012 15:38:00 Document Registration [id number] 12/21/2011 12:42:00 Document Registration [id number] 11/08/2011 06:54:00 Document Registration [id number] 10/25/2011 14:31:00 Document Registration [id number] 10/01/2011 13:07:00 Document Registration [id number] 09/25/2011 16:08:00 Document Registration [id number] 08/16/2011 05:32:00 Document Registration [id number] 08/14/2011 11:49:00 Document Registration [id number] 07/16/2011 13:22:00 Document Registration [id number] 07/15/2011 18:16:00 Document Registration [id number] 07/09/2011 15:26:00 Document Registration [id number] 06/26/2011 12:08:00 Document Registration [id number] 04/25/2011 12:36:00 Document Registration [id number] 01/17/2011 19:30:00 Document Registration [id number] 01/05/2011 22:28:00 Document Registration [id number] 12/27/2010 10:20:00 Document Registration [id number] 12/14/2010 11:32:00 Document Registration [id number] 11/13/2010 14:03:00 Document Registration [id number] 10/27/2010 07:50:00 Document Registration [id number] 10/22/2010 22:01:00 Document Registration [id number] 09/11/2010 22:46:00 Document Registration [id number] 08/23/2010 19:44:00 Document Registration [id number] 08/21/2010 20:53:00 Document Registration [id number] 08/18/2010 08:20:00 Document Registration [id number] 08/17/2010 01:51:00 Document Registration [id number] 08/07/2010 12:21:00 Document Registration [id number] 06/20/2010 22:55:00 Document Registration [id number] 05/20/2010 21:47:00 Document Registration [id number] 04/21/2010 13:19:00 Document Registration [id number] 04/12/2010 21:36:00 Document Registration [id number] 02/20/2010 16:07:00 Document Registration [id number] 12/31/2009 12:49:00 Document Registration [id number] 11/03/2009 07:50:00 Document Registration [id number] 09/17/2009 19:42:00 Document Registration [id number] 05/06/2009 10:45:00 Document Registration [id number] 01/26/2009 13:46:00 Document Registration [id number] 12/21/2008 08:04:00 Document Registration [id number] 12/04/2008 08:27:00 Document Registration [id number] 08/18/2008 18:12:00 Document Registration [id number] 08/11/2008 14:34:00 Document Registration [id number] 07/19/2008 00:15:00 Document Registration [id number] 07/17/2008 20:13:00 Document Registration [id number] 06/26/2008 01:27:00 Document Registration [id number] 05/28/2008 09:47:00 Document Registration [id number] 05/26/2008 17:30:00 Document Registration [id number] 05/25/2008 17:25:00 Document Registration [id number] 05/23/2008 17:33:00 Document Registration [id number] 08/18/2007 17:12:00 Document Registration [id number] 08/10/2007 21:38:00 Document Registration [id number] 08/01/2007 15:30:00 Document Registration [id number] 06/30/2007 10:27:00 Document Registration [id number] 06/12/2007 00:48:00 Document Registration [id number] 06/04/2007 13:36:00 Document Registration
== END 2019-12-25 03:56 | disposition home or self-care (01) ==
LOC: EDUNIT# 23:18 → ER 23:21
DX: R10.31 Right lower quadrant pain (principal); F17.210 Nicotine dependence, cigarettes, uncomplicated; Z90.710 Acquired absence of both cervix and uterus; Z88.8 Allergy status to other drugs, medicaments and biological substances; Z91.030 Bee allergy status
CPT/HCPCS: 36415; 74177; 80053; 81000; 84703; 85025; 86141

== ENCOUNTER → 2019-12-30 | Outpatient (CLI) | payer BC ==
--- NOTE | 2019-12-30 15:03 | Diagnostic Imaging Report ---
PROCEDURE: US Non-ob pelvis comp/trans. TECHNIQUE: Multiple realtime grayscale images were obtained of the pelvis in various projections endovaginally. Transabdominal imaging was also performed. INDICATION: Right lower quadrant pain, prior hysterectomy. FINDINGS: The previous pelvic ultrasound exam of 07/17/2011 noted that the uterus was enlarged. In the interval since the prior exam, the patient has undergone a hysterectomy. The CT abdomen/pelvis exam of 12/25/2019 failed to show any acute abnormality of the pelvis. On this exam, both ovaries were identified. There is good blood flow to each ovary and there is no sign of torsion. There is a 2.2 x 2.7 x 2.5 cm cyst associated with the left ovary. This cyst does contain a few septations and it may have been slightly complicated by infection and/or hemorrhage. The right ovary is unremarkable. There is no solid pelvic mass or free fluid collection evident. IMPRESSION: 1. There is a 2.2 x 2.7 x 2.5 cm septated slightly complicated left ovarian cyst. If further evaluation of this finding is desired, then a short-term (4-6 week) follow-up ultrasound exam would be recommended. 2. The right ovary is unremarkable. 3. There is no acute abnormality noted. 4. The uterus is surgically absent. Dictated by: Dictated on workstation # [id number]
== END ==
LOC: RAD 12:41
PROVIDERS: ATTEND Emergency Medicine
DX: N83.202 Unspecified ovarian cyst, left side (principal)
CPT/HCPCS: 76830; 76856

== ENCOUNTER 2020-07-10 21:07 | Emergency (ER) | payer SELFPAY ==
[~2020-07-10] VITALS: Ht 152 cm; Wt 85.0 kg
--- NOTE | 2020-07-10 21:43 | ED General ---
General Stated Complaint: R FOOT PAIN Source of Information: Patient Exam Limitations: No Limitations History of Present Illness Date Seen by Provider: Jul 10, 2020 Time Seen by Provider: 21:40 Initial Comments To ER with pain to the medial aspect of the right foot. This is just in front of her heel. This began suddenly while she was walking, she heard a popping noise, thought she had stepped on something but didn't see anything that she had stepped on. Over the next few minutes she developed a quite intense pain to this area of her foot and inability to bear weight. Timing/Duration: 1 Hour Severity: Moderate Associated Systoms: Denies Symptoms Allergies and Home Medications Allergies Coded Allergies: gadoteridol (Unverified Allergy, Mild, 11/26/09) mustard (Unverified Allergy, Mild, 08/21/10) venom-honey bee (Verified Allergy, Unknown, 06/07/12) Uncoded Allergies: GOINS PEPPERS (Allergy, Unknown, 03/19/15) MRI DYE (Adverse Reaction, Unknown, 12/18/12) Home Medications Acyclovir 400 Mg Tablet, 400 MG PO TID Prescribed by: KAMILA SANABRIA on 01/13/172051 Amoxicillin/Potassium Clav 1 Each Tablet, 1 EACH PO BID Prescribed by: MINE TRAN on 10/15/16 1047 Hydrocodone Bit/Acetaminophen 1 Ea Tablet, 1-2 EA PO Q6H Prescribed by: SANTI MARIA on 12/25/19 033 Methylprednisolone 4 Mg Tab.ds.pk, 4 MG PO UD Prescribed by: MINE TRAN on 10/15/16 1047 Ondansetron 4 Mg Tab.rapdis, 4 MG PO Q6H PRN for NAUSEA/VOMITING Prescribed by: SANTI MARIA on 12/25/19 033 Prednisone 20 Mg Tab, 40 MG PO DAILY Prescribed by: SANTI MARIA on 08/15/17 194 Patient Home Medication List Home Medication List Reviewed: Yes Review of Systems Review of Systems Constitutional: see HPI EENTM: see HPI Respiratory: no symptoms reported Cardiovascular: no symptoms reported Genitourinary: no symptoms reported Musculoskeletal: see HPI Skin: no symptoms reported Psychiatric/Neurological: No Symptoms Reported Hematologic/Lymphatic: No Symptoms Reported Immunological/Allergic: no symptoms reported Past Zheiuis-Sriqnq-Eodfqo Hx Patient Social History Drug of Choice: MARIJUANA Type Used: Cigarettes 2nd Hand Smoke Exposure: No Recent Foreign Travel: No Contact w/Someone Who Travel: No Recent Hopitalizations: No Immunizations Up To Date Tetanus Booster (TDap): Unknown Date of Pneumonia Vaccine: Aug 16, 2009 Date of Influenza Vaccine: Jul 15, 2011 Seasonal Allergies Seasonal Allergies: No Past Medical History Surgeries: Yes (PARTIAL HYSTERECTOMY) Section, Gallbladder, Hysterectomy, Orthopedic Respiratory: No Cardiac: No Neurological: Yes Headaches /Migraines Reproductive Disorders: No Female Reproductive Disorders: Endometriosis 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 0.0oz. [id number]; 42.00 BMI Method:Stated General Appearance: No Apparent Distress, WD/WN Eyes: Bilateral Eye Normal Inspection, Bilateral Eye PERRL Neck: Full Range of Motion, Normal Inspection Respiratory: No Accessory Muscle Use, No Respiratory Distress Gastrointestinal: Normal Bowel Sounds, Soft Extremity: Normal Capillary Refill, Normal Inspection, Other (tenderness to palpation over the medial aspect of the right foot just anterior to the calcaneus and just behind the arch of the foot. Very tender to palpation, slightly swollen. suspect aplantar fascia rupture.) Neurologic/Psychiatric: Alert, Oriented x3 Skin: Normal Color, Warm/Dry Progress/Results/Core Measures Suspected Sepsis SIRS Temperature: Pulse: Respiratory Rate: Blood Pressure / Mean: Results/Orders My Orders Orders - JESS WRIGHT APRN Foot, Right, 3 View (07/10/20 21:39) Rx-Hydrocodone/Apap 5-325 Mg (Rx-Vicodin (07/10/20 21:45) Vital Signs/I&O Capillary Refill : Departure Impression Primary Impression: Plantar fascia rupture Disposition: 01 HOME, SELF-CARE Condition: Stable Departure-Patient Inst. Decision time for Depature: 21:42 Referrals: TED LOUIS MD (PCP/Family) Primary Care Physician Patient Instructions: NO INSTRUCTIONS GIVEN Add. Discharge Instructions: 1. Darinel wrap to the foot. Keep it elevated as much as possible. Ice pack to the area. You can bear weight once you're able to do so without significant pain. Use the crutches until then. Pain medication in the meantime. JESS WRIGHT APRN Jul 10, 2020 21:43
[2020-07-10] MEDS ORDERED: RX-HYDROCODONE/APAP 5/325 MG #4 TAB PK PO PRN (21:45)
[2020-07-10 22:26] VITALS: BP 100/69
--- NOTE | 2020-07-11 07:34 | Diagnostic Imaging Report ---
Indication: Right foot pain. Comparison: None. Discussion: Three views of the right foot were obtained. Plantar calcaneal enthesophyte is present which can be associated with pain. No fracture or dislocation. Joint spaces are maintained. Alignment is anatomic. Soft tissues are unremarkable. No foreign body. Impression: 1. Calcaneal enthesophyte. Dictated by: Dictated on workstation # [id number]
== END 2020-07-10 22:18 | disposition home or self-care (01) ==
LOC: EDUNIT# 21:07 → ER 21:08
DX: S96.811A Strain of other specified muscles and tendons at ankle and foot level, right foot, initial encounter (principal); Z91.041 Radiographic dye allergy status; Z79.52 Long term (current) use of systemic steroids; X58.XXXA Exposure to other specified factors, initial encounter
CPT/HCPCS: 73630

== ENCOUNTER 2021-08-11 05:41 | Outpatient (CLI) | payer SELFPAY ==
[~2021-08-11] VITALS: Ht 152.4 cm; Wt 102.8 kg
[~2021-08-11 05:41] MED LIST changes: -ACYC400T PO; +ACYC400T21 PO
[2021-08-11] MEDS ORDERED: NAPR220T66 PO (13:34)
== END 2021-08-11 17:52 | disposition home or self-care (01) ==
LOC: PREOP 05:41
PROVIDERS: ATTEND Surgery
DX: Z01.818 Encounter for other preprocedural examination (principal)

== ENCOUNTER 2021-08-17 10:28 | Day surgery (SDC) | payer OTHER ==
[2021-08-17] VITALS (11 sets, daily range): BP systolic 115–141; BP diastolic 76–90
[~2021-08-17] VITALS: Ht 152.4 cm; Wt 102.8 kg
[~2021-08-17 10:28] MED LIST changes: +NAPR220T66 PO
[2021-08-17] MEDS ORDERED: ceFAZolin 2 GM IV Premixed 50 ML IV ONE (10:45)
[2021-08-17] MEDS ORDERED: LACTATED RINGERS 1,000 ML IV PRN ×2 (10:45→13:00)
--- NOTE | 2021-08-17 11:39 | Progress Note-Pre Operative ---
Pre-Operative Progress Note H&P Reviewed The H&P was reviewed, patient examined and no changes noted. Time Seen by Provider: 11:37 Date H&P Reviewed: Aug 17, 2021 Time H&P Reviewed: 11:37 Pre-Operative Diagnosis: Right breast mass SAL THURMAN DO Aug 17, 2021 11:39
[2021-08-17] MEDS ORDERED: LIDOCAINE/EPI 1%-1:100,000 (XYLOCAINE) 20ML ONE (12:30)
[2021-08-17] MEDS ORDERED: ONDANSETRON 4 MG/2 ML (SDV) Z0FRAN IV ONE (13:00)
[2021-08-17] MEDS ORDERED: FAMOTIDINE 20MG/2ML IV (PEPCID) ONE (13:00)
[2021-08-17] MEDS ORDERED: FAMOTIDINE 20MG/2ML IV (PEPCID) IV ONE (13:00)
[2021-08-17] MEDS ORDERED: ONDANSETRON 4 MG/2 ML (SDV) Z0FRAN ONE ×2 (13:01→13:11)
[2021-08-17] MEDS ORDERED: SEVOFLURANE (ULTANE) 15 ML INHAL SOLN ONE ×2 (13:11→13:59)
[2021-08-17] MEDS ORDERED: LIDOCAINE PF 2% 5 ML (XYLOCAINE) VIAL ONE (13:11)
[2021-08-17] MEDS ORDERED: fentaNYL INJ 100 MCG/2 ML AMP ONE (13:11)
[2021-08-17] MEDS ORDERED: proPOfol 200 MG/20 ML (DIPRIVAN) VIAL IV ONE (13:11)
[2021-08-17] MEDS ORDERED: MIDAZOLAM 2 MG/2 ML (VERSED) VIAL ONE (13:11)
[2021-08-17] MEDS ORDERED: KETOROLAC 30 MG/ML VIAL ONE (13:47)
--- NOTE | 2021-08-17 14:03 | Progress Note-Post Operative ---
Post-Operative Progess Note Surgeon (s)/Congressional District Aide (s) Surgeon SAL THURMAN DO Congressional District Aide: ROB Payton Pre-Operative Diagnosis Right breast mass Post-Operative Diagnosis same pending path Procedure & Operative Findings Date of Procedure 08/17/21 Procedure Performed/Findings Right breast bx Anesthesia Type LMA Estimated Blood Loss Estimated blood loss (mL): scant Specimens/Packing Specimens Removed right breast mass SAL THURMAN DO Aug 17, 2021 14:03
--- NOTE | 2021-08-17 14:06 | Discharge Inst-Surgical ---
Discharge Inst-Surgical Depart Medication/Instructions New, Converted or Re-Newed RX: Other (Use home) Activity Activity as Tolerated: Yes Activity Instructions: Avoid Stress to Incision Driving Instructions: You May Drive Diet Discharge Diet: No Restrictions Diet After 24 Hours: Clear Liquid if Nauseous If Any Problems/Questions/Issu: Contact Your Physician, Go to Emergency Room Skin/Wound Care Infection Signs and Symptoms: Increased Redness, Foul Odor of Wound, Increased Drainage, Skin Itchy or Has a Rash, Increased Swelling, Temperature Above 101 F Wound Care Comment: Wear tight fitting bra, 07/05 for one week; except to shower (if it helps with pain) Bathing Instructions: Shower Stitches/Abbey/Dermabond Dis: DermSAL Metzger DO Aug 17, 2021 14:06
[2021-08-17] MEDS ORDERED: ONDANSETRON 4 MG/2 ML (SDV) Z0FRAN IVP PRN (14:15)
[2021-08-17] MEDS ORDERED: HYDROmorphone 2 MG/ML VIAL (DILAUDID) IV ONE (14:15)
[2021-08-17] MEDS ORDERED: HYDROmorphone 2 MG/ML VIAL (DILAUDID) ONE (14:29)
--- NOTE | 2021-08-17 15:06 | Anesthesia-General Post-Op ---
General Patient Condition Mental Status/LOC: Same as Preop Cardiovascular: Satisfactory Nausea/Vomiting: Absent Respiratory: Satisfactory Pain: Controlled Complications: Absent Post Op Complications Complications None Follow Up Care/Instructions Patient Instructions None needed. Anesthesia/Patient Condition Patient Condition Patient is doing well, no complaints, stable vital signs, no apparent adverse anesthesia problems. No complications reported per nursing. [place] [facility] [place] Yes VICNENZO CAMPBELL CRNA Aug 17, 2021 15:06
[2021-08-17] MEDS ORDERED: HYDROcodone/APAP 5 MG/325 MG (LORTAB) TAB PO ONE (15:15)
[2021-08-17] MEDS ORDERED: HYDROcodone/APAP 5 MG/325 MG (LORTAB) TAB ONE (15:23)
[2021-08-17] MEDS ORDERED: ACHD5005 PO (15:45)
--- NOTE | 2021-08-18 04:22 | OPERATIVE REPORT ---
DATE OF SERVICE: 08/17/2021 PREOPERATIVE DIAGNOSIS: Right breast mass. POSTOPERATIVE DIAGNOSIS: Right breast mass, pending pathology. PROCEDURE: Right breast biopsy. SURGEON: Yogesh Gerber DO CARDIAC NURSE PRACTITIONER: Ab Nikolai MS3. ANESTHESIA: LMA. BLOOD LOSS: Scant. FLUIDS: Per anesthesia. POSTOPERATIVE CONDITION: Stable. INDICATION FOR PROCEDURE: The patient is a 31-year-old female, who has a mass in the right breast, right around the 3 o'clock position. She wanted to get this removed. She was concerned it could be something else and plus she is having severe pain from this mass. The site was marked, agreed upon with the patient in room prior to timeout. During timeout, incision was made and mass sent to pathology. PROCEDURE NOTE: After informed consent was obtained, the patient was brought to the operating room, placed on the table in supine position. She was sterilely prepped and draped in normal fashion. Right breast had been marked and she had pointed right where she felt the mass is about 3 o'clock position. After the prepped and draped, infiltrated with local, made an incision with #15 blade, carried down through the skin into subcutaneous tissue, created a flap going superiorly and inferiorly with Bovie electrocautery, then palpated around, did not really feel firm nodules, felt like some small areas of firmness, grasped this with Allises and then cut this out with Bovie electrocautery, palpated around, felt there is some more tissue, took out every tissue that we thought was then I felt was a lump, most likely may have been some fibrocystic tissue. After we had taken out tissue, palpated around, inside the breast as well as above the breast and did not find any other masses. At this point, copiously irrigated with sterile water. Hemostasis obtained and then closed the incision with 4-0 undyed Monocryl 3 interrupted subcuticular stitches. Area was cleaned and dried, dressing placed. The patient tolerated the procedure. Sponge, instrument and needle count correct at the end of the case. She was transferred to recovery room in stable condition. Job ID: [id number] DocumentID: [id number] Dictated Date: 08/17/2021 20:06:54 Dog Food Shredder Operator Date: 08/18/2021 04:21:29 Dictated By: YOGESH GERBER DO
== END 2021-08-17 16:15 | disposition home or self-care (01) ==
LOC: SDC 10:28
PROVIDERS: ATTEND Surgery
DX: N63.10 Unspecified lump in the right breast, unspecified quadrant (principal); F17.210 Nicotine dependence, cigarettes, uncomplicated; E66.01 Morbid (severe) obesity due to excess calories; Z68.41 Body mass index [BMI] 40.0-44.9, adult; F31.9 Bipolar disorder, unspecified; Z90.49 Acquired absence of other specified parts of digestive tract; Z90.710 Acquired absence of both cervix and uterus
CPT/HCPCS: 87081; 88305

== ENCOUNTER 2021-09-22 08:35 | Outpatient (CLI) | payer OTHER ==
[~2021-09-22] VITALS: Ht 152.4 cm; Wt 102.8 kg
== END 2021-09-22 13:28 | disposition home or self-care (01) ==
LOC: PREOP 08:35
PROVIDERS: ATTEND Surgery
DX: Z01.818 Encounter for other preprocedural examination (principal)

== ENCOUNTER 2021-09-28 10:33 | Day surgery (SDC) | payer OTHER ==
[~2021-09-28] VITALS: Ht 152.4 cm; Wt 102.8 kg
[2021-09-28] VITALS (11 sets, daily range): BP systolic 106–139; BP diastolic 61–87
[2021-09-28] MEDS ORDERED: LACTATED RINGERS 1,000 ML IV PRN (10:45)
[2021-09-28] MEDS ORDERED: ceFAZolin 2 GM IV Premixed 50 ML IV ONE (10:45)
--- NOTE | 2021-09-28 11:14 | Progress Note-Pre Operative ---
Pre-Operative Progress Note H&P Reviewed The H&P was reviewed, patient examined and no changes noted. Time Seen by Provider: 11:11 Date H&P Reviewed: Sep 28, 2021 Time H&P Reviewed: 11:11 Pre-Operative Diagnosis: Right breast, non-healing wound. site marked SAL THURMAN DO Sep 28, 2021 11:13
[2021-09-28] MEDS ORDERED: LIDOCAINE/EPI 1%-1:200,000 (XYLOCAINE) 30 ML VIAL ONE (11:31)
[2021-09-28] MEDS ORDERED: ONDANSETRON 4 MG/2 ML (SDV) Z0FRAN ONE ×2 (12:16→12:22)
[2021-09-28] MEDS ORDERED: FAMOTIDINE 20MG/2ML IV (PEPCID) ONE (12:16)
[2021-09-28] MEDS ORDERED: SEVOFLURANE (ULTANE) 15 ML INHAL SOLN ONE ×2 (12:22→12:53)
[2021-09-28] MEDS ORDERED: fentaNYL INJ 100 MCG/2 ML AMP ONE (12:22)
[2021-09-28] MEDS ORDERED: LIDOCAINE PF 2% 5 ML (XYLOCAINE) VIAL ONE (12:22)
[2021-09-28] MEDS ORDERED: proPOfol 200 MG/20 ML (DIPRIVAN) VIAL IV ONE (12:22)
[2021-09-28] MEDS ORDERED: MIDAZOLAM 2 MG/2 ML (VERSED) VIAL ONE (12:23)
[2021-09-28] MEDS ORDERED: ONDANSETRON 4 MG/2 ML (SDV) Z0FRAN IV ONE (12:30)
[2021-09-28] MEDS ORDERED: FAMOTIDINE 20MG/2ML IV (PEPCID) IV ONE (12:30)
[2021-09-28] MEDS ORDERED: KETOROLAC 30 MG/ML VIAL ONE (12:53)
[2021-09-28] MEDS ORDERED: HYDROmorphone 2 MG/ML VIAL (DILAUDID) ONE (13:13)
[2021-09-28] MEDS ORDERED: ONDANSETRON 4 MG/2 ML (SDV) Z0FRAN IVP PRN (13:15)
[2021-09-28] MEDS ORDERED: HYDROmorphone 2 MG/ML VIAL (DILAUDID) IV ONE (13:15)
--- NOTE | 2021-09-28 13:19 | Anesthesia-General Post-Op ---
General Patient Condition Mental Status/LOC: Same as Preop Cardiovascular: Satisfactory Nausea/Vomiting: Absent Respiratory: Satisfactory Pain: Controlled Complications: Absent Post Op Complications Complications None Follow Up Care/Instructions Patient Instructions None needed. Anesthesia/Patient Condition Patient Condition Patient is doing well, no complaints, stable vital signs, no apparent adverse anesthesia problems. No complications reported per nursing. D/C home per [facility] [place] Criteria: Yes VINCENZO CAMPBELL CRNA Sep 28, 2021 13:19
--- NOTE | 2021-09-28 14:03 | Progress Note-Post Operative ---
Post-Operative Progess Note Surgeon (s)/Principal Engineer (s) Surgeon SAL THURMAN DO Principal Engineer: RICHARD Yi Pre-Operative Diagnosis Right breast, non-healing wound. site marked Post-Operative Diagnosis same Procedure & Operative Findings Date of Procedure 09/28/21 Procedure Performed/Findings excision of non-healing wound 3.7 x 0.4cm Anesthesia Type LMA Estimated Blood Loss Estimated blood loss (mL): scant Specimens/Packing Specimens Removed non-healing wound SAL THURMAN DO Sep 28, 2021 14:03
[2021-09-28] MEDS ORDERED: ACHD5005 PO (14:04)
--- NOTE | 2021-09-28 14:07 | Discharge Inst-Surgical ---
Discharge Inst-Surgical Depart Medication/Instructions New, Converted or Re-Newed RX: Transmitted to Pharmacy Patient Instructions Follow up Appt: Make appointment for 1 week. [phone] Instructions: No strenuous activity. May shower in 24 hours, no tub bath or soaking. Use incentive spirometer at home as directed. No Smoking Skin/Wound Care: May remove bandages in am. You need to leave the Dermabond on incision it will fall off on it's own. Symptoms to Report: Appetite Changes, Extremity Discoloration, Numbness/Tingling, Swelling Increased, Bleeding Excessive, Eyesight Changes, Pain Increased, Urine Color C hange, Constipation(Persistent), Fever over 101 degree F, Pain/Pressure in chest, Urinating Difficulty, Cough Up/Vomit Blood, Heart Beat Irreg/Pounding, Pain/Pressure in jaw, Cramps in feet or legs, Lightheadedness, Pain/Pressure in shoulder, Diarrhea(Persistent), Memory Changes Suddenly, Questions/Concerns, Weight gain consecutive days, Dizziness/Fainting, Nausea/Vomiting, Shortness of Breath, Weight gain over 2 pounds If questions or concerns contact your physician Or seek help at emergency department. Activity Activity as Tolerated: Yes Activity Instructions: Avoid Stress to Incision Diet Discharge Diet: No Restrictions Diet After 24 Hours: Clear Liquid if Nauseous If Any Problems/Questions/Issu: Contact Your Physician, Go to Emergency Room Skin/Wound Care Infection Signs and Symptoms: Increased Redness, Foul Odor of Wound, Increased Drainage, Skin Itchy or Has a Rash, Increased Swelling, Temperature Above 101 F Bathing Instructions: Shower Stitches/Abbey/Dermabond Dis: Dermabond Ice Pack: Ice On and Off Site SAL THURMAN DO Sep 28, 2021 14:07
[2021-09-28] MEDS ORDERED: HYDROcodone/APAP 5 MG/325 MG (LORTAB) TAB PO ONE (14:15)
[2021-09-28] MEDS ORDERED: HYDROcodone/APAP 5 MG/325 MG (LORTAB) TAB ONE (14:15)
--- NOTE | 2021-09-28 23:59 | OPERATIVE REPORT ---
DATE OF SERVICE: 09/28/2021 PREOPERATIVE DIAGNOSIS: Nonhealing wound of the right breast. POSTOPERATIVE DIAGNOSIS: Nonhealing wound of the right breast, pending pathology. PROCEDURE: Excision of nonhealing wound 3.7 x 0.4 cm excision. SURGEON: Yogesh Gerber DO SCHEDULE CHECKER: FAINA Mcdaniels. BLOOD LOSS: Scant. FLUIDS: Per anesthesia. POSTOPERATIVE CONDITION: Stable. INDICATION FOR PROCEDURE: The patient is a 31-year-old female who had a breast biopsy performed. This unfortunately continued to not heal, could not get the skin to close, even with just secondary intent, it was not closing. She states she is still getting lots of fluid out. FINDINGS: The patient had a pretty large capsule from the previous surgery filled with fluid. This is most likely why would not close. PROCEDURE NOTE: After informed consent was obtained, the patient was brought to the operating room, placed on the table in supine position. She was sterilely prepped and draped in normal fashion. Local lidocaine was used to infiltrate around this nonhealing wound. Then made an elliptical incision measuring about 3.7 x 0.4 cm to remove this old scar and open wound, dissected down through the skin into subcutaneous tissue with Bovie electrocautery. An incision was made down through the skin to subcutaneous tissue with a #15 blade and then dissected down to take this off with Bovie electrocautery down into what we found the previous biopsy cavity was filled with epithelium lined harrison, rough this up with some Bovie electrocautery, then elected to close this with 3-0 Vicryl and then closed the skin with 4-0 undyed Monocryl 3 interrupted subcuticular stitches. Area was cleaned and dried. Dermabond placed as well as a pressure dressing. The patient tolerated the procedure. Sponge, instrument and needle count correct at the end of the case. Job ID: [id number] DocumentID: [id number] Dictated Date: 09/28/2021 16:47:33 Cutlet Maker Pork Date: 09/28/2021 23:58:22 Dictated By: YOGESH GERBER DO
== END 2021-09-28 15:35 | disposition home or self-care (01) ==
LOC: SDC 10:33
PROVIDERS: ATTEND Surgery
DX: S21.001A Unspecified open wound of right breast, initial encounter (principal); K21.9 Gastro-esophageal reflux disease without esophagitis; E66.9 Obesity, unspecified; F17.210 Nicotine dependence, cigarettes, uncomplicated; Z68.41 Body mass index [BMI] 40.0-44.9, adult; Z90.710 Acquired absence of both cervix and uterus; Z79.899 Other long term (current) drug therapy; Z90.49 Acquired absence of other specified parts of digestive tract; Z80.3 Family history of malignant neoplasm of breast
CPT/HCPCS: 87081

== ENCOUNTER → 2022-02-20 | Outpatient (CLI) | payer OTHER ==
--- NOTE | 2022-02-20 12:46 | Diagnostic Imaging Report ---
PROCEDURE: MRI lumbar spine. TECHNIQUE: Multiplanar, multisequence MRI of the lumbar spine was performed without contrast. INDICATION: Chronic low back pain, right lower extremity radiculopathy. Its compared with lumbar MR 03/03/2014 as well as correlated with previous lumbar CT dated 09/07/2014. FINDINGS: Lumbar vertebral statures are stable. The marrow signal intensity normal. The alignment anatomic. The pedicles and pars intact. The lower thoracic cord and conus appeared normal. There is normal dispersal of the nerves of the cauda equina. There is no paravertebral mass, hemorrhage or fluid collection. The T12-L1, the L1-L2, the L2-L3, and the L3-L4 levels and discs are stable and normal. The spinal canal, the neural foramen and lateral recesses were all widely patent at those levels. L4-L5: There is very trace disc desiccation and stature loss associated with some mild eccentric rightward disc bulging which results in very mild right foraminal narrowing. Spinal canal and lateral recesses widely patent. L5-S1: Mild disc desiccation and stature loss is associated with postero-right lateral broad-based disc bulging and peripheral annular tearing of the disc. These findings result in mild or mild to moderate right neural foraminal narrowing. Left neural foramen is slightly narrowed. Disc material is in close proximity to the takeoff of the descending right S1 nerve but it was not contacted, displaced or thickened. Disc material effaces the right ventral epidural fat but did not distort or narrow the thecal sac itself. IMPRESSION: Slight increased degenerative bulging of L4-L5 and L5-S1 discs with mild increased right-sided foraminal narrowing as detailed above. No substantial canal stenosis. Normal alignment. No acute bony pathology. The remaining levels stable and normal. Dictated by: Dictated on workstation # [id number]
== END ==
LOC: RAD 09:19
PROVIDERS: ATTEND Physician Assistant
DX: M51.26 Other intervertebral disc displacement, lumbar region (principal); M51.27 Other intervertebral disc displacement, lumbosacral region; M48.061 Spinal stenosis, lumbar region without neurogenic claudication; M51.37 Other intervertebral disc degeneration, lumbosacral region; M48.07 Spinal stenosis, lumbosacral region
CPT/HCPCS: 72148